=== PATIENT | female | born 1995 | race Hispanic/Latino ===

== ENCOUNTER 2024-03-23 04:30 | Emergency (ER) | payer OTHER ==
--- OUTSIDE RECORDS SUMMARY | 2024-03-23 04:35 | XMS REPORT | Continuity of Care Document ---
Author Name Unknown Address [address] [facility] [address]. [address] [place] [address] [facility] Address [address] [facility]. 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 Role Phone Alecia Kim Primary Care Physician [phone]- [phone] SHARLA PULLIAM Attending Clinician Unavailab SHARLA Howe Attending Clinician Unavailab ALECIA Hendricks Attending Clinician UnavailALECIA Hernandez Attending Clinician Unavailabl e 1, [facility] Clementine Nurse Attending Clinician Un available Celeste Hill CNM Attending Clinician [phone] CELESTE HILL Attending Clinician Unavailable PAPA CARLSON Attending Clinician Unavailable PAPA CARLSON Attending Clinician Unavailable Papa Carlson MD Attending Clinician [phone] Ana Luisa Rodriguez MD Attending Clinician + Sara Steven MD Attending Clinician [phone] Karla Martinez MD Attending Clinician +[phone] USAMA PACHECO Attending Clinician Unavailable EVELIA WHITING Attending Clinician Unav ailable Mary Lou Chew MD, Evelia Attending Clinician + LEN ARIAS Attending Clinician Unav ailable 1, [facility] Attending Clinician Unavailab uvaldo Bach MD, Len Attending Clinician + Pedro Pablo SANDRAAna L Attending Clinician + [phone] JESSICA GONZALES Attending Clinician Unavailable JESSICA GONZALES Attending Clinician Unavailable Christian REYNA, Jessica Attending Clinician [phone] William RN, Gunjan Attending Clinician UnavailNILESH Cheney Attending Clinician Unavailab uvaldo Silva MD, Nilesh Ortega Attending Clinician [phone] IVETH RICHARDSON Attending Clinician Unavailable IVETH RICHARDSON Attending Clinician Unavailable Doctor Unassigned, [place] Attending Clinician U navailable Lab, [facility] Attending Clinician Unavailable Vaishnavi Mullins Attending Clinician [phone] VAISHNAVI DE LA CRUZ Attending Clinician UnavailMINNIE Ocasio Attending Clinician Unavailable 2, [facility] Attending Clinician Unavailab Minnie Nowak MD Attending Clinician [phone] Jori Tafoya V Attending Clinician Unavailab Adonay Perdomo Attending Clinician Unavailable Suleman Walters Attending Clinician Unainez Alcantara Rn RN, Grace Arnold Attending Clinician Unava ilable PAPA CARLSON Admitting Clinician Unavailable Aldo REYNA, Papa Admitting Clinician [phone] EVELIA WHITING Admitting Clinician Unav ailable Evelia Whiting MD Admitting Clinician + JESSICA GONZALES Admitting Clinician Unavailable Jessica Gonzales MD Admitting Clinician [phone] NILESH SILVA Admitting Clinician Unavailab uvaldo Silva MD, Nilesh Ortega Admitting Clinician [phone] IVETH RICHARDSON Admitting Clinician Unavailable Rosa Maria Sanches Admitting Clinician Unavailable Physician, No Primary or Family Admitting Clinic alirio Unavailable Payers Payer Name Policy Type Policy Number Effective Date Expirati on Date Source [facility] MAT[facility]W [id number] 2022 00:00:00 Problems Condition Name Condition Details Condition Category Status Onset Date Resolution Date Last Treatment Date Treating Clinician Comments Source anemia anemia Disease Active 5-17 00:00: 00 [facility] Indication for care in labor or delivery-I OL Indication for care in labor or delivery-I OL Disease Active 5-15 00:00: 00 [facility] Abnormal maternal glucose tolerance, antepartum Abnormal maternal glucose tolerance, antepartum Disease Active 2-15 00:00: 00 [facility] 39 weeks gestation of 39 weeks gestation of Disease Resolve d 15 00:00: 00 2023-08-03 00:00:00 2023-08-03 15:09:44 [facility] Morbid obesity with body mass index of 40.0-49.9 Morbid obesity with body mass index of 40.0-49.9 Disease Resolve d 15 00:00: 00 2023-08-03 00:00:00 2023-08-03 15:09:43 [facility] Maternal care for unstable lie Maternal care for unstable lie Disease Resolve d 515 00:00: 00 2023-08-03 00:00:00 2023-08-03 15:09:41 [facility] delivery delivered delivery delivered Disease Resolve d 15 00:00: 00 2023-08-03 00:00:00 2023-08-03 15:09:52 Overview: Formattin g of this note might be different from the original. LTCS due to protracte d labor and maternal request [facility] Obesity (BMI 30-39.9) Obesity (BMI 30-39.9) Disease Resolve d 5-05 00:00: 00 2023-08-03 00:00:00 2023-08-03 15:09:44 [facility] Anemia affecting , antepartum Anemia affecting , antepartum Disease Resolve d 2024-0 4-23 00:00: 00 2023-08-03 00:00:00 2023-08-03 15:09:45 [facility] Uterine size-date discrepanc y in third trimester Uterine size-date discrepanc y in third trimester Disease Resolve d 2023-0 4-18 00:00: 00 2023-08-03 00:00:00 2023-08-03 15:09:53 [facility] Abnormal O'Thomas glucose challenge test, antepartum Abnormal O'Thomas glucose challenge test, antepartum Disease Resolve d 2023-0 2-15 00:00: 00 2023-08-03 00:00:00 2023-08-03 15:09:47 Overview: Formattin g of this note might be different from the original. 3 hr GTT WNL [facility] Supervisio n of high risk in third trimester Supervisio n of high risk in third trimester Disease Resolve d 2022-1 2-27 00:00: 00 2023-08-03 00:00:00 2023-08-03 15:09:50 [facility] Multiparit y Multiparit y Disease Resolve d 2022-0 9-13 00:00: 00 2023-08-03 00:00:00 2023-08-03 15:09:51 [facility] Obesity affecting , antepartum Obesity affecting , antepartum Disease Resolve d 2022-0 9-13 00:00: 00 2023-08-03 00:00:00 2023-08-03 15:09:51 [facility] Transverse or oblique presentati on, antepartum Transverse or oblique presentati on, antepartum Disease Resolve d 2023-0 4-10 00:00: 00 2023-07-12 00:00:00 2023-07-12 16:53:38 [facility] Decreased movement Decreased movement Disease Resolve d 2023-0 3-28 00:00: 00 2023-07-12 00:00:00 2023-07-12 16:53:27 [facility] Nausea and vomiting in Nausea and vomiting in Disease Resolve d 2023-0 3-26 00:00: 00 2023-07-12 00:00:00 2023-07-12 16:53:32 [facility] Urinary tract infection in mother during , antepartum Urinary tract infection in mother during , antepartum Disease Resolve d 2022-0 9-19 00:00: 00 2023-07-12 00:00:00 2023-07-12 16:53:46 [facility] 15 weeks gestation of 15 weeks gestation of Disease Resolve d 2022-02 00:00: 00 2023-02-22 00:00:00 2023-02-22 15:41:28 [facility] Ovarian cyst, left Ovarian cyst, left Disease Resolve d 2022-02 00:00: 00 2023-02-22 00:00:00 2023-02-22 15:41:31 [facility] Supervisio n of high risk in first trimester Supervisio n of high risk in first trimester Disease Resolve d 9- 00:00: 00 2023-01-23 00:00:00 2023-01-23 09:51:49 [facility] Allergies, Adverse Reactions, Alerts Allergy Name Allergy Type Status Severity Reaction(s) Onset Date Inactive Date Treating Clinician Comments Source No Known Allergie s DA Active U 08-02 00:00: 00 [facility] No Known Allergie s DA Active U 08-02 00:00: 00 [facility] NO KNOWN ALLERGIE S Drug Class Active [facility] Social History Social Habit Start Date Stop Date Quantity Comments Source ASSERTION 2022-10-25 00:00:00 [facility] Alcoholic beverage intake 2023-08-24 00:00:00 2023-08-24 00:00:00 Lifetime non-drinker (finding) [facility] Alcohol intake 2023-06-29 00:00:00 2023-06-29 00:00:00 Lifetime non-drinker (finding) [facility] History of Social function 2023-05-10 00:00:00 2023-05-10 00:00:00 [facility] Tobacco use and exposure 2022-11-09 00:00:00 2022-11-09 00:00:00 Smokeless tobacco non-user [facility] Sex assigned at 1995 00:00:00 1995 00:00:00 [facility] Smoking Status Start Date Stop Date Source Never smoked tobacco [facility] Medications Ordered Medication Name Filled Medication Name Start Date Stop Date Current Medication? Ordering Clinician Indication Dosage Frequency Signature (SIG) Comments Components Source docusate (COLACE) capsule 200 mg 07-13 14:00: 00 07-14 03:35 :13 No 200mg 200 mg, Oral, DAILY, First dose on Mon07/14/23 at 0900, Until Discontinu ed, Routine [facility] ferrous sulfate 325 mg (65 mg iron) tablet 07-13 00:00: 00 Yes [id number] 325mg Take 1 tablet by mouth in the morning. [facility] [id number] fum-folic 27 mg iron- 1 mg folic tablet 07-13 00:00: 00 Yes [id number] 1{tbl} Take 1 tablet by mouth in the morning. [facility] docusate 100 mg capsule 07-13 00:00: 00 Yes [id number] 200mg Take 2 capsules by mouth once daily as needed for Constipati on. [facility] ibuprofen 800 mg tablet 07-13 00:00: 00 Yes [id number] 800mg Take 1 tablet by mouth every 8 (eight) hours as needed (pain). Take with food or milk. [facility] oxyCODONE 5 mg immediate release tablet 07-13 00:00: 00 07-21 04:59 :00 No [id number] 5mg Take 1 tablet by mouth every 6 (six) hours as needed (pain) for up to 7 days. Indication s: acute pain [facility] ibuprofen (IBU) tablet 800 mg 07-12 22:30: 00 07-14 03:35 :13 No 800mg 800 mg, Oral, Q8HA1, First dose on Mon07/13/23 at 1730, Until Discontinu ed, Routine [facility] acetaminoph en (TYLENOL) tablet 1,000 mg 07-12 19:00: 00 07-14 03:35 :13 No 1000mg 1,000 mg, Oral, Q8H, First dose on Mon07/13/23 at 1400, Until Discontinu ed, Routine [facility] simethicone (GAS RELIEF (SIMETHICON E)) chewable tablet 160 mg 07-12 19:00: 00 07-14 03:35 :13 No 160mg 160 mg, Oral, TID, First dose on Mon07/13/23 at 1400, Until Discontinu ed, Routine [facility] rho(D) immune globulin (HYPERRHO/R HOGAM) syringe 300 mcg 07-12 18:57: 58 07-14 03:35 :13 No 300ug [facility] human papillomav vac,9-silas(P F) (GARDASIL-9 ) syringe 0.5 mL 07-12 18:57: 53 07-14 03:35 :13 No .5mL [facility] diphenhydrA MINE (BENADRYL) injection 25 mg 07-12 18:57: 53 07-14 03:35 :13 No 25mg [facility] diphenhydrA MINE (BENADRYL) tablet 25 mg 07-12 18:57: 53 07-14 03:35 :13 No 25mg [facility] ondansetron (ZOFRAN (PF)) injection 4 mg 07-12 18:57: 53 07-14 03:35 :13 No 4mg [facility] bisacodyL (DULCOLAX) suppository 10 mg 07-12 18:57: 53 07-14 03:35 :13 No 10mg [facility] magnesium hydroxide (MILK OF MAGNESIA) 400 mg/5 mL suspension 30 mL 07-12 18:57: 53 07-14 03:35 :13 No 30mL 30 mL, Oral, QDAILYPRN, Starting on Mary 07/13/23 at 1357, Until Mon07/14/23 at 2235, Routine, Constipati on [facility] lactated ringers IV infusion 1,000 mL 07-12 18:57: 53 07-12 20:10 :17 No 1000mL at 125 mL/hr, 1,000 mL, IV Infusion, PRN, 1 dose, Starting on Mary 07/13/23 at 1357, Until Mary 07/13/23 at 1510, Routine [facility] oxyCODONE immediate release tablet 5 mg 07-12 18:53: 39 07-14 03:35 :13 No 5mg 5 mg, Oral, Q6HPRN, Starting on Mary 07/13/23 at 1353, Until Mon07/14/23 at 2235, Routine, Pain (scale 7-10), 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 Restricted medication : OB FACULTY [facility] ketorolac (TORADOL) injection 07-12 18:01: 00 07-12 18:09 :47 No Slow IV Push, ONCE INTRA PROCEDURE, Starting on Mary 07/13/23 at 1301, Until Mary 07/13/23 at 1309, Routine, Intra-op [facility] morpHINE PF (DURAMORPH- PF) injection 07-12 17:57: 00 07-12 18:09 :47 No Epidural, ONCE INTRA PROCEDURE, Starting on Mary 07/13/23 at 1257, Until Mary 07/13/23 at 1309, Routine, Intra-op [facility] FENTanyl PF (SUBLIMAZE (PF)) injection 07-12 17:36: 00 07-12 18:09 :47 No Intratheca l, ONCE INTRA PROCEDURE, Starting on Mary 07/13/23 at 1236, Until Mary 07/13/23 at 1309, Routine, Intra-op [facility] midazolam (VERSED) injection 07-12 17:20: 00 07-12 18:09 :47 No IV Push, ONCE INTRA PROCEDURE, Starting on Mary 07/13/23 at 1220, Until Mary 07/13/23 at 1309, Routine, Intra-op [facility] azithromyci n (ZITHROMAX) 500 mg in NaCl 0.9% (NS) 250 mL VIAL-MATE IV piggyback 07-12 17:15: 00 07-12 16:52 :00 No 500mg 500 mg, IV Piggyback, ONCE, 1 dose, On Mary 07/13/23 at 1215, Administer over 60 Minutes, 250 mL, Reason for Anti-Infec tive: Surgical Prophylaxi s, 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, Duration of therapy: within 24 hours of surgery [facility] ceFAZolin (ANCEF) 2,000 mg in NaCl 0.9% (NS) 100 mL VIAL-MATE 07-12 17:15: 00 07-12 17:10 :00 No 2000mg 2,000 mg, IV Piggyback, ONCE, 1 dose, On Mary 07/13/23 at 1215, Administer over 30 Minutes, 100 mL, Reason for Anti-Infec tive: Surgical Prophylaxi s, 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, Duration of therapy: within 24 hours of surgery [facility] FENTanyl PF (SUBLIMAZE (PF)) injection 07-12 17:03: 00 07-12 18:09 :47 No Epidural, ONCE INTRA PROCEDURE, Starting on Mary 07/13/23 at 1203, Until Mary 07/13/23 at 1309, Routine, Intra-op [facility] phenylephri ne (VAZCULEP) injection 07-12 16:57: 00 07-12 18:09 :47 No Intravenou s, CONTINUOUS PRN, Starting on Mary 07/13/23 at 1157, Until Mary 07/13/23 at 1309, Routine, Intra-op [facility] lactated ringers IV infusion 07-12 16:47: 00 07-12 18:09 :47 No IV Infusion, CONTINUOUS PRN, Starting on Mary 07/13/23 at 1147, Until Mary 07/13/23 at 1309, Routine, Intra-op [facility] lidocaine-e pinephrine (XYLOCAINE W/EPINEPHRI NE) 2 %-1:200,000 injection 07-12 16:40: 00 07-12 18:09 :47 No Epidural, ONCE INTRA PROCEDURE, Starting on Mary 07/13/23 at 1140, Until Mary 07/13/23 at 1309, Routine, Intra-op [facility] amnioinfusi on IV infusion via GRAVITY 0.9 NaCL 1,000 mL 07-12 12:45: 00 07-12 12:47 :00 No 1000mL at 750 mL/hr, Intrauteri ne, ONCE, 1 dose, On Mary 07/13/23 at 0745, DAVID, Infuse via gravity 750 ml over 1 hour. Once 750 mL has been infused, the infusion may be discontinu ed or decreased to 100 mL/hr until the liter is complete. 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 Obstetrics (JUSTINO) Aminoinfus ion Orders [facility] ondansetron (ZOFRAN (PF)) injection 4 mg 07-12 12:30: 00 07-12 17:14 :00 No 4mg 4 mg, Slow IV Push, ONCE, On Mary 07/13/23 at 0730, For 1 dose, Doses of ondansetro n 16 mg and above need to be administer ed via IV piggyback. For Dose >=24mg ECG monitoring is advisable. [facility] acetaminoph en (TYLENOL) tablet 650 mg 07-12 03:40: 35 07-12 18:57 :56 No 650mg 650 mg, Oral, Q6HPRN, Starting on Mon07/12/23 at 2240, Until Mary 07/13/23 at 1357, Routine, Pain (scale 4-6) [facility] ropivacaine 0.2 % (NAROPIN (PF)) epidural infusion 07-12 00:52: 00 07-12 18:09 :47 No Epidural, CONTINUOUS PRN, Starting on Mon07/12/23 at 1952, Until Mary 07/13/23 at 1309, Routine, Intra-op [facility] lidocaine-e pinephrine (XYLOCAINE W/EPINEPHRI NE) 1.5 %-1:200,000 injection 07-12 00:50: 00 07-12 18:09 :47 No Epidural, ONCE INTRA PROCEDURE, Starting on Mon07/12/23 at 1950, Until Mary 07/13/23 at 1309, Routine, Intra-op [facility] lactated ringers IV infusion 700 mL 07-11 20:45: 00 07-12 00:25 :42 No 700mL at 999 mL/hr, 700 mL, IV Infusion, ONCE, 1 dose, On Mon07/12/23 at 1545, Routine [facility] sodium citrate-cit tommie acid (BICITRA) 500-334 mg/5 mL solution 30 mL 07-11 19:54: 22 07-12 00:34 :00 No 30mL 30 mL, Oral, PRE-PROCED URE ONCE, 1 dose, Starting on Mon07/12/23 at 1454, Until Mon07/12/23 at 1934, Routine, Surgery/Pr ocedure [facility] lactated ringers IV infusion 500 mL 07-11 19:54: 22 07-12 18:57 :56 No 500mL at 999 mL/hr, 500 mL, IV Infusion, PRN - SEE INSTRUCTIO NS, Starting on Mon07/12/23 at 1454, Until Mary 07/13/23 at 1357, Routine [facility] D5W-LR IV infusion 1,000 mL 07-11 19:54: 22 07-12 18:57 :56 No 1000mL at 1-125 mL/hr, IV Infusion, TITRATE, Starting on Mon07/12/23 at 1454, Until Mary 07/13/23 at 1357, Routine [facility] sodium citrate-cit tommie acid (BICITRA) 500-334 mg/5 mL solution 30 mL 07-11 19:54: 21 07-12 16:40 :00 No 30mL 30 mL, Oral, PRE-PROCED URE ONCE, 1 dose, Starting on Mon07/12/23 at 1454, Until Mon07/13/23 at 1140, Routine, Surgery/Pr ocedure [facility] acetaminoph en (TYLENOL) tablet 1,000 mg 07-01 11:15: 00 07-01 10:15 :00 No 1000mg 1,000 mg, Oral, ONCE, 1 dose, On Mon07/02/23 at 0615, Routine [facility] lactated ringers IV infusion 500 mL 07-01 09:45: 00 07-01 09:54 :39 No 500mL at 999 mL/hr, 500 mL, Intravenou s, ONCE, 1 dose, On Mon07/02/23 at 0445, Routine [facility] ferrous sulfate (IRON, FERROUS SULFATE,) 325 mg (65 mg iron) tablet 06-19 00:00: 00 Yes [id number] 325mg Take 1 tablet by mouth in the morning. [facility] lactated ringers IV infusion 500 mL 05-22 17:45: 00 05-22 17:09 :00 No 500mL at 999 mL/hr, 500 mL, IV Infusion, ONCE, 1 dose, On Mon05/23/23 at 1245, STAT [facility] ondansetron (ZOFRAN (PF)) injection 4 mg 05-22 17:45: 00 05-22 17:13 :00 No 4mg 4 mg, Slow IV Push, ONCE, On Mon05/23/23 at 1245, For 1 dose
Do ses of ondansetro n 16 mg and above need to be administer ed via IV piggyback. For Dose >=24mg ECG monitoring is advisable.
[facility] ondansetron 4 mg disintegrat ing tablet 05-22 00:00: 00 Yes [id number] 4mg Take 1 tablet by mouth every 8 (eight) hours as needed for Nausea and Vomiting (N/V). [facility] metroNIDAZO LE 500 mg tablet 2022-02 00:00: 00 03-22 00:00 :00 No [id number] 500mg Take 1 tablet by mouth every 12 (twelve) hours. [facility] sulfamethox azole-trime thoprim (BACTRIM DS) 800-160 mg per tablet 11-15 00:00: 00 11-21 04:59 :00 No [id number] 1{tbl} Take 1 tablet by mouth in the morning and 1 tablet in the evening. Do all this for 5 days. [facility] Nitrofurant oin&Nit. Macrocryst (MACROBID) 100 mg capsule 11-09 00:00: 00 11-15 00:00 :00 No [id number] 100mg Take 1 capsule by mouth in the morning and 1 capsule in the evening. Do all this for 7 days. [facility] Immunizations Ordered Immunization Name Filled Immunization Name Date Status Comments Source Influenza Virus Vaccine Quad IM, Preserv and ABX Free 6 MO-64 YRS (FLUCELVAX) Unknown Completed [facility] Influenza Virus Vaccine Quad IM, Preserv and ABX Free 6 MO-64 YRS (FLUCELVAX) Unknown Completed [facility] Influenza Virus Vaccine Quad IM, Preserv and ABX Free 6 MO-64 YRS (FLUCELVAX) Unknown Completed [facility] Influenza Virus Vaccine Quad IM, Preserv and ABX Free 6 MO-64 YRS (FLUCELVAX) Unknown Completed [facility] Influenza Virus Vaccine Quad IM, Preserv and ABX Free 6 MO-64 YRS (FLUCELVAX) Unknown Completed [facility] Influenza Virus Vaccine Quad IM, Preserv and ABX Free 6 MO-64 YRS (FLUCELVAX) Unknown Completed [facility] Influenza Virus Vaccine Quad IM, Preserv and ABX Free 6 MO-64 YRS (FLUCELVAX) Unknown Completed [facility] Influenza Virus Vaccine Quad IM, Preserv and ABX Free 6 MO-64 YRS (FLUCELVAX) Unknown Completed [facility] Influenza Virus Vaccine Quad IM, Preserv and ABX Free 6 MO-64 YRS (FLUCELVAX) Unknown Completed [facility] Influenza Virus Vaccine Quad IM, Preserv and ABX Free 6 MO-64 YRS (FLUCELVAX) Unknown Completed [facility] Influenza Virus Vaccine Quad IM, Preserv and ABX Free 6 MO-64 YRS (FLUCELVAX) Unknown Completed [facility] Influenza Virus Vaccine Quad IM, Preserv and ABX Free 6 MO-64 YRS (FLUCELVAX) Unknown Completed [facility] TDAP Unknown Completed [facility] Influenza Virus Vaccine Quad IM, Preserv and ABX Free 6 MO-64 YRS (FLUCELVAX) Unknown Completed [facility] TDAP Unknown Completed [facility] Influenza Virus Vaccine Quad IM, Preserv and ABX Free 6 MO-64 YRS (FLUCELVAX) Unknown Completed [facility] Influenza Virus Vaccine Quad IM, Preserv and ABX Free 6 MO-64 YRS (FLUCELVAX) Unknown Completed [facility] TDAP Unknown Completed [facility] Influenza Virus Vaccine Quad IM, Preserv and ABX Free 6 MO-64 YRS (FLUCELVAX) Unknown Completed [facility] TDAP Unknown Completed [facility] Influenza Virus Vaccine Quad IM, Preserv and ABX Free 6 MO-64 YRS (FLUCELVAX) Unknown Completed [facility] TDAP Unknown Completed [facility] Influenza Virus Vaccine Quad IM, Preserv and ABX Free 6 MO-64 YRS (FLUCELVAX) Unknown Completed [facility] TDAP Unknown Completed [facility] Influenza Virus Vaccine Quad IM, Preserv and ABX Free 6 MO-64 YRS (FLUCELVAX) Unknown Completed [facility] TDAP Unknown Completed [facility] Influenza Virus Vaccine Quad IM, Preserv and ABX Free 6 MO-64 YRS (FLUCELVAX) Unknown Completed [facility] TDAP Unknown Completed [facility] Influenza Virus Vaccine Quad IM, Preserv and ABX Free 6 MO-64 YRS (FLUCELVAX) Unknown Completed [facility] TDAP Unknown Completed [facility] Influenza Virus Vaccine Quad IM, Preserv and ABX Free 6 MO-64 YRS (FLUCELVAX) Unknown Completed [facility] TDAP Unknown Completed [facility] Influenza Virus Vaccine Quad IM, Preserv and ABX Free 6 MO-64 YRS (FLUCELVAX) Unknown Completed [facility] TDAP Unknown Completed [facility] Influenza Virus Vaccine Quad IM, Preserv and ABX Free 6 MO-64 YRS (FLUCELVAX) Unknown Completed [facility] TDAP Unknown Completed [facility] Influenza Virus Vaccine Quad IM, Preserv and ABX Free 6 MO-64 YRS (FLUCELVAX) Unknown Completed [facility] TDAP Unknown Completed [facility] Influenza Virus Vaccine Quad IM, Preserv and ABX Free 6 MO-64 YRS (FLUCELVAX) Unknown Completed [facility] TDAP Unknown Completed [facility] Influenza Virus Vaccine Quad IM, Preserv and ABX Free 6 MO-64 YRS (FLUCELVAX) Unknown Completed [facility] TDAP Unknown Completed [facility] Influenza Virus Vaccine Quad IM, Preserv and ABX Free 6 MO-64 YRS (FLUCELVAX) Unknown Completed [facility] TDAP Unknown Completed [facility] Influenza Virus Vaccine Quad IM, Preserv and ABX Free 6 MO-64 YRS (FLUCELVAX) Unknown Completed [facility] TDAP Unknown Completed [facility] Influenza Virus Vaccine Quad IM, Preserv and ABX Free 6 MO-64 YRS (FLUCELVAX) Unknown Completed [facility] TDAP Unknown Completed [facility] Influenza Virus Vaccine Quad IM, Preserv and ABX Free 6 MO-64 YRS (FLUCELVAX) Unknown Completed [facility] TDAP Unknown Completed [facility] Influenza Virus Vaccine Quad IM, Preserv and ABX Free 6 MO-64 YRS (FLUCELVAX) Unknown Completed [facility] TDAP Unknown Completed [facility] Influenza Virus Vaccine Quad IM, Preserv and ABX Free 6 MO-64 YRS (FLUCELVAX) Unknown Completed [facility] TDAP Unknown Completed [facility] Influenza Virus Vaccine Quad IM, Preserv and ABX Free 6 MO-64 YRS (FLUCELVAX) Unknown Completed [facility] TDAP Unknown Completed [facility] Influenza Virus Vaccine Quad IM, Preserv and ABX Free 6 MO-64 YRS (FLUCELVAX) Unknown Completed [facility] TDAP Unknown Completed [facility] Influenza Virus Vaccine Quad IM, Preserv and ABX Free 6 MO-64 YRS (FLUCELVAX) Unknown Completed [facility] TDAP Unknown Completed [facility] Influenza Virus Vaccine Quad IM, Preserv and ABX Free 6 MO-64 YRS (FLUCELVAX) Unknown Completed [facility] TDAP Unknown Completed [facility] Influenza Virus Vaccine Quad IM, Preserv and ABX Free 6 MO-64 YRS (FLUCELVAX) Unknown Completed [facility] TDAP Unknown Completed [facility] Influenza Virus Vaccine Quad IM, Preserv and ABX Free 6 MO-64 YRS (FLUCELVAX) Unknown Completed [facility] TDAP Unknown Completed [facility] Influenza Virus Vaccine Quad IM, Preserv and ABX Free 6 MO-64 YRS (FLUCELVAX) Unknown Completed [facility] TDAP Unknown Completed [facility] Influenza Virus Vaccine Quad IM, Preserv and ABX Free 6 MO-64 YRS (FLUCELVAX) Unknown Completed [facility] TDAP Unknown Completed [facility] Vital Signs Vital Name Observation Time Observation Value Comments S ource Systolic blood pressure 2023-08-24 19:17:00 90 mm[facility]Hg[facility] Diastolic blood pressure 2023-08-24 19:17:00 50 mm[Hg] [facility] Heart rate 2023-08-24 19:17:00 62 /min [facility] Body temperature 2023-08-24 19:17:00 36.61 Whitney [facility] Respiratory rate 2023-08-24 19:17:00 16 /min [facility] Body height 2023-08-24 19:17:00 137.2 cm [facility] Body weight 2023-08-24 19:17:00 67.643 kg [facility] BMI 2023-08-24 19:17:00 35.93 kg/m2 [facility] Systolic blood pressure 2023-08-03 20:22:00 95 mm[Hg] [facility] Diastolic blood pressure 2023-08-03 20:22:00 59 mm[Hg] [facility] Heart rate 2023-08-03 20:22:00 68 /min Unive [facility] Body temperature 2023-08-03 20:22:00 36.5 Whitney [facility] Respiratory rate 2023-08-03 20:22:00 17 /min [facility] Body height 2023-08-03 20:22:00 137.2 cm [facility] Body weight 2023-08-03 20:22:00 67.302 kg [facility] BMI 2023-08-03 20:22:00 35.75 kg/m2 Univ [facility] Systolic blood pressure 2023-07-20 16:34:00 99 mm[Hg] [facility] Diastolic blood pressure 2023-07-20 16:34:00 59 mm[Hg] [facility] Heart rate 2023-07-20 16:34:00 63 /min Unive [facility] Body temperature 2023-07-20 16:34:00 36.61 Whitney [facility] Respiratory rate 2023-07-20 16:34:00 20 /min [facility] Body weight 2023-07-20 16:34:00 72.122 kg [facility] BMI 2023-07-20 16:34:00 38.31 kg/m2 [facility] Oxygen saturation in Arterial blood by Pulse oximetry 2023-07-20 16:34:00 100 /min [facility] Systolic blood pressure 2023-07-14 17:11:00 91 mm[Hg] [facility] Diastolic blood pressure 2023-07-14 17:11:00 54 mm[Hg] [facility] Heart rate 2023-07-14 17:11:00 112 /min [facility] Body temperature 2023-07-14 17:11:00 36.44 Whitney [facility] Respiratory rate 2023-07-14 17:11:00 18 /min [facility] Oxygen saturation in Arterial blood by Pulse oximetry 2023-07-14 17:11:00 98 /min [facility] Body weight 2023-07-12 19:53:00 77.111 kg Univ [facility] BMI 2023-07-12 19:53:00 40.96 kg/m2 Univ [facility] Body height 2023-07-12 19:10:00 137.2 cm [facility] Systolic blood pressure 2023-07-13 19:20:00 101 mm[Hg] [facility] Diastolic blood pressure 2023-07-13 19:20:00 70 mm[Hg] [facility] Heart rate 2023-07-13 19:20:00 98 /min [facility] Body temperature 2023-07-13 19:20:00 36.67 Whitney [facility] Respiratory rate 2023-07-13 19:20:00 21 /min [facility] Oxygen saturation in Arterial blood by Pulse oximetry 2023-07-13 19:20:00 97 /min [facility] Body weight 2023-07-12 19:53:00 77.111 kg [facility] BMI 2023-07-12 19:53:00 40.96 kg/m2 [facility] Body height 2023-07-12 19:10:00 137.2 cm [facility] Systolic blood pressure 2023-07-10 14:11:00 100 mm[Hg] [facility] Diastolic blood pressure 2023-07-10 14:11:00 67 mm[Hg] [facility] Heart rate 2023-07-10 14:11:00 91 /min [facility] Body temperature 2023-07-10 14:11:00 36.89 Whitney [facility] Body height 2023-07-10 14:11:00 137.2 cm Univ [facility] Body weight 2023-07-10 14:11:00 77.111 kg [facility] BMI 2023-07-10 14:11:00 40.99 kg/m2 [facility] Systolic blood pressure 2023-07-02 10:30:00 99 mm[Hg] [facility] Diastolic blood pressure 2023-07-02 10:30:00 55 mm[Hg] [facility] Heart rate 2023-07-02 10:30:00 76 /min Un[facility] Oxygen saturation in Arterial blood by Pulse oximetry 2023-07-02 10:30:00 97 /min [facility] Respiratory rate 2023-07-02 09:30:00 18 /min [facility] Body temperature 2023-07-02 08:39:00 36.67 Whitney [facility] Body height 2023-07-02 08:30:00 139.7 cm Univ [facility] Body weight 2023-07-02 08:30:00 77.656 kg [facility] BMI 2023-07-02 08:30:00 39.79 kg/m2 [facility] Systolic blood pressure 2023-06-29 13:58:00 100 mm[Hg] [facility] Diastolic blood pressure 2023-06-29 13:58:00 64 mm[Hg] [facility] Heart rate 2023-06-29 13:58:00 96 /min [facility] Body temperature 2023-06-29 13:58:00 36.67 Whitney [facility] Respiratory rate 2023-06-29 13:58:00 18 /min [facility] Body height 2023-06-29 13:58:00 139.7 cm [facility] Body weight 2023-06-29 13:58:00 77.565 kg [facility] BMI 2023-06-29 13:58:00 39.74 kg/m2 [facility] Systolic blood pressure 2023-06-22 11:59:00 97 mm[Hg] [facility] Diastolic blood pressure 2023-06-22 11:59:00 66 mm[Hg] [facility] Heart rate 2023-06-22 11:59:00 97 /min [facility] Body temperature 2023-06-22 11:59:00 36.17 Whitney [facility] Respiratory rate 2023-06-22 11:59:00 17 /min [facility] Body height 2023-06-22 11:59:00 139.7 cm [facility] Body weight 2023-06-22 11:59:00 78.189 kg [facility] BMI 2023-06-22 11:59:00 40.06 kg/m2 [facility] Systolic blood pressure 2023-06-15 15:59:00 98 mm[Hg] [facility] Diastolic blood pressure 2023-06-15 15:59:00 63 mm[Hg] [facility] Heart rate 2023-06-15 15:59:00 107 /min Unive [facility] Body temperature 2023-06-15 15:59:00 36.11 Whitney [facility] Respiratory rate 2023-06-15 15:59:00 18 /min [facility] Body height 2023-06-15 15:59:00 139.7 cm [facility] Body weight 2023-06-15 15:59:00 77.792 kg [facility] BMI 2023-06-15 15:59:00 39.86 kg/m2 [facility] Oxygen saturation in Arterial blood by Pulse oximetry 2023-06-15 15:59:00 97 /min [facility] Systolic blood pressure 2023-06-07 14:23:00 98 mm[Hg] [facility] Diastolic blood pressure 2023-06-07 14:23:00 69 mm[Hg] [facility] Heart rate 2023-06-07 14:23:00 117 /min Un[facility] Body temperature 2023-06-07 14:23:00 36.17 Whitney [facility] Respiratory rate 2023-06-07 14:23:00 17 /min [facility] Body height 2023-06-07 14:23:00 137.2 cm [facility] Body weight 2023-06-07 14:23:00 77.593 kg [facility] BMI 2023-06-07 14:23:00 41.24 kg/m2 [facility] Systolic blood pressure 2023-05-25 22:00:00 98 mm[Hg] [facility] Diastolic blood pressure 2023-05-25 22:00:00 55 mm[Hg] [facility] Heart rate 2023-05-25 22:00:00 97 /min Un[facility] Oxygen saturation in Arterial blood by Pulse oximetry 2023-05-25 22:00:00 98 /min [facility] Body temperature 2023-05-25 21:09:00 37.22 Whitney [facility] Respiratory rate 2023-05-25 21:09:00 18 /min [facility] Systolic blood pressure 2023-05-25 18:29:00 106 mm[Hg] [facility] Diastolic blood pressure 2023-05-25 18:29:00 70 mm[Hg] [facility] Heart rate 2023-05-25 18:29:00 100 /min Unive [facility] Body temperature 2023-05-25 18:29:00 36.33 Whitney [facility] Respiratory rate 2023-05-25 18:29:00 17 /min [facility] Body height 2023-05-25 18:29:00 137.2 cm [facility] Body weight 2023-05-25 18:29:00 77.593 kg [facility] BMI 2023-05-25 18:29:00 41.24 kg/m2 [facility] Heart rate 2023-05-24 16:54:00 105 /min Unive [facility] Body temperature 2023-05-24 16:54:00 36.72 Whitney [facility] Respiratory rate 2023-05-24 16:54:00 18 /min [facility] Body height 2023-05-24 16:54:00 137.2 cm [facility] Body weight 2023-05-24 16:54:00 77.111 kg [facility] BMI 2023-05-24 16:54:00 40.99 kg/m2 [facility] Oxygen saturation in Arterial blood by Pulse oximetry 2023-05-24 16:54:00 99 /min [facility] Systolic blood pressure 2023-05-24 13:55:00 94 mm[Hg] [facility] Diastolic blood pressure 2023-05-24 13:55:00 59 mm[Hg] [facility] Heart rate 2023-05-24 13:55:00 90 /min Unive [facility] Body temperature 2023-05-24 13:55:00 36.44 Whitney [facility] Respiratory rate 2023-05-24 13:55:00 17 /min [facility] Body height 2023-05-24 13:55:00 137.2 cm [facility] Body weight 2023-05-24 13:55:00 77.338 kg [facility] BMI 2023-05-24 13:55:00 41.11 kg/m2 [facility] Systolic blood pressure 2023-05-23 19:30:00 97 mm[Hg] [facility] Diastolic blood pressure 2023-05-23 19:30:00 59 mm[Hg] [facility] Heart rate 2023-05-23 19:30:00 98 /min Un[facility] Oxygen saturation in Arterial blood by Pulse oximetry 2023-05-23 19:30:00 99 /min [facility] Body height 2023-05-23 17:08:00 137.2 cm [facility] Body weight 2023-05-23 17:08:00 77.565 kg [facility] BMI 2023-05-23 17:08:00 41.23 kg/m2 [facility] Body temperature 2023-05-23 16:44:00 36.89 Whitney [facility] Respiratory rate 2023-05-23 16:44:00 16 /min [facility] Systolic blood pressure 2023-05-10 13:10:00 95 mm[Hg] [facility] Diastolic blood pressure 2023-05-10 13:10:00 61 mm[Hg] [facility] Heart rate 2023-05-10 13:10:00 89 /min [facility] Body temperature 2023-05-10 13:10:00 36.33 Whitney [facility] Respiratory rate 2023-05-10 13:10:00 18 /min [facility] Body height 2023-05-10 13:10:00 137.2 cm [facility] Body weight 2023-05-10 13:10:00 77.837 kg Univ [facility] BMI 2023-05-10 13:10:00 41.37 kg/m2 [facility] Systolic blood pressure 2023-04-26 15:03:00 100 mm[Hg] [facility] Diastolic blood pressure 2023-04-26 15:03:00 60 mm[Hg] [facility] Heart rate 2023-04-26 15:03:00 108 /min Un[facility] Body temperature 2023-04-26 15:03:00 35.89 Whitney [facility] Respiratory rate 2023-04-26 15:03:00 20 /min [facility] Body height 2023-04-26 15:03:00 137.2 cm Univ [facility] Body weight 2023-04-26 15:03:00 77.474 kg [facility] BMI 2023-04-26 15:03:00 41.18 kg/m2 [facility] Systolic blood pressure 2023-04-12 15:33:00 107 mm[Hg] [facility] Diastolic blood pressure 2023-04-12 15:33:00 63 mm[Hg] [facility] Heart rate 2023-04-12 15:33:00 99 /min Unive [facility] Body temperature 2023-04-12 15:33:00 36.11 Whitney [facility] Respiratory rate 2023-04-12 15:33:00 18 /min [facility] Body height 2023-04-12 15:33:00 137.2 cm [facility] Body weight 2023-04-12 15:33:00 77.65 kg Univ [facility] BMI 2023-04-12 15:33:00 41.28 kg/m2 [facility] Systolic blood pressure 2023-03-22 15:43:00 96 mm[Hg] [facility] Diastolic blood pressure 2023-03-22 15:43:00 59 mm[Hg] [facility] Heart rate 2023-03-22 15:43:00 88 /min [facility] Body temperature 2023-03-22 15:43:00 36.28 Whitney [facility] Respiratory rate 2023-03-22 15:43:00 22 /min [facility] Body height 2023-03-22 15:43:00 137.2 cm [facility] 2023-03-22 15:43:00 77.973 kg Univ [facility] BMI 2023-03-22 15:43:00 41.45 kg/m2 [facility] Systolic blood pressure 2023-02-22 21:36:00 95 mm[Hg] [facility] Diastolic blood pressure 2023-02-22 21:36:00 65 mm[Hg] [facility] Heart rate 2023-02-22 21:36:00 93 /min Unive [facility] Body temperature 2023-02-22 21:36:00 36.33 Whitney [facility] Respiratory rate 2023-02-22 21:36:00 17 /min [facility] Body height 2023-02-22 21:36:00 139.7 cm Univ [facility] Body weight 2023-02-22 21:36:00 76.289 kg Univ [facility] BMI 2023-02-22 21:36:00 39.09 kg/m2 [facility] Systolic blood pressure 2023-01-23 15:31:00 111 mm[Hg] [facility] Diastolic blood pressure 2023-01-23 15:31:00 70 mm[Hg] [facility] Heart rate 2023-01-23 15:31:00 86 /min Unive [facility] Body temperature 2023-01-23 15:31:00 36.44 Whitney [facility] Respiratory rate 2023-01-23 15:31:00 18 /min [facility] Body height 2023-01-23 15:31:00 139.7 cm [facility] 2023-01-23 15:31:00 74.844 kg [facility] BMI 2023-01-23 15:31:00 38.35 kg/m2 [facility] Systolic blood pressure 2022-12-26 14:53:00 99 mm[Hg] [facility] Diastolic blood pressure 2022-12-26 14:53:00 64 mm[Hg] [facility] Heart rate 2022-12-26 14:53:00 78 /min Unive [facility] Body temperature 2022-12-26 14:53:00 36.44 Whitney [facility] Respiratory rate 2022-12-26 14:53:00 18 /min [facility] Body height 2022-12-26 14:53:00 139.7 cm [facility] Body weight 2022-12-26 14:53:00 75.524 kg [facility] BMI 2022-12-26 14:53:00 38.70 kg/m2 [facility] Systolic blood pressure 2022-11-09 15:08:00 112 mm[Hg] [facility] Diastolic blood pressure 2022-11-09 15:08:00 71 mm[Hg] [facility] Heart rate 2022-11-09 15:08:00 76 /min [facility] Body temperature 2022-11-09 15:08:00 36.61 Whitney [facility] Respiratory rate 2022-11-09 15:08:00 17 /min [facility] Body height 2022-11-09 15:08:00 139.7 cm [facility] Body weight 2022-11-09 15:08:00 74.475 kg [facility] BMI 2022-11-09 15:08:00 38.16 kg/m2 [facility] Procedures Procedure Date / Time Performed Performing Clinician Source CBC WITH DIFF 2023-07-14 10:22:00 Robyn Barrow [facility] CBC WITH DIFF 2023-07-14 10:22:00 Robyn Barrow [facility] SURGICAL PATHOLOGY EXAM 2023-07-13 17:27:00 [facility] 2023-07-13 17:13:00 [facility] 2023-07-13 17:13:00 [facility] [id number] [facility] ME DELIVERY ONLY 2023-07-13 16:31:00 Michael Ana Luisa [facility] TUBAL LIGATION 2023-07-13 16:31:00 Scar Rodriguez [facility] CENTRAL NEURAXIAL BLOCK 2023-07-13 01:01:00 Keenan Aparicio [facility] HEPATITIS B SURFACE ANTIGEN 2023-07-12 20:19:00 Natacha Petit [facility] HB ABO GROUPING 2023-07-12 20:19:00 [facility] (D[facility] IMMUNE GLOBULIN 2023-07-12 20:19:00 [facility]AB WITH REFLEX 2023-07-12 20:19:00 Natacha Petit [facility] SYPHILIS IGG/IGM 2023-07-12 20:19:00 Natacha Petit [facility] HEPATITIS B SURFACE ANTIGEN 2023-07-12 20:19:00 Natacha Petit [facility] HB ABO GROUPING 2023-07-12 20:19:00 Natacha Petit Un [facility] RHO (D) IMMUNE GLOBULIN 2023-07-12 20:19:[address] [facility] HIV 1/2 AG-AB WITH REFLEX 2023-07-12 20:19:00 Natacha Petit [facility] SYPHILIS IGG/IGM 2023-07-12 20:19:00 Natacha Petit U [facility] POCT URINALYSIS W/O SPECIFIC GRAVITY 2023-07-10 14:10:00 Vaishnavi De La Cruz [facility] BASIC METABOLIC PANEL (NA, K, CL, CO2, GLUCOSE, BUN, CREATININE, CA) 2023-07-02 09:22:00 Hodgins, Heidi [facility] CBC WITHOUT DIFF 2023-07-02 09:22:00 Noe Jung [facility] POCT URINALYSIS W/O SPECIFIC GRAVITY 2023-06-29 14:01:00 Jacqueszeyad [facility] SECOND AND THIRD TRIMESTER ULTRASOUND 2023-06-27 16:55:49 Jacqueszeyad [facility] POCT URINALYSIS W/O SPECIFIC GRAVITY 2023-06-22 11:55:00 Vaishnavi De La Cruz [facility] POCT URINALYSIS W/O SPECIFIC GRAVITY 2023-06-15 00:00:00 Indira [facility] SECOND AND THIRD TRIMESTER ULTRASOUND 2023-06-12 13:55:30 Jacqueszeyad [facility] POCT MOLECULAR FLU 2023-06-07 14:40:00 Cailin Jacobson [facility] POCT URINALYSIS W/O SPECIFIC GRAVITY 2023-06-07 14:14:00 Vaishnavi De La Cruz [facility] POCT RAPID FLU A AND B TEST 2023-06-07 00:00:00 Indira [facility] NON-STRESS TEST 2023-05-25 19:07:20 Kinza Jacobson [facility] POCT URINALYSIS W/O SPECIFIC GRAVITY 2023-05-25 18:18:00 Vaishnavi De La Cruz [facility] NON-STRESS TEST 2023-05-24 15:00:19 Kinza Jacobson [facility] POCT URINALYSIS W/O SPECIFIC GRAVITY 2023-05-24 13:45:00 Vaishnavi De La Cruz [facility] COMP. METABOLIC PANEL (40751) 2023-05-23 17:08:00 [facility] 2023-05-23 17:08:00 Marisabel Pagan [facility] URINALYSIS 2023-05-23 17:08:00 Vaishnavi [facility] POCT URINALYSIS W/O SPECIFIC GRAVITY 2023-05-10 13:12:00 Vaishnavi De La Cruz [facility] TDAP VACCINE, >11 YRS, IM 2023-04-26 15:17:48 Alecia Jacobson [facility] POCT URINALYSIS W/O SPECIFIC GRAVITY 2023-04-26 15:14:00 Alecia Jacobson [facility] STERILIZATION CONSENT FORM 2023-04-26 06:01:00 Doctor Unassigned, [place] [facility] 3 HR GLUCOSE TOLERANCE TEST 2023-04-20 17:35:00 Vaishnavi De La Cruz [facility] 2 HR GLUCOSE TOLERANCE TEST 2023-04-20 16:39:00 Vaishnavi De La Cruz [facility] 1 HR GLUCOSE TOLERANCE TEST 2023-04-20 15:35:00 Vaishnavi De La Cruz [facility] GLUCOSE FASTING 2023-04-20 14:35:00 Vaishnavi De La Cruz [facility] 3 HR GLUCOSE TOLERANCE PANEL 2023-04-20 14:35:00 Vaishnavi De La Cruz [facility] POCT URINALYSIS W/O SPECIFIC GRAVITY 2023-04-12 15:31:00 Vaishnavi De La Cruz [facility] POCT URINALYSIS W/O SPECIFIC GRAVITY 2023-03-22 17:36:00 Vaishnavi De La Cruz [facility] SECOND AND THIRD TRIMESTER ULTRASOUND 2023-03-21 15:29:00 Alecia Jacobson [facility] POCT URINALYSIS W/O SPECIFIC GRAVITY 2023-02-22 21:27:00 Vaishnavi De La Cruz [facility] SECOND AND THIRD TRIMESTER ULTRASOUND 2023-02-07 15:44:00 Alecia Jacobson [facility] FLU VACC ([id number]), 6 MO-64 YRS, .5ML, IM, QUAD (FLUCELVAX) 2023-01-23 15:48:23 Alecia Jacobson [facility] POCT URINALYSIS W/O SPECIFIC GRAVITY 2023-01-23 15:32:00 Vaishnavi De La Cruz [facility] FIRST TRIMESTER ULTRASOUND 2022-11-30 15:28:00 Vaishnavi De La Cruz [facility] FIRST TRIMESTER ULTRASOUND 2022-11-16 18:35:00 Vaishnavi De La Cruz [facility] [facility] POCT URINALYSIS W/O SPECIFIC GRAVITY 2022-11-09 15:01:00 Vaishnavi De La Cruz [facility] POCT TEST 2022-11-09 15:00:00 Abdon De La Cruz [facility] Encounters Start Date/Time End Date/Time Encounter Type Admission Type Attending [facility] Facility Care Department Encounter ID Source 2019-04-06 13:21:00 Inpatient [facility] [id number] [facility] 2023-08-24 13:45:00 2023-08-24 15:04:15 Outpatient [facility] [id number] [facility] 2023-08-24 13:45:00 2023-08-24 15:04:15 Office Visit Sharla Pulliam [facility] REMOTE ENCODING OPERATIONS SUPERVISOR [facility] MATERNAL & CHILD [facility] 1.2.840.114 350.1.13.10 4.2.7.2.686 [id number] [facility] 2023-08-03 15:00:00 2023-08-03 15:37:53 Outpatient R [facility] [id number] [facility] 2023-08-03 15:00:00 2023-08-03 15:37:53 Routine Visit Sharla Pulliam [facility] REMOTE ENCODING OPERATIONS SUPERVISOR [facility] MATERNAL & CHILD [facility] 1.2.840.114 350.1.13.10 4.2.7.2.686 [id number] 125 [id number] [facility] 2023-06-27 00:00:00 2023-07-29 18:06:14 Patient Secure Msg Alecia Jacobson [facility] REMOTE ENCODING OPERATIONS SUPERVISOR [facility] MATERNAL & CHILD [facility] 1.2.840.114 350.1.13.10 4.2.7.2.686 [id number] 125 [id number] [facility] 2023-07-20 13:30:00 2023-07-20 13:45:00 [facility] Celeste [facility] REMOTE ENCODING OPERATIONS SUPERVISOR [facility] MATERNAL & CHILD [facility] 1.2.840.114 350.1.13.10 4.2.7.2.686 [id number] [facility] 2023-07-20 13:30:00 2023-07-20 13:30:00 Outpatient R CELESTE [facility] [id number] [facility] 2023-07-12 13:58:00 2023-07-14 20:30:00 Inpatient P LAI [facility] [id number] [facility] 2023-07-12 13:58:00 2023-07-14 20:30:00 Hospital Encounter [facility] 1.2.840.114 350.1.13.10 4.2.7.2.686 [id number] [facility] 2023-07-13 13:00:00 2023-07-13 14:55:00 Surgery OmeAna Luisa gerardo [facility] 1.2.840.114 350.1.13.10 4.2.7.2.686 [id number] [facility] 2023-07-12 19:38:00 2023-07-13 13:09:00 [facility] 1.2840.114 350.1.13.10 4.2.7.2.686 [id number] [facility] 2023-07-10 09:00:00 2023-07-10 09:39:47 Outpatient R ALECIA [facility]AC[facility]BSON [facility] [id number] [facility] 2023-07-10 09:00:00 2023-07-10 09:39:47 Routine Visit Alecia Jacobson [facility] REMOTE ENCODING OPERATIONS SUPERVISOR [facility] MATERNAL & CHILD [facility] 1.2.840.114 350.1.13.10 4.2.7.2.686 [id number] [facility] 2023-07-02 03:14:00 2023-07-02 08:03:00 Outpatient P MARY LOU FRANKSUSSYEVELIA Tripp [facility] JUST[facility] [id number] [facility] 2023-07-02 03:14:00 2023-07-02 08:03:00 Hospital Encounter Evelia Whiting [facility] 1.840.114 350.1.13.10 4.2.7.2.686 [id number] [facility] 2023-06-29 09:00:00 2023-06-29 09:23:38 Outpatient R [facility] [id number] [facility] 2023-06-29 09:00:00 2023-06-29 09:23:38 Routine Visit Alecia Jacobson [facility] REMOTE ENCODING OPERATIONS SUPERVISOR [facility] MATERNAL & CHILD [facility] 1..840.114 350.1.13.10 4.2.7.2.686 [id number] 125 [id number] [facility] 2023-06-28 00:00:00 2023-06-28 00:00:00 Abstract Alecia Jacobson [facility] REMOTE ENCODING OPERATIONS SUPERVISOR [facility] MATERNAL & CHILD [facility] 1..840.114 350.1.13.10 4.2.7.2.686 [id number] [facility] 2023-06-27 08:30:00 2023-06-27 09:12:56 Outpatient R LEN ALANIS [facility] [id number] [facility] 2023-06-27 08:30:00 2023-06-27 09:12:56 Hydro Technician Visit 1, [facility] Room Len Alains [facility] REMOTE ENCODING OPERATIONS SUPERVISOR [facility] MATERNAL & CHILD [facility] 1..840.114 350.1.13.10 4.2.7.2.686 [id number] [facility] 2023-06-22 07:00:00 2023-06-22 07:13:22 Outpatient R JACQUESALECIA LAWS JACQUESEUSEBIA ALECIA [facility] [id number] [facility] 2023-06-22 07:00:00 2023-06-22 07:13:22 Routine Visit Jacquesyasminezeyad Alecia [facility] REMOTE ENCODING OPERATIONS SUPERVISOR [facility] MATERNAL & CHILD [facility] 1.2.840.114 350.1.13.10 4.2.7.2.686 [id number] 125 [id number] [facility] 2023-06-20 00:00:00 2023-06-20 00:00:00 Case Management Indira [facility] REMOTE ENCODING OPERATIONS SUPERVISOR [facility] & CHILD [facility] 1.2.840.114 350.1.13.10 4.2.7.2.686 [id number] 125 [id number] [facility] 2023-06-15 11:00:00 2023-06-15 11:30:16 Routine Visit Indira Alecia [facility] REMOTE ENCODING OPERATIONS SUPERVISOR [facility] & CHILD [facility] 1.2.840.114 350.1.13.10 4.2.7.2.686 [id number] 125 [id number] [facility] 2023-06-15 11:00:00 2023-06-15 11:30:16 Outpatient R JACQEUSALECIA LAWS JACQUESYASMINEZEYAD [facility] [id number] [facility] 2023-06-13 00:00:00 2023-06-13 00:00:00 Abstract Jacquesyasminezeyad [facility] REMOTE ENCODING OPERATIONS SUPERVISOR [facility] & CHILD [facility] 1.2.840.114 350.1.13.10 4.2.7.2.686 [id number] 125 [id number] [facility] 2023-06-13 00:00:00 2023-06-13 00:00:00 Case Management Patawaran, Miranda [facility] REMOTE ENCODING OPERATIONS SUPERVISOR [facility] MATERNAL & CHILD [facility] 1..840.114 350.1.13.10 4.2.7.2.686 [id number] 125 [id number] [facility] 2023-06-12 08:30:00 2023-06-12 08:30:00 Hydro Technician Visit 1, [facility] Room Papa Carlson [facility] REMOTE ENCODING OPERATIONS SUPERVISOR [facility] MATERNAL & CHILD [facility] 1.2.840.114 350.1.13.10 4.2.7.2.686 [id number] [facility] 2023-06-12 08:30:00 2023-06-12 08:29:12 Outpatient P PAPA CARLSON [facility] [id number] [facility] 2023-06-07 09:15:00 2023-06-07 09:56:18 Outpatient R ALECIA JACOBSON [facility] [id number] [facility] 2023-06-07 09:15:00 2023-06-07 09:56:18 Routine Visit Alecia Jacobson [facility] REMOTE ENCODING OPERATIONS SUPERVISOR [facility] MATERNAL & CHILD [facility] 1..840.114 350.1.13.10 4.2.7.2.686 [id number] 125 [id number] [facility] 2023-05-25 15:53:00 2023-05-25 17:38:00 Outpatient P JESSICA GONZALES KARIN [facility] [id number] [facility] 2023-05-25 15:53:00 2023-05-25 17:38:00 Hospital Encounter Jessica Gonzales [facility] 1.2.840.114 350.1.13.10 4.2.7.2.686 [id number] [facility] 2023-05-25 13:00:00 2023-05-25 14:05:41 Outpatient ALECIA AMANDA [facility] [id number] [facility] 2023-05-25 13:00:00 2023-05-25 14:05:41 Routine Visit Alecia Jacobson [facility] REMOTE ENCODING OPERATIONS SUPERVISOR [facility] & CHILD [facility] 1.2.840.114 350.1.13.10 4.2.7.2.686 [id number] 125 [id number] [facility] 2023-05-25 00:00:00 2023-05-25 00:00:00 Nurse Triage William, [facility] 1.84.114 350.1.13.10 4.2.7.2.686 [id number] [facility] 2023-05-24 11:31:00 2023-05-24 13:07:[address] [facility] [id number] [facility] 2023-05-24 11:31:00 2023-05-24 13:07:00 Hospital Encounter Nilesh Silva [facility] ([facility] 1.840.114 350.1.13.10 4.2.7.2.686 [id number] [facility] 2023-05-24 09:00:00 2023-05-24 09:15:00 Routine Visit Alecia Jacobson [facility] REMOTE ENCODING OPERATIONS SUPERVISOR [facility] & CHILD [facility] 1.2840.114 350.1.13.10 4.2.7.2.686 [id number] 125 [id number] [facility] 2023-05-24 09:00:00 2023-05-24 09:00:00 Outpatient ALECIA AMANDA [facility] [id number] [facility] 2023-05-24 00:00:00 2023-05-24 00:00:00 Telephone Indira Alecia [facility] REMOTE ENCODING OPERATIONS SUPERVISOR [facility] MATERNAL & CHILD [facility] 1.2840.114 350.1.13.10 4.2.7.2.686 [id number] 125 [id number] [facility] 2023-05-23 11:33:00 2023-05-23 15:04:00 Outpatient X [facility] [id number] [facility] 2023-05-23 11:33:00 2023-05-23 15:04:00 Hospital Encounter Iveth Richardson [facility] ([facility]) 1..840.114 350.1.13.10 4.2.7.2.686 [id number] [facility] 2023-05-21 12:55:00 2023-05-21 14:00:00 Outpatient X NILESH SILVA [facility] [id number] [facility] 2023-05-10 08:00:00 2023-05-10 08:30:50 [facility] [id number] [facility] 2023-05-10 08:00:00 2023-05-10 08:30:50 [facility] REMOTE ENCODING OPERATIONS SUPERVISOR [facility] MATERNAL & CHILD [facility] 1..840.114 350.1.13.10 4.2.7.2.686 [id number] 125 [id number] [facility] 2023-04-26 09:00:00 2023-04-26 09:37:46 Outpatient R ALECIA JACOBSON [facility] [id number] [facility] 2023-04-26 09:00:00 2023-04-26 09:37:46 Routine Visit Indira Alecia [facility] REMOTE ENCODING OPERATIONS SUPERVISOR [facility] MATERNAL & CHILD [facility] 1..840.114 350.1.13.10 4.2.7.2.686 [id number] 125 [id number] [facility] 2023-04-26 00:00:00 2023-04-26 00:00:00 Orders Only Doctor Unassigned, [place] [facility] 1.840.114 350.1.13.10 4.2.7.2.686 [id number] [facility] 2023-04-20 08:00:00 2023-04-20 11:46:06 Outpatient R ALECIA JACOBSON [facility] [id number] [facility] 2023-04-20 08:00:00 2023-04-20 11:46:06 Hydro Technician Visit Lab, [facility] Indira Alecia [facility] REMOTE ENCODING OPERATIONS SUPERVISOR [facility] & CHILD [facility] 1.840.114 350.1.13.10 4.2.7.2.686 [id number] 125 [id number] [facility] 2023-04-13 00:00:00 2023-04-13 00:00:00 Case Management Vaishnavi De La Cruz [facility] REMOTE ENCODING OPERATIONS SUPERVISOR [facility] & CHILD [facility] 1.840.114 350.1.13.10 4.2.7.2.686 [id number] 125 [id number] [facility] 2023-04-12 09:15:00 2023-04-12 09:57:46 Outpatient R VAISHNAVI DE LA CRUZ [facility] [id number] [facility] 2023-04-12 09:15:00 2023-04-12 09:57:46 Routine Visit Vaishnavi De La Cruz [facility] REMOTE ENCODING OPERATIONS SUPER[facility]OR [facility] & CHILD [facility] 1.840.114 350.1.13.10 4.2.7.2.686 [id number] 125 [id number] [facility] 2023-04-03 00:00:00 2023-04-03 00:00:00 Abstract Indira [facility] REMOTE ENCODING OPERATIONS SUPERVISOR [facility] & CHILD [facility] 1..840.114 350.1.13.10 4.2.7.2.686 [id number] 125 [id number] [facility] 2023-03-23 00:00:00 2023-03-23 00:00:00 Abstract Jacqueseusebia [facility] REMOTE ENCODING OPERATIONS SUPERVISOR [facility] & CHILD [facility] 1..840.114 350.1.13.10 4.2.7.2.686 [id number] 125 [id number] [facility] 2023-03-22 09:15:00 2023-03-22 09:55:40 Outpatient R VAISHNAVI DE LA CRUZ [facility] [id number] [facility] 2023-03-22 09:15:00 2023-03-22 09:55:40 Routine Visit Vaishnavi De La Cruz [facility] REMOTE ENCODING OPERATIONS [facility] 1.840.114 350.1.13.10 4.2.7.2.686 [id number] 125 [id number] [facility] 2023-03-21 09:00:00 2023-03-21 09:32:36 Outpatient P ALECIA JACOBSON [facility] [id number] [facility] 2023-03-21 09:00:00 2023-03-21 09:32:36 Hydro Technician Visit 1, [facility] Room Indira Alecia [facility] REMOTE ENCODING OPERATIONS [facility] CHILD [facility] 1..840.114 350.1.13.10 4.2.7.2.686 [id number] [facility] 2023-02-22 15:15:00 2023-02-22 15:49:52 Outpatient R INDIRA ALECIAANA JACOBSON [facility] [id number] [facility] 2023-02-22 15:15:00 2023-02-22 15:49:52 Routine Visit Vaishnavi De La Cruz Alecia [facility] REMOTE ENCODING OPERATIONS [facility]ILD [facility] 1..840.114 350.1.13.10 4.2.7.2.686 [id number] 125 [id number] [facility] 2023-02-08 00:00:00 2023-02-08 00:00:00 Abstract Alecia Jacobson [facility] REMOTE ENCODING OPERATIONS SUPER[facility] CHILD [facility] 1..840.114 350.1.13.10 4.2.7.2.686 [id number] 125 [id number] [facility] 2023-02-07 09:00:00 2023-02-07 09:45:56 [facility] [id number] [facility] 2023-02-07 09:00:00 2023-02-07 09:45:56 Hydro Technician Visit 2, [facility] Room Andres Dewittanak [facility] REMOTE ENCODING OPERATIONS SUPERVISOR [facility] CHILD [facility] 1..840.114 350.1.13.10 4.2.7.2.686 [id number] [facility] [id number] [facility] 2023-02-02 12:44:00 2023-02-02 12:44:00 Outpatient BenjamínroccoJori champion [facility] [id number] [facility] 2023-02-02 09:36:00 2023-02-02 11:16:00 Emergency EM BenjamínroccoJori champion [facility] [id number] [facility] 2023-01-29 00:00:00 2023-01-29 00:00:00 Patient Secure Msg Indira Alecia [facility] REMOTE ENCODING OPERATIONS [facility]ILD [facility] 1..840.114 350.1.13.10 4.2.7.2.686 [id number] 125 [id number] [facility] 2023-01-23 09:15:00 2023-01-23 10:02:05 Outpatient R ALECIA JACOBSON [facility] [id number] [facility] 2023-01-23 09:15:00 2023-01-23 10:02:05 Routine Visit Alecia Jacobson [facility] REMOTE ENCODING OPERATIONS SUPERVISOR [facility] MATERNAL & CHILD [facility] 1.2.840.114 350.1.13.10 4.2.7.2.686 [id number] [facility] 2022-12-28 00:00:00 2022-12-28 00:00:00 Case Management Indira [facility] REMOTE ENCODING OPERATIONS [facility] CHILD [facility] 1.2.840.114 350.1.13.10 4.2.7.2.686 [id number] 125 [id number] [facility] 2022-12-28 00:00:00 2022-12-28 00:00:00 Telephone Indira Alecia [facility] REMOTE ENCODING OPERATIONS [facility] CHILD [facility] 1.2.840.114 350.1.13.10 4.2.7.2.686 [id number] 125 [id number] [facility] 2022-12-26 09:15:00 2022-12-26 10:22:39 Outpatient R ALECIA JACOBSON [facility] [id number] [facility] 2022-12-26 09:15:00 2022-12-26 10:22:39 Routine Visit Alecia Jacobson [facility] REMOTE ENCODING OPERATIONS SUPER[facility]ILD [facility] 1.2.840.114 350.1.13.10 4.2.7.2.686 [id number] 125 [id number] [facility] 2022-12-16 12:09:00 2022-12-16 14:06:00 Emergency EM Adonay Tang [facility] [id number] [facility] 2022-11-30 10:00:00 2022-11-30 10:26:31 Outpatient P LEN ALANIS [facility] [id number] [facility] 2022-11-30 10:00:00 2022-11-30 10:26:31 Hydro Technician Visit 1, [facility] Room Len Alanis [facility] REMOTE ENCODING OPERATIONS SUPERVISOR [facility] MATERNAL & CHILD [facility] 1.2.840.114 350.1.13.10 4.2.7.2.686 [id number] [facility] 2022-11-30 00:00:00 2022-11-30 00:00:00 Abstract Vaishnavi De La Cruz [facility] REMOTE ENCODING OPERATIONS SUPERVISOR [facility] MATERNAL & CHILD [facility] 1.2.840.114 350.1.13.10 4.2.7.2.686 [id number] [facility] 2022-11-23 08:10:00 2022-11-23 10:02:00 Emergency EM Selena AshleighSavage [facility] [id number] [facility] 2022-11-22 00:00:00 2022-11-22 00:00:00 Telephone Vaishnavi De La Cruz [facility] REMOTE ENCODING OPERATIONS SUPERVISOR [facility] MATERNAL & CHILD [facility] 1.2840.114 350.1.13.10 4.2.7.2.686 [id number] 125 [id number] [facility] 2022-11-18 00:00:00 2022-11-18 00:00:00 Nurse Triage Quinton Pickens, [facility] 1.2.840.114 350.1.13.10 4.2.7.2.686 [id number] [facility] 2022-11-16 13:00:00 2022-11-16 13:43:17 Outpatient P PAPA CARLSON [facility] [id number] [facility] 2022-11-16 13:00:00 2022-11-16 13:43:17 Hydro Technician Visit 2, [facility] Room Papa Carlson [facility] REMOTE ENCODING OPERATIONS SUPERVISOR [facility] MATERNAL & CHILD [facility] 1.2.840.114 350.1.13.10 4.2.7.2.686 [id number] [facility] 2022-11-16 00:00:00 2022-11-16 00:00:00 Abstract Vaishnavi De La Cruz [facility] REMOTE ENCODING OPERATIONS SUPERVISOR [facility] MATERNAL & CHILD [facility] 1.2.840.114 350.1.13.10 4.2.7.2.686 [id number] [facility] 2022-11-15 00:00:00 2022-11-15 00:00:00 Case Management Vaishnavi De La Cruz [facility] REMOTE ENCODING OPERATIONS SUPERVISOR [facility] MATERNAL & CHILD [facility] 1.2.840.114 350.1.13.10 4.2.7.2.686 [id number] [facility] 2022-11-15 00:00:00 2022-11-15 00:00:00 Telephone Vaishnavi De La Cruz [facility] REMOTE ENCODING OPERATIONS [facility] 1.2.840.114 350.1.13.10 4.2.7.2.686 [id number] 125 [id number] [facility] 2022-11-14 00:00:00 2022-11-14 00:00:00 Telephone Vaishnavi De La Cruz [facility] REMOTE ENCODING OPERATIONS SUPERVISOR [facility] MATERNAL & CHILD [facility] 1.2.840.114 350.1.13.10 4.2.7.2.686 [id number] 125 [id number] [facility] 2022-11-11 00:00:00 2022-11-11 00:00:00 Patient Secure Msg Vaishnavi De La Cruz [facility] REMOTE ENCODING OPERATIONS SUPERVISOR [facility] MATERNAL & CHILD [facility] 1.2.840.114 350.1.13.10 4.2.7.2.686 [id number] 125 [id number] [facility] 2022-11-09 09:30:00 2022-11-09 11:09:34 Initial Visit Vaishnavi De La Cruz [facility] REMOTE ENCODING OPERATIONS [facility] 1.2.840.114 350.1.13.10 4.2.7.2.686 [id number] 125 [id number] [facility] 2022-11-09 09:30:00 2022-11-09 11:09:34 Outpatient VAISHNAVI CERDA [facility] [id number] [facility] Results Test Description Test Time Test Comments Results Result Co mments Source [facility] (D) IMMUNE [id number] 19:44:15* Test Item Value Reference Range Interpretation Comme nts RHIG CANDIDATE? (test code = 5188) No- see comment Patient is not a candidate for RhIg- Patient is Rh Positive.Performed at [facility] Laboratory Services [facility] Blood [address] [place] [address] Free: [phone] No. [id number] [facility] (D) IMMUNE [id number] 19:44:15* Test Item Value Reference Range Interpretation Comme nts RHIG CANDIDATE? (test code = 5188) No- see comment Patient is not a candidate for RhIg- Patient is Rh Positive.Performed at [facility] Laboratory Services [facility] Blood [address] Free: [phone] No. [id number] [facility] Cord [id number] 18:16:11* Test Item Value Reference Range Interpretation Comme nts BASE EXCESS, CORD (test code = 4380016000) -10.2 mEq/L AC PH, CORD (BEAKER) (test c ode = 3850547356) 7.15 7.18-7.38 L PC02, CORD (test code = 2852431728) 56 32-66 PO2, CORD (test code = 3392535303) 27 10-30 BICARBONATE, CORD (test code = 3794178936) 19 17-27 Lab Interpretation (test cod e = 09797-0) Abnormal [facility] Cord [id number] 18:16:11* Test Item Value Reference Range Interpretation Comme nts BASE EXCESS, CORD (test code = 6945588343) -10.2 mEq/L AC PH, CORD (BEAKER) (test c ode = 3524381144) 7.15 7.18-7.38 L PC02, CORD (test code = 0767858223) 56 32-66 PO2, CORD (test code = 0038140773) 27 10-30 BICARBONATE, CORD (test code = 5540076957) 19 17-27 Lab Interpretation (test cod e = 34577-3) Abnormal [facility] Cord [id number] 18:13:37* Test Item Value Reference Range Interpretation Comme nts VENOUS BASE EXCESS, CORD (te st code = 5840375701) -6.5 mEq/L VENOUS PH, CORD (test code = 5339918716) 7.30 7.25-7.45 VENOUS PC02, CORD (test code = 0553666061) 41 27-49 VENOUS PO2, CORD (test code = 8288279986) 24 17-41 VENOUS BICARBONATE, CORD (te st code = 7955420049) 20 12-29 [facility] Cord [id number] 18:13:37* Test Item Value Reference Range Interpretation Comme nts VENOUS BASE EXCESS, CORD (te st code = 2054132202) -6.5 mEq/L VENOUS PH, CORD (test code = 1002641558) 7.30 7.25-7.45 VENOUS PC02, CORD (test code = 8061822581) 41 27-49 VENOUS PO2, CORD (test code = 0779306680) 24 17-41 VENOUS BICARBONATE, CORD (te st code = 2998643929) 20 12-29 [facility] ONLY - SYPHILIS [id number] 15:52:06* Test Item Value Reference Range Interpretation Comme nts Syphilis IgG/IgM (test code = 54075-7) Non-reactive Non-reactive ALAYNA (test code = ALAYNA) Non-reactive - No serologic evidence of T. pallidum infection. Cannot exclude incubating or early syphilis. Submit a second specimen in 2-4 weeks if syphilis is clinically suspected. Equivocal - Further testing to follow. Reactive - Further testing to follow. Lab Interpretation (test code = 74014-0) Normal [facility] ONLY - SYPHILIS [id number] 15:52:06* Test Item Value Reference Range Interpretation Comme nts Syphilis IgG/IgM (test code = 88455-8) Non-reactive Non-reactive ALAYNA (test code = ALAYNA) Non-reactive - No serologic evidence of T. pallidum infection. Cannot exclude incubating or early syphilis. Submit a second specimen in 2-4 weeks if syphilis is clinically suspected. Equivocal - Further testing to follow. Reactive - Further testing to follow. Lab Interpretation (test code = 63010-6) Normal [facility] [id number] 01:01:00 Dorota Martinez MD ? ? 07/12/2023 ?8:04 PM Central Neuraxial Block Date/Time: 07/12/2023 8:01 PM Performed by: Keenan Aparicio, DOAuthorized by: Iveth Vidal MD ?Patient Location: OBReason for Block: OBrequest, Patient request and Labor analgesiaStaff: ?Anesthesiologist: Iveth Vidal MD ?Resident/DRIVER SUPERVISOR: Dorota Martinez MD ?Performed by: anesthesiologist and resident/CRNAPreanesthetic Checklist:patient identified, IV checked, risks and benefits explained, monitors and equipment checked, timeout performed, pre-op evaluation, site marked and anesthesia consentProcedure: ?Type of Neuraxial: Epidural ?Epidural Description: 1st attempt ? Sterility Prep cap, drape, gloves, mask and hand hygiene? ?Sedation Level no sedation ?Patient Position: sitting ?Prep: Betadine and patient draped ? ?Monitoring: heart rate, continuous pulse ox, heart rate / toco and NIBP ?Location: lumbar (1-5) ?Lumbar: L4-L5 ?Approach: midline ? ?Technique: catheter and LISETH saline ?Guidance with: landmark techni que}Epidural/Spinal [place] and/or Catheter: ?Epidural/Spinal Kit: BBraun ?Needle Type: Tuohy ?Needle Gauge: 17 G ?Needle Length: 3.5 in (8.89 cm) ?Needle Insertion Depth: 6 ?Catheter Type: multiport? ?Catheter Size: 19 G ? ?Catheter at Skin Depth: 10 ?Number of Attempts: 1 ?Test Dose: lidocaine 1.5% with epinephrine 1-to-200,000 and negative ? ?Dose: 5 cc ? ?Catheter Securement Method: surgicaltape, Tegaderm and liquid medical adhesiveAssessment: ?Procedure Assessment: patient tolerated procedure well with no complicationsNotes: ? Patient identified; pre-procedure verification.Patient prepped and draped in standard sterile fashion using betadine x 3Subcutaneous infiltration with 1% Lidocaine LISETH at 6 cm; catheter secured at 10 cm with mastisol, tegaderm x2 and 3-inch clear tape.Aspiration test negative x 3Test dose negativePatient tolerated procedure well with no immediate complications Epidural expectations; PCEA explained and fall precautions given.[facility] Central Neuraxial [id number] 01:01:00Dorota Martinez MD ? ? 07/12/2023 ?8:04 PM Central Neuraxial Block Date/Time: 07/12/2023 8:01 PM Performed by: Keenan Aparicio, DOAuthorized by: Iveth Vidal MD ?Patient Location: OBReason for Block: OBrequest, Patient request and Labor analgesiaStaff: ?Anesthesiologist: Iveth Vidal MD ?Resident/DRIVER SUPERVISOR: Dorota Martinez MD ?Performed by: anesthesiologist and resident/CRNAPreanesthetic Checklist:patient identified, IV checked, risks and benefits explained, monitors and equipment checked, timeout performed, pre- op evaluation, site marked and anesthesia consentProcedure: ?Type of Neuraxial: Epidural ?Epidural Description: 1st attempt ? Sterility Prep cap, drape, gloves, mask and hand hygiene? ?Sedation Level no sedation ?Patient Position: sitting ?Prep: Betadine and patient draped ? ?Monitoring: heart rate, continuous pulse ox, heart rate / toco and NIBP ?Location: lumbar (1-5) ?Lumbar: L4-L5 ?Approach: midline ? ?Technique: catheter and LISETH saline ?Guidance with: landmark technique}Epidural/Spinal [place] and/or Catheter: ?Epidural/Spinal Kit: BBraun ?Needle Type: Tuohy ?Needle Gauge: 17 G ?Needle Length: 3.5 in (8.89 cm) ?Needle Insertion Depth: 6 ?Catheter Type: multiport? ?Catheter Size: 19 G ? ?Catheter at Skin Depth: 10 ?Number of Attempts: 1 ?Test Dose: lidocaine 1.5% with epinephrine 1-to-200,000 and negative ? ?Dose: 5 cc ? ?Catheter Securement Method: surgicaltape, Tegaderm and liquid medical adhesiveAssessment: ?Procedure Assessment: patient tolerated procedure well with no complicationsNotes: ? Patient identified; pre-procedure verification.Patient prepped and draped in standard sterile fashion using betadine x 3Subcutaneous infiltration with 1% Lidocaine LISETH at 6 cm; catheter secured at 10 cm with mastisol, tegaderm x2 and 3-inch clear tape.Aspiration test negative x 3Test dose negativePatient tolerated procedure well with no immediate complications Epidural expectations; PCEA explained and fall precautions given.[facility] 1/2 AG-AB WITH [id number] 22:22:27* Test Item Value Reference Range Interpretation Comme nts HIV Semi-quantitative (test code = 15423-6) 0.10 Negative ALAYNA (test code = ALAYNA) Non-reactive for HIV-1 antigen and HIV-1/HIV-2 antibodies. ?No laboratory evidence of HIV infection. ?Repeat in 2-4 weeks if acute HIV infection is suspected. [facility] 1/2 AG-AB WITH [id number] 22:22:27* Test Item Value Reference Range Interpretation Comme nts HIV Semi-quantitative (test code = 08997-9) 0.10 Negative ALAYNA (test code = ALAYNA) Non-reactive for HIV-1 antigen and HIV-1/HIV-2 antibodies. ?No laboratory evidence of HIV infection. ?Repeat in 2-4 weeks if acute HIV infection is suspected. [facility] B Surface [id number] 22:13:43 * Test Item Value Reference Range Interpretation Comme nts HBsAg Semi-Quantitative (chris t code = 5195-3) 0.08 Negative [facility] B Surface [id number] 22:13:43 * Test Item Value Reference Range Interpretation Comme nts HBsAg Semi-Quantitative (chris t code = 5195-3) 0.08 Negative [facility] and Screen - ONCE [id number] 20:26:00 * Test Item Value Reference Range Interpretation Comme nts ABO & RH (test code = 20) O POSITIVE IAT (test code = 1185) Negative [facility] and Screen - ONCE [id number] 20:26:00 * Test Item Value Reference Range Interpretation Comme nts ABO & RH (test code = 20) O POSITIVE IAT (test code = 1185) Negative [facility] URINALYSIS W/O SPECIFIC [id number] 14:10:00* Test Item Value Reference Range Interpretation Comme nts POCT PH U (test code = 3254) 7 mg/dl 5-8 POCT U LEUK EST (test code = 3263) Negative Negative - Negative POCT U NIT (test code = 3262) Negative Negative - Negati ve POCT U PROT (test code = 3259) Negative Negative - Negat vidhi POCT U GLU (test code = 3256) Negative Negative - Negati ve POCT U KETONE (test code = 3258) Negative Negative - Neg ative POCT U BLD (test code = 3257) Negative Negative - Negati ve [facility] Metabolic Panel (NA, K, CL, CO2, GLUCOSE, BUN, CREATININE, CA)2023-07-02 10:18:04* Test Item Value Reference Range Interpretation Comme nts NA (test code = 6453952688) 136 mmol/L 135-145 K (test code = 2737102284) 4.1 mmol/L 3.5-5.0 CL (test code = 1221379887) 106 mmol/L 98-108 CO2 TOTAL (test code = 7966540667) 22 mmol/L 23-31 L AGAP (test code = 3459769527) 8 2-16 BUN (test code = 2485178460) 10 mg/dL 7-23 GLUCOSE (test code = 1289410561) 86 mg/dL 70-110 CREATININE (test code = 2160-0) 0.41 mg/dL 0.50-1.04 L CALCIUM (test code = 7281590297) 9.0 mg/dL 8.6-10.6 eGFR (test code = 97818-9) 137.6 mL/min/1.73m2 CKD-EPI eGFR (2020). Assuming creatinine has been stable day-to-day for at least three months, the eGFR indicates Category G1 (>= 90 mL/min/1.73 m2) Lab Interpretation (test code = 93995-0) Abnormal [facility] without [id number] 09:52:42* Test Item Value Reference Range Interpretation Comme nts WBC (test code = 6690-2) 6.04 4.30-11.10 RBC (test code = 789-8) 3.79 3.93-5.25 L HGB (test code = 718-7) 10.4 g/dL 11.6-15.0 L HCT (test code = 4544-3) 31.5 % 35.7-45.2 L MCH (test code = 785-6) 27.4 pg 25.9-32.8 MCV (test code = 787-2) 83.1 fL 80.6-95.5 MCHC (test code = 786-4) 33.0 g/dL 31.6-35.1 PLT (test code = 777-3) 298 166-358 MPV (test code = 69422-4) 10.9 fL 9.5-12.9 RDW-CV (test code = 788-0) 13.0 % 12.0-15.5 RDW-SD (test code = 26929-7) 39.2 fL 39.0-49.9 NRBC x10^3 (test code = 8146973059) See_Comment [Automated messa ge] The system which generated this result transmitted reference range: 10*3/?L. The reference range was not used to interpret this result as normal/abnormal. NRBC/100 WBC (test code = 9288031433) 0.0 0.0-10.0 IPF % (test code = 2508588956) Lab Interpretation (test code = 64364-8) Abnormal [facility] Urinalysis w/o Specific [id number] 14:01:00* Test Item Value Reference Range Interpretation Comme nts POCT PH U (test code = 3254) 6 mg/dl 5-8 POCT U LEUK EST (test code = 3263) Neg Negative - Negative POCT U NIT (test code = 3262) Neg Negative - Negati ve POCT U PROT (test code = 3259) Trace Negative - Negat vidhi POCT U GLU (test code = 3256) Neg Negative - Negati ve POCT U KETONE (test code = 3258) Small Negative - Neg ative POCT U BLD (test code = 3257) Neg Negative - Negati ve [facility] URINALYSIS W/O SPECIFIC [id number] 11:56:00* Test Item Value Reference Range Interpretation Comme nts POCT PH U (test code = 3254) 7 mg/dl 5-8 POCT U LEUK EST (test code = 3263) negative Negative - Negative POCT U NIT (test code = 3262) negative Negative - Negati ve POCT U PROT (test code = 3259) trace Negative - Negat vidhi POCT U GLU (test code = 3256) negative Negative - Negati ve POCT U KETONE (test code = 3258) negative Negative - Neg ative POCT U BLD (test code = 3257) negative Negative - Negati ve Lab Interpretation (test cod e = 97025-6) Normal [facility] Urinalysis w/o Specific [id number] 16:01:00* Test Item Value Reference Range Interpretation Comme nts POCT PH U (test code = 3254) 7 mg/dl 5-8 POCT U LEUK EST (test code = 3263) negative Negative - Negative POCT U NIT (test code = 3262) negative Negative - Negati ve POCT U PROT (test code = 3259) trace Negative - Negat vidhi POCT U GLU (test code = 3256) negative Negative - Negati ve POCT U KETONE (test code = 3258) negative Negative - Neg ative POCT U BLD (test code = 3257) negative Negative - Negati ve [facility] Rapid Flu A and B [id number] 14:57:00 * Test Item Value Reference Range Interpretation Comme nts POCT INFLUENZA A (test code = 5216) Negative Negative POCT INFLUENZA B (test code = 5217) Negative Negative [facility] Rapid Flu A and B [id number] 14:57:00 * Test Item Value Reference Range Interpretation Comme nts POCT INFLUENZA A (test code = 5216) Negative Negative POCT INFLUENZA B (test code = 5217) Negative Negative [facility] Molecular [id number] 14:52:12* Test Item Value Reference Range Interpretation Comme nts POCT Molecular FluA (test co de = 63119-3) Negative Negative POCT Molecular FluB (test co de = 00542-7) Negative Negative Lab Interpretation (test cod e = 77639-7) Normal [facility] Molecular [id number] 14:52:12* Test Item Value Reference Range Interpretation Comme nts POCT Molecular FluA (test co de = 26212-5) Negative Negative POCT Molecular FluB (test co de = 58945-2) Negative Negative Lab Interpretation (test cod e = 59926-9) Normal [facility] URINALYSIS W/O SPECIFIC [id number] 14:15:00* Test Item Value Reference Range Interpretation Comme nts POCT PH U (test code = 3254) 7 mg/dl 5-8 POCT U LEUK EST (test code = 3263) negative Negative - Negative POCT U NIT (test code = 3262) negative Negative - Negati ve POCT U PROT (test code = 3259) trace Negative - Negat vidhi POCT U GLU (test code = 3256) negative Negative - Negati ve POCT U KETONE (test code = 3258) negative Negative - Neg ative POCT U BLD (test code = 3257) negative Negative - Negati ve Lab Interpretation (test cod e = 50697-6) Normal [facility] URINALYSIS W/O SPECIFIC [id number] 14:15:00* Test Item Value Reference Range Interpretation Comme nts POCT PH U (test code = 3254) 7 mg/dl 5-8 POCT U LEUK EST (test code = 3263) negative Negative - Negative POCT U NIT (test code = 3262) negative Negative - Negati ve POCT U PROT (test code = 3259) trace Negative - Negat vidhi POCT U GLU (test code = 3256) negative Negative - Negati ve POCT U KETONE (test code = 3258) negative Negative - Neg ative POCT U BLD (test code = 3257) negative Negative - Negati ve Lab Interpretation (test cod e = 40935-3) [facility] URINALYSIS W/O SPECIFIC [id number] 18:18:00* Test Item Value Reference Range Interpretation Comme nts POCT PH U (test code = 3254) 7 mg/dl 5-8 POCT U LEUK EST (test code = 3263) negative Negative - Negative POCT U NIT (test code = 3262) negative Negative - Negati ve POCT U PROT (test code = 3259) trace Negative - Negat vidhi POCT U GLU (test code = 3256) negative Negative - Negati ve POCT U KETONE (test code = 3258) negative Negative - Neg ative POCT U BLD (test code = 3257) negative Negative - Negati ve Lab Interpretation (test cod e = 31397-2) Normal [facility] W/O SPECIFIC [id number] 13:45:00* Test Item Value Reference Range Interpretation Comme nts POCT PH U (test code = 3254) 7 mg/dl 5-8 POCT U LEUK EST (test code = 3263) negative Negative - Negative POCT U NIT (test code = 3262) negative Negative - Negati ve POCT U PROT (test code = 3259) trace Negative - Negat vidhi POCT U GLU (test code = 3256) negative Negative - Negati ve POCT U KETONE (test code = 3258) large Negative - Neg ative POCT U BLD (test code = 3257) negative Negative - Negati ve Lab Interpretation (test cod e = 42020-6) Abnormal [facility] Metabolic Panel (20836)2023-05-23 17:45:19* Test Item Value Reference Range Interpretation Comme nts NA (test code = 1728436722) 136 mmol/L 135-145 K (test code = 8772315657) 3.4 mmol/L 3.5-5.0 L CL (test code = 3572535279) 108 mmol/L 98-108 CO2 TOTAL (test code = 2145101445) 24 mmol/L 23-31 AGAP (test code = 5796271701) 4 2-16 BUN (test code = 7216180296) 7 mg/dL 7-23 GLUCOSE (test code = 0220277485) 89 mg/dL 70-110 CREATININE (test code = 2160-0) 0.35 mg/dL 0.50-1.04 L TOTAL BILI (test code = 5732425881) 0.7 mg/dL 0.1-1.1 CALCIUM (test code = 4447899467) 9.0 mg/dL 8.6-10.6 T PROTEIN (test code = 6757061610) 7.1 g/dL 6.3-8.2 ALBUMIN (test code = 3452076970) 3.7 g/dL 3.5-5.0 ALK PHOS (test code = 8238143867) 131 U/L 34-122 H ALTv (test code = 1742-6) 10 U/L 5-35 AST(SGOT) (test code = 7913586795) 20 U/L 13-40 eGFR (test code = 51074-5) 143.0 mL/min/1.73m2 CKD-EPI eGFR (2020). Assuming creatinine has been stable day-to-day for at least three months, the eGFR indicates Category G1 (>= 90 mL/min/1.73 m2) Lab Interpretation (test code = 64905-3) Abnormal [facility] with [id number] 17:20:37* Test Item Value Reference Range Interpretation Comme nts WBC (test code = 6690-2) 7.05 4.30-11.10 RBC (test code = 789-8) 3.87 3.93-5.25 L HGB (test code = 718-7) 11.3 g/dL 11.6-15.0 L HCT (test code = 4544-3) 33.6 % 35.7-45.2 L MCV (test code = 787-2) 86.8 fL 80.6-95.5 MCH (test code = 785-6) 29.2 pg 25.9-32.8 MCHC (test code = 786-4) 33.6 g/dL 31.6-35.1 RDW-SD (test code = 33623-3) 38.3 fL 39.0-49.9 L RDW-CV (test code = 788-0) 12.1 % 12.0-15.5 PLT (test code = 777-3) 313 166-358 MPV (test code = 85865-3) 10.1 fL 9.5-12.9 NRBC/100 WBC (test code = 4928289436) 0.0 0.0-10.0 NRBC x10^3 (test code = 6724240460) See_Comment [Automated messa ge] The system which generated this result transmitted reference range: 10*3/?L. The reference range was not used to interpret this result as normal/abnormal. GRAN MAT (NEUT) % (test code = 770-8) 69.9 % IMM GRAN % (test code = 3456020600) 0.40 % LYMPH % (test code = 736-9) 17.7 % MONO % (test code = 5905-5) 10.8 % EOS % (test code = 713-8) 0.6 % BASO % (test code = 706-2) 0.6 % GRAN MAT x10^3(ANC) (test code = 5529899391) 4.93 10*3/uL 1.88-7.09 IMM GRAN x10^3 (test code = 9020245613) 0.03 10*3/uL 0.00-0.06 LYMPH x10^3 (test code = 731-0) 1.25 10*3/uL 1.32-3.29 L MONO x10^3 (test code = 742-7) 0.76 10*3/uL 0.33-0.92 EOS x10^3 (test code = 711-2) 0.04 10*3/uL 0.03-0.39 BASO x10^3 (test code = 704-7) 0.04 10*3/uL 0.01-0.07 Lab Interpretation (test code = 92427-2) Abnormal [facility] URINALYSIS W/O SPECIFIC [id number] 13:12:00* Test Item Value Reference Range Interpretation Comme nts POCT PH U (test code = 3254) 6 mg/dl 5-8 POCT U LEUK EST (test code = 3263) trace Negative - Negative POCT U NIT (test code = 3262) negative Negative - Negati ve POCT U PROT (test code = 3259) trace Negative - Negat vidhi POCT U GLU (test code = 3256) negative Negative - Negati ve POCT U KETONE (test code = 3258) negative Negative - Neg ative POCT U BLD (test code = 3257) negative Negative - Negati ve Lab Interpretation (test cod e = 91799-3) Abnormal [facility] Urinalysis w/o Specific [id number] 15:15:00* Test Item Value Reference Range Interpretation Comme nts POCT PH U (test code = 3254) 5 mg/dl 5-8 POCT U LEUK EST (test code = 3263) Negative Negative - Negative POCT U NIT (test code = 3262) Negative Negative - Negati ve POCT U PROT (test code = 3259) Trace Negative - Negat vidhi POCT U GLU (test code = 3256) Normal Negative - Negati ve POCT U KETONE (test code = 3258) Negative Negative - Neg ative POCT U BLD (test code = 3257) Negative Negative - Negati ve [facility] URINALYSIS W/O SPECIFIC [id number] 15:33:00* Test Item Value Reference Range Interpretation Comme nts POCT PH U (test code = 3254) 5 mg/dl 5-8 POCT U LEUK EST (test code = 3263) neg Negative - Negative POCT U NIT (test code = 3262) neg Negative - Negati ve POCT U PROT (test code = 3259) neg Negative - Negat vidhi POCT U GLU (test code = 3256) neg Negative - Negati ve POCT U KETONE (test code = 3258) neg Negative - Neg ative POCT U BLD (test code = 3257) neg Negative - Negati ve [facility] URINALYSIS W/O SPECIFIC [id number] 17:36:00* Test Item Value Reference Range Interpretation Comme nts POCT PH U (test code = 3254) 7 mg/dl 5-8 POCT U LEUK EST (test code = 3263) neg Negative - Negative POCT U NIT (test code = 3262) neg Negative - Negati ve POCT U PROT (test code = 3259) neg Negative - Negat vidhi POCT U GLU (test code = 3256) neg Negative - Negati ve POCT U KETONE (test code = 3258) neg Negative - Neg ative POCT U BLD (test code = 3257) neg Negative - Negati ve Lab Interpretation (test cod e = 89231-1) Normal [facility] URINALYSIS W/O SPECIFIC [id number] 21:27:00* Test Item Value Reference Range Interpretation Comme nts POCT PH U (test code = 3254) 5 mg/dl 5-8 POCT U LEUK EST (test code = 3263) negative Negative - Negative POCT U NIT (test code = 3262) negative Negative - Negati ve POCT U PROT (test code = 3259) trace Negative - Negat vidhi POCT U GLU (test code = 3256) negative Negative - Negati ve POCT U KETONE (test code = 3258) small Negative - Neg ative POCT U BLD (test code = 3257) negative Negative - Negati ve Lab Interpretation (test cod e = 44463-2) Abnormal [facility] METABOLIC [id number] 11:28:00* Test Item Value Reference Range Interpretation Comme nts SODIUM (test code = NA) 139 mmol/L 135-148 N POTASSIUM (test code = K) 3.7 mmol/L 3.5-5.1 N CHLORIDE (test code = CL) 103 mmol/L 101-109 N CARBON DIOXIDE (test code = CO2) 25.9 mmol/L 21-32 N ANION GAP (test code = GAP) 14 mmol/L 10-20 N GLUCOSE (test code = GLU) 85 mg/dL 74-106 N BLOOD UREA NITROGEN (test code = BUN) 5 mg/dL 3-21 N GLOMERULAR FILTRATION RATE (test code = GFR) > 60 mL/min >=60 The Glomerular Filtration Rate is a calculated parameterbased on serum Creatinine, patient age and sex. GFR valuesless than 60 mL/min/1.73 square meters are indicative ofChronic Kidney Disease. Values less than 15 mL/min/1.73square meters indicate Kidney failure. The calculation forGFR is based on the CKD-EPI (202) calculation. This formulais race indifferent and is the recommended formula for GFRby the National Kidney Foundation for Adults.The GFR will not calculate if the sex is unknown or if thepatient's age is <18 years. CREATININE (test code = CREAT) 0.30 mg/dL 0.55-1.3 L BUN/CREATININE RATIO (test code = BUN/CREA) 16.7 10-20 N CALCIUM (test code = CA) 8.9 mg/dL 8.4-10.2 N HCG SERUM [id number] 11:28:00* Test Item Value Reference Range Interpretation Comme nts HCG SERUM BETA (test code = HCG) 04454.0 mIU/ml 0-5.0 H `INTERPRETATIO N:B-HCG LEVELS <6 SHOULD BE CONSIDERED "NEGATIVE."VALUES BETWEEN 6-25 MIU/ML NEED TO BE RETESTED WITHIN 48hrs. 0-1 WEEKS AFTER CONCEPTION 0-50 MIU/ML1-2 WEEKS AFTER CONCEPTION 40-300 MIU/ML2-3 WEEKS AFTER CONCEPTION 100-1,000 MIU/ML3-4 WEEKS AFTER CONCEPTION 500-6,000 MIU/ML1-2 MONTHS AFTER CONCEPTION 5,000-200,000 MIU/ML2-3 MONTHS AFTER CONCEPTION 10,000-100,000 MIU/ML2ND TRIMESTER 3,000-50,000 MIU/ML3RD TRIMESTER 1,000-50,000 MIU/ML CBC W/O [id number] 10:47:00* Test Item Value Reference Range Interpretation Comme nts WHITE BLOOD CELL (test code = WBC) 9.0 K/mm3 4.5-12.5 N RED BLOOD CELL (test code = RBC) 4.01 mill/mm3 3.7-5.2 N HEMOGLOBIN (test code = HGB) 12.4 gram/dL 11.5-15.5 N HEMATOCRIT (test code = HCT) 35.7 % 36.0-46.0 L MEAN CELL VOLUME (test code = MCV) 89.0 fL 80-98 N MEAN CELL HGB (test code = MCH) 30.9 picogram 27.0-33.0 N MEAN CELL HGB CONCETRATION (test code = MCHC) 34.7 gram/dL 33.0-36.0 N RED CELL DISTRIBUTION WIDTH (test code = RDW) 12.1 % 11.6-16.2 N RED CELL DISTRIBUTION WIDTH SD (test code = RDW-SD) 39.6 fL 37.0-51.0 N PLATELET COUNT (test code = PLT) 292 K/mm3 150-450 N MEAN PLATELET VOLUME (test c ode = MPV) 9.7 fL 6.7-11.0 N - US PREG AFTER 1ST [id number] 10:30:00 [facility]Name: MARY FARLEY : 1995 Sex: F Name: MARY FARLEY [facility] : 1995 Age/S: 27 / F [address] [facility] Unit #: [id number] Loc: Na[place] [address] Phys: Johanny Castillo Acct: [id number] Dis Date: Status: PRE ER PHONE #: [phone] Exam Date: 02/02/2023 1027 FAX #: [phone] Reason: VAGINAL BLEEDING/PELVIC PAIN EXAMS: CPT CODE: [id number] US PREG AFTER 1ST TRI [id number] REASON FOREXAM: PELVIC PAIN EXAM ORDER DATE: 02/02/2023 9:45 AM Attending:Jori Tafoya MD Provider: Johanny Castillo Location:[facility] PROCEDURE: - DUP AB/PEL/SC COMP, - US PREG AFTER 1ST TRI FINDINGS: Thecervix is closed with the cervical canal length measured 3.09 cm heart rate is 146 beats per minute. SHAHID is 10 presentation is cephalic. The placenta is posterior and is of grade 0. No evidence of placental abruption. Questionable low lying placenta although poorly characterized visualized. Attention on follow-up imaging. BPD: 3.65cm (17w1d) HC: 14.01cm (17w2d) AC: 11.62cm (17w3d) FL: 2.32cm (17w0d) Estimated weight is 0 lb 7 oz +/- 0 lb 1 oz. anatomy is grossly unremarkable. IMPRESSION: A single viable IUP with estimated age of 17 weeks 1 day +/- 1 week 0 days . Estimated delivery date is 07/12/2023. at 1030 Reported and signed by: Pradeep Leger M.D. CC: Rosa Maria Sanches MD; Jori Tafoya MD; Johanny Castillo Technologist: Pauline Gramajo RDMS Trnscb Date/Time: 02/02/2023 (1030) [email or web address] Orig Print D/T: S: 02/02/2023 (1033) Probe: PAGE 1 Signed Report- DUP AB/PEL/SC [id number] 10:30:00[facility] 1995 Sex: F Name: MARY FARLEY [facility] : 1995 Age/S: 27 / F [address] [facility] Unit #: [id number] Loc: [place] [address] Phys: Johanny Castillo Acct: [id number] Dis Date: Status: PRE ER PHONE #: [phone] Exam Date: 02/02/2023 1027 FAX #: [phone] Reason: PELVIC PAIN EXAMS: CPT CODE: [id number] DUP AB/PEL/SC COMP 17067 REASON FOR EXAM: PELVIC PAIN EXAM ORDER DATE: 02/02/2023 9:45 AM Attending:Jori Tafoya MD Provider: Johanny Castillo Location:[facility] PROCEDURE: - DUP AB/PEL/SC COMP, - US PREG AFTER 1ST TRI FINDINGS: The cervix is closed with the cervical canal length measured 3.09 cm heart rate is 146 beats per minute. SHAHID is 10 presentation is cephalic. The placenta is posterior and is of grade 0. No evidence of placental abruption. Questionable low lying placenta although poorly characterized visualized. Attention on follow-up imaging. BPD: 3.65cm (17w1d) HC: 14.01cm (17w2d) AC: 11.62cm (17w3d) FL: 2.32cm (17w0d) Estimated weight is 0 lb 7 oz +/- 0 lb 1 oz. anatomy is grossly unremarkable. IMPRESSION: A single viable IUP with estimated age of 17 weeks 1 day +/- 1 week 0 days . Estimated delivery date is 07/12/2023. at 1030 Reported and signed by: Pradeep Leger M.D. CC: Rosa Maria Sanches MD; Jori Tafoya MD; Johanny Castillo Technologist: Pauline Grmaajo RDMS Trnutb Date/Time: 02/02/2023 (1030) [email or web address] Orig Print D/T: S: 02/02/2023 (1033) Probe: PAGE 1 Signed ReportURINALYSIS [id number] 10:21:00* Test Item Value Reference Range Interpretation Comme nts UA COLOR (test code = COLU) YELLOW YELLOW UA APPEARANCE (test code = APPU) HAZY CLEAR A UA GLUCOSE DIPSTICK (test code = DGLUU) norm mg/dL NEGATIVE UA BILIRUBIN DIPSTICK (test code = BILU) NEGATIVE mg/dL NEGATIVE UA KETONE DIPSTICK (test cod e = KETU) 5 (Trace) mg/dL NEGATIVE A UA SPECIFIC GRAVITY (test code = SGU) 1.015 1.001-1.035 UA BLOOD DIPSTICK (test code = SALVADOR) neg Jg/uL NEGATIVE UA PH DIPSTICK (test code = TAURUS) 6.5 5.0-8.0 UA PROTEIN DIPSTICK (test code = PROU) neg mg/dL Neg-15 UA UROBILINIOGEN DIPSTICK (test code = URO) norm mg/dL 0.0-0.2 UA NITRITE DIPSTICK (test code = DUANE) NEGATIVE NEGATIVE UA LEUKOCYTE ESTERASE DIPSTICK (test code = LEUU) neg uL NEGATIVE UA WBC (test code = WBCU) 0-5 per HPF 0-5 UA RBC (test code = RBCU) 0-2 per HPF 0-5 UA EPITHELIAL CELLS (test code = EPIU) MANY per HPF Few UA BACTERIA (test code = BACU) MANY per HPF NONE Urine Source? Clean CatchPOCT URINALYSIS W/O SPECIFIC [id number] 15:32:00 * Test Item Value Reference Range Interpretation Comme nts POCT PH U (test code = 3254) 5 mg/dl 5-8 POCT U LEUK EST (test code = 3263) 1+ Negative - Negative POCT U NIT (test code = 3262) neg Negative - Negati ve POCT U PROT (test code = 3259) trace Negative - Negat vidhi POCT U GLU (test code = 3256) neg Negative - Negati ve POCT U KETONE (test code = 3258) neg Negative - Neg ative POCT U BLD (test code = 3257) neg Negative - Negati ve [facility] [id number] 13:47:00* Test Item Value Reference Range Interpretation Comme nts UA COLOR (test code = COLU) YELLOW YELLOW UA APPEARANCE (test code = APPU) CLOUDY CLEAR A UA GLUCOSE DIPSTICK (test code = DGLUU) norm mg/dL NEGATIVE UA BILIRUBIN DIPSTICK (test code = BILU) NEGATIVE mg/dL NEGATIVE UA KETONE DIPSTICK (test code = KETU) neg mg/dL NEGATIVE UA SPECIFIC GRAVITY (test code = SGU) 1.015 1.001-1.035 UA BLOOD DIPSTICK (test code = SALVADOR) neg Jg/uL NEGATIVE UA PH DIPSTICK (test code = TAURUS) 8.0 5.0-8.0 UA PROTEIN DIPSTICK (test code = PROU) neg mg/dL Neg-15 UA UROBILINIOGEN DIPSTICK (test code = URO) norm mg/dL 0.0-0.2 UA NITRITE DIPSTICK (test code = DUANE) NEGATIVE NEGATIVE UA LEUKOCYTE ESTERASE DIPSTICK (test code = LEUU) neg uL NEGATIVE UA WBC (test code = WBCU) 0-5 per HPF 0-5 UA RBC (test code = RBCU) 0-2 per HPF 0-5 UA EPITHELIAL CELLS (test code = EPIU) Few (2-5/hpf) per HPF Few UA BACTERIA (test code = BACU) FEW per HPF NONE UA AMORPHOUS SEDIMENT (test code = AMORU) MANY per LPF NONE A Urine Source? Clean CatchHCG SERUM [id number] 13:44:00* Test Item Value Reference Range Interpretation Comme nts HCG SERUM BETA (test code = HCG) 19244.0 mIU/ml 0-5.0 H INTERPRETATION :B-HCG LEVELS <6 SHOULD BE CONSIDERED "NEGATIVE."VALUES BETWEEN 6-25 MIU/ML NEED TO BE RETESTED WITHIN 48hrs. 0-1 WEEKS AFTER CONCEPTION 0-50 MIU/ML1-2 WEEKS AFTER CONCEPTION 40-300 MIU/ML2-3 WEEKS AFTER CONCEPTION 100-1,000 MIU/ML3-4 WEEKS AFTER CONCEPTION 500-6,000 MIU/ML1-2 MONTHS AFTER CONCEPTION 5,000-200,000 MIU/ML2-3 MONTHS AFTER CONCEPTION 10,000-100,000 MIU/ML2ND TRIMESTER 3,000-50,000 MIU/ML3RD TRIMESTER 1,000-50,000 MIU/ML - US PREG 1ST [id number] 12:59:00 [facility] ([facility])Name: MARY FARLEY : 1995 Sex: F Name: MARY FARLEY [facility] : 1995 Age/S: 27 / F [address] [facility] Unit #: [id number] Loc: [place] [address] Phys: Johanna Bauer GIFT OFFICER Acct: [id number] Dis Date: Status: PRE ER PHONE #: [phone] Exam Date: 12/16/20221246 FAX #: [phone] Reason: VAGINAL BLEEDING/PELVIC PAIN EXAMS: CPT CODE: [id number] US PREG 1ST TRIMTR 15608 EXAM: - DUP AB/PEL/SC COMP, - US PREG 1ST TRIMTR DATE: 12/16/2022 12:21 PM. INDICATION: PELVIC PAIN. COMPARISON: Ultrasound performed November 23, 2022. TECHNIQUE: Multiplanar grayscale and color Doppler ultrasound of the pelvis were obtained transabdominally through a distended urinary bladder followed by transvaginal examination postvoid. FINDINGS: UTERUS Orientation: Anteverted. Size: 11.8 x 6.7 x 7.9 cm. Echog enicity: Normal. Masses: None. Cervix: Normal. Closed. GESTATION General comments: A single intrauterine is identified. Last menstrual period of 10/04/2022 corresponds to 9 weeks 5 days. Meangestational sac diameter: 4.3 cm corresponds to 10 weeks 0 days. [place]-rump length (CRL): 3.5 cm corresponds to 10 weeks 3 days. Embryonic heart motion: 155 bpm. Yolk sac: Not seen. Subchorionic hemorrhage: None. RIGHT OVARY Size: 2.9 x 1.9 x 1.7 cm. Cysts: None. Masses: None. Doppler: Normal, low-resistance flow. LEFT OVARY Size: 6.3 x 4.6 x 4.9 cm. Cysts: Simple anechoic cyst without septationsor nodules or calcifications measuring up to 6.3 cm. Masses: None. Doppler: Normal, low- resistance flow. OTHER Adnexa: Unremarkable. PAGE 1 Signed Report (CONTINUED) Name: FARLEYMARY [facility] : 1995 Age/S: 27 / F [address] [facility] Unit #: [id number] Loc: [place] [address] Phys: Johanna Bauer GIFT OFFICER Acct: [id number] Dis Date: Status: PRE ER PHONE #: [phone] Exam Date: 12/16/20221246 FAX #: [phone] Reason: VAGINAL BLEEDING/PELVIC PAIN EXAMS: CPT CODE: [id number] US PREG 1ST TRIMTR 02226 (Continued) Free Fluid: None. Additional Findings: None. IMPRESSION: Single viable intrauterine with embryonic HR of 118 bpm and AUA of 10 weeks 2 days. Dates are concordant with EGA by LMP. Electronically Signed by Duncan Blair M.D. on12/16/2022 at 1259 Reported and signed by: Duncan Blair M.D. CC: Rosa Maria Sanches MD; Adonay Tang MD; Johanna Bauer NP Technologist: Pauline Gramajo RDMN Trnutb Date/Time: 12/16/2022 (2048) [email or web address] Orig Print D/T: S: 12/16/2022 (4911) Probe: PAGE 2 Signed Report- DUP AB/PEL/SC [id number] 12:59:00 [facility])Name: MARY FARLEY : 1995 Sex: F Name: MARY FARLEY [facility] : 1995 Age/S: 27 / F [address] [facility] Unit #: [id number] Loc: [place] [address] Phys: Johanna Bauer NP Acct: [id number] Dis Date: Status: PRE ER PHONE #: [phone] Exam Date: 12/16/2022 1247 FAX #: [phone] Reason:PELVIC PAIN EXAMS: CPT CODE: [id number] DUP AB/PEL/SC COMP 87156 EXAM: - DUP AB/PEL/SC COMP, - US PREG 1ST TRIMTR DATE: 12/16/2022 12:21 PM. INDICATION: PELVIC PAIN. COMPARISON: Ultrasound performed November 23, 2022. TECHNIQUE: Multiplanar grayscale and color Doppler ultrasound of the pelvis wereobtained transabdominally through a distended urinary bladder followed by transvaginal examination postvoid. FINDINGS: UTERUS Orientation: Anteverted. Size: 11.8 x 6.7 x 7.9 cm. Echogenicity: Normal.Masses: None. Cervix: Normal. Closed. GESTATION General comments: A single intrauterine is identified. Last menstrual period of 10/04/2022 corresponds to 9 weeks 5 days. Mean gestational sacdiameter: 4.3 cm corresponds to 10 weeks 0 days. [place]-rump length (CRL): 3.5 cm corresponds to 10 weeks 3 days. Embryonic heart motion: 155 bpm. Yolk sac: Not seen. Subchorionic hemorrhage: None. RIGHT OVARY Size: 2.9 x 1.9 x 1.7 cm. Cysts: None. Masses: None. Doppler: Normal, low-resistance flow. LEFT OVARY Size: 6.3 x 4.6 x 4.9 cm. Cysts: Simple anechoic cyst without septations or nodules or c alcifications measuring up to 6.3 cm. Masses: None. Doppler: Normal, low- resistance flow. OTHER Adnexa: Unremarkable. PAGE 1 Signed Report (CONTINUED) Name: MARY FARLEY [facility] : 1995 Age/S: 27 / F [address] [facility] Unit #: [id number] Loc: [place] [address] Phys: Johanna Bauer GIFT OFFICER Acct: [id number] Dis Date: Status: PRE ER PHONE #: [phone] Exam Date:12/16/2022 1247 FAX #: [phone] Reason: PELVIC PAIN EXAMS: CPT CODE: [id number] DUP AB/PEL/SC COMP 16761 (Continued) Free Fluid: None. Additional Findings: None. IMPRESSION: Single viable intrauterine with embryonic HR of 118 bpm and AUA of 10 weeks 2 days. Dates are concordant with EGA by LMP. at 1259 Reportedand signed by: Duncan Blair M.D. CC: Rosa Maria Sanches MD; Adonay Tang MD; Johanna Bauer NP Technologist: Pauline Gramajo RDMS Trnutb Date/Time: 12/16/2022 (1583) [email or web address] Orig Print D/T: S: 12/16/2022 (4763) Probe: PAGE 2 Signed ReportBASIC METABOLIC [id number] 12:55:00* Test Item Value Reference Range Interpretation Comme nts SODIUM (test code = NA) 136 mmol/L 136-145 N POTASSIUM (test code = K) 3.5 mmol/L 3.5-5.1 N CHLORIDE (test code = CL) 103 mmol/L 101-109 N CARBON DIOXIDE (test code = CO2) 25.8 mmol/L 21-32 N ANION GAP (test code = GAP) 11 mmol/L 10-20 N GLUCOSE (test code = GLU) 111 mg/dL 74-106 H BLOOD UREA NITROGEN (test code = BUN) 7 mg/dL 3-21 N GLOMERULAR FILTRATION RATE (test code = GFR) > 60 mL/min >=60 The Glomerular Filtration Rate is a calculated parameterbased on serum Creatinine, patient age and sex. GFR valuesless than 60 mL/min/1.73 square meters are indicative ofChronic Kidney Disease. Values less than 15 mL/min/1.73square meters indicate Kidney failure. The calculation forGFR is based on the CKD-EPI (202) calculation. This formulais race indifferent and is the recommended formula for GFRby the National Kidney Foundation for Adults.The GFR will not calculate if the sex is unknown or if thepatient's age is <18 years. CREATININE (test code = CREAT) 0.48 mg/dL 0.55-1.3 L BUN/CREATININE RATIO (test code = BUN/CREA) 14.6 10-20 N CALCIUM (test code = CA) 9.1 mg/dL 8.4-10.2 N HEPATIC FUNCTION [id number] 12:55:00* Test Item Value Reference Range Interpretation Comme nts TOTAL PROTEIN (test code = PROT) 7.0 g/dL 6.5-8.4 N ALBUMIN (test code = ALB) 3.2 g/dL 3.4-4.8 L GLOBULIN (test code = GLOB) 3.8 G/DL 1-10 N ALBUMIN/GLOBULIN RATIO (test code = A/G) 0.84 RATIO 0.75-1.50 N BILIRUBIN TOTAL (test code = BILT) 0.20 mg/dL 0.0-1.0 N BILIRUBIN DIRECT (test code = BILD) 0.10 mg/dL 0.0-0.30 N SGOT/AST (test code = AST) 13 U/L 6-32 N SGPT/ALT (test code = ALT) 19 U/L 12-78 N Note: Change in REFERENCE RANGE due to new reagent method. ALKALINE PHOSPHATASE TOTAL (test code = ALKP) 63 U/L 38-126 N [id number] 12:55:00* Test Item Value Reference Range Interpretation Comme [facility] LIPASE (test code = LIP) 34 U/L 16-77 N HCG SERUM [id number] 12:55:00* Test Item Value Reference Range Interpretation Comme [facility] HCG SERUM QUAL (test code = HCGQL) POSITIVE NEGATIVE A This HCGQL test is NOT applicable for MALE patients.Check with nurse about probable order error.If Tumor Marker Test needed, nurse should order test "HCGTU"(Test #[id number]) CBC W/O [id number] 12:41:00* Test Item Value Reference Range Interpretation Comme nts WHITE BLOOD CELL (test code = WBC) 7.1 K/mm3 4.5-12.5 N RED BLOOD CELL (test code = RBC) 3.94 mill/mm3 3.7-5.2 N HEMOGLOBIN (test code = HGB) 12.2 gram/dL 11.5-15.5 N HEMATOCRIT (test code = HCT) 34.1 % 36.0-46.0 L MEAN CELL VOLUME (test code = MCV) 86.5 fL 80-98 N MEAN CELL HGB (test code = MCH) 31.0 picogram 27.0-33.0 N MEAN CELL HGB CONCETRATION (test code = MCHC) 35.8 gram/dL 33.0-36.0 N RED CELL DISTRIBUTION WIDTH (test code = RDW) 11.6 % 11.6-16.2 N RED CELL DISTRIBUTION WIDTH SD (test code = RDW-SD) 36.9 fL 37.0-51.0 L PLATELET COUNT (test code = PLT) 287 K/mm3 150-450 N MEAN PLATELET VOLUME (test c ode = MPV) 9.9 fL 6.7-11.0 N - US PREG UT [id number] 09:38:00 [facility])Name: MARY FARLEY : 1995 Sex: F Name: MARY FARLEY [facility] : 1995 Age/S: 27 / F [address] [facility] Unit #: [id number] Loc: [place] [address] Phys: Suleman Walters MD Acct: [id number] Dis Date: Status: REG ER PHONE #: [phone] Exam Date: 11/23/2022915 FAX #: [phone]: PELVIC PAIN EXAMS: CPT CODE: [id number] US PREG UT TRANSVAGINAL 98554 HISTORY: Pelvic pain. COMPARISON: None available. Location: [facility]. Transabdominal and transvaginal (for better endometrialand ovarian evaluation) pelvic ultrasound with color and Doppler flow and grayscale imaging. Anteverted uterus measured 11 x 5 x 7.1 cm. Nabothian cysts within the cervix. Intrauterine gestational sac with embryonic pole and yolk sac. Cardiac activity is bradycardic and 118 bpm. No subchorionic hemorrhage. Mean sac diameter 1.8 cm and crown-rump length of 2.9 mm would equal 6 weeks 3 days +/- 1 week. LEVI of July 16, 2023. LEVI by LMP of July 11, 2023. Color and Doppler flow in either ovary with normal spectral waveform. Right ovary is measuring 3.5 x 2.1 x 2.2 cm. Left ovary measured 6 6.9 x 4.2 x 4.9 cm. Simple cyst within it measured 4.7 cm. No follow-up is required. No free fluid. IMPRESSION: IUP at 6 weeks 3 days +/- 1 week. LEVI of July 16, 2023. Average bradycardic heart rate of 118 BPM. Color and Doppler flow in either ovary with normal spectral waveform. at 0938 Reported and signed by: Pietro Alvarez M.D. CC: Ashleigh Walters MD Technologist: Radha Pantoja Trnscb Date/Time: 11/23/2022 (937) [email or web address] Orig Print D/T: S: 11/23/2022 (09) Probe: [id number] PAGE 1 Signed Report- DUP AB/PEL/SC [id number] 09:38:00 [facility])Name: SALOME MARY : 1995 Sex: F Name: MARY FARLEY [facility] : 1995 Age/S: 27 / F [address] [facility] Unit #: [id number] Loc: [place] [address] Phys: Suleman Walters MD Acct: [id number] Dis Date: Status: REG ER PHONE #: [phone] Exam Date: 11/23/2022915 FAX #: [phone] Reason: PELVIC PAIN EXAMS: CPT CODE: [id number] DUP AB/PEL/SC COMP 30716 HISTORY: Pelvic pain. COMPARISON: None available. Location: [facility]. Transabdominal and transvaginal (for better endometrial and ovarian evaluation) pelvic ultrasound with color and Doppler flow and grayscale imaging. Anteverted uterus measured 11 x 5 x 7.1 cm. Nabothian cysts within the cervix. Intrauterine gestational sac withembryonic pole and yolk sac. Cardiac activity is bradycardic and 118 bpm. No subchorionic hemorrhage. Mean sac diameter 1.8 cm and crown-rump length of 2.9 mm would equal 6 weeks 3 days +/- 1 week. LEVI of July 16, 2023. LEVI by LMP of July 11, 2023. Color and Doppler flow in either ovary with normal spectral waveform. Right ovary is measuring 3.5 x 2.1 x 2.2 cm. Left ovary measured 6 6.9 x 4.2 x 4.9cm. Simple cyst within it measured 4.7 cm. No follow-up is required. No free fluid. IMPRESSION: IUP at 6 weeks 3 days +/- 1 week. LEVI of July 16, 2023. Average bradycardic heart rate of 118 BPM. Color and Doppler flow in either ovary with normal spectral waveform. at 0938 Reported and signed by: Pietro Alvarez M.D. CC: Suleman Walters MD Technologist: Radha Pantoja Trnscb Date/Time: 11/23/2022 (937) [email or web address] Orig Print D/T: S: 11/23/2022 (7642) Probe: PAGE 1 Signed Report- US PREG 1ST [id number] 09:38:00 [facility] ([facility])Name: MARY FARLEY : 1995 Sex: F Name: MARY FARLEY [facility] : 1995 Age/S: 27 / F [address] [facility] Unit #: [id number] Loc: [place] [address] Phys: Suleman Walters MD Acct: [id number] Dis Date: Status: REG ER PHONE #: [phone] Exam Date: 11/23/2022915 FAX #: [phone]: VAGINAL BLEEDING/PELVIC PAIN EXAMS: CPT CODE: [id number] US PREG 1ST TRIMTR 66586 HISTORY: Pelvic pain. COMPARISON: None available. Location: [facility]. Transabdominal and transvaginal (for better endometrial and ovarian evaluation) pelvic ultrasound with color and Doppler flow and grayscale imaging. Anteverted uterus measured 11 x 5 x 7.1 cm. Nabothian cysts within the cervix. Intrauterine gest ational sac with embryonic pole and yolk sac. Cardiac activity is bradycardic and 118 bpm. No subchorionic hemorrhage. Mean sac diameter 1.8 cm and crown-rump length of 2.9 mm would equal 6 weeks 3 days +/- 1 week. LEVI of July 16, 2023. LEVI by LMP of July 11, 2023. Color and Doppler flow in either ovary with normal spectral waveform. Right ovary is measuring 3.5 x 2.1 x 2.2 cm. Left ovary measured6 6.9 x 4.2 x 4.9 cm. Simple cyst within it measured 4.7 cm. No follow- up is required. No free fluid. IMPRESSION: IUP at 6 weeks 3 days +/- 1 week. LEVI of July 16, 2023. Average bradycardic heart rateof 118 BPM. Color and Doppler flow in either ovary with normal spectral waveform. ElectronicallySigned by Gila Alvarez on 11/23/2022 at 0938 Reported and signed by: Pietro Alvarez M.D. CC:Suleman Walters MD Technologist: Radha Pantoja Trnscb Date/Time: 11/23/2022 (937) [email or web address] Orig Print D/T: S: 11/23/2022 (6270) Probe: PAGE 1 Signed ReportBASIC METABOLIC [id number] 09:35:00* Test Item Value Reference Range Interpretation Comme nts SODIUM (test code = NA) 138 mmol/L 135-148 N POTASSIUM (test code = K) 3.8 mmol/L 3.5-5.1 N CHLORIDE (test code = CL) 104 mmol/L 101-109 N CARBON DIOXIDE (test code = CO2) 24.9 mmol/L 21-32 N ANION GAP (test code = GAP) 13 mmol/L 10-20 N GLUCOSE (test code = GLU) 95 mg/dL 74-106 N BLOOD UREA NITROGEN (test code = BUN) 10 mg/dL 3-21 N GLOMERULAR FILTRATION RATE (test code = GFR) > 60 mL/min >=60 The Glomerular Filtration Rate is a calculated parameterbased on serum Creatinine, patient age and sex. GFR valuesless than 60 mL/min/1.73 square meters are indicative ofChronic Kidney Disease. Values less than 15 mL/min/1.73square meters indicate Kidney failure. The calculation forGFR is based on the CKD-EPI (202) calculation. This formulais race indifferent and is the recommended formula for GFRby the National Kidney Foundation for Adults.The GFR will not calculate if the sex is unknown or if thepatient's age is <18 years. CREATININE (test code = CREAT) 0.62 mg/dL 0.55-1.3 N BUN/CREATININE RATIO (test code = BUN/CREA) 16.1 10-20 N CALCIUM (test code = CA) 8.6 mg/dL 8.4-10.2 N HCG SERUM [id number] 09:35:00* Test Item Value Reference Range Interpretation Comme nts HCG SERUM BETA (test code = HCG) 72570.0 mIU/ml 0-5.0 H INTERPRETATION :B-HCG LEVELS <6 SHOULD BE CONSIDERED "NEGATIVE."VALUES BETWEEN 6-25 MIU/ML NEED TO BE RETESTED WITHIN 48hrs. 0-1 WEEKS AFTER CONCEPTION 0-50 MIU/ML1-2 WEEKS AFTER CONCEPTION 40-300 MIU/ML2-3 WEEKS AFTER CONCEPTION 100-1,000 MIU/ML3-4 WEEKS AFTER CONCEPTION 500-6,000 MIU/ML1-2 MONTHS AFTER CONCEPTION 5,000-200,000 MIU/ML2-3 MONTHS AFTER CONCEPTION 10,000-100,000 MIU/ML2ND TRIMESTER 3,000-50,000 MIU/ML3RD TRIMESTER 1,000-50,000 MIU/ML URINALYSIS [id number] 09:01:00* Test Item Value Reference Range Interpretation Comme nts UA COLOR (test code = COLU) YELLOW YELLOW UA APPEARANCE (test code = APPU) SLIGHT HAZY CLEAR A UA GLUCOSE DIPSTICK (test code = DGLUU) norm mg/dL NEGATIVE UA BILIRUBIN DIPSTICK (test code = BILU) NEGATIVE mg/dL NEGATIVE UA KETONE DIPSTICK (test code = KETU) neg mg/dL NEGATIVE UA SPECIFIC GRAVITY (test code = SGU) 1.015 1.001-1.035 UA BLOOD DIPSTICK (test code = SALVADOR) 10 (Trace) Jg/uL NEGATIVE A UA PH DIPSTICK (test code = TAURUS) 6.5 5.0-8.0 UA PROTEIN DIPSTICK (test code = PROU) 30 (1+) mg/dL Neg-15 A UA UROBILINIOGEN DIPSTICK (test code = URO) norm mg/dL 0.0-0.2 UA NITRITE DIPSTICK (test code = DUANE) NEGATIVE NEGATIVE UA LEUKOCYTE ESTERASE DIPSTICK (test code = LEUU) 25 [place]/uL (Trace) uL NEGATIVE A UA WBC (test code = WBCU) 0-5 per HPF 0-5 UA RBC (test code = RBCU) 0-3 per HPF 0-5 UA EPITHELIAL CELLS (test code = EPIU) Moderate (5-10/hpf) per HPF Few UA BACTERIA (test code = BACU) MANY per HPF NONE A Urine Source? Clean CatchCBC W/O [id number] 08:51:00* Test Item Value Reference Range Interpretation Comme nts WHITE BLOOD CELL (test code = WBC) 7.1 K/mm3 4.5-12.5 N RED BLOOD CELL (test code = RBC) 4.19 mill/mm3 3.7-5.2 N HEMOGLOBIN (test code = HGB) 12.9 gram/dL 11.5-15.5 N HEMATOCRIT (test code = HCT) 36.9 % 36.0-46.0 N MEAN CELL VOLUME (test code = MCV) 88.1 fL 80-98 N MEAN CELL HGB (test code = MCH) 30.8 picogram 27.0-33.0 N MEAN CELL HGB CONCETRATION (test code = MCHC) 35.0 gram/dL 33.0-36.0 N RED CELL DISTRIBUTION WIDTH (test code = RDW) 11.6 % 11.6-16.2 N RED CELL DISTRIBUTION WIDTH SD (test code = RDW-SD) 37.3 fL 37.0-51.0 N PLATELET COUNT (test code = PLT) 274 K/mm3 150-450 N MEAN PLATELET VOLUME (test c ode = MPV) 10.1 fL 6.7-11.0 N POCT [id number] 15:01:00* Test Item Value Reference Range Interpretation Comme nts POCT PREG (test code = 1605) Positive On board controls acceptable with C Line (test code = 3574) Yes POCT PREG LOT # (test code = 3575) [id number] POCT PREG TEST DATE ( test code = 3576) 06-27-2023 Lab Interpretation (test cod e = 93282-8) Normal [facility] URINALYSIS W/O SPECIFIC [id number] 15:01:00* Test Item Value Reference Range Interpretation Comme nts POCT PH U (test code = 3254) 5 mg/dl 5-8 POCT U LEUK EST (test code = 3263) negative Negative - Negative POCT U NIT (test code = 3262) positive Negative - Negati ve POCT U PROT (test code = 3259) trace Negative - Negat vidhi POCT U GLU (test code = 3256) negative Negative - Negati ve POCT U KETONE (test code = 3258) small Negative - Neg ative POCT U BLD (test code = 3257) negative Negative - Negati ve Lab Interpretation (test cod e = 07807-4) Abnormal [facility] DNA BY [id number] 18:08:00* Test Item Value Reference Range Interpretation Comme nts C. TRACHOMATIS DNA BY PCR (test code = CHLAMTDNA) Negative Negative N. GONORRHOEAE DNA BY PCR (test code = NGONORDNA) Negative Negative Performed At: [facility] [place], [place] [id number] pratima Wolfe MD Ph:[phone] performed at: [facility] [address] [place] [address] URINALYSIS [id number] 14:00:00* Test Item Value Reference Range Interpretation Comme nts UA COLOR (test code = COLU) YELLOW YELLOW UA APPEARANCE (test code = APPU) HAZY CLEAR A UA GLUCOSE DIPSTICK (test code = DGLUU) norm mg/dL NEGATIVE UA BILIRUBIN DIPSTICK (test code = BILU) NEGATIVE mg/dL NEGATIVE UA KETONE DIPSTICK (test code = KETU) neg mg/dL NEGATIVE UA SPECIFIC GRAVITY (test code = SGU) 1.010 1.001-1.035 UA BLOOD DIPSTICK (test code = SALVADOR) 50 (2+) Jg/uL NEGATIVE A UA PH DIPSTICK (test code = TAURUS) 7.0 5.0-8.0 UA PROTEIN DIPSTICK (test code = PROU) 15 (TRACE) mg/dL Neg-15 A UA UROBILINIOGEN DIPSTICK (test code = URO) norm mg/dL 0.0-0.2 UA NITRITE DIPSTICK (test code = DUANE) NEGATIVE NEGATIVE UA LEUKOCYTE ESTERASE DIPSTICK (test code = LEUU) 100 [place]/uL (1+) uL NEGATIVE A UA WBC (test code = WBCU) 3-5 per HPF 0-5 UA RBC (test code = RBCU) 0-3 per HPF 0-5 UA EPITHELIAL CELLS (test code = EPIU) Few (2-5/hpf) per HPF Few UA BACTERIA (test code = BACU) MANY per HPF NONE A UA MUCUS (test code = MUCU) FEW per LPF NONE-FEW Urine Source? Clean CatchUR HCG [id number] 14:00:00* Test Item Value Reference Range Interpretation Comme nts UR HCG QUAL (test code = HCGQLU) NEGATIVE This HCGQL test is NOT applicable for MALE patients.Check with nurse about probable order error.If Tumor Marker Test needed, nurse should order test "HCGTU"(Test #[id number]) Urine Source? Clean CatchURINALYSIS [id number] 13:59:00* Test Item Value Reference Range Interpretation Comme nts UA COLOR (test code = COLU) YELLOW YELLOW UA APPEARANCE (test code = APPU) HAZY CLEAR A UA GLUCOSE DIPSTICK (test code = DGLUU) norm mg/dL NEGATIVE UA BILIRUBIN DIPSTICK (test code = BILU) NEGATIVE mg/dL NEGATIVE UA KETONE DIPSTICK (test code = KETU) neg mg/dL NEGATIVE UA SPECIFIC GRAVITY (test code = SGU) 1.010 1.001-1.035 UA BLOOD DIPSTICK (test code = SALVADOR) 50 (2+) Jg/uL NEGATIVE A UA PH DIPSTICK (test code = TAURUS) 7.0 5.0-8.0 UA PROTEIN DIPSTICK (test code = PROU) 15 (TRACE) mg/dL Neg-15 A UA UROBILINIOGEN DIPSTICK (test code = URO) norm mg/dL 0.0-0.2 UA NITRITE DIPSTICK (test code = DUANE) NEGATIVE NEGATIVE UA LEUKOCYTE ESTERASE DIPSTICK (test code = LEUU) 100 [place]/uL (1+) uL NEGATIVE A UA WBC (test code = WBCU) per HPF 0-5 UA RBC (test code = RBCU) per HPF 0-5 UA EPITHELIAL CELLS (test code = EPIU) per HPF Few UA BACTERIA (test code = BACU) per HPF NONE Urine Source? Clean CatchUR HCG [id number] 13:59:00* Test Item Value Reference Range Interpretation Comme nts UR HCG QUAL (test code = HCGQLU) Urine Source? Clean Catch History and Physical Notes Date/Time Note Provider Source 2023-07-12 14:58:29 TRIAGE HISTORY & PHYSICAL IDENTIFYING DATA Mary Farley is 28 year old, /White, 39w1d, female with LEVI 07/18/2023, by Ultrasound. : 1995 Primary Care Physician: Alecia Jacobson CHIEF COMPLAINT Scheduled induction of labor HISTORY OF PRESENT ILLNESS The patient presents for elective induction of labor. She understands induction, the risks and benefits and desires to proceed. +FM. No VB, LOF, or CTX. No pre-eclampsia sx or other complaints. She affirms her desire for PP BTL. PAST OBSTETRIC HISTORY OB History Para Term AB Living 3 2 2 2 SAB IAB Ectopic Multiple Live Births 2 # Outcome Date GA Lbr Ten/2nd Weight Sex Delivery Anes PTL Lv 3 Current 2 Term 08/07/14 3175 g F NORMAL SPONT EPI N VIKASH 1 Term 05/21/13 3572 g M NORMAL SPONT EPI N VIKASH PAST MEDICAL HISTORY Problem list: Patient Active Problem List Diagnosis Date Noted 39 weeks gestation of 07/12/2023 Morbid obesity with body mass index of 40.0-49.9 07/12/2023 Indication for care in labor or delivery-IOL 07/12/2023 Obesity (BMI 30-39.9) 07/02/2023 Anemia affecting , antepartum 06/20/2023 Uterine size-date discrepancy in third trimester 06/15/2023 Transverse or oblique presentation, antepartum 06/07/2023 Decreased movement 05/25/2023 Nausea and vomiting in 05/23/2023 Abnormal maternal glucose tolerance, antepartum 04/13/2023 Supervision of high risk in third trimester 02/22/2023 Urinary tract infection in mother during , antepartum 11/15/2022 Multiparity 11/09/2022 Obesity affecting , antepartum 11/09/2022 Operations: No past surgical history on file. Past Medical History: Diagnosis Date Nausea and vomiting in 05/23/2023 CURRENT HEALTH STATUS Medications: Current Facility-Administered Medications Medication Dose Route Frequency Last Rate Last Admin [id number] IV infusion 1,000 mL 1,000 mL IV Infusion TITRATE 125 mL/hr at 07/12/23 1549 1,000 mL at 07/12/23 1549 lactated ringers IV infusion 500 mL 500 mL IV Infusion PRN - SEE INSTRUCTIONS lactated ringers IV infusion 500 mL 500 mL IV Infusion PRN - SEE INSTRUCTIONS lactated ringers IV infusion 700 mL 700 mL IV Infusion ONCE lidocaine 1% (PF) (XYLOCAINE) injection 0.3 mL 0.3 mL Infiltration PRN - SEE INSTRUCTIONS lidocaine 1% (XYLOCAINE) 10 mg/mL (1 %) injection 50 mL 50 mL Infiltration PRN - SEE INSTRUCTIONS oxytocin (PITOCIN) 30 units in NS 500 mL IV infusion 2-40 irma-units/min IV Infusion TITRATE sodium citrate-citric acid (BICITRA) 500-334 mg/5 mL solution 30 mL 30 mL Oral PRE-PROCEDURE ONCE sodium citrate-citric acid (BICITRA) 500-334 mg/5 mL solution 30 mL 30 mL Oral PRE-PROCEDURE ONCE Allergies and drug reactions: Patient has no known allergies. HOME MEDICATIONS Medications Prior to Admission Medication Sig Dispense Refill Last Dose ferrous sulfate (IRON, FERROUS SULFATE,) 325 mg (65 mg iron) tablet Take 1 tablet by mouth in the morning. 60 tablet 2 ondansetron 4 mg disintegrating tablet Take 1 tablet by mouth every 8 (eight) hours as needed for Nausea and Vomiting (N/V). 10 tablet 0 Not Taking SOCIAL HISTORY Tobacco History: Social History Tobacco Use Smoking Status Never Passive exposure: Never Smokeless Tobacco Never Drug History: Social History Substance and Sexual Activity Drug Use Never Alcohol History: Social History Substance and Sexual Activity Alcohol Use Never FAMILY HISTORY Family History Problem Relation Age of Onset Asthma Father REVIEW OF SYSTEMS General: negative Constitutional: negative Eyes: negative ENT/Mouth: negative Cardiovascular: negative Respiratory: negative Gastrointestinal:negative Genitourinary: negative Musculoskeletal: negative Skin/breast: negative Neurological: negative Psychiatric: negative Endocrine: negative Hemat/Lymph: negative Allergic/Immuno:none Placenta Accreta Screening Prior ? : No Prior Uterine Surgery?: No Placenta low lying/previa in current ? : No Ultrasound suspicion of PASD in current ?: No Screening outcome: A positive screening outcome indicates a history of prior delivery or prior uterine surgery, AND the presence of either a placenta low lying/previa or ultrasound suspicion of PASD in the current . Negative screening. VITAL SIGNS BP: (99)/(58) Temp: -- Temp source: -- Pulse: [96-97] Resp: [18] SpO2: [99 %-100 %] Height: [137.2 cm (4' 6.02")] Weight: [77.1 kg (170 lb)] BMI (calculated): [40.96] PHYSICAL EXAMINATIONS Gen: alert and oriented, well appearing, no distress CV: RRR, normal S1/S2, no m/r/g Resp: normal work of breathing, lungs CTAB Abd: gravid, soft, NTTP Ext: no calf tenderness or edema : SVE REVIEW OF LABORATORY, PATHOLOGY, AND RADIOLOGY DATA Lab results: Type & Screen HIV Hep B Syphilis Chlamydia ABO & RH Date Value Ref Range Status 11/09/2022 O POSITIVE Final No results found for: "HIVMULTIPLEX" No components found for: "HBSHBSAG" Syphilis IgG/IgM Date Value Ref Range Status 05/24/2023 Non-reactive Non-reactive Final C. trachomatis Nucleic Acid Date Value Ref Range Status 05/23/2023 Negative Negative Final IAT Date Value Ref Range Status 11/09/2022 Negative Final Varicella Rubella Glucose Group B Strep CBC VZV IgG antibody Date Value Ref Range Status 11/09/2022 Positive Negative Final Rubella screen IgG Date Value Ref Range Status 11/09/2022 Positive Negative Final GLUC 1 HR Date Value Ref Range Status 04/20/2023 115 (L) 120 - 170 mg/dL Final No results found for: "CGBS" HGB Date Value Ref Range Status 07/02/2023 10.4 (L) 11.6 - 15.0 g/dL Final HCT Date Value Ref Range Status 07/02/2023 31.5 (L) 35.7 - 45.2 % Final PLT Date Value Ref Range Status 07/02/2023 298 166 - 358 10*3/?L Final Active Hospital Problems Diagnosis Date Noted 39 weeks gestation of 07/12/2023 Morbid obesity with body mass index of 40.0-49.9 07/12/2023 Indication for care in labor or delivery-IOL 07/12/2023 Anemia affecting , antepartum 06/20/2023 Abnormal maternal glucose tolerance, antepartum 04/13/2023 Multiparity 11/09/2022 Obesity affecting , antepartum 11/09/2022 Resolved Hospital Problems No resolved problems to display. Present on Admission: Anemia affecting , antepartum Abnormal maternal glucose tolerance, antepartum Multiparity Obesity affecting , antepartum 39 weeks gestation of Morbid obesity with body mass index of 40.0-49.9 Indication for care in labor or delivery-IOL ASSESSMENT AND PLAN Mary Farley is a 28 year old at 39w1d by 7 wk USG who presents for scheduled induction of labor. She affirms her desire for PP BTL. Induction of Labor - SVE: Dilation: 1 / Effacement (%): 0 % / Station: Floating - [place] : irregular - Plan: IOL with FB and pitocin. Desires epidural for pain relief. PP BTL. Antepartum course reviewed - 1 h 135, 3 hr wnl, sero neg, Ri, VZVi, O+/neg, GBS neg, Pap NIL 11/09/22 - H/H, plt: 10.4 / 31.5, 298 on 07/02/23 - [facility] [place] Fetus - Presentation on admission: vertex, sutures palpable - fundal placenta - Nikolai 8.5-9#, 3923 gm by MD scan - T Category I - Normal anatomy scan Informed consent discussed with the patient, including: condition, proposed care, treatments and services, alternative forms of treatment, and risks of no treatment. Details discussed around the procedures to be used, and the risks and hazards involved, potential benefits, and side effects of the patient s proposed care, treatment, and services; the likelihood of the patient achieving his or her goals; and any potential problems that might occur during recuperation. Reasonable alternative also discussed with the patient s proposed care, treatment, and services. The discussion encompasses risks, benefits, and side effects related to the alternative and risks related to not receiving the proposed care, treatment, and services. Dr. Carlson was available for consultation. Natacha Petit-SUSIE Cam, CLEMENTE Associated attestation - Papa Carlson MD - 07/12/2023 5:03 PM CDT I was faculty in L&D on 07/12/2023 and was available for consultation. I agree with nurse communications planner, Natacha Petit's note as written. I actively participated in the decision-making process. Please see the nurse communications planner's note for additional details. [facility] 2023-05-23 13:59:34 ANTEPARTUM HISTORY & PHYSICAL IDENTIFYING DATA Mary Farley is 28 year old, /White, 32w0d, female with LEVI 07/18/2023, by Ultrasound. : 1995 Primary Care Physician: [facility] Day: 1 CHIEF COMPLAINT Nausea/vomiting cramping HISTORY OF PRESENT ILLNESS Mary Farley is a 28 year old female at 32w0d presents with c/o acute onset n/v that started around 0200 this AM. Reports she has been unable to hold anything down since, not even sips of water. Reports feeling mild cramping and abdominal tightening (which she has been feeling off an on for a couple of weeks) just more frequent today. Denies bleeding or LOF. Denies dysuria, fever or chills. Denies sick contacts. Ate pizza last night at a birthday green party but reports others ate the same food and no others are ill. Denies diarrhea or bowel cramping. Reports active FM. PAST OBSTETRIC HISTORY OB History Para Term AB Living 3 2 2 2 SAB IAB Ectopic Multiple Live Births 2 # Outcome Date GA Lbr Ten/2nd Weight Sex Delivery Anes PTL Lv 3 Current 2 Term 08/07/14 3175 g F NORMAL SPONT EPI N VIKASH 1 Term 05/21/13 3572 g M NORMAL SPONT EPI N VIKASH PAST MEDICAL HISTORY Problem list: Patient Active Problem List Diagnosis Date Noted Abnormal maternal glucose tolerance, antepartum 04/13/2023 Supervision of high risk in second trimester 02/22/2023 Urinary tract infection in mother during , antepartum 11/15/2022 Multiparity 11/09/2022 Obesity affecting , antepartum 11/09/2022 Operations: No past surgical history on file. Prior surgeries at outside hospitals: none No past medical history on file. CURRENT HEALTH STATUS Medications: No current facility-administered medications for this encounter. Allergies and drug reactions: Patient has no known allergies. HOME MEDICATIONS No medications prior to admission. SOCIAL HISTORY Tobacco History: Social History Tobacco Use Smoking Status Never Passive exposure: Never Smokeless Tobacco Never Drug History: Social History Substance and Sexual Activity Drug Use Never Alcohol History: Social History Substance and Sexual Activity Alcohol Use Never FAMILY HISTORY Family History Problem Relation Age of Onset Asthma Father REVIEW OF SYSTEMS General: negative Constitutional: negative Eyes: negative ENT/Mouth: negative Cardiovascular: negative Respiratory: negative Gastrointestinal:negative Genitourinary: negative VITAL SIGNS BP: (91-111)/(47-73) Temp: [36.9 ?C (98.4 ?F)] Temp source: Oral (05/22 1144) Pulse: [91-115] Resp: [16] SpO2: [100 %] Height: -- Weight: -- BMI (calculated): -- PHYSICAL EXAMINATIONS CONSTITUTIONAL: no apparent distress, appearing age-appropriate. RESPIRATORY: good inspiratory effort to inspections, lungs clear to auscultation bilaterally. No wheeze/stridor/crackles bilaterally. CARDIOVASCULAR: regular rate and rhythm. No rubs/gallops/murmurs. REVIEW OF LABORATORY, PATHOLOGY, AND RADIOLOGY DATA Lab results: CBC BMP PT/INR WBC (10*3/?L) Date Value 05/23/2023 7.05 NA (mmol/L) Date Value 05/23/2023 136 No results found for: "PT" RBC (10*6/?L) Date Value 05/23/2023 3.87 (L) K (mmol/L) Date Value 05/23/2023 3.4 (L) No results found for: "PTINR" PLT (10*3/?L) Date Value 05/23/2023 313 CALCIUM (mg/dL) Date Value 05/23/2023 9.0 HGB (g/dL) Date Value 05/23/2023 11.3 (L) CL (mmol/L) Date Value 05/23/2023 108 aPTT HCT (%) Date Value 05/23/2023 33.6 (L) BUN (mg/dL) Date Value 05/23/2023 7 No results found for: "APTTPAT" CREATININE (mg/dL) Date Value 05/23/2023 0.35 (L) GLUCOSE (mg/dL) Date Value 05/23/2023 89 CO2 TOTAL (mmol/L) Date Value 05/23/2023 24 Type & Screen Rubella Varicella ABO & RH (no units) Date Value 11/09/2022 O POSITIVE Rubella screen IgG (no units) Date Value 11/09/2022 Positive No results found for: "VZVG" No results found for: "TSABINT" Hep B HIV Syphilis No results found for: "HBS" No results found for: "HIV" No results found for: "SYPG" Group B Strep Chlamydia No results found for: "CGBS" C. trachomatis Nucleic Acid (no units) Date Value 12/26/2022 Negative Placenta Accreta Screening Screening outcome: A positive screening outcome indicates a history of prior delivery or prior uterine surgery, AND the presence of either a placenta low lying/previa or ultrasound suspicion of PASD in the current . Negative screening. HEART RATE Cat I strip ASSESSMENT AND PLAN Mary Farley is a 28 year old female at 32w0d here with c/o n/v and cramping N/V - since 0200 AM - UA with +ketones - CBC and CMP WNL - IVF hydration and Zofran IV given ctx - reports feeling some cramping, non painful, just tightening - ctx q 2-6 mins on toco - SSE: affirm, gc/ct, GBS collected - SVE /high - suspect compent of dehydration-- IVF hydration ordered Dispo: nausea resolved after Zofran, was able to tolerate PO fluids w/o vomiting. Reports ctx spaced out and not painful. Offered pt to stay for continued fluids and repeat SVE, but she reports she felt much better and her ctx were not that noticeable and not painful. Desires d/c home. PTL warnings discussed. Stable for d/c. Rx for Zofran ODT sent to pharmacy for PRN use. Discussed increased PO hydration and bland diet for 24 hours. ADAN Ewing Associated attestation - Iveth Richardson MD - 05/23/2023 2:51 PM CDT I agree with the plan of care as stated in the note below and agree with GIFT OFFICER note. I actively participated in the decision-making process. Please see the GIFT OFFICER note for additional details. T Iveth Richardson MD 05/23/2023 2:50 PM [facility] Procedure Notes Date/Time Note Provider Source 2023-07-13 00:00:00 Procedure(s): INTRAUTERINE PRESSURE CATHETER PLACEMENT AND MONITORING Pre-Procedure Diagnose(s): Labor and delivery indication for care or intervention Post-Procedure Diagnose(s): Labor and delivery indication for care or intervention SVE with minimal change on 8 mu/min of Pitocin. Pt consents to an IUPC. Posterior fundal placenta noted. IUPC catheter inserted per package insert instructions without difficulty. Amniotic fluid return noted in IUPC catheter with no julia red bleeding in catheter or on insertion. Pt tolerated procedure without pain or complications. Will monitor MVUs. Desire MVUs to be 200-220 to achieve adequate labor. Due to back and right leg discomfort, pt repositioned to left lateral following IUPC placement. Pt verbalizes comfort in this position. IUPC and FSE tracing well. [facility] 2023-07-12 20:01:47 Associated Order(s): Central Neuraxial Block Central Neuraxial Block Date/Time: 07/12/2023 8:01 PM Performed by: Keenan Aparicio DO Authorized by: Iveth Vidal MD Patient Location: OB Reason for Block: OB request, Patient request and Labor analgesia Staff: Anesthesiologist: Iveth Vidal MD Resident/DRIVER SUPERVISOR: Dorota Martinez MD Performed by: anesthesiologist and resident/DRIVER SUPERVISOR Preanesthetic Checklist: patient identified, IV checked, risks and benefits explained, monitors and equipment checked, timeout performed, pre-op evaluation, site marked and anesthesia consent Procedure: Type of Neuraxial: Epidural Epidural Description: 1st attempt Sterility Prep cap, drape, gloves, mask and hand hygiene Sedation Level no sedation Patient Position: sitting Prep: Betadine and patient draped Monitoring: heart rate, continuous pulse ox, heart rate / toco and NIBP Location: lumbar (1-5) Lumbar: L4-L5 Approach: midline Technique: catheter and LISETH saline Guidance with: landmark technique} Epidural/Spinal [place] and/or Catheter: Epidural/Spinal Kit: BBraun Needle Type: Tuohy Needle Gauge: 17 G Needle Length: 3.5 in (8.89 cm) Needle Insertion Depth: 6 Catheter Type: multiport Catheter Size: 19 G Catheter at Skin Depth: 10 Number of Attempts: 1 Test Dose: lidocaine 1.5% with epinephrine 1-to-200,000 and negative Dose: 5 cc Catheter Securement Method: surgical tape, Tegaderm and liquid medical adhesive Assessment: Procedure Assessment: patient tolerated procedure well with no complications Notes: Patient identified; pre-procedure verification. Patient prepped and draped in standard sterile fashion using betadine x 3 Subcutaneous infiltration with 1% Lidocaine LISETH at 6 cm; catheter secured at 10 cm with mastisol, tegaderm x2 and 3-inch clear tape. Aspiration test negative x 3 Test dose negative Patient tolerated procedure well with no immediate complications Epidural expectations; PCEA explained and fall precautions given. AN-ANESTHESIOLOGY [facility] 2023-07-12 16:40:36 Procedure(s): INSERT CERVICAL DILATOR Pre-Procedure Diagnose(s): Indication for care or intervention in labor or delivery Post-Procedure Diagnose(s): Indication for care or intervention in labor or delivery Images from the original note were not included. Mary Farley is a 28 year old female 39w1d Alberto insertion: Insertion date and time: 07/12/23 @ 1640 Alberto catheter inserted through cervix in usual fashion and inflated with 60 cc sterile saline. Alberto bulb firmly in place inside internal os. Catheter taped to patient leg under traction. Patient tolerated procedure well. Low dose pitocin ordered. Please use the table below for: SVE 1/0/floating CERVIX: Consistency : moderately soft; Position: anterior, Station: floating Natacha Nunes APRN, CNM [facility]
[2024-03-23] MEDS ORDERED: METOCLOPRAMIDE 10 MG/2mL INJ ONE (04:50)
[2024-03-23] MEDS ORDERED: NA CHLORIDE 0.9% 1,000 ML ONE (04:50)
[2024-03-23] MEDS ORDERED: MORPHINE 4 MG/ML SYR ONE (04:50)
[2024-03-23 05:08] LABS: Absolute Eosinophils 0.2 K/uL (0-0.5); Absolute Lymphocytes (CBC) 3.2 K/uL (0.7-4.9); Absolute Monocytes 0.7 K/uL (0.1-1.3); Absolute Neutrophil 4.7 K/uL (1.8-8.0); Basophils % 0.4 % (0-1.3); Eosinophils % 2.3 % (0-4.4); Hematocrit 38.7 % (36.0-45.0); Hemoglobin 13.5 g/dL (12.0-15.0); Lymphocytes % 36.1 % (15.3-44.8); MCH 29.5 pg (27.0-35.0); MCHC 34.7 g/dL (32.0-36.0); MPV 8.8 fL (7.6-11.3); Monocytes % 8.3 % (3.3-12.3); Neutrophils % 52.9 % (41.7-73.7); Nucleated Red Blood Cells % 0.1 % (0-0); Platelets 298 thou/uL (152-406); RBC Red Blood Cell Count 4.56 M/uL (3.86-4.86); Red Cell Distribution Width 13.7 % (12.1-15.2)
[2024-03-23 05:15] LABS: PT Prothrombin Time 10.5 SECONDS (9.4-12.5)
[2024-03-23 05:40] LABS: ALT/SGPT 22 U/L (13-56); AST/SGOT 17 U/L (15-37); Albumin 3.5 g/dL (3.4-5.0); Albumin/Globulin Ratio 0.9 (1.1-1.8); Alkaline Phosphatase 90 U/L (45-117); Anion Gap 10.4 mEq/L (5.0-15.0); BUN Blood Urea Nitrogen 16 mg/dL (7-18); Bicarbonate 25 mEq/L (21-32); Bilirubin Direct < 0.2 mg/dL (0-0.2); Bilirubin Indirect, Calculated 0.1 mg/dL (0.2-0.8); Bilirubin Total 0.3 mg/dL (0.2-1.0); Globulin 3.9 g/dL (2.3-3.5); Glomerular Filtration Rate 123 ml/min (=/>90); Glucose Level 114 mg/dL (74-106); Lipase 31 U/L (13-75); Magnesium 2.1 mg/dL (1.6-2.4); NT PRO-BNP 13 pg/mL (<125); Potassium 3.4 mEq/L (3.5-5.1); Protein, Total 7.4 g/dL (6.4-8.2); Sodium Level 139 mEq/L (136-145); Troponin High Sensitivity < 3.0 pg/mL (<58.9)
--- NOTE | 2024-03-23 05:48 | ER ---
Nurse's Notes [facility] Name: Mary Farley Age: 28 yrs Sex: Female : 1995 Arrival Date: 03/23/2024 Time: 04:30 Bed 7 Private MD: Diagnosis: Other cholelithiasis without obstruction;Epigastric abdominal tenderness Presentation: 03/23 04:32 Chief complaint: Patient states: CHEST PAIN STARTED 1 HOUR AGO. SHORTNESS OF BREATH AND ha1 DIZZINESS. 04:32 Coronavirus screen: Client denies travel out of the [place] in the last 14 days. Ebola ha1 Screen: No symptoms or risks identified at this time. Initial Sepsis Screen: Does the patient meet any 2 criteria? No. Patient's initial sepsis screen is negative. Does the patient have a suspected source of infection? No. Patient's initial sepsis screen is negative. Risk Assessment: Do you want to hurt yourself or someone else? Patient reports no desire to harm self or others. Onset of symptoms was March 23, 2024. 04:32 Method Of Arrival: Ambulatory ha1 04:32 Acuity: ANABELLA 2 ha1 Triage Assessment: 04:44 General: Appears uncomfortable, Behavior is cooperative. Pain: Complains of pain in ha1 chest Pain does not radiate. Pain currently is 10 out of 10 on a pain scale. Quality of pain is described as burning, pressure, Pain began 1 hour ago. Neuro: Level of Consciousness is awake, alert, obeys commands, Oriented to person, place, time, situation. Cardiovascular: Capillary refill < 3 seconds Patient's skin is warm and dry. Respiratory: Airway is patent Respiratory effort is even, unlabored, Respiratory pattern is regular, symmetrical. GI: Abdomen is round non-distended, obese. Derm: Skin is pink, warm \T\ dry. Historical: - Allergies: 04:44 No Known Allergies; ha1 - PMHx: 04:44 None; ha1 - PSHx: 04:44 TUBAL LIGATION; ha1 - Immunization history:: Adult Immunizations up to date. - Infectious Disease History:: Denies. - Social history:: Smoking status: Patient denies any tobacco usage or history of. Screenin:40 [facility] ED Fall Risk Assessment (Adult) History of falling in the last 3 months, br2 including since admission No falls in past 3 months (0 pts) Confusion or Disorientation No (0 pts) Intoxicated or Sedated No (0 pts) Impaired Gait No (0 pts) Mobility Assist Device Used No (0 pt) Altered Elimination No (0 pt) Score/Fall Risk Level 0 - 2 = Low Risk Oriented to surroundings. Abuse screen: Denies threats or abuse. Denies injuries from another. Nutritional screening: No deficits noted. Tuberculosis screening: No symptoms or risk factors identified. Assessment: 04:40 Reassessment: Patient and/or family updated on plan of care and expected duration. Pain br2 level reassessed. Patient is alert, oriented x 3, equal unlabored respirations, skin warm/dry/pink. General: Appears distressed, Behavior is calm, cooperative. Pain: Complains of pain in epigastric area Pain does not radiate. Pain currently is 10 out of 10 on a pain scale. Neuro: Dyson Agitation-Sedation Scale (RASS): 0 - Alert and Calm Level of Consciousness is awake, alert, obeys commands, Oriented to person, place, time, situation. Cardiovascular: Capillary refill < 3 seconds. Respiratory: Reports shortness of breath at rest. GI: Reports nausea. Vital Signs: 04:32 BP 119 / 77; Pulse 73; Resp 18; Temp 97.6(T); Pulse Ox 100% on R/A; Weight 72.57 kg; ha1 Height 4 ft. 6 in. ; Pain 10/10; 06:20 BP 109 / 72; Pulse 78; Resp 20; Pulse Ox 100% on R/A; Pain 3/10; br2 04:32 Body Mass Index 38.58 (72.57 kg, 137.16 cm) ha1 04:32 Pain Scale: Adult ha1 06:20 Pain Scale: Adult br2 ED Course: 04:31 Patient arrived in ED. [email or web address] 04:31 Shon Ortega PA is PHCP. cp 04:31 Shon Tejada MD is Attending Physician. cp 04:40 Inserted saline lock: 20 gauge in right antecubital area, using aseptic technique. br2 Blood collected. Flushed with 10 mL NS. 04:40 Patient has correct armband on for positive identification. Placed in gown. Bed in low br2 position. Call light in reach. Side rails up X 1. Provided Education on: PLAN OF CARE. Client placed on continuous cardiac and pulse oximetry monitoring. NIBP monitoring applied. court recording monitor on. 04:44 Triage completed. ha1 04:45 EKG done, by ED staff, reviewed by Shon CHEN. sa1 04:55 XRAY Chest (1 view) In Process Unspecified. EDMS 04:58 Brenda Cornelius, RN is Primary Nurse. br2 04:58 Basic Metabolic Panel Sent. br2 04:58 CBC with Diff Sent. br2 04:58 LFT's Sent. br2 04:58 Magnesium Sent. br2 04:58 NT PRO-BNP Sent. br2 04:58 PT-INR Sent. br2 04:58 Troponin HS Sent. br2 05:12 US Abdomen Limited: gallbladder In Process Unspecified. EDMS 05:48 Cody Myers MD is Referral Physician. [facility] 06:19 No provider procedures requiring assistance completed. IV discontinued, intact, br2 bleeding controlled, No redness/swelling at site. Pressure dressing applied. Administered Medications: 04:58 Drug: NS 0.9% IV 1000 ml IV at 1000 ml once; to be given as a bolus over 60 minutes br2 Route: IV; Rate: 1000 ml; Site: right antecubital; 06:00 Follow up: IV Status: Completed infusion; IV Intake: 1000ml br2 04:58 Drug: metoCLOPramide IVP 10 mg IVP once; over 1 to 2 minutes Route: IVP; Site: right br2 antecubital; 05:30 Follow up: Response: No adverse reaction br2 04:58 Drug: morphine IVP or IV 4 mg IVP once over 4 mins Route: IVP; Infused Over: 4 mins; br2 Site: right antecubital; 05:30 Follow up: Response: No adverse reaction; Pain is decreased br2 06:03 Drug: Ketorolac IVP 15 mg IVP once Route: IVP; Site: right antecubital; br2 06:18 Follow up: Response: No adverse reaction br2 06:03 Drug: Potassium PO Effervescent Tablet 25 mEq PO once; dissolve in 4 ounces of water or br2 juice Route: PO; 06:19 Follow up: Response: No adverse reaction br2 Medication: 04:40 VIS not applicable for this client. br2 Intake: 06:00 IV: 1000ml; Total: 1000ml. br2 Outcome: 05:48 Discharge ordered by . sonny 06:19 Discharged to home ambulatory, br2 06:19 Condition: improved 06:19 Discharge instructions given to patient, Instructed on discharge instructions, Demonstrated understanding of instructions, follow-up care, medications, Prescriptions given X 3, 06:21 Patient left the ED. br2 Signatures: Dispatcher [employer] EDNJ Shon Tejada MD MD cha Page, Corey, PA PA Apple Coombs [email or web address] Nette Michel, RN RN ha1 Sultan Dennis [facility] Brenda Cornelius, RN RN br2
--- NOTE | 2024-03-23 05:49 | EDPHYS ---
Physician Documentation [facility] Name: Mary Farley Age: 28 yrs Sex: Female : 1995 Arrival Date: 03/23/2024 Time: 04:30 Bed 7 Private MD: ED Physician Shon Tejada HPI: 03/23 04:50 This 28 yrs old Female presents to ER via Ambulatory with complaints of Chest Pain, cp Shortness Of Breath. 04:50 The patient or guardian reports chest pain that is located primarily in the substernal cp area, epigastric area. 04:50 The pain radiates to Associated signs and symptoms: Pertinent positives: shortness of cp breath. The chest pain is described as constant. Duration: The patient or guardian reports a single episode, that is still ongoing, and worsening, started suddenly and awoke patient from sleep about 1 hour ago. Historical: - Allergies: 04:44 No Known Allergies; ha1 - PMHx: 04:44 None; ha1 - PSHx: 04:44 TUBAL LIGATION; ha1 - Immunization history:: Adult Immunizations up to date. - Infectious Disease History:: Denies. - Social history:: Smoking status: Patient denies any tobacco usage or history of. ROS: 05:00 Constitutional: Negative for body aches, chills, fever, poor PO intake, cp 05:00 Eyes: Negative for injury, pain, redness, and discharge, cp 05:00 ENT: Negative for drainage from ear(s), ear pain, sore throat, difficulty swallowing, difficulty handling secretions, 05:00 Cardiovascular: Positive for chest pain, 05:00 Respiratory: Positive for shortness of breath, Negative for cough, wheezing, 05:00 Abdomen/GI: Negative for vomiting, diarrhea, constipation, 05:00 Back: Positive for radiated pain, 05:00 : Negative for urinary symptoms, 05:00 Neuro: Negative for altered mental status, dizziness, headache, syncope, near syncope, weakness, 05:00 All other systems are negative, Exam: 04:50 ECG was reviewed by the Attending Physician. cp 05:05 Constitutional: The patient appears in no acute distress, alert, awake, cp non-diaphoretic, non-toxic, well developed, well nourished, uncomfortable, 05:05 Head/Face: Normocephalic, atraumatic. cp 05:05 Eyes: Periorbital structures: appear normal, Conjunctiva: normal, no exudate, no injection, Sclera: no appreciated abnormality, Lids and lashes: appear normal, bilaterally, 05:05 ENT: External ear(s): are unremarkable, Nose: is normal, Mouth: Lips: moist, Oral mucosa: moist, Posterior pharynx: Airway: no evidence of obstruction, patent, 05:05 Chest/axilla: Inspection: normal, 05:05 Cardiovascular: Rate: normal, Rhythm: regular, 05:05 Respiratory: the patient does not display signs of respiratory distress, Respirations: normal, no use of accessory muscles, no retractions, labored breathing, is not present, Breath sounds: are clear throughout, no decreased breath sounds, no stridor, no wheezing, 05:05 Abdomen/GI: Inspection: abdomen appears normal, Bowel sounds: active, all quadrants, Palpation: soft, in all quadrants, moderate abdominal tenderness, in the epigastric area and right upper quadrant, rebound tenderness, is not appreciated, voluntary guarding, is elicited in the epigastric area and right upper quadrant, 05:05 Back: pain, that is moderate, 05:05 Neuro: Orientation: to person, place \T\ time. Mentation: is normal, Motor: moves all fours, Vital Signs: 04:32 BP 119 / 77; Pulse 73; Resp 18; Temp 97.6(T); Pulse Ox 100% on R/A; Weight 72.57 kg; ha1 Height 4 ft. 6 in. ; Pain 10/10; 06:20 BP 109 / 72; Pulse 78; Resp 20; Pulse Ox 100% on R/A; Pain 3/10; br2 04:32 Body Mass Index 38.58 (72.57 kg, 137.16 cm) ha1 04:32 Pain Scale: Adult ha1 06:20 Pain Scale: Adult br2 MDM: 04:38 Medical Screening Exam initiated cp 05:35 Differential diagnosis: abnormal EKG, anxiety, chest wall pain, cholecystitis, sonny Cholelithiasis. HEART Score: History: Slightly Suspicious (0), ECG: Normal (0), Age: < or = 45 years (0), Risk Factors: No Risk Factors Known (0), Troponin: < or = 1 x Normal Limit (0), Total Score = 0. BIJU Risk Score: TOTAL SCORE = 0. Data reviewed: vital signs, nurses notes, lab test result(s), CBC, electrolytes, hepatic panel. Consideration of Admission/Observation Escalation of care including admission/observation considered. I considered the following discharge prescriptions or medication management in the emergency department Medications were administered in the Emergency Department. See MAR. Independent interpretation of the following test(s) in the Emergency Department EKG: See my EKG interpretation above. Test considered but Not performed: CT: no ct ab/pel. Historians other than the Patient: pt well informed. 03/23 04:46 Order name: Basic Metabolic Panel; Complete Time: 05:42 cp 03/23 05:42 Interpretation: Normal except: K 3.4; GLUC 114. cp 03/23 04:46 Order name: CBC with Diff; Complete Time: 05:23 cp 03/23 05:23 Interpretation: Reviewed. cp 03/23 04:46 Order name: LFT's; Complete Time: 05:42 cp 03/23 05:42 Interpretation: Normal except: IBILI, CALC 0.1; GLOB 3.9; A/G 0.9. cp 03/23 04:46 Order name: Magnesium; Complete Time: 05:42 cp 03/23 04:46 Order name: NT PRO-BNP; Complete Time: 05:42 cp 03/23 04:46 Order name: PT-INR; Complete Time: 05:23 cp 03/23 05:30 Interpretation: Reviewed. cp 03/23 04:46 Order name: Troponin HS; Complete Time: 05:42 cp 03/23 05:42 Interpretation: Reviewed. cp 03/23 04:46 Order name: Lipase; Complete Time: 05:42 cp 03/23 04:46 Order name: XRAY Chest (1 view) cp 03/23 04:46 Order name: US Abdomen Limited: gallbladder cp 03/23 04:46 Order name: Cardiac monitoring; Complete Time: 04:47 cp 03/23 04:46 Order name: EKG - Nurse/Tech; Complete Time: 04:47 cp 03/23 04:46 Order name: IV Saline Lock; Complete Time: 04:47 cp 03/23 04:46 Order name: Labs collected and sent; Complete Time: 04:47 cp 03/23 04:46 Order name: O2 Per Protocol; Complete Time: 04:47 cp 03/23 04:46 Order name: O2 Sat Monitoring; Complete Time: 04:47 cp 03/23 04:46 Order name: NPO cp EC:50 Rate is 74 beats/min. Rhythm is regular. IN interval is normal. QRS interval is normal. cp QT interval is normal. T waves are Inverted in lead aVR. Interpreted by me. Reviewed by me. Administered Medications: 04:58 Drug: NS 0.9% IV 1000 ml IV at 1000 ml once; to be given as a bolus over 60 minutes br2 Route: IV; Rate: 1000 ml; Site: right antecubital; 06:00 Follow up: IV Status: Completed infusion; IV Intake: 1000ml br2 04:58 Drug: metoCLOPramide IVP 10 mg IVP once; over 1 to 2 minutes Route: IVP; Site: right br2 antecubital; 05:30 Follow up: Response: No adverse reaction br2 04:58 Drug: morphine IVP or IV 4 mg IVP once over 4 mins Route: IVP; Infused Over: 4 mins; br2 Site: right antecubital; 05:30 Follow up: Response: No adverse reaction; Pain is decreased br2 06:03 Drug: Ketorolac IVP 15 mg IVP once Route: IVP; Site: right antecubital; br2 06:18 Follow up: Response: No adverse reaction br2 06:03 Drug: Potassium PO Effervescent Tablet 25 mEq PO once; dissolve in 4 ounces of water or br2 juice Route: PO; 06:19 Follow up: Response: No adverse reaction br2 Disposition: 05:35 Co-signature as Attending Physician, Shon Tejada MD I agree with the assessment and sonny plan of care. Disposition Summary: 03/23/24 05:48 Discharge Ordered Notes: Location: Home sonny Problem: new sonny Symptoms: have improved sonny Condition: Stable sonny Diagnosis - Other cholelithiasis without obstruction sonny - Epigastric abdominal tenderness sonny Followup: sonny - With: Private Physician - When: 2 - 3 days - Reason: Recheck today's complaints, Re-evaluation by your physician Followup: sonny - With: Cody Myers MD - When: 2 - 3 days - Reason: Recheck today's complaints, Re-evaluation by your physician Discharge Instructions: - Discharge Summary Sheet sonny - Abdominal Pain, Adult sonny - Cholelithiasis sonny - Cholelithiasis, [id number] sonny - Abdominal Pain, Adult, [id number] sonny - Gallbladder Eating Plan [facility] Forms: - Medication Reconciliation Form sonny - Antibiotic Education sonny - Prescription Opioid Use sonny - Patient Portal Instructions sonny - Leadership Thank You Letter [facility] Prescriptions: - ondansetron 4 mg Oral Tablet,disintegrating - take 1 tablet ORAL route every 6-8 hours for 5 days as needed for nausea and sonny vomiting; 20 tablet; Refills: 0, Product Selection Permitted - Pepcid 20 mg Oral tablet - take 1 tablet ORAL route every 12 hours for 21 days; 42 tablet; Refills: 0, sonny Product Selection Permitted - dicyclomine 20 mg Oral tablet - take 1 tablet ORAL route 4 times per day; 28 tablet; Refills: 0, Product sonny Selection Permitted Signatures: Dispatcher [employer] EDShon Fox MD MD cha Page, Corey, PA PA Nette Garvin, RN RN ha1 Brenda Cornelius RN RN br2 Corrections: (The following items were deleted from the chart) 04:46 04:46 BASIC METABOLIC PANEL+C.LAB.BRZ ordered. EDMS EDMS 04:46 04:46 CBC+H.LAB.BRZ ordered. EDMS EDMS 04:46 04:46 HEPATIC FUNCTION+C.LAB.BRZ ordered. EDMS EDMS 04:46 04:46 MAGNESIUM+C.LAB.BRZ ordered. EDMS EDMS 04:46 04:46 PROBNP+C.LAB.BRZ ordered. EDMS EDMS 04:46 04:46 PROTIME (+INR)+COAG.LAB.BRZ ordered. EDMS EDMS 04:46 04:46 Troponin High Sensitivity+C.LAB.BRZ ordered. EDMS EDMS 04:46 04:46 LIPASE+C.LAB.BRZ ordered. EDMS EDMS 04:46 04:46 Chest Single View+RAD.RAD.BRZ ordered. EDMS EDMS 04:46 04:46 Abdomen Limited+US.RAD.BRZ ordered. EDMS EDMS
[2024-03-23] MEDS ORDERED: KETOROLAC 30 MG/ML INJ ONE (06:00)
[2024-03-23] MEDS ORDERED: POTASSIUM 25 MEQ EFFERV TAB ONE (06:00)
--- NOTE | 2024-03-23 07:24 | RAD REPORT ---
PROCEDURE: R CHEST 1 VIEW HISTORY: HEST PAIN COMPARISON: None FINDINGS: The heart appears unremarkable. Hypoventilatory changes. There is no alveolar consolidation, effusion or pneumothorax. There are no acute bony or soft tissue abnormalities. IMPRESSION: No acute cardiopulmonary process. Electronically signed by: Malcolm Hussein MD 03/23/2024 07:07 AM [facility] Due to temporary technical issues with the [employer] reporting system, reports are being lisa d by the in-house radiologist without review as a courtesy to ensure prompt reporting. The interpreting radiologist is fully responsible for the content of the report. Transcribed Date/Time: 03/23/2024 7:23 AM
--- NOTE | 2024-03-23 07:43 | RAD REPORT ---
EXAM: Right upper quadrant ultrasound. CLINICAL HISTORY: Abdominal pain COMPARISON: None FINDINGS: Multiple gallstones. Gallbladder wall not thickened. Biliary tree normal caliber IMPRESSION: Cholelithiasis without evidence of cholecystitis
[2024-03-23 09:08] VITALS: TEMP 97.6; O2SAT 100
[2024-03-23 09:12] VITALS: BP 109/72
--- NOTE | 2024-03-27 12:44 | EKG ---
Test Date: 2024-03-23 Test Time: 04:43:29 Gaming Associate: MEASUREMENT RESULTS: Intervals: Rate: 74 [place]: 136 QRSD: 84 QT: 380 QTc: 421 [place]: P: 5 [place]: 136 QRS: 38 T: 67 INTERPRETIVE STATEMENTS: Normal sinus rhythm Normal ECG No previous ECG available for comparison Electronically Signed On 03-27-24 12:36:31 ESCAPEMENT MATCHER by Alpesh Lam
== END 2024-03-23 06:21 | disposition home or self-care (01) ==
LOC: ER 04:30
DX: K80.80 Other cholelithiasis without obstruction (principal)
CPT/HCPCS: 96361; 85025; 80048; 36415; 83735; 85610; 80076; 84484; 83690; 83880; 71045; 76705; 96375; 96374; 99285; J2765; J7030; 93005

== ENCOUNTER 2024-06-06 23:16 | Emergency (ER) | payer OTHER, SELFPAY ==
--- OUTSIDE RECORDS SUMMARY | 2024-06-06 23:23 | XMS REPORT | Continuity of Care Document ---
Author Name Unknown Address [address] [facility] [place] [address] [facility] Address [address] 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 Role Phone Alecia Kim Primary Care Physician [phone] Doctor Unassigned, [place] Attending Clinician U SHARLA Parra Attending Clinician Unavailab SHARLA Howe Attending Clinician Unavailab ALECIA Hendricks Attending Clinician UnavailALECIA Hernandez Attending Clinician Unavailabl e 1, [facility] Attending Clinician Un available Celeste Hill CNM Attending Clinician [phone] CELESTE HILL Attending Clinician Unavailable PAPA CARLSON Attending Clinician Unavailable PAPA CARLSON Attending Clinician Unavailable Papa Carlson MD Attending Clinician [phone] Ana Luisa Rodriguez MD Attending Clinician + Sara Steven MD Attending Clinician Karla Martinez MD Attending Clinician +[phone] USAMA PACHECO Attending Clinician Unavailable EVELIA ROBLEDO Attending Clinician Unav ailable Mary Lou Chew MD, Evelia Attending Clinician + LEN ARIAS Attending Clinician Unashoshana ailable 1, [facility] Attending Clinician Unavailab Len Watts MD Attending Clinician + Pedro Pablo SANDRA Miranda Attending Clinician + [phone] JESSICA GONZALES Attending Clinician Unavailable JESSICA GONZALES Attending Clinician Unavailable Christian REYNA, Jessica Attending Clinician [phone] William PICKENS, Gunjan Attending Clinician UnavailNILESH Cheney Attending Clinician Unavailab Rosalie REYNA, Nilesh Ortega Attending Clinician [phone] IVETH RICHARDSON Attending Clinician Unavailable IVETH RICHARDSON Attending Clinician Unavailable Doctor Unassigned, [place] Attending Clinician U navailable Lab, [facility] Attending Clinician Unavailable Vaishnavi Mullins Attending Clinician [phone] VAISHNAVI DE LA CRUZ Attending Clinician UnavailMINNIE Ocasio Attending Clinician Unavailable 2, [facility] Attending Clinician UnavailMinnie Park MD Attending Clinician [phone] Jori Tafoya V Attending Clinician Unavailab Adonay Perdomo Attending Clinician Unavailable Suleman Walters Attending Clinician Thien Alcantara Rn RN, Grace Arnold Attending Clinician Unava ilPAPA Schilling Admitting Clinician Unavailable Aldo REYNA, Papa Admitting Clinician [phone] EVELIA ROBLEDO Admitting Clinician UnaEvelia Castorena MD Admitting Clinician + JESSICA GONZALES Admitting Clinician Unavailable Jessica Gonzales MD Admitting Clinician [phone] NILESH SILVA Admitting Clinician Unavailab Rosalie REYNA, Nilesh Ortega Admitting Clinician [phone] IVETH RICHARDSON Admitting Clinician Unavailable Rosa Maria Sanches Admitting Clinician Unavailable Physician, No Primary or Family Admitting Clinic alirio Unavailable Payers Payer Name Policy Type Policy Number Effective Date Expirati on Date Source Problems Condition Name Condition Details Condition Category Status Onset Date Resolution Date Last Treatment Date Treating Clinician Comments Source anemia anemia Disease Active 5-17 00:00: 00 [facility] Indication for care in labor or delivery-I OL Indication for care in labor or delivery-I OL Disease Active 5-15 00:00: 00 [facility] Abnormal maternal glucose tolerance, antepartum Abnormal maternal glucose tolerance, antepartum Disease Active 2-15 00:00: 00 [facility] 39 weeks gestation of 39 weeks gestation of Disease Resolve d 15 00:00: 00 2023-08-03 00:00:00 2023-08-03 15:09:44 [facility] Morbid obesity with body mass index of 40.0-49.9 Morbid obesity with body mass index of 40.0-49.9 Disease Resolve d 15 00:00: 00 2023-08-03 00:00:00 2023-08-03 15:09:43 [facility] Maternal care for unstable lie Maternal care for unstable lie Disease Resolve d 07-11 00:00: 00 2023-08-03 00:00:00 2023-08-03 15:09:41 [facility] delivery delivered delivery delivered Disease Resolve d 07-11 00:00: 00 2023-08-03 00:00:00 2023-08-03 15:09:52 Overview: Formattin g of this note might be different from the original. LTCS due to protracte d labor and maternal request [facility] Obesity (BMI 30-39.9) Obesity (BMI 30-39.9) Disease Resolve d 5-05 00:00: 00 2023-08-03 00:00:00 2023-08-03 15:09:44 [facility] Anemia affecting , antepartum Anemia affecting , antepartum Disease Resolve d 2024-0 4-23 00:00: 00 2023-08-03 00:00:00 2023-08-03 15:09:45 [facility] Uterine size-date discrepanc y in third trimester Uterine size-date discrepanc y in third trimester Disease Resolve d 2023-0 4-18 00:00: 00 2023-08-03 00:00:00 2023-08-03 15:09:53 [facility] Abnormal O'Thomas glucose challenge test, antepartum Abnormal O'Thomas glucose challenge test, antepartum Disease Resolve d 2023-0 2-15 00:00: 00 2023-08-03 00:00:00 2023-08-03 15:09:47 Overview: Formattin g of this note might be different from the original. 3 hr GTT WNL [facility] Supervisio n of high risk in third trimester Supervisio n of high risk in third trimester Disease Resolve d 2022-1 2-27 00:00: 00 2023-08-03 00:00:00 2023-08-03 15:09:50 [facility] Multiparit y Multiparit y Disease Resolve d 2022-0 9-13 00:00: 00 2023-08-03 00:00:00 2023-08-03 15:09:51 [facility] Obesity affecting , antepartum Obesity affecting , antepartum Disease Resolve d 2022-0 9-13 00:00: 00 2023-08-03 00:00:00 2023-08-03 15:09:51 [facility] Transverse or oblique presentati on, antepartum Transverse or oblique presentati on, antepartum Disease Resolve d 2023-0 4-10 00:00: 00 2023-07-12 00:00:00 2023-07-12 16:53:38 [facility] Decreased movement Decreased movement Disease Resolve d 2023-0 3-28 00:00: 00 2023-07-12 00:00:00 2023-07-12 16:53:27 [facility] Nausea and vomiting in Nausea and vomiting in Disease Resolve d 2023-0 3-26 00:00: 00 2023-07-12 00:00:00 2023-07-12 16:53:32 [facility] Nausea and vomiting in Nausea and vomiting in Disease Resolve d 3-26 00:00: 00 2023-07-12 00:00:00 2023-07-12 16:53:32 [facility] Urinary tract infection in mother during , antepartum Urinary tract infection in mother during , antepartum Disease Resolve d 9-19 00:00: 00 2023-07-12 00:00:00 2023-07-12 16:53:46 [facility] 15 weeks gestation of 15 weeks gestation of Disease Resolve d 2022-02 00:00: 00 2023-02-22 00:00:00 2023-02-22 15:41:28 [facility] Ovarian cyst, left Ovarian cyst, left Disease Resolve d 2022-02 00:00: 00 2023-02-22 00:00:00 2023-02-22 15:41:31 [facility] Supervisio n of high risk in first trimester Supervisio n of high risk in first trimester Disease Resolve d 9-13 00:00: 00 2023-01-23 00:00:00 2023-01-23 09:51:49 [facility] Allergies, Adverse Reactions, Alerts Allergy Name Allergy Type Status Severity Reaction(s) Onset Date Inactive Date Treating Clinician Comments Source No Known Allergie s DA Active U 08-02 00:00: 00 [facility] No Known Allergie s DA Active U 08-02 00:00: 00 [facility] NO KNOWN ALLERGIE S Drug Class Active [facility] Social History Social Habit Start Date Stop Date Quantity Comments Source ASSERTION 2022-10-25 00:00:00 [facility] Alcohol intake 2023-06-29 00:00:00 2023-06-29 00:00:00 Lifetime non-drinker (finding) [facility] Alcoholic beverage intake 2023-06-07 00:00:00 2023-06-07 00:00:00 Lifetime non-drinker (finding) [facility] History of Social function 2023-05-10 00:00:00 2023-05-10 00:00:00 [facility] Tobacco use and exposure 2022-11-09 00:00:00 2022-11-09 00:00:00 Smokeless tobacco non-user [facility] Sex assigned at 1995 00:00:00 1995 00:00:00 [facility] Smoking Status Start Date Stop Date Source Never smoked tobacco [facility] Medications Ordered Medication Name Filled Medication Name Start Date Stop Date Current Medication? Ordering Clinician Indication Dosage Frequency Signature (SIG) Comments Components Source docusate (COLACE) capsule 200 mg 07-13 14:00: 00 07-14 03:35 :13 No 200mg 200 mg, Oral, DAILY, First dose on Mon07/14/23 at 0900, Until Discontinu ed, Routine [facility] ferrous sulfate 325 mg (65 mg iron) tablet 07-13 00:00: 00 Yes [id number] 325mg Take 1 tablet by mouth in the morning. [facility] fgl051-qxno fum-folic 27 mg iron- 1 mg folic tablet 07-13 00:00: 00 Yes [id number] 1{tbl} Take 1 tablet by mouth in the morning. [facility] docusate 100 mg capsule 07-13 00:00: 00 Yes [id number] 200mg Take 2 capsules by mouth once daily as needed for Constipati on. [facility] ibuprofen 800 mg tablet 07-13 00:00: 00 Yes [id number] 800mg Take 1 tablet by mouth every 8 (eight) hours as needed (pain). Take with food or milk. [facility] oxyCODONE 5 mg immediate release tablet 07-13 00:00: 00 07-21 04:59 :00 No [id number] 5mg Take 1 tablet by mouth every 6 (six) hours as needed (pain) for up to 7 days. Indication s: acute pain [facility] ibuprofen (IBU) tablet 800 mg 07-12 22:30: 00 07-14 03:35 :13 No 800mg 800 mg, Oral, Q8HA1, First dose on Mary 07/13/23 at 1730, Until Discontinu ed, Routine [facility] acetaminoph en (TYLENOL) tablet 1,000 mg 07-12 19:00: 00 07-14 03:35 :13 No 1000mg 1,000 mg, Oral, Q8H, First dose on Mon07/13/23 at 1400, Until Discontinu ed, Routine [facility] simethicone (GAS RELIEF (SIMETHICON E)) chewable tablet 160 mg 07-12 19:00: 00 07-14 03:35 :13 No 160mg 160 mg, Oral, TID, First dose on Mary 07/13/23 at 1400, Until Discontinu ed, Routine [facility] rho(D) immune globulin (HYPERRHO/R HOGAM) syringe 300 mcg 07-12 18:57: 58 07-14 03:35 :13 No 300ug [facility] human papillomav vac,9-silas(P F) (GARDASIL-9 ) syringe 0.5 mL 07-12 18:57: 53 07-14 03:35 :13 No .5mL [facility] diphenhydrA MINE (BENADRYL) injection 25 mg 07-12 18:57: 53 07-14 03:35 :13 No 25mg [facility] diphenhydrA MINE (BENADRYL) tablet 25 mg 07-12 18:57: 53 07-14 03:35 :13 No 25mg [facility] ondansetron (ZOFRAN (PF)) injection 4 mg 07-12 18:57: 53 07-14 03:35 :13 No 4mg [facility] bisacodyL (DULCOLAX) suppository 10 mg 07-12 18:57: 53 07-14 03:35 :13 No 10mg [facility] magnesium hydroxide (MILK OF MAGNESIA) 400 mg/5 mL suspension 30 mL 07-12 18:57: 53 07-14 03:35 :13 No 30mL 30 mL, Oral, QDAILYPRN, Starting on Mary 07/13/23 at 1357, Until Mon07/14/23 at 2235, Routine, Constipati on [facility] lactated ringers IV infusion 1,000 mL 07-12 18:57: 53 07-12 20:10 :17 No 1000mL at 125 mL/hr, 1,000 mL, IV Infusion, PRN, 1 dose, Starting on Mary 07/13/23 at 1357, Until Mary 07/13/23 at 1510, Routine [facility] oxyCODONE immediate release tablet 5 mg 07-12 18:53: 39 07-14 03:35 :13 No 5mg 5 mg, Oral, Q6HPRN, Starting on Mary 07/13/23 at 1353, Until Mon07/14/23 at 2235, Routine, Pain (scale 7-10), delivery crew member approving Restricted medication : OB FACULTY [facility] ketorolac (TORADOL) injection 07-12 18:01: 00 07-12 18:09 :47 No Slow IV Push, ONCE INTRA PROCEDURE, Starting on Mary 07/13/23 at 1301, Until Mary 07/13/23 at 1309, Routine, Intra-op [facility] morpHINE PF (DURAMORPH- PF) injection 07-12 17:57: 00 07-12 18:09 :47 No Epidural, ONCE INTRA PROCEDURE, Starting on Mary 07/13/23 at 1257, Until Mary 07/13/23 at 1309, Routine, Intra-op [facility] FENTanyl PF (SUBLIMAZE (PF)) injection 07-12 17:36: 00 07-12 18:09 :47 No Intratheca l, ONCE INTRA PROCEDURE, Starting on Mary 07/13/23 at 1236, Until Mary 07/13/23 at 1309, Routine, Intra-op [facility] midazolam (VERSED) injection 07-12 17:20: 00 07-12 18:09 :47 No IV Push, ONCE INTRA PROCEDURE, Starting on Mary 07/13/23 at 1220, Until Mary 07/13/23 at 1309, Routine, Intra-op [facility] azithromyci n (ZITHROMAX) 500 mg in NaCl 0.9% (NS) 250 mL VIAL-MATE IV piggyback 07-12 17:15: 00 07-12 16:52 :00 No 500mg 500 mg, IV Piggyback, ONCE, 1 dose, On Mary 07/13/23 at 1215, Administer over 60 Minutes, 250 mL, Reason for Anti-Infec tive: Surgical Prophylaxi s, 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, Duration of therapy: within 24 hours of surgery [facility] ceFAZolin (ANCEF) 2,000 mg in NaCl 0.9% (NS) 100 mL VIAL-MATE 07-12 17:15: 00 07-12 17:10 :00 No 2000mg 2,000 mg, IV Piggyback, ONCE, 1 dose, On Mary 07/13/23 at 1215, Administer over 30 Minutes, 100 mL, Reason for Anti-Infec tive: Surgical Prophylaxi s, 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, Duration of therapy: within 24 hours of surgery [facility] FENTanyl PF (SUBLIMAZE (PF)) injection 07-12 17:03: 00 07-12 18:09 :47 No Epidural, ONCE INTRA PROCEDURE, Starting on Mary 07/13/23 at 1203, Until Mary 07/13/23 at 1309, Routine, Intra-op [facility] phenylephri ne (VAZCULEP) injection 07-12 16:57: 00 07-12 18:09 :47 No Intravenou s, CONTINUOUS PRN, Starting on Mary 07/13/23 at 1157, Until Mary 07/13/23 at 1309, Routine, Intra-op [facility] lactated ringers IV infusion 07-12 16:47: 00 07-12 18:09 :47 No IV Infusion, CONTINUOUS PRN, Starting on Mary 07/13/23 at 1147, Until Mary 07/13/23 at 1309, Routine, Intra-op [facility] lidocaine-e pinephrine (XYLOCAINE W/EPINEPHRI NE) 2 %-1:200,000 injection 07-12 16:40: 00 07-12 18:09 :47 No Epidural, ONCE INTRA PROCEDURE, Starting on Mary 07/13/23 at 1140, Until Mary 07/13/23 at 1309, Routine, Intra-op [facility] amnioinfusi on IV infusion via GRAVITY [...] mL/hr until the liter is complete. Notify Forms Designer if uterine resting tone exceeds 25 mmHg at any time during the amnioinfus ion. Obstetrics (JUSTINO) Aminoinfus ion Orders [facility] ondansetron (ZOFRAN (PF)) injection 4 mg 07-12 12:30: 00 07-12 17:14 :00 No 4mg 4 mg, Slow IV Push, ONCE, On Mary 07/13/23 at 0730, For 1 dose, Doses of ondansetro n 16 mg and above need to be administer ed via IV piggyback. For Dose >=24mg ECG monitoring is advisable. [facility] acetaminoph en (TYLENOL) tablet 650 mg 07-12 03:40: 35 07-12 18:57 :56 No 650mg 650 mg, Oral, Q6HPRN, Starting on Mon07/12/23 at 2240, Until Mary 07/13/23 at 1357, Routine, Pain (scale 4-6) [facility] ropivacaine 0.2 % (NAROPIN (PF)) epidural infusion 07-12 00:52: 00 07-12 18:09 :47 No Epidural, CONTINUOUS PRN, Starting on Mon07/12/23 at 1952, Until Mary 07/13/23 at 1309, Routine, Intra-op [facility] lidocaine-e pinephrine (XYLOCAINE W/EPINEPHRI NE) 1.5 %-1:200,000 injection 07-12 00:50: 00 07-12 18:09 :47 No Epidural, ONCE INTRA PROCEDURE, Starting on Mon07/12/23 at 1950, Until Mary 07/13/23 at 1309, Routine, Intra-op [facility] lactated ringers IV infusion 700 mL 07-11 20:45: 00 07-12 00:25 :42 No 700mL at 999 mL/hr, 700 mL, IV Infusion, ONCE, 1 dose, On Mon07/12/23 at 1545, Routine [facility] sodium citrate-cit tommie acid (BICITRA) 500-334 mg/5 mL solution 30 mL 07-11 19:54: 22 07-12 00:34 :00 No 30mL 30 mL, Oral, PRE-PROCED URE ONCE, 1 dose, Starting on Mon07/12/23 at 1454, Until Mon07/12/23 at 1934, Routine, Surgery/Pr ocedure [facility] lactated ringers IV infusion 500 mL 07-11 19:54: 22 07-12 18:57 :56 No 500mL at 999 mL/hr, 500 mL, IV Infusion, PRN - SEE INSTRUCTIO NS, Starting on Mon07/12/23 at 1454, Until Mary 07/13/23 at 1357, Routine [facility] D5W-LR IV infusion 1,000 mL 07-11 19:54: 22 07-12 18:57 :56 No 1000mL at 1-125 mL/hr, IV Infusion, TITRATE, Starting on Mon07/12/23 at 1454, Until Mon07/13/23 at 1357, Routine [facility] sodium citrate-cit tommie acid (BICITRA) 500-334 mg/5 mL solution 30 mL 07-11 19:54: 21 07-12 16:40 :00 No 30mL 30 mL, Oral, PRE-PROCED URE ONCE, 1 dose, Starting on Mon07/12/23 at 1454, Until Mon07/13/23 at 1140, Routine, Surgery/Pr ocedure [facility] acetaminoph en (TYLENOL) tablet 1,000 mg 07-01 11:15: 00 07-01 10:15 :00 No 1000mg 1,000 mg, Oral, ONCE, 1 dose, On Mon07/02/23 at 0615, Routine [facility] lactated ringers IV infusion 500 mL 07-01 09:45: 00 07-01 09:54 :39 No 500mL at 999 mL/hr, 500 mL, Intravenou s, ONCE, 1 dose, On Mon07/02/23 at 0445, Routine [facility] ferrous sulfate (IRON, FERROUS SULFATE,) 325 mg (65 mg iron) tablet 06-19 00:00: 00 Yes [id number] 325mg Take 1 tablet by mouth in the morning. [facility] lactated ringers IV infusion 500 mL 05-22 17:45: 00 05-22 17:09 :00 No 500mL at 999 mL/hr, 500 mL, IV Infusion, ONCE, 1 dose, On Mon05/23/23 at 1245, STAT [facility] ondansetron (ZOFRAN (PF)) injection 4 mg 05-22 17:45: 00 05-22 17:13 :00 No 4mg 4 mg, Slow IV Push, ONCE, On Mon05/23/23 at 1245, For 1 dose
Do ses of ondansetro n 16 mg and above need to be administer ed via IV piggyback. For Dose >=24mg ECG monitoring is advisable.
[facility] ondansetron 4 mg disintegrat ing tablet 05-22 00:00: 00 Yes [id number] 4mg Take 1 tablet by mouth every 8 (eight) hours as needed for Nausea and Vomiting (N/V). [facility] metroNIDAZO LE 500 mg tablet 2022-02 00:00: 00 03-22 00:00 :00 No [id number] 500mg Take 1 tablet by mouth every 12 (twelve) hours. [facility] sulfamethox azole-trime thoprim (BACTRIM DS) 800-160 mg per tablet 11-15 00:00: 00 11-21 04:59 :00 No [id number] 1{tbl} Take 1 tablet by mouth in the morning and 1 tablet in the evening. Do all this for 5 days. [facility] Nitrofurant oin&Nit. Macrocryst (MACROBID) 100 mg capsule 11-09 00:00: 00 11-15 00:00 :00 No [id number] 100mg Take 1 capsule by mouth in the morning and 1 capsule in the evening. Do all this for 7 days. [facility] Immunizations Ordered Immunization Name Filled Immunization Name Date Status Comments Source TDAP 2023-04-26 00:00:00 Completed [facility] Influenza Virus Vaccine Quad IM, Preserv and ABX Free 6 MO-64 YRS (FLUCELVAX) 2023-01-23 00:00:00 Completed [facility] Influenza Virus Vaccine Quad IM, Preserv and ABX Free 6 MO-64 YRS (FLUCELVAX) Unknown Completed [facility] Influenza Virus Vaccine Quad IM, Preserv and ABX Free 6 MO-64 YRS (FLUCELVAX) Unknown Completed [facility] Influenza Virus Vaccine Quad IM, Preserv and ABX Free 6 MO-64 YRS (FLUCELVAX) Unknown Completed [facility] Influenza Virus Vaccine Quad IM, Preserv and ABX Free 6 MO-64 YRS (FLUCELVAX) Unknown Completed [facility] Influenza Virus Vaccine Quad IM, Preserv and ABX Free 6 MO-64 YRS (FLUCELVAX) Unknown Completed [facility] Influenza Virus Vaccine Quad IM, Preserv and ABX Free 6 MO-64 YRS (FLUCELVAX) Unknown Completed [facility] Influenza Virus Vaccine Quad IM, Preserv and ABX Free 6 MO-64 YRS (FLUCELVAX) Unknown Completed [facility] Influenza Virus Vaccine Quad IM, Preserv and ABX Free 6 MO-64 YRS (FLUCELVAX) Unknown Completed [facility] Influenza Virus Vaccine Quad IM, Preserv and ABX Free 6 MO-64 YRS (FLUCELVAX) Unknown Completed [facility] Influenza Virus Vaccine Quad IM, Preserv and ABX Free 6 MO-64 YRS (FLUCELVAX) Unknown Completed [facility] Influenza Virus Vaccine Quad IM, Preserv and ABX Free 6 MO-64 YRS (FLUCELVAX) Unknown Completed [facility] Influenza Virus Vaccine Quad IM, Preserv and ABX Free 6 MO-64 YRS (FLUCELVAX) Unknown Completed [facility] TDAP Unknown Completed [facility] Influenza Virus Vaccine Quad IM, Preserv and ABX Free 6 MO-64 YRS (FLUCELVAX) Unknown Completed [facility] TDAP Unknown Completed [facility] Influenza Virus Vaccine Quad IM, Preserv and ABX Free 6 MO-64 YRS (FLUCELVAX) Unknown Completed [facility] Influenza Virus Vaccine Quad IM, Preserv and ABX Free 6 MO-64 YRS (FLUCELVAX) Unknown Completed [facility] TDAP Unknown Completed [facility] Influenza Virus Vaccine Quad IM, Preserv and ABX Free 6 MO-64 YRS (FLUCELVAX) Unknown Completed [facility] TDAP Unknown Completed [facility] Influenza Virus Vaccine Quad IM, Preserv and ABX Free 6 MO-64 YRS (FLUCELVAX) Unknown Completed [facility] TDAP Unknown Completed [facility] Influenza Virus Vaccine Quad IM, Preserv and ABX Free 6 MO-64 YRS (FLUCELVAX) Unknown Completed [facility] TDAP Unknown Completed [facility] Influenza Virus Vaccine Quad IM, Preserv and ABX Free 6 MO-64 YRS (FLUCELVAX) Unknown Completed [facility] TDAP Unknown Completed [facility] Influenza Virus Vaccine Quad IM, Preserv and ABX Free 6 MO-64 YRS (FLUCELVAX) Unknown Completed [facility] TDAP Unknown Completed [facility] Influenza Virus Vaccine Quad IM, Preserv and ABX Free 6 MO-64 YRS (FLUCELVAX) Unknown Completed [facility] TDAP Unknown Completed [facility] Influenza Virus Vaccine Quad IM, Preserv and ABX Free 6 MO-64 YRS (FLUCELVAX) Unknown Completed [facility] TDAP Unknown Completed [facility] Influenza Virus Vaccine Quad IM, Preserv and ABX Free 6 MO-64 YRS (FLUCELVAX) Unknown Completed [facility] TDAP Unknown Completed [facility] Influenza Virus Vaccine Quad IM, Preserv and ABX Free 6 MO-64 YRS (FLUCELVAX) Unknown Completed [facility] TDAP Unknown Completed [facility] Influenza Virus Vaccine Quad IM, Preserv and ABX Free 6 MO-64 YRS (FLUCELVAX) Unknown Completed [facility] TDAP Unknown Completed [facility] Influenza Virus Vaccine Quad IM, Preserv and ABX Free 6 MO-64 YRS (FLUCELVAX) Unknown Completed [facility] TDAP Unknown Completed [facility] Influenza Virus Vaccine Quad IM, Preserv and ABX Free 6 MO-64 YRS (FLUCELVAX) Unknown Completed [facility] TDAP Unknown Completed [facility] Influenza Virus Vaccine Quad IM, Preserv and ABX Free 6 MO-64 YRS (FLUCELVAX) Unknown Completed [facility] TDAP Unknown Completed [facility] Influenza Virus Vaccine Quad IM, Preserv and ABX Free 6 MO-64 YRS (FLUCELVAX) Unknown Completed [facility] TDAP Unknown Completed [facility] Influenza Virus Vaccine Quad IM, Preserv and ABX Free 6 MO-64 YRS (FLUCELVAX) Unknown Completed [facility] TDAP Unknown Completed [facility] Influenza Virus Vaccine Quad IM, Preserv and ABX Free 6 MO-64 YRS (FLUCELVAX) Unknown Completed [facility] TDAP Unknown Completed [facility] Influenza Virus Vaccine Quad IM, Preserv and ABX Free 6 MO-64 YRS (FLUCELVAX) Unknown Completed [facility] TDAP Unknown Completed [facility] Influenza Virus Vaccine Quad IM, Preserv and ABX Free 6 MO-64 YRS (FLUCELVAX) Unknown Completed [facility] TDAP Unknown Completed [facility] Influenza Virus Vaccine Quad IM, Preserv and ABX Free 6 MO-64 YRS (FLUCELVAX) Unknown Completed [facility] TDAP Unknown Completed [facility] Influenza Virus Vaccine Quad IM, Preserv and ABX Free 6 MO-64 YRS (FLUCELVAX) Unknown Completed [facility] TDAP Unknown Completed [facility] Influenza Virus Vaccine Quad IM, Preserv and ABX Free 6 MO-64 YRS (FLUCELVAX) Unknown Completed [facility] TDAP Unknown Completed [facility] Influenza Virus Vaccine Quad IM, Preserv and ABX Free 6 MO-64 YRS (FLUCELVAX) Unknown Completed [facility] TDAP Unknown Completed [facility] Influenza Virus Vaccine Quad IM, Preserv and ABX Free 6 MO-64 YRS (FLUCELVAX) Unknown Completed [facility] TDAP Unknown Completed [facility] Influenza Virus Vaccine Quad IM, Preserv and ABX Free 6 MO-64 YRS (FLUCELVAX) Unknown Completed [facility] TDAP Unknown Completed [facility] Influenza Virus Vaccine Quad IM, Preserv and ABX Free 6 MO-64 YRS (FLUCELVAX) Unknown Completed [facility] TDAP Unknown Completed [facility] Influenza Virus Vaccine Quad IM, Preserv and ABX Free 6 MO-64 YRS (FLUCELVAX) Unknown Completed [facility] TDAP Unknown Completed [facility] Vital Signs Vital Name Observation Time Observation Value Comments S ource Systolic blood pressure 2023-08-24 19:17:00 90 mm[Hg] [facility] Diastolic blood pressure 2023-08-24 19:17:00 50 mm[Hg] [facility] Heart rate 2023-08-24 19:17:00 62 /min [facility] Body temperature 2023-08-24 19:17:00 36.61 [facility] Respiratory rate 2023-08-24 19:17:00 16 /min [facility] Body height 2023-08-24 19:17:00 137.2 cm [facility] Body weight 2023-08-24 19:17:00 67.643 kg [facility] BMI 2023-08-24 19:17:00 35.93 kg/m2 [facility] Systolic blood pressure 2023-08-03 20:22:00 95 mm[Hg] [facility] Diastolic blood pressure 2023-08-03 20:22:00 59 mm[Hg] [facility] Heart rate 2023-08-03 20:22:00 68 /min [facility] Body temperature 2023-08-03 20:22:00 36.5 [facility] Respiratory rate 2023-08-03 20:22:00 17 /min [facility] Body height 2023-08-03 20:22:00 137.2 cm [facility] Body weight 2023-08-03 20:22:00 67.302 kg [facility] BMI 2023-08-03 20:22:00 35.75 kg/m2 [facility] Systolic blood pressure 2023-07-20 16:34:00 99 mm[Hg] [facility] Diastolic blood pressure 2023-07-20 16:34:00 59 mm[Hg] [facility] Heart rate 2023-07-20 16:34:00 63 /min [facility] Body temperature 2023-07-20 16:34:00 36.61 [facility] Respiratory rate 2023-07-20 16:34:00 20 /min [facility] Body weight 2023-07-20 16:34:00 72.122 kg [facility] BMI 2023-07-20 16:34:00 38.31 kg/m2 [facility] Oxygen saturation in Arterial blood by Pulse oximetry 2023-07-20 16:34:00 100 /min [facility] Systolic blood pressure 2023-07-14 17:11:00 91 mm[Hg] [facility] Diastolic blood pressure 2023-07-14 17:11:00 54 mm[Hg] [facility] Heart rate 2023-07-14 17:11:00 112 /min [facility] Body temperature 2023-07-14 17:11:00 36.44 [facility] Respiratory rate 2023-07-14 17:11:00 18 /min [facility] Oxygen saturation in Arterial blood by Pulse oximetry 2023-07-14 17:11:00 98 /min [facility] Body weight 2023-07-12 19:53:00 77.111 kg [facility] BMI 2023-07-12 19:53:00 40.96 kg/m2 [facility] Body height 2023-07-12 19:10:00 137.2 cm [facility] Systolic blood pressure 2023-07-13 19:20:00 101 mm[Hg] [facility] Diastolic blood pressure 2023-07-13 19:20:00 70 mm[Hg] [facility] Heart rate 2023-07-13 19:20:00 98 /min [facility] Body temperature 2023-07-13 19:20:00 36.67 [facility] Respiratory rate 2023-07-13 19:20:00 21 /min [facility] Oxygen saturation in Arterial blood by Pulse oximetry 2023-07-13 19:20:00 97 /min [facility] Body weight 2023-07-12 19:53:00 77.111 kg [facility] BMI 2023-07-12 19:53:00 40.96 kg/m2 [facility] Body height 2023-07-12 19:10:00 137.2 cm [facility] Systolic blood pressure 2023-07-10 14:11:00 100 mm[Hg] [facility] Diastolic blood pressure 2023-07-10 14:11:00 67 mm[Hg] [facility] Heart rate 2023-07-10 14:11:00 91 /min [facility] Body temperature 2023-07-10 14:11:00 36.89 [facility] Body height 2023-07-10 14:11:00 137.2 cm [facility] Body weight 2023-07-10 14:11:00 77.111 kg [facility] BMI 2023-07-10 14:11:00 40.99 kg/m2 [facility] Systolic blood pressure 2023-07-02 10:30:00 99 mm[Hg] [facility] Diastolic blood pressure 2023-07-02 10:30:00 55 mm[Hg] [facility] Heart rate 2023-07-02 10:30:00 76 /min [facility] Oxygen saturation in Arterial blood by Pulse oximetry 2023-07-02 10:30:00 97 /min [facility] Respiratory rate 2023-07-02 09:30:00 18 /min [facility] Body temperature 2023-07-02 08:39:00 36.67 [facility] Body height 2023-07-02 08:30:00 139.7 cm [facility] Body weight 2023-07-02 08:30:00 77.656 kg [facility] BMI 2023-07-02 08:30:00 39.79 kg/m2 [facility] Systolic blood pressure 2023-06-29 13:58:00 100 mm[Hg] [facility] Diastolic blood pressure 2023-06-29 13:58:00 64 mm[Hg] [facility] Heart rate 2023-06-29 13:58:00 96 /min [facility] Body temperature 2023-06-29 13:58:00 36.67 [facility] Respiratory rate 2023-06-29 13:58:00 18 /min [facility] Body height 2023-06-29 13:58:00 139.7 cm [facility] Body weight 2023-06-29 13:58:00 77.565 kg [facility] BMI 2023-06-29 13:58:00 39.74 kg/m2 [facility] Systolic blood pressure 2023-06-22 11:59:00 97 mm[Hg] [facility] Diastolic blood pressure 2023-06-22 11:59:00 66 mm[Hg] [facility] Heart rate 2023-06-22 11:59:00 97 /min [facility] Body temperature 2023-06-22 11:59:00 36.17 [facility] Respiratory rate 2023-06-22 11:59:00 17 /min [facility] Body height 2023-06-22 11:59:00 139.7 cm [facility] Body weight 2023-06-22 11:59:00 78.189 kg [facility] BMI 2023-06-22 11:59:00 40.06 kg/m2 [facility] Systolic blood pressure 2023-06-15 15:59:00 98 mm[Hg] [facility] Diastolic blood pressure 2023-06-15 15:59:00 63 mm[Hg] [facility] Heart rate 2023-06-15 15:59:00 107 /min [facility] Body temperature 2023-06-15 15:59:00 36.11 [facility] Respiratory rate 2023-06-15 15:59:00 18 /min [facility] Body height 2023-06-15 15:59:00 139.7 cm [facility] Body weight 2023-06-15 15:59:00 77.792 kg [facility] BMI 2023-06-15 15:59:00 39.86 kg/m2 [facility] Oxygen saturation in Arterial blood by Pulse oximetry 2023-06-15 15:59:00 97 /min [facility] Systolic blood pressure 2023-06-07 14:23:00 98 mm[Hg] [facility] Diastolic blood pressure 2023-06-07 14:23:00 69 mm[Hg] [facility] Heart rate 2023-06-07 14:23:00 117 /min [facility] Body temperature 2023-06-07 14:23:00 36.17 [facility] Respiratory rate 2023-06-07 14:23:00 17 /min [facility] Body height 2023-06-07 14:23:00 137.2 cm [facility] Body weight 2023-06-07 14:23:00 77.593 kg [facility] BMI 2023-06-07 14:23:00 41.24 kg/m2 [facility] Systolic blood pressure 2023-05-25 22:00:00 98 mm[Hg] [facility] Diastolic blood pressure 2023-05-25 22:00:00 55 mm[Hg] [facility] Heart rate 2023-05-25 22:00:00 97 /min [facility] Oxygen saturation in Arterial blood by Pulse oximetry 2023-05-25 22:00:00 98 /min [facility] Body temperature 2023-05-25 21:09:00 37.22 [facility] Respiratory rate 2023-05-25 21:09:00 18 /min [facility] Systolic blood pressure 2023-05-25 18:29:00 106 mm[Hg] [facility] Diastolic blood pressure 2023-05-25 18:29:00 70 mm[Hg] [facility] Heart rate 2023-05-25 18:29:00 100 /min [facility] Body temperature 2023-05-25 18:29:00 36.33 [facility] Respiratory rate 2023-05-25 18:29:00 17 /min [facility] Body height 2023-05-25 18:29:00 137.2 cm [facility] Body weight 2023-05-25 18:29:00 77.593 kg [facility] BMI 2023-05-25 18:29:00 41.24 kg/m2 [facility] Heart rate 2023-05-24 16:54:00 105 /min [facility] Body temperature 2023-05-24 16:54:00 36.72 [facility] Respiratory rate 2023-05-24 16:54:00 18 /min [facility] Body height 2023-05-24 16:54:00 137.2 cm [facility] Body weight 2023-05-24 16:54:00 77.111 kg [facility] BMI 2023-05-24 16:54:00 40.99 kg/m2 [facility] Oxygen saturation in Arterial blood by Pulse oximetry 2023-05-24 16:54:00 99 /min [facility] Systolic blood pressure 2023-05-24 13:55:00 94 mm[Hg] [facility] Diastolic blood pressure 2023-05-24 13:55:00 59 mm[Hg] [facility] Heart rate 2023-05-24 13:55:00 90 /min [facility] Body temperature 2023-05-24 13:55:00 36.44 [facility] Respiratory rate 2023-05-24 13:55:00 17 /min [facility] Body height 2023-05-24 13:55:00 137.2 cm [facility] Body weight 2023-05-24 13:55:00 77.338 kg [facility] BMI 2023-05-24 13:55:00 41.11 kg/m2 [facility] Systolic blood pressure 2023-05-23 19:30:00 97 mm[Hg] [facility] Diastolic blood pressure 2023-05-23 19:30:00 59 mm[Hg] [facility] Heart rate 2023-05-23 19:30:00 98 /min [facility] Oxygen saturation in Arterial blood by Pulse oximetry 2023-05-23 19:30:00 99 /min [facility] Body height 2023-05-23 17:08:00 137.2 cm [facility] Body [facility] 2023-05-23 17:08:00 77.565 kg [facility] BMI 2023-05-23 17:08:00 41.23 kg/m2 [facility] Body temperature 2023-05-23 16:44:00 36.89 [facility] Respiratory rate 2023-05-23 16:44:00 16 /min [facility] Systolic blood pressure 2023-05-10 13:10:00 95 mm[Hg] [facility] Diastolic blood pressure 2023-05-10 13:10:00 61 mm[Hg] [facility] Heart rate 2023-05-10 13:10:00 89 /min [facility] Body temperature 2023-05-10 13:10:00 36.33 [facility] Respiratory rate 2023-05-10 13:10:00 18 /min [facility] Body height 2023-05-10 13:10:00 137.2 cm [facility] Body weight 2023-05-10 13:10:00 77.837 kg [facility] BMI 2023-05-10 13:10:00 41.37 kg/m2 [facility] Systolic blood pressure 2023-04-26 15:03:00 100 mm[Hg] [facility] Diastolic blood pressure 2023-04-26 15:03:00 60 mm[Hg] [facility] Heart rate 2023-04-26 15:03:00 108 /min [facility] Body temperature 2023-04-26 15:03:00 35.89 [facility] Respiratory rate 2023-04-26 15:03:00 20 /min [facility] Body height 2023-04-26 15:03:00 137.2 cm [facility] Body weight 2023-04-26 15:03:00 77.474 kg [facility] BMI 2023-04-26 15:03:00 41.18 kg/m2 [facility] Systolic blood pressure 2023-04-12 15:33:00 107 mm[Hg] [facility] Diastolic blood pressure 2023-04-12 15:33:00 63 mm[Hg] [facility] Heart rate 2023-04-12 15:33:00 99 /min [facility] Body temperature 2023-04-12 15:33:00 36.11 [facility] Respiratory rate 2023-04-12 15:33:00 18 /min [facility] Body height 2023-04-12 15:33:00 137.2 cm [facility] Body weight 2023-04-12 15:33:00 77.65 kg [facility] BMI 2023-04-12 15:33:00 41.28 kg/m2 [facility] Systolic blood pressure 2023-03-22 15:43:00 96 mm[Hg] [facility] Diastolic blood pressure 2023-03-22 15:43:00 59 mm[Hg] [facility] Heart rate 2023-03-22 15:43:00 88 /min [facility] Body temperature 2023-03-22 15:43:00 36.28 [facility] Respiratory rate 2023-03-22 15:43:00 22 /min [facility] Body height 2023-03-22 15:43:00 137.2 cm [facility] Body weight 2023-03-22 15:43:00 77.973 kg [facility] BMI 2023-03-22 15:43:00 41.45 kg/m2 [facility] Systolic blood pressure 2023-02-22 21:36:00 95 mm[Hg] [facility] Diastolic blood pressure 2023-02-22 21:36:00 65 mm[Hg] [facility] Heart rate 2023-02-22 21:36:00 93 /min [facility] Body temperature 2023-02-22 21:36:00 36.33 [facility] Respiratory rate 2023-02-22 21:36:00 17 /min [facility] Body height 2023-02-22 21:36:00 139.7 cm [facility] Body weight 2023-02-22 21:36:00 76.289 kg [facility] BMI 2023-02-22 21:36:00 39.09 kg/m2 [facility] Systolic blood pressure 2023-01-23 15:31:00 111 mm[Hg] [facility] Diastolic blood pressure 2023-01-23 15:31:00 70 mm[Hg] [facility] Heart rate 2023-01-23 15:31:00 86 /min [facility] 2023-01-23 15:31:00 36.44 [facility] Respiratory rate 2023-01-23 15:31:00 18 /min [facility] Body height 2023-01-23 15:31:00 139.7 cm [facility] Body weight 2023-01-23 15:31:00 74.844 kg [facility] BMI 2023-01-23 15:31:00 38.35 kg/m2 [facility] Systolic blood pressure 2022-12-26 14:53:00 99 mm[Hg] [facility] Diastolic blood pressure 2022-12-26 14:53:00 64 mm[Hg] [facility] Heart rate 2022-12-26 14:53:00 78 /min [facility] Body temperature 2022-12-26 14:53:00 36.44 [facility] Respiratory rate 2022-12-26 14:53:00 18 /min [facility] Body height 2022-12-26 14:53:00 139.7 cm [facility] Body weight 2022-12-26 14:53:00 75.524 kg [facility] BMI 2022-12-26 14:53:00 38.70 kg/m2 [facility] Systolic blood pressure 2022-11-09 15:08:00 112 mm[Hg] [facility] Diastolic blood pressure 2022-11-09 15:08:00 71 mm[Hg] [facility] Heart rate 2022-11-09 15:08:00 76 /min [facility] Body temperature 2022-11-09 15:08:00 36.61 [facility] Respiratory rate 2022-11-09 15:08:00 17 /min [facility] Body height 2022-11-09 15:08:00 139.7 cm [facility] Body weight 2022-11-09 15:08:00 74.475 kg [facility] BMI 2022-11-09 15:08:00 38.16 kg/m2 [facility] Procedures Procedure Date / Time Performed Performing Clinician Source CBC WITH DIFF 2023-07-14 10:22:00 Ly [facility] CBC WITH DIFF 2023-07-14 10:22:00 Ly [facility] SURGICAL PATHOLOGY EXAM 2023-07-13 17:27:00 Ana Luisa Wolf [facility] VENOUS CORD GAS 2023-07-13 17:13:00 [facility] 2023-07-13 17:13:00 Natacha Petit [facility] [id number] - [place] DELIVERY ONLY 2023-07-13 16:31:00 Ana Luisa Rodriguez [facility] TUBAL LIGATION 2023-07-13 16:31:00 Scar Rodriguez [facility] CENTRAL NEURAXIAL BLOCK 2023-07-13 01:01:00 Keenan Aparicio [facility] HEPATITIS B SURFACE ANTIGEN 2023-07-12 20:19:00 Natacha Petit [facility] HB ABO GROUPING 2023-07-12 20:19:00 Natacha Petit [facility] RHO (D) IMMUNE GLOBULIN 2023-07-12 20:19:00 Pushpa [facility] HIV 1/2 AG-AB WITH REFLEX 2023-07-12 20:19:00 Natacha Petit [facility] SYPHILIS IGG/IGM 2023-07-12 20:19:00 [facility]FACE ANTIGEN 2023-07-12 20:19:00 Natacha Petit [facility] HB ABO GROUPING 2023-07-12 20:19:00 Natacha Petit [facility] RHO (D) IMMUNE GLOBULIN 2023-07-12 20:19:00 Pushpa [facility] HIV 1/2 AG-AB WITH REFLEX 2023-07-12 20:19:00 Natacha Petit [facility] SYPHILIS IGG/IGM 2023-07-12 20:19:00 Natacha Petit [facility] POCT URINALYSIS W/O SPECIFIC GRAVITY 2023-07-10 14:10:00 Vaishnavi De La Cruz [facility] BASIC METABOLIC PANEL (NA, K, CL, CO2, GLUCOSE, BUN, CREATININE, CA) 2023-07-02 09:22:00 Heidi Jung [facility] CBC WITHOUT DIFF 2023-07-02 09:22:00 [facility] POCT URINALYSIS W/O SPECIFIC GRAVITY 2023-06-29 14:01:00 Indira [facility] SECOND AND THIRD TRIMESTER ULTRASOUND 2023-06-27 16:55:49 Indira [facility] POCT URINALYSIS W/O SPECIFIC GRAVITY 2023-06-22 11:55:00 Vaishnavi De La Cruz [facility] POCT URINALYSIS W/O SPECIFIC GRAVITY 2023-06-15 00:00:00 Indira Alecia [facility] REFERRAL- REQUEST/RESPONSE 2023-06-13 13:50:05 Doctor Unassigned, [place] [facility] SECOND AND THIRD TRIMESTER ULTRASOUND 2023-06-12 13:55:30 Indira [facility] POCT MOLECULAR FLU 2023-06-07 14:40:00 Cailin Jacobson [facility] POCT URINALYSIS W/O SPECIFIC GRAVITY 2023-06-07 14:14:00 Vaishnavi De La Cruz [facility] POCT RAPID FLU A AND B TEST 2023-06-07 00:00:00 Alecia Jacobson [facility] NON-STRESS TEST 2023-05-25 19:07:20 Kinza Jacobson [facility] POCT URINALYSIS W/O SPECIFIC GRAVITY 2023-05-25 18:18:00 Vaishnavi De La Cruz [facility] NON-STRESS TEST 2023-05-24 15:00:19 Kinza Jacobson [facility] POCT URINALYSIS W/O SPECIFIC GRAVITY 2023-05-24 13:45:00 Vaishnavi De La Cruz [facility] COMP. METABOLIC PANEL (12850) 2023-05-23 17:08:00 Latasha [facility] CBC WITH DIFF 2023-05-23 17:08:00 Latasha [facility] URINALYSIS 2023-05-23 17:08:00 Vaishnavi [facility] POCT URINALYSIS W/O SPECIFIC GRAVITY 2023-05-10 13:12:00 Vaishnavi De La Cruz [facility] TDAP VACCINE, >11 YRS, IM 2023-04-26 15:17:48 Indira [facility] POCT URINALYSIS W/O SPECIFIC GRAVITY 2023-04-26 15:14:00 Indira Alecia [facility] STERILIZATION CONSENT FORM 2023-04-26 06:01:00 Doctor Unassigned, [place] [facility] 3 HR GLUCOSE TOLERANCE TEST 2023-04-20 17:35:00 Vaishnavi De La Cruz [facility] 2 HR GLUCOSE TOLERANCE TEST 2023-04-20 16:39:00 Vaishnavi De La Cruz [facility] 1 HR GLUCOSE TOLERANCE TEST 2023-04-20 15:35:00 Vaishnavi De La Cruz [facility] GLUCOSE FASTING 2023-04-20 14:35:00 Vaishnavi De La Cruz [facility] 3 HR GLUCOSE TOLERANCE PANEL 2023-04-20 14:35:00 Vaishnavi De La Cruz [facility] POCT URINALYSIS W/O SPECIFIC GRAVITY 2023-04-12 15:31:00 Vaishnavi De La Cruz [facility] POCT URINALYSIS W/O SPECIFIC GRAVITY 2023-03-22 17:36:00 Vaishnavi De La Cruz [facility] SECOND AND THIRD TRIMESTER ULTRASOUND 2023-03-21 15:29:00 Indira [facility] POCT URINALYSIS W/O SPECIFIC GRAVITY 2023-02-22 21:27:00 Vaishnavi De La Cruz [facility] SECOND AND THIRD TRIMESTER ULTRASOUND 2023-02-07 15:44:00 Indira Alecia [facility] FLU VACC (), 6 MO-64 YRS, .5ML, IM, QUAD (FLUCELVAX) 2023-01-23 15:48:23 Indira Alecia [facility] POCT URINALYSIS W/O SPECIFIC GRAVITY 2023-01-23 15:32:00 Vaishnavi De La Cruz [facility] FIRST TRIMESTER ULTRASOUND 2022-11-30 15:28:00 Vaishnavi De La Cruz [facility] FIRST TRIMESTER ULTRASOUND 2022-11-16 18:35:00 Vaishnavi De La Cruz [facility] POCT URINALYSIS W/O SPECIFIC GRAVITY 2022-11-09 15:01:00 Vaishnavi De La Cruz [facility] POCT TEST 2022-11-09 15:00:00 Abdon De La Cruz [facility] Encounters Start Date/Time End Date/Time Encounter Type Admission Type Attending [facility] Facility Care Department Encounter ID Source 2019-04-06 13:21:00 Inpatient [facility] [id number] [facility] 2023-06-13 00:00:00 2024-04-13 02:18:42 Orders Only Doctor Unassigned, [place] Doctor Unassigned, [place] [facility] [id number] [facility] 2023-08-24 13:45:00 2023-08-24 15:04:15 Outpatient R SHARLA PULLIAM [facility] [id number] [facility] 2023-08-24 13:45:00 2023-08-24 15:04:15 Office Visit Sharla Pulliam [facility] LOCOMOTIVE OPERATOR HELPER [facility] [id number] [facility] 2023-08-03 15:00:00 2023-08-03 15:37:53 Outpatient R SHARLA PULLIAM [facility]PH[facility] [id number] [facility] 2023-08-03 15:00:00 2023-08-03 15:37:53 Routine Visit Sharla Pulliam [facility] LOCOMOTIVE OPERATOR HELPER [facility] MATERNAL & CHILD [facility] [id number] [facility] 2023-06-27 00:00:00 2023-07-29 18:06:14 Patient Secure Alecia Elena [facility] LOCOMOTIVE OPERATOR HELPER [facility] MATERNAL & CHILD [facility] [id number] [facility] 2023-07-20 13:30:00 2023-07-20 13:45:00 Nurse Visit 1, [facility] Clementine Nurse Celeste Hill [facility] LOCOMOTIVE OPERATOR HELPER [facility] MATERNAL & CHILD [facility] [id number] [facility] 2023-07-20 13:30:00 2023-07-20 13:30:00 Outpatient R CELESTE HILL [facility] [id number] [facility] 2023-07-12 13:58:00 2023-07-14 20:30:00 Inpatient P PAPA CARLSON [facility] [id number] [facility] 2023-07-12 13:58:00 2023-07-14 20:30:00 Hospital Encounter Ald[facility] [id number] [id number] [facility] 2023-07-13 13:00:00 2023-07-13 14:55:00 Surgery Ana Luisa Rodriguez [facility] [id number] [facility] 2023-07-12 19:38:00 2023-07-13 13:09:00 Anesthesia Event Sara Steven, [facility] 1.2840.114 350.1.13.10 4.2.7.2.686 [id number] [facility] 2023-07-10 09:00:00 2023-07-10 09:39:47 Outpatient R ALECIA JACOBSON [facility] [id number] [facility] 2023-07-10 09:00:00 2023-07-10 09:39:47 Routine Visit Indira Alecia [facility] LOCOMOTIVE OPERATOR HELPER [facility] MATERNAL & CHILD [facility] 1.840.114 350.1.13.10 4.2.7.2.686 [id number] 125 [id number] [facility] 2023-07-02 03:14:00 2023-07-02 08:03:00 Outpatient P EVELIA ROBLEDO [facility] [id number] [facility] 2023-07-02 03:14:00 2023-07-02 08:03:00 Hospital Encounter Mary Lou Chew [facility] 1.284.114 350.1.13.10 4.2.7.2.686 [id number] [facility] 2023-06-29 09:00:00 2023-06-29 09:23:38 Outpatient R ALECIA JACOBSON ALECIA [facility] [id number] [facility] 2023-06-29 09:00:00 2023-06-29 09:23:38 Routine Visit Indira Alecia [facility] LOCOMOTIVE OPERATOR HELPER [facility] MATERNAL & CHILD [facility] 1.2840.114 350.1.13.10 4.2.7.2.686 [id number] [facility] 2023-06-28 00:00:00 2023-06-28 00:00:00 Abstract Alecia Jacobson [facility] LOCOMOTIVE OPERATOR HELPER [facility] MATERNAL & CHILD [facility] 1.2.840.114 350.1.13.10 4.2.7.2.686 [id number] [facility] 2023-06-27 08:30:00 2023-06-27 09:12:56 Outpatient R LEN ALANIS [facility] [id number] [facility] 2023-06-27 08:30:00 2023-06-27 09:12:56 Astrochemist Visit 1, [facility] Room SalasLen Nunez [facility] LOCOMOTIVE OPERATOR HELPER [facility] & CHILD [facility] 1..840.114 350.1.13.10 4.2.7.2.686 [id number] [facility] 2023-06-22 07:00:00 2023-06-22 07:13:22 Outpatient R ALECIA JACOBSON MARYANN [facility] [id number] [facility] 2023-06-22 07:00:00 2023-06-22 07:13:22 Routine Visit Alecia Jacobson [facility] LOCOMOTIVE OPERATOR HELPER [facility] & CHILD [facility] 1.2.840.114 350.1.13.10 4.2.7.2.686 [id number] [facility] 2023-06-20 00:00:00 2023-06-20 00:00:00 Case Management Alecia Jacobson [facility] LOCOMOTIVE OPERATOR [facility] 1..840.114 350.1.13.10 4.2.7.2.686 [id number] [facility] 2023-06-15 11:00:00 2023-06-15 11:30:16 Outpatient R JACQUESEUSEBIA ALECIAALECIA MENEZES [facility] [id number] [facility] 2023-06-15 11:00:00 2023-06-15 11:30:16 Routine Visit Indira Alecia [facility] LOCOMOTIVE OPERATOR HELPER [facility] & CHILD [facility] 1.2.840.114 350.1.13.10 4.2.7.2.686 [id number] [facility] 2023-06-13 00:00:00 2023-06-13 00:00:00 Abstract Jacqueseusebia Alecia [facility] LOCOMOTIVE OPERATOR [facility]PER [facility] CHILD [facility] 1.2.840.114 350.1.13.10 4.2.7.2.686 [id number] [facility] 2023-06-13 00:00:00 2023-06-13 00:00:00 Case Management Ana Chamorro [facility] LOCOMOTIVE OPERATOR HELPER [facility] & CHILD [facility] 1.2.840.114 350.1.13.10 4.2.7.2.686 [id number] [facility] 2023-06-12 08:30:00 2023-06-12 08:30:00 Astrochemist Visit 1, [facility] Room Papa Carlson [facility] LOCOMOTIVE OPERATOR HELPER [facility] & CHILD [facility] 1.2.840.114 350.1.13.10 4.2.7.2.686 [id number] [facility] 2023-06-12 08:30:00 2023-06-12 08:29:12 Outpatient P [facility]APA [facility]ON [facility] [id number] [facility] 2023-06-07 09:15:00 2023-06-07 09:56:18 Outpatient R ALECIA JACOBSON ALECIA [facility] [id number] [facility] 2023-06-07 09:15:00 2023-06-07 09:56:18 Routine Visit Indira Alecia [facility] LOCOMOTIVE OPERATOR HELPER [facility] MATERNAL & CHILD [facility] 1..840.114 350.1.13.10 4.2.7.2.686 [id number] [facility] 2023-05-25 15:53:00 2023-05-25 17:38:00 Outpatient P [facility] [id number] [facility] 2023-05-25 15:53:00 2023-05-25 17:38:00 Hospital Encounter [facility] 1..840.114 350.1.13.10 4.2.7.2.686 [id number] [facility] 2023-05-25 13:00:00 2023-05-25 14:05:41 [facility] [id number] [facility] 2023-05-25 13:00:00 2023-05-25 14:05:41 Routine Visit Indira Alecia [facility] LOCOMOTIVE OPERATOR HELPER [facility] & CHILD [facility] 1.2.840.114 350.1.13.10 4.2.7.2.686 [id number] [facility] 2023-05-25 00:00:00 2023-05-25 00:00:00 Nurse Triage Gunjan Thomas [facility] 1.2.840.114 350.1.13.10 4.2.7.2.686 [id number] [facility] 2023-05-24 11:31:00 2023-05-24 13:07:00 Outpatient P NILESH SILVA [facility] [id number] [facility] 2023-05-24 11:31:00 2023-05-24 13:07:00 Hospital Encounter Nilesh Silva [facility] 1.2.840.114 350.1.13.10 4.2.7.2.686 [id number] [facility] 2023-05-24 09:00:00 2023-05-24 09:15:00 Routine Visit Alecia Jacobson [facility] LOCOMOTIVE OPERATOR HELPER [facility] MATERNAL & CHILD [facility] 1.2.840.114 350.1.13.10 4.2.7.2.686 [id number] 125 [id number] [facility] 2023-05-24 09:00:00 2023-05-24 09:00:00 Outpatient R ALECIA JACOBSON ALECIA [facility] [id number] [facility] 2023-05-24 00:00:00 2023-05-24 00:00:00 Telephone Indira Alecia [facility] LOCOMOTIVE OPERATOR HELPER [facility] & CHILD [facility] 1.2.840.114 350.1.13.10 4.2.7.2.686 [id number] [facility] 2023-05-23 11:33:00 2023-05-23 15:04:00 Outpatient X IVETH RICHARDSON [facility] JUST[facility] [id number] [facility] 2023-05-23 11:33:00 2023-05-23 15:04:00 Hospital Encounter Iveth Richardson [facility] 1.2.840.114 350.1.13.10 4.2.7.2.686 [id number] [facility] 2023-05-21 12:55:00 2023-05-21 14:00:00 Outpatient X NILESH SILVA [facility] [id number] [facility] 2023-05-10 08:00:00 2023-05-10 08:30:50 Outpatient R ALECIA JACOBSON [facility] [id number] [facility] 2023-05-10 08:00:00 2023-05-10 08:30:50 Routine Visit Indira Alecia [facility] LOCOMOTIVE OPERATOR HELPER [facility] MATERNAL & CHILD [facility] 1.840.114 350.1.13.10 4.2.7.2.686 [id number] [facility] 2023-04-26 09:00:00 2023-04-26 09:37:46 Outpatient R ALECIA JACOBSON ALECIA [facility] [id number] [facility] 2023-04-26 09:00:00 2023-04-26 09:37:46 Routine Visit Indira Alecia [facility] LOCOMOTIVE OPERATOR HELPER [facility] CHILD [facility] 1..114 350.1.13.10 4.2.7.2.686 [id number] 125 [id number] [facility] 2023-04-26 00:00:00 2023-04-26 00:00:00 Orders Only Doctor Unassigned, [place] [facility] 1..114 350.1.13.10 4.2.7.2.686 [id number] [facility] 2023-04-20 08:00:00 2023-04-20 11:46:06 Outpatient R ALECIA JACOBSON [facility] [id number] [facility] 2023-04-20 08:00:00 2023-04-20 11:46:06 Astrochem[facility] LOCOMOTIVE OPERATOR HELPER [facility] & CHILD [facility] 1..114 350.1.13.10 4.2.7.2.686 [id number] 125 [id number] [facility] 2023-04-13 00:00:00 2023-04-13 00:00:00 Case Management Vaishnavi De La Cruz [facility] LOCOMOTIVE OPERATOR HELPER [facility] & CHILD [facility] 1..114 350.1.13.10 4.2.7.2.686 [id number] [facility] 2023-04-12 09:15:00 2023-04-12 09:57:46 Outpatient R VAISHNAVI DE LA CRUZ [facility] [id number] [facility] 2023-04-12 09:15:00 2023-04-12 09:57:46 Routine Visit Vaishnavi De La Cruz [facility] LOCOMOTIVE OPERATOR HELPER [facility] & CHILD [facility] 1.2.840.114 350.1.13.10 4.2.7.2.686 [id number] [facility] 2023-04-03 00:00:00 2023-04-03 00:00:00 Abstract Indira Alecia [facility] LOCOMOTIVE OPERATOR HELPER [facility] & CHILD [facility] 1.2.840.114 350.1.13.10 4.2.7.2.686 [id number] [facility] 2023-03-23 00:00:00 2023-03-23 00:00:00 Abstract Indira Alecia [facility] LOCOMOTIVE OPERATOR HELPER [facility] MATERNAL & CHILD [facility] 1.2.840.114 350.1.13.10 4.2.7.2.686 [id number] [facility] 2023-03-22 09:15:00 2023-03-22 09:55:40 Outpatient R VAISHNAVI DE LA CRUZ [facility] [id number] [facility] 2023-03-22 09:15:00 2023-03-22 09:55:40 Routine Visit Vaishnavi De La Cruz [facility] LOCOMOTIVE OPERATOR HELPER [facility] & CHILD [facility] 1..840.114 350.1.13.10 4.2.7.2.686 [id number] [facility] 2023-03-21 09:00:00 2023-03-21 09:32:36 Outpatient P ALECIA JACOBSON ALECIA [facility] [id number] [facility] 2023-03-21 09:00:00 2023-03-21 09:32:36 Astrochemist Visit 1, [facility] Room Indira [facility] LOCOMOTIVE OPERATOR HELPER [facility] & CHILD [facility] 1.2.840.114 350.1.13.10 4.2.7.2.686 [id number] [facility] 2023-02-22 15:15:00 2023-02-22 15:49:52 Outpatient R JACQUESEUSEBIA [facility] [id number] [facility] 2023-02-22 15:15:00 2023-02-22 15:49:52 Routine Visit [facility] & CHILD [facility] 1..840.114 350.1.13.10 4.2.7.2.686 [id number] [facility] 2023-02-08 00:00:00 2023-02-08 00:00:00 [facility] HELPER [facility] & CHILD [facility] 1..840.114 350.1.13.10 4.2.7.2.686 [id number] [facility] 2023-02-07 09:00:00 2023-02-07 09:45:56 Outpatient P PAWANDAWSON MINNIE [facility] [id number] [facility] 2023-02-07 09:00:00 2023-02-07 09:45:56 Astrochemist Visit 2, [facility] LOCOMOTIVE OPER[facility] 1..840.114 350.1.13.10 4.2.7.2.686 [id number] [facility] 2023-02-02 12:44:00 2023-02-02 12:44:00 Outpatient Jori Tafoya LABO [id number] 76 [facility] 2023-02-02 09:36:00 2023-02-02 11:16:00 Emergency EM Jori Tafoya [facility] [id number] [facility] 2023-01-29 00:00:00 2023-01-29 00:00:00 Patient Secure Msg Alecia Jacobson [facility] LOCOMOTIVE OPERATOR HELPER [facility] MATERNAL & CHILD [facility] 1.2.840.114 350.1.13.10 4.2.7.2.686 [id number] [facility] 2023-01-23 09:15:00 2023-01-23 10:02:05 Outpatient R ALECIA JACOBSON ALECIA [facility] [id number] [facility] 2023-01-23 09:15:00 2023-01-23 10:02:05 Routine Visit Alecia Jacobson [facility] LOCOMOTIVE OPERATOR HELPER [facility] & CHILD [facility] 1.2.840.114 350.1.13.10 4.2.7.2.686 [id number] [facility] 2022-12-28 00:00:00 2022-12-28 00:00:00 Case Management Indira [facility] LOCOMOTIVE OPERATOR HELPER [facility] & CHILD [facility] 1.2.840.114 350.1.13.10 4.2.7.2.686 [id number] [facility] 2022-12-28 00:00:00 2022-12-28 00:00:00 Telephone Indira Alecia [facility] LOCOMOTIVE OPERATOR HELPER [facility] & CHILD [facility] 1.2.840.114 350.1.13.10 4.2.7.2.686 [id number] [facility] 2022-12-26 09:15:00 2022-12-26 10:22:39 Outpatient R ALECIA JACOSBON MARYANN [facility] [id number] [facility] 2022-12-26 09:15:00 2022-12-26 10:22:39 Routine Visit Indira Alecia [facility] LOCOMOTIVE OPERATOR HELPER [facility] MATERNAL & CHILD [facility] 1..840.114 350.1.13.10 4.2.7.2.686 [id number] 125 [id number] [facility] 2022-12-16 12:09:00 2022-12-16 14:06:00 Emergency EM Adonay Tang [facility] [id number] [facility] 2022-11-30 10:00:00 2022-11-30 10:26:31 Outpatient P LEN ALANIS [facility] [id number] [facility] 2022-11-30 10:00:00 2022-11-30 10:26:31 Astrochemist Visit 1, [facility] Room Len Alanis [facility] LOCOMOTIVE OPERATOR HELPER [facility] MATERNAL & CHILD [facility] 1..840.114 350.1.13.10 4.2.7.2.686 [id number] [facility] 2022-11-30 00:00:00 2022-11-30 00:00:00 Abstract Vaishnavi De La Cruz [facility] LOCOMOTIVE OPERATOR HELPER [facility] MATERNAL & CHILD [facility] 1..840.114 350.1.13.10 4.2.7.2.686 [id number] [facility] 2022-11-23 08:10:00 2022-11-23 10:02:00 Emergency EM Selena AshleighSavage [facility] [id number] 76 [facility] 2022-11-22 00:00:00 2022-11-22 00:00:00 Telephone Vaishnavi De La Cruz [facility] LOCOMOTIVE OPERATOR HELPER [facility] MATERNAL & CHILD [facility] 1..840.114 350.1.13.10 4.2.7.2.686 [id number] [facility] 2022-11-18 00:00:00 2022-11-18 00:00:00 Nurse Triage [facility] 1.840.114 350.1.13.10 4.2.7.2.686 [id number] [facility] 2022-11-16 13:00:00 2022-11-16 13:43:17 Outpatient P [facility] [id number] [facility] 2022-11-16 13:00:00 2022-11-16 13:43:17 Astrochemist Visit 2, [facility] Room Papa Carlson [facility] LOCOMOTIVE OPERATOR HELPER [facility] MATERNAL & CHILD [facility] 1.2.840.114 350.1.13.10 4.2.7.2.686 [id number] [facility] 2022-11-16 00:00:00 2022-11-16 00:00:00 Abstract Vaishnavi De La Cruz [facility] LOCOMOTIVE OPERATOR HELPER [facility] MATERNAL & CHILD [facility] 1.2.840.114 350.1.13.10 4.2.7.2.686 [id number] [facility] 2022-11-15 00:00:00 2022-11-15 00:00:00 Case Management Vaishnavi De La Cruz [facility] & CHILD [facility] 1.2.840.114 350.1.13.10 4.2.7.2.686 [id number] [facility] 2022-11-15 00:00:00 2022-11-15 00:00:00 Telephone Vaishnavi De La Cruz [facility] LOCOMOTIVE OPERATOR HELPER [facility] & CHILD [facility] 1.2.840.114 350.1.13.10 4.2.7.2.686 [id number] 125 [id number] [facility] 2022-11-14 00:00:00 2022-11-14 00:00:00 Telephone Vaishnavi De La Cruz Gloria [facility] LOCOMOTIVE OPERATOR HELPER [facility] MATERNAL & CHILD [facility] 1.2.840.114 350.1.13.10 4.2.7.2.686 [id number] [facility] 2022-11-11 00:00:00 2022-11-11 00:00:00 Patient Secure Msg Vaishnavi De La Cruz Glroia [facility] LOCOMOTIVE OPERATOR HELPER [facility] & CHILD [facility] 1.2.840.114 350.1.13.10 4.2.7.2.686 [id number] [facility] 2022-11-09 09:30:00 2022-11-09 11:09:34 Initial Visit Vaishnavi De La Cruz Gloria [facility] LOCOMOTIVE OPERATOR HELPER [facility] & CHILD [facility] 1.2.840.114 350.1.13.10 4.2.7.2.686 [id number] 125 [id number] [facility] 2022-11-09 09:30:00 2022-11-09 11:09:34 Outpatient R JONOVAISHNAVI [facility] [id number] [facility] Results Test Description Test Time Test Comments Results Result Co mments Source [facility] (D) IMMUNE [id number] 19:44:15* Test Item Value Reference Range Interpretation Comme nts RHIG CANDIDATE? (test code = 5188) No- see comment Patient is not a candidate for RhIg- Patient is Rh Positive.Performed at [facility] Laboratory Services - [facility] Blood [address] [address] Free: [phone] No. [id number] [facility] (D) IMMUNE [id number] 19:44:15* Test Item Value Reference Range Interpretation Comme nts RHIG CANDIDATE? (test code = 5188) No- see comment Patient is not a candidate for RhIg- Patient is Rh Positive.Performed at [facility] Laboratory Services [facility] Blood [address] [address]vz Free: [phone] No. [id number] [facility] Cord [id number] 18:16:11* Test Item Value Reference Range Interpretation Comme nts BASE EXCESS, CORD (test code = 6367936595) -10.2 mEq/L AC PH, CORD (BEAKER) (test c ode = 2417942384) 7.15 7.18-7.38 L PC02, CORD (test code = 5907664563) 56 32-66 PO2, CORD (test code = 6089814189) 27 10-30 BICARBONATE, CORD (test code = 0861967064) 19 17-27 Lab Interpretation (test cod e = 86380-7) Abnormal [facility] Cord [id number] 18:16:11* Test Item Value Reference Range Interpretation Comme nts BASE EXCESS, CORD (test code = 2228080516) -10.2 mEq/L AC PH, CORD (BEAKER) (test c ode = 0529756491) 7.15 7.18-7.38 L PC02, CORD (test code = 6572642076) 56 32-66 PO2, CORD (test code = 5473339238) 27 10-30 BICARBONATE, CORD (test code = 9702865327) 19 17-27 Lab Interpretation (test cod e = 29984-2) Abnormal [facility] Cord [id number] 18:13:37* Test Item Value Reference Range Interpretation Comme nts VENOUS BASE EXCESS, CORD (te st code = 7050569513) -6.5 mEq/L VENOUS PH, CORD (test code = 6848531168) 7.30 7.25-7.45 VENOUS PC02, CORD (test code = 4501881454) 41 27-49 VENOUS PO2, CORD (test code = 9321197421) 24 17-41 VENOUS BICARBONATE, CORD (te st code = 9381280729) 20 12-29 [facility] Cord [id number] 18:13:37* Test Item Value Reference Range Interpretation Comme nts VENOUS BASE EXCESS, CORD (te st code = 3519751477) -6.5 mEq/L VENOUS PH, CORD (test code = 8409228181) 7.30 7.25-7.45 VENOUS PC02, CORD (test code = 9637749292) 41 27-49 VENOUS PO2, CORD (test code = 9490905464) 24 17-41 VENOUS BICARBONATE, CORD (te st code = 8497598225) 20 12-29 [facility] ONLY - SYPHILIS [id number] 15:52:06* Test Item Value Reference Range Interpretation Comme nts Syphilis IgG/IgM (test code = 35607-3) Non-reactive Non-reactive ALAYNA (test code = ALAYNA) Non-reactive - No serologic evidence of T. pallidum infection. Cannot exclude incubating or early syphilis. Submit a second specimen in 2-4 weeks if syphilis is clinically suspected. Equivocal - Further testing to follow. Reactive - Further testing to follow. Lab Interpretation (test code = 89896-8) Normal [facility] ONLY - SYPHILIS [id number] 15:52:06* Test Item Value Reference Range Interpretation Comme nts Syphilis IgG/IgM (test code = 67093-5) Non-reactive Non-reactive ALAYNA (test code = ALAYNA) Non-reactive - No serologic evidence of T. pallidum infection. Cannot exclude incubating or early syphilis. Submit a second specimen in 2-4 weeks if syphilis is clinically suspected. Equivocal - Further testing to follow. Reactive - Further testing to follow. Lab Interpretation (test code = 90530-0) [id number] 01:01:00 Dorota Martinez MD ? ? 07/12/2023 ?8:04 PM Central Neuraxial Block Date/Time: 07/12/2023 8:01 PM Performed by: Keenan Aparicio, DOAuthorized by: Iveth Vidal MD ?Patient Location: OBReason for Block: OBrequest, Patient request and Labor analgesiaStaff: ?Anesthesiologist: Iveth Vidal MD ?Resident/STROBOROMA OPERATOR: Dorota Martinez MD ?Performed by: anesthesiologist and [...] LISETH saline ?Guidance with: landmark techni que}Epidural/Spinal Harvey and/or Catheter: ?Epidural/Spinal Kit: BBun ?Needle Type: Tuohy ?Needle Gauge: 17 G [...] Epidural expectations; PCEA explained and fall precautions given.[facility] [id number] 01:01:00Dorota Martinez MD ? ? 07/12/2023 ?8:04 PM Central Neuraxial Block Date/Time: 07/12/2023 8:01 PM Performed by: Keenan Aparicio, DOAuthorized by: Iveth Vidal MD ?Patient Location: OBReason for Block: OBrequest, Patient request and Labor analgesiaStaff: ?Anesthesiologist: Iveth Vidal MD ?Resident/STROBOROMA OPERATOR: Dorota Martinez MD ?Performed by: anesthesiologist and [...] and LISETH saline ?Guidance with: landmark technique}Epidural/Spinal Harvey and/or Catheter: ?Epidural/Spinal Kit: BBraun ?Needle Type: Tuohy ?Needl e Gauge: 17 G ?Needle Length: 3.5 in [...] Epidural expectations; PCEA explained and fall precautions given.[facility] 1/2 AG-AB WITH REFLEX 2023-07-12 22:22:27* Test Item Value Reference Range Interpretation Comme [facility] Semi-quantitative (test code = 64886-9) 0.10 Negative ALAYNA (test code = ALAYNA) Non-reactive for HIV-1 antigen and HIV-1/HIV-2 antibodies. ?No laboratory evidence of HIV infection. ?Repeat in 2-4 weeks if acute HIV infection is suspected. [facility] 1/2 AG-AB WITH [id number] 22:22:27* Test Item Value Reference Range Interpretation Comme [facility] Semi-quantitative (test code = 05903-5) 0.10 Negative ALAYNA (test code = ALAYNA) Non-reactive for HIV-1 antigen and HIV-1/HIV-2 antibodies. ?No laboratory evidence of HIV infection. ?Repeat in 2-4 weeks if acute HIV infection is suspected. [facility] B Surface [id number] 22:13:43 * Test Item Value Reference Range Interpretation Comme nts HBsAg Semi-Quantitative (chris t code = 5195-3) 0.08 Negative [facility] B Surface [id number] 22:13:43 * Test Item Value Reference Range Interpretation Comme nts HBsAg Semi-Quantitative (chris t code = 5195-3) 0.08 Negative [facility] [id number] 20:26:00 * Test Item Value Reference Range Interpretation Comme nts ABO & RH (test code = 20) O POSITIVE IAT (test code = 1185) Negative [facility] and Screen - ONCE [id number] 20:26:00 * Test Item Value Reference Range Interpretation Comme nts ABO & RH (test code = 20) O POSITIVE IAT (test code = 1185) Negative [facility]/O SPECIFIC [id number] 14:10:00* Test Item Value Reference Range Interpretation [...] = 3257) Negative Negative - Negati ve [facility] (NA, K, CL, CO2, GLUCOSE, BUN, CREATININE, CA)2023-07-02 10:18:04* Test Item Value Reference Range Interpretation Comme nts NA (test code = 4023839302) 136 mmol/L 135-145 K (test code = 5764369821) 4.1 mmol/L 3.5-5.0 CL (test code = 7717723605) 106 mmol/L 98-108 CO2 TOTAL (test code = 7450062974) 22 mmol/L 23-31 L AGAP (test code = 1238682788) 8 2-16 BUN (test code = 5991708260) 10 mg/dL 7-23 GLUCOSE (test code = 8943998138) 86 mg/dL 70-110 CREATININE (test code = 2160-0) 0.41 mg/dL 0.50-1.04 L CALCIUM (test code = 5366275130) 9.0 mg/dL 8.6-10.6 eGFR (test code = 63365-9) 137.6 mL/min/1.73m2 CKD-EPI eGFR (2020). Assuming creatinine has been stable day-to-day for at least three months, the eGFR indicates Category G1 (>= 90 mL/min/1.73 m2) Lab Interpretation (test code = 69043-9) Abnormal [facility] without Rsje7531-81-16 09:52:42* Test Item Value Reference Range Interpretation [...] 777-3) 298 166-358 MPV (test code = 99597-6) 10.9 fL 9.5-12.9 RDW-CV (test code = 788-0) 13.0 % 12.0-15.5 RDW-SD (test code = 35317-8) 39.2 fL 39.0-49.9 NRBC x10^3 (test code = 5785498582) See_Comment [Automated ComparaMejor.coma ge] The system which generated this result transmitted reference range: 10*3/?L. The reference range was not used to interpret this result as normal/abnormal. NRBC/100 WBC (test code = 8018012819) 0.0 0.0-10.0 IPF % (test code = 9205660241) Lab Interpretation (test code = 89972-4) Abnormal [facility] Urinalysis w/o Specific [id number] 14:01:00* Test Item Value Reference Range Interpretation [...] = 3257) Neg Negative - Negati ve [facility] URINALYSIS W/O SPECIFIC [id number] 11:56:00* Test Item Value Reference Range Interpretation [...] ve Lab Interpretation (test cod e = 90294-2) Normal [facility] Urinalysis w/o Specific Jzdfune1522-84-03 16:01:00* Test Item Value Reference Range Interpretation [...] = 3257) negative Negative - Negati ve [facility]/TPWFNHOO9442-99-70 13:50:05 Ordered by an unspecified provider.[facility] Rapid Flu A and B Mwab1241-86-01 14:57:00* Test Item Value Reference Range Interpretation Comme nts POCT INFLUENZA A (test code = 5216) Negative Negative POCT INFLUENZA B (test code = 5217) Negative Negative [facility] Rapid Flu A and B Crsn3075-91-24 14:57:00 * Test Item Value Reference Range Interpretation Comme nts POCT INFLUENZA A (test code = 5216) Negative Negative POCT INFLUENZA B (test code = 5217) Negative Negative [facility] Molecular [id number] 14:52:12* Test Item Value Reference Range Interpretation Comme nts POCT Molecular FluA (test co de = 48386-3) Negative Negative POCT Molecular FluB (test co de = 58259-2) Negative Negative Lab Interpretation (test cod e = 59460-7) Normal [facility] Molecular [id number] 14:52:12* Test Item Value Reference Range Interpretation Comme nts POCT Molecular FluA (test co de = 34211-8) Negative Negative POCT Molecular FluB (test co de = 88801-4) Negative Negative Lab Interpretation (test cod e = 79177-5) Normal [facility] URINALYSIS W/O SPECIFIC [id number] 14:15:00* Test Item Value Reference Range Interpretation [...] ve Lab Interpretation (test cod e = 98651-5) Normal [facility] URINALYSIS W/O SPECIFIC [id number] 14:15:00* Test Item Value Reference Range Interpretation [...] ve Lab Interpretation (test cod e = 77694-8) [facility] W/O SPECIFIC [id number] 18:18:00* Test Item Value Reference Range Interpretation [...] ve Lab Interpretation (test cod e = 07555-8) Normal [facility] URINALYSIS W/O SPECIFIC [id number] 13:45:00* Test Item Value Reference Range Interpretation [...] ve Lab Interpretation (test cod e = 57463-1) Abnormal [facility]. Metabolic Panel (99607)2023-05-23 17:45:19* Test Item Value Reference Range Interpretation Comme nts NA (test code = 7078302087) 136 mmol/L 135-145 K (test code = 9054238997) 3.4 mmol/L 3.5-5.0 L CL (test code = 9914508617) 108 mmol/L 98-108 CO2 TOTAL (test code = 0104479595) 24 mmol/L 23-31 AGAP (test code = 4344025235) 4 2-16 BUN (test code = 7233637951) 7 mg/dL 7-23 GLUCOSE (test code = 7074768174) 89 mg/dL 70-110 CREATININE (test code = 2160-0) 0.35 mg/dL 0.50-1.04 L TOTAL BILI (test code = 0824892799) 0.7 mg/dL 0.1-1.1 CALCIUM (test code = 0747593875) 9.0 mg/dL 8.6-10.6 T PROTEIN (test code = 9832626878) 7.1 g/dL 6.3-8.2 ALBUMIN (test code = 1465803841) 3.7 g/dL 3.5-5.0 ALK PHOS (test code = 4919170178) 131 U/L 34-122 H ALTv (test code = 1742-6) 10 U/L 5-35 AST(SGOT) (test code = 1341347862) 20 U/L 13-40 eGFR (test code = 58764-5) 143.0 mL/min/1.73m2 CKD-EPI eGFR (2020). Assuming creatinine has been stable day-to-day for at least three months, the eGFR indicates Category G1 (>= 90 mL/min/1.73 m2) Lab Interpretation (test code = 80904-0) Abnormal [facility] with Uopf4567-09-70 17:20:37* Test Item Value Reference Range Interpretation [...] 33.6 g/dL 31.6-35.1 RDW-SD (test code = 86450-3) 38.3 fL 39.0-49.9 L RDW-CV (test code = 788-0) 12.1 % 12.0-15.5 PLT (test code = 777-3) 313 166-358 MPV (test code = 04967-6) 10.1 fL 9.5-12.9 NRBC/100 WBC (test code = 7885992656) 0.0 0.0-10.0 NRBC x10^3 (test code = 5329476726) See_Comment [Automated messa ge] The system which generated this result transmitted reference range: 10*3/?L. The reference range was not used to interpret this result as normal/abnormal. GRAN MAT (NEUT) % (test code = 770-8) 69.9 % IMM GRAN % (test code = 3557619549) 0.40 % LYMPH % (test code = 736-9) 17.7 % MONO % (test code = 5905-5) 10.8 % EOS % (test code = 713-8) 0.6 % BASO % (test code = 706-2) 0.6 % GRAN MAT x10^3(ANC) (test code = 7469180255) 4.93 10*3/uL 1.88-7.09 IMM GRAN x10^3 (test code = 5371784868) 0.03 10*3/uL 0.00-0.06 LYMPH x10^3 (test code = 731-0) 1.25 10*3/uL 1.32-3.29 L MONO x10^3 (test code = 742-7) 0.76 10*3/uL 0.33-0.92 EOS x10^3 (test code = 711-2) 0.04 10*3/uL 0.03-0.39 BASO x10^3 (test code = 704-7) 0.04 10*3/uL 0.01-0.07 Lab Interpretation (test code = 17861-5) Abnormal [facility] URINALYSIS W/O SPECIFIC [id number] 13:12:00* Test Item Value Reference Range Interpretation [...] ve Lab Interpretation (test cod e = 37177-3) Abnormal [facility] Urinalysis w/o Specific Ubyvaem7325-74-19 15:15:00* Test Item Value Reference Range Interpretation [...] = 3257) Negative Negative - Negati ve [facility] URINALYSIS W/O SPECIFIC [id number] 15:33:00* Test Item Value Reference Range Interpretation [...] = 3257) neg Negative - Negati ve [facility] URINALYSIS W/O SPECIFIC [id number] 17:36:00* Test Item Value Reference Range Interpretation [...] ve Lab Interpretation (test cod e = 16302-4) Normal [facility] URINALYSIS W/O SPECIFIC [id number] 21:27:00* Test Item Value Reference Range Interpretation [...] ve Lab Interpretation (test cod e = 64898-6) Abnormal [facility] METABOLIC [id number] 11:28:00* Test Item Value Reference Range Interpretation [...] calculation forGFR is based on the CKD-EPI (2020) calculation. This formulais race indifferent and is the recommended formula for GFRby the National Kidney Foundation for Adults.The GFR will not calculate if the sex is unknown or if thepatient's age is <18 years. CREATININE (test code = CREAT) 0.30 mg/dL 0.55-1.3 L BUN/CREATININE RATIO (test code = BUN/CREA) 16.7 10-20 N CALCIUM (test code = CA) 8.9 mg/dL 8.4-10.2 N HCG SERUM [id number] 11:28:00* Test Item Value Reference Range Interpretation Comme nts HCG SERUM BETA (test code = HCG) 44134.0 mIU/ml 0-5.0 H `INTERPRETATIO N:B-HCG LEVELS <6 SHOULD BE CONSIDERED "NEGATIVE."VALUES BETWEEN 6-25 MIU/ML NEED TO BE RETESTED WITHIN 48hrs. 0-1 WEEKS AFTER CONCEPTION 0-50 MIU/ML1-2 WEEKS AFTER CONCEPTION 40-300 MIU/ML2-3 WEEKS AFTER CONCEPTION 100-1,000 MIU/ML3-4 WEEKS AFTER CONCEPTION 500-6,000 MIU/ML1-2 MONTHS AFTER CONCEPTION 5,000-200,000 MIU/ML2-3 MONTHS AFTER CONCEPTION 10,000-100,000 MIU/ML2ND TRIMESTER 3,000-50,000 MIU/ML3RD TRIMESTER 1,000-50,000 MIU/ML CBC W/O [id number] 10:47:00* Test Item Value Reference Range Interpretation [...] fL 6.7-11.0 N - US PREG AFTER [id number] 10:30:00 [facility]Name: MARY FARLEY : 1995 Sex: F Name: MARY FARLEY [facility] : 1995 Age/S: 27 / F [address] Unit #: [id number] Loc: [place] [address] Phys: Johanny Castillo Acct: [id number] Dis Date: Status: PRE ER PHONE #: [phone] Exam Date: 02/02/2023 1027 FAX #: [phone] Reason: VAGINAL BLEEDING/PELVIC PAIN EXAMS: CPT CODE: [id number] US PREG AFTER 63349 REASON FOREXAM: PELVIC PAIN EXAM ORDER DATE: 02/02/2023 9:45 AM Attending:Jori Tafoya MD Provider: Johanny Castillo Location:[facility] PROCEDURE: - DUP AB/PEL/SC COMP, - US PREG AFTER 1ST TRI FINDINGS: Thecervix is closed with the cervical canal length measured 3.09 cm heart rate is 146 beats perminute. SHAHID is 10 presentation is cephalic. The [...] Pauline Gramajo RDMS Trnscb Date/Time: 02/02/2023 (1030) Phu.DKH1 Orig Print D/T: S: 02/02/2023 (1033) Probe: PAGE 1 Signed Report- DUP AB/PEL/SC [id number] 10:30:00[facility]Name: MARY FARLEY : 1995 Sex: F [facility]: [facility] 1995 Age/S: 27 / F [address] Unit #: [id number] Loc: [place] [address] Phys: Johanny Castillo Acct: [id number] Dis Date: Status: PRE ER PHONE #: [phone] Exam Date: 02/02/2023 1027 FAX #: [phone] Reason: PELVIC PAIN EXAMS: CPT CODE: [id number] DUP AB/PEL/SC COMP 27013 REASON FOR EXAM: PELVIC PAIN EXAM ORDER DATE: 02/02/2023 9:45 AM Attending:Jori Tafoya MD Provider: Johanny Castillo Location:[facility] PROCEDURE: - DUP AB/PEL/SC COMP, - US [...] MD; Jori Tafoya MD; Johanny Castillo Technologist: aPuline Gramajo RDMS Trnhib Date/Time: 02/02/2023 (1030) t.SDR.DKH1 Orig Print D/T: S: 02/02/2023 (1033) Probe: PAGE 1 Signed ReportURINALYSIS [id number] 10:21:00* Test Item Value Reference Range Interpretation [...] Urine Source? Clean CatchPOCT URINALYSIS W/O SPECIFIC [id number] 15:32:00 * Test Item Value Reference Range [...] = 3257) neg Negative - Negati ve [facility] [id number] 13:47:00* Test Item Value Reference Range Interpretation [...] NONE A Urine Source? Clean CatchHCG SERUM [id number] 13:44:00* Test Item Value Reference Range Interpretation Comme nts HCG SERUM BETA (test code = HCG) 85065.0 mIU/ml 0-5.0 H INTERPRETATION :B-HCG LEVELS <6 SHOULD BE CONSIDERED "NEGATIVE."VALUES BETWEEN 6-25 MIU/ML NEED TO BE RETESTED WITHIN 48hrs. 0-1 WEEKS AFTER CONCEPTION 0-50 MIU/ML1-2 WEEKS AFTER CONCEPTION 40-300 MIU/ML2-3 WEEKS AFTER CONCEPTION 100-1,000 MIU/ML3-4 WEEKS AFTER CONCEPTION 500-6,000 MIU/ML1-2 MONTHS AFTER CONCEPTION 5,000-200,000 MIU/ML2-3 MONTHS AFTER CONCEPTION 10,000-100,000 MIU/ML2ND TRIMESTER 3,000-50,000 MIU/ML3RD TRIMESTER 1,000-50,000 MIU/ML - US PREG 1ST [id number] 12:59:00 [facility] [place]Name: MARY FARLEY : 1995 Sex: F Name: MARY FARLEY 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 INDICATION: PELVIC PAIN. COMPARISON: Ultrasound performed November 23, 2022. TECHNIQUE: Multiplanar grayscale and color Doppler ultrasound of the pelvis were obtained transabdominally through a distended urinary bladder followed by transvaginal examination postvoid. FINDINGS: UTERUS Orientation: Anteverted. Size: 11.8 x 6.7 x 7.9 cm. Echo genicity: Normal. Masses: None. Cervix: Normal. Closed. GESTATION General comments: A single intrauterine is identified. Last menstrual period of 10/04/2022 corresponds to 9 weeks 5 days. Mean gestational sac diameter: 4.3 cm corresponds to 10 weeks 0 days. Sophia-rump length (CRL): 3.5 cm corresponds to 10 weeks 3 days. Embryonic heart motion: 155 bpm. Yolk sac: Not seen. Subchorionic hemorrhage: None. RIGHT OVARY Size: 2.9 x 1.9 x 1.7 cm. Cysts: None. Masses: None. Doppler: Normal, low-resistance flow. LEFT OVARY Size: 6.3 x 4.6 x 4.9 cm. Cysts: Simple anechoic cyst without septations or nodules or calcifications measuring up to 6.3 cm. Masses: None. Doppler: Normal, low-resistance flow. OTHER Adnexa: Unremarkable. PAGE 1 Signed Report (CONTINUED) Name: MARY FARLEY [facility] : 1995 Age/S: 27 / F [address] Unit #: [id number] Loc: Na[place] [address] Phys: Johanna Bauer NP Acct: [id number] Dis Date: Status: PRE ER PHONE #: [phone] Exam Date: 12/16/2022 1247 FAX #: [phone] Reason: VAGINAL BLEEDING/PELVIC PAIN EXAMS: CPT CODE: [id number] US PREG 1ST TRIMTR 96882 (Continued) Free Fluid: None. Additional Findings: None.IMPRESSION: Single viable intrauterine with embryonic HR of 118 bpm and AUA of 10 weeks 2 days. Dates are concordant with EGA by LMP. Electronically Signed by Duncan Blair M.D. on 12/16/2022 at 1259 Reported and signed by: Duncan Blair M.D. 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 Mean gestational sac diameter: 4.3 cm corresponds to 10 weeks 0 days. Sophia-rump length (CRL): 3.5 cm corresponds to 10 weeks 3 days. Embryonic heart motion: 155 bpm. Yolk sac: Not seen. Subchorionic hemorrhage: None. RIGHT OVARY Size: 2.9 x 1.9 x 1.7 cm. Cysts: None. Masses: None. Doppler: Normal, low-resistance flow.LEFT OVARY Size: 6.3 x 4.6 x 4.9 cm. Cysts: Simple anechoic cyst without septations or nodules or ca lcifications measuring up to 6.3 cm. Masses: None. Doppler: Normal, low- resistance flow. OTHER Adnexa: Unremarkable. PAGE 1 Signed Report (CONTINUED) [facility] 1995 Age/S: 27 / F [address] Unit #: [id number] Loc: [place] [address] Phys: Johanna Bauer NP Acct: [id number] Dis Date: Status: PRE ER PHONE #: [phone] Exam Date: 12/16/2022 1247 FAX #: [phone] Reason: PELVIC PAIN EXAMS: CPT CODE: [id number] DUP AB/PEL/SC COMP 31369 (Continued) Free Fluid: None. Additional Findings: None. IMPRESSION: Single viable intrauterine with embryonic HR of 118 bpm and AUA of 10 weeks 2 days. Dates are concordant with EGA by LMP. at 1259 Reported and signed by: Duncan Blair M.D. CC: Rosa Maria Sanches MD; Adonay Tang MD; Johanna Bauer NP Technologist: Pauline Gramajo RDMS Trnhib Date/Time: 12/16/2022 (1259) t.SDR.IB4 Orig Print D/T: S: 12/16/2022 (1271) Probe: PAGE 2 Signed ReportBASIC METABOLIC [id number] 12:55:00* Test Item Value Reference Range Interpretation [...] CA) 9.1 mg/dL 8.4-10.2 N HEPATIC FUNCTION [id number] 12:55:00* Test Item Value Reference Range Interpretation [...] code = ALKP) 63 U/L 38-126 N [id number] 12:55:00* Test Item Value Reference Range Interpretation Comme nts LIPASE (test code = LIP) 34 U/L 16-77 N HCG SERUM [id number] 12:55:00* Test Item Value Reference Range Interpretation Comme nts HCG SERUM QUAL (test code = HCGQL) POSITIVE NEGATIVE A This HCGQL test is NOT applicable for MALE patients.Check with nurse about probable order error.If Tumor Marker Test needed, nurse should order test "HCGTU"(Test #[id number]) CBC W/O [id number] 12:41:00* Test Item Value Reference Range Interpretation [...] fL 6.7-11.0 N - US PREG UT [id number] 09:38:00 [facility]Name: MARY FARLEY : 1995 Sex: F [facility]: [facility] [place] [facility] 1995 Age/S: 27 / F [address] Unit #: [id number] Loc: [place] [address] Phys: Suleman Walters MD Acct: [id number] Dis Date: Status: REG ER PHONE #: [phone] Exam Date: 11/23/2022915 FAX #: [phone]: PELVIC PAIN EXAMS: CPT CODE: [id number] US PREG UT TRANSVAGINAL 64491 HISTORY: Pelvic pain. COMPARISON: None available. Location: [facility]. Transabdominal and transvaginal (for better endometrialand ovarian [...] cm. Left ovary measured 6 6.9 x 4.2x 4.9 cm. Simple cyst within it measured 4.7 cm. No follow-up is required. No free fluid. IMPRESSION: IUP at 6 weeks 3 days +/- 1 week. LEVI of July 16, 2023. Average bradycardic heart rate of 118 BPM.Color and Doppler flow in either ovary with normal spectral waveform. at 0938 Reported and signed by: Pietro Alvarez M.D. CC: Suleman Walters MD Technologist: Radha Pantoja Trnscb Date/Time: 11/23/2022 (09) t.CESARIOR.TH4 Orig Print D/T: S: 11/23/2022 (0942) Probe: [id number] PAGE 1 Signed Report- DUP AB/PEL/SC [id number] 09:38:00 [facility] [place]Name: MARY FARLEY : 1995 Sex: F Name: MARY FARLEY [facility] : 1995 Age/S: 27 / F [address] Unit #: [id number] Loc: [place] [address] Phys: Suleman Walters MD Acct: [id number] Dis Date: Status: REG ER PHONE #: [phone] Exam Date: 11/23/2022915 FAX #: [phone]: PELVIC PAIN EXAMS: CPT CODE: [id number] DUP AB/PEL/SC COMP 42309 HISTORY: Pelvic pain. CHERI RISON: None available. Location: [facility]. Transabdominal and transvaginal (for better endometrial and [...] (937) t.CESARIOR.TH4 Orig Print D/T: S: 11/23/2022 (941) Probe: PAGE 1 Signed Report- US PREG [id number] 09:38:00 [facility] [place]Name: MARY FARLEY : 1995 Sex: F Name: MARY FARLEY [facility] : 1995 Age/S: 27 / F [address] Unit #: [id number] Loc: [place] [address] Phys: Suleman Walters MD Acct: [id number] Dis Date: Status: REG ER PHONE #: [phone] Exam Date: 11/23/2022915 FAX #: [phone] Reason: VAGINAL BLEEDING/PELVIC PAIN EXAMS: CPT CODE: [id number] US PREG 1ST TRIMTR 98639 HISTORY: Pelvic pain. COMPARISON: None available. Location: [facility]. Transabdominal and transvaginal (for better endometrial and ovarian evaluation) pelvic ultrasound with color and Doppler flow and grayscale imaging. Anteverted uterus measured 11 x 5 x 7.1 cm. Nabothian cysts within the cervix. Intrauterine gesta tional sac with embryonic pole and yolk sac. [...] 2.1 x 2.2 cm. Left ovary measured 66.9 x 4.2 x 4.9 cm. Simple cyst within it measured 4.7 cm. No follow- up is required. No free fluid.IMPRESSION: IUP at 6 weeks 3 days +/- 1 week. LEVI of July 16, 2023. Average bradycardic heart rate of 118 BPM. Color and Doppler flow in either ovary with normal spectral waveform. at 0938 Reported and signed by: Pietro Alvarez M.D. CC: Suleman Walters MD Technologist: Radha Pantoja [facility] Date/Time: 11/23/2022 (0938) t.CESARIOR.TH4 Orig Print D/T: S: 11/23/2022 (0942) Probe: PAGE 1 Signed ReportBASIC METABOLIC [id number] 09:35:00* Test Item Value Reference Range Interpretation [...] CA) 8.6 mg/dL 8.4-10.2 N HCG SERUM [id number] 09:35:00* Test Item Value Reference Range Interpretation Comme [facility] HCG SERUM BETA (test code = HCG) 71458.0 mIU/ml 0-5.0 H INTERPRETATION :B-HCG LEVELS <6 SHOULD BE CONSIDERED "NEGATIVE."VALUES BETWEEN 6-25 MIU/ML NEED TO BE RETESTED WITHIN 48hrs. 0-1 WEEKS AFTER CONCEPTION 0-50 MIU/ML1-2 WEEKS AFTER CONCEPTION 40-300 MIU/ML2-3 WEEKS AFTER CONCEPTION 100-1,000 MIU/ML3-4 WEEKS AFTER CONCEPTION 500-6,000 MIU/ML1-2 MONTHS AFTER CONCEPTION 5,000-200,000 MIU/ML2-3 MONTHS AFTER CONCEPTION 10,000-100,000 MIU/ML2ND TRIMESTER 3,000-50,000 MIU/ML3RD TRIMESTER 1,000-50,000 MIU/ML URINALYSIS [id number] 09:01:00* Test Item Value Reference Range Interpretation [...] per HPF NONE A Urine Source? Clean CatchC W/O [id number] 08:51:00* Test Item Value Reference Range Interpretation [...] = MPV) 10.1 fL 6.7-11.0 N POCT [id number] 15:01:00* Test Item Value Reference Range Interpretation Comme nts POCT PREG (test code = 1605) Positive On board controls acceptable with C Line (test code = 3574) Yes POCT PREG LOT # (test code = 3575) [id number] POCT PREG TEST DATE ( test code = 3576) 06-27-2023 Lab Interpretation (test cod e = 49511-7) [facility]/O SPECIFIC [id number] 15:01:00* Test Item Value Reference Range Interpretation [...] ve Lab Interpretation (test cod e = 70010-5) Abnormal [facility] DNA BY [id number] 18:08:00* Test Item Value Reference Range Interpretation Comme nts C. TRACHOMATIS DNA BY PCR (test code = CHLAMTDNA) Negative Negative N. GONORRHOEAE DNA BY PCR (test code = NGONORDNA) Negative Negative Performed At: [facility] [place], [place] [id number] pratima Wolfe MD Ph:[phone] performed at: [facility] [address] [place] [address] URINALYSIS [id number] 14:00:00* Test Item Value Reference Range Interpretation [...] LPF NONE-FEW Urine Source? Clean CatchUR HCG [id number] 14:00:00* Test Item Value Reference Range Interpretation Comme nts UR HCG QUAL (test code = HCGQLU) NEGATIVE This HCGQL test is NOT applicable for MALE patients.Check with nurse about probable order error.If Tumor Marker Test needed, nurse should order test "HCGTU"(Test #[id number]) Urine Source? Clean CatchURINALYSIS [id number] 13:59:00* Test Item Value Reference Range Interpretation [...] HPF NONE Urine Source? Clean CatchUR HCG [id number] 13:59:00* Test Item Value Reference Range Interpretation [...] no calf tenderness or edema : SVE 1/0/floating REVIEW OF LABORATORY, PATHOLOGY, AND RADIOLOGY DATA [...] (%): 0 % / Station: Floating - [place] : irregular - Plan: IOL with FB and pitocin. Desires epidural for pain relief. PP BTL. Antepartum course reviewed - 1 h 135, 3 hr wnl, sero neg, Ri, VZVi, O+/neg, GBS neg, Pap NIL 11/09/22 - H/H, plt: 10.4 / 31.5, 298 on 07/02/23 - [facility] Fetus - Presentation on admission: vertex, sutures palpable - fundal placenta - Nikolai 8.5-9#, 3923 gm by MD scan - FHT Category I - Normal anatomy scan Informed [...] Carlson was available for consultation. Natacha Petit-SUSIE Cam CNM Associated attestation - Papa Carlson MD - 07/12/2023 5:03 PM CDT I was faculty in L&D on 07/12/2023 and was available for consultation. I agree with nurse editor dictionary, Natacha Petit's note as written. I actively participated in the decision-making process. Please see the nurse editor dictionary's note for additional details. [facility] 2023-05-23 13:59:34 ANTEPARTUM HISTORY & PHYSICAL IDENTIFYING DATA Mary Farley is 28 year old, /White, 32w0d, female with LEVI 07/18/2023, by Ultrasound. : 1995 Primary Care Physician: [facility] Day: 1 CHIEF COMPLAINT Nausea/vomiting cramping HISTORY [...] Ate pizza last night at a birthday libertarian but reports others ate the same food [...] in the note below and agree with INFRASTRUCTURE CONSULTANT note. I actively participated in the decision-making process. Please see the INFRASTRUCTURE CONSULTANT note for additional details. T Iveth Richardson MD 05/23/2023 2:50 PM [facility] Procedure Notes Date/Time Note Provider Source [...] this position. IUPC and FSE tracing well. [facility] 2023-07-12 20:01:47 Associated Order(s): Central Neuraxial Block Central Neuraxial Block Date/Time: 07/12/2023 8:01 PM Performed by: Keenan Aparicio DO Authorized by: Iveth Vidal MD Patient Location: OB Reason for Block: OB request, Patient request and Labor analgesia Staff: Anesthesiologist: Iveth Vidal MD Resident/STROBOROMA OPERATOR: Dorota Martinez MD Performed by: anesthesiologist and resident/STROBOROMA OPERATOR Preanesthetic Checklist: patient identified, IV checked, risks [...] LISETH saline Guidance with: landmark technique} Epidural/Spinal Harvey and/or Catheter: Epidural/Spinal Kit: BBraun Needle Type: [...] PCEA explained and fall precautions given. AN-ANESTHESIOLOGY [facility] 2023-07-12 16:40:36 Procedure(s): INSERT CERVICAL DILATOR [...] anterior, Station: floating Natacha Nunes APRN, CNM [employer] Notes Date/Time Note Provider Source 2023-07-14 18:32:50 Problem: Pain Goal: Control of pain at or below patient's documented comfort goal Outcome: Progressing as expected Goal: Reduction in pain sensation Outcome: Progressing as expected Problem: Falls, Risk of Goal: Absence of falls Outcome: Progressing as expected Problem: Discharge Planning Goal: Adequate for discharge Outcome: Progressing as expected Goal: Effective communication Outcome: Progressing as expected Problem: Infection Risk Goal: Absence of infection Outcome: Progressing as expected [facility] 2023-07-14 10:01:17 Post-Anesthesiology Follow-Up Note Mary Farley is a 28 year old female with the following past medical history: Past Medical History: Diagnosis Date Nausea and vomiting in 05/23/2023 and who is status post post- day #1. The anesthetic used was epidural. There was not an unintentional dural puncture. Patient is examined. Vital Signs: Patient Vitals for the past 24 hrs: BP Temp Temp src Pulse Resp SpO2 07/14/23 0800 (!) 85/52 36.4 ?C (97.6 ?F) -- 94 18 100 % 07/14/23 0546 93/55 -- -- 84 -- 97 % 07/14/23 0447 (!) 82/54 35.8 ?C (96.4 ?F) -- 90 18 98 % 07/13/23 2252 94/59 37.1 ?C (98.8 ?F) Oral 111 18 96 % 07/13/232011 92/61 36.8 ?C (98.3 ?F) Oral 108 17 97 % 07/13/23 1504 99/62 36.9 ?C (98.5 ?F) Oral 93 18 99 % 07/13/23 1420 101/70 36.7 ?C (98 ?F) Oral 98 21 97 % 07/13/23 1405 99/65 -- -- 99 16 100 % 07/13/23 1402 99/65 -- -- 93 16 99 % 07/13/23 1350 100/71 -- -- 99 19 100 % 07/13/23 1335 -- -- -- 96 15 99 % 07/13/23 1320 105/67 37.1 ?C (98.7 ?F) Axillary 110 20 98 % 07/13/23 1130 -- -- -- 119 -- 98 % 07/13/23 1102 121/75 -- -- 130 -- 98 % 07/13/23 1100 118/74 -- -- 109 -- 98 % 07/13/23 1030 103/61 -- -- 106 -- 98 % 07/13/23 1020 103/61 -- -- 108 -- 99 % The patient has been getting up and ambulating. The patient has voided. The patient reports no headache. The patient reports no back pain. There is no tenderness over the neuraxial insertion site. There is not paraspinous muscle tenderness. Patient counseled that soreness over neuraxial injection site is common and expected to resolve in 1-2 weeks. Advised to seek medical attention if worsens, persists or is associated with neurologic deficits. The patient reports no neurological deficits. The patient reports no nausea or vomiting. The patient is satisfied with her anesthetic. The patient does not require further followup. Rishabh Camacho MD 07/14/2023 10:01 AM AN-ANESTHESIOLOGY [facility] 2023-07-14 06:26:25 Problem: Pain Goal: Control of pain at or below patient's documented comfort goal Outcome: Progressing as expected Goal: Reduction in pain sensation Outcome: Progressing as expected Problem: Falls, Risk of Goal: Absence of falls Outcome: Progressing as expected Problem: Discharge Planning Goal: Adequate for discharge Outcome: Progressing as expected Goal: Effective communication Outcome: Progressing as expected Problem: Infection Risk Goal: Absence of infection Outcome: Progressing as expected Cat Otero RN [facility] 2023-07-13 17:36:23 This note was copied from a baby's chart. 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 Information on how to dry up her milk provided. Nelly Armendariz RN,BSN,IBCLC Pager - [phone] Nelly Armendariz RN [facility] 2023-07-13 16:24:16 Problem: Intrapartum process (including labor pain) Goal: Absence of or reduction of complications of labor Outcome: Resolved Goal: Able to cope with pain Outcome: Resolved Goal: Adequate to move to next level of care Outcome: Resolved Goal: Reduction in pain sensation Outcome: Resolved Problem: Pain Goal: Control of pain at or below patient's documented comfort goal Outcome: Progressing as expected Goal: Reduction in pain sensation Outcome: Progressing as expected Problem: Falls, Risk of Goal: Absence of falls Outcome: Progressing as expected Alonso Us RN [facility] 2023-07-13 14:07:03 Patient: Mary Farley Procedure Summary Date: 07/12/23 Room / Location: [place] [id number] [facility] Anest[facility] Start: 1937 Anesthesia Stop: 07/13/23 1309 Procedures: SECTION (Abdomen) TUBAL LIGATION (Abdomen) Diagnosis: (s/p PCS) Surgeons: Ana Luisa Rodriguez MD Responsible Provider: Karla Martinez MD Anesthesia Type: Epidural ASA Status: 3 Anesthesia Type: Epidural Last vitals BP 100/71 (07/13/23 1350) Temp 37.1 ?C (98.7 ?F) (07/13/23 1320) Pulse 99 (07/13/23 1350) Resp 19 (07/13/23 1350) SpO2 100 % (07/13/23 1350) There were no known notable events for this encounter. Anesthesia Post Evaluation Patient location during evaluation: PACU Patient participation: complete - patient participated Level of consciousness: awake Pain management: adequate Airway patency: patent Cardiovascular status: acceptable Respiratory status: acceptable Hydration status: stable Comments: Anesthesia Post Operative Faculty Note Date of service: 07/13/2023 Patient examined, patient awake. Block not fully resolved, as expected. Patient participated otherwise . Post-operative course: Block resolving appropriately and Patient discharged from PACU according to criteria. Complications: No apparent complications Vitals: BP 100/71 | Pulse 99 | Temp 37.1 ?C (98.7 ?F) (Axillary) | Resp 19 | Ht 1.372 m (4' 6.02") | Wt 77.1 kg (170 lb) | LMP 10/04/2022 (Exact Date) | SpO2 100% | Unknown | BMI 40.96 kg/m? Karla Martinez MD AN-ANESTHESIOLOGY ANESTHESIOLOGIST [facility] 2023-07-13 13:16:54 Delivery Date: 07/13/2023 Delivery Time: 12:10 PM DELIVERY BY SECTION Date of Service: : 07/13/2023 at 12:10 PM Admitted for: sIOL, Primary Lower uterine tranverse section with no extension, Modified [place] BTL, Pfannenstiel, Closed with sutures, EBL 850 cc, No complications, Findings: normal uterus, bilateral ovaries/fallopian tubes Delivery Summary Sex: male [place] Weight: 3390 g 1 Minute 5 Minute 10 Minute Totals: 8 9 Primary Indication: The patient was taken to the operating room for a primary section due to: maternal request at 39w2d weeks. Procedures: Primary Lower uterine tranverse section with no extension Modified [place] bilateral tubal ligation Specimens Removed: Placenta, bilateral fallopian tubal segments Clinical Trials: none Surgeon: Madiha Sanchez MD Jamb Cutter Surgeon: Robyn Barrow MD OB Faculty: Ana Luisa Rodriguez MD Report: Prophylactic antibiotic, Ancef was given before patient was taken to OR. After arrival to the operating room patient was placed in the supine position with left lateral tilt after dosing of epidural anesthesia. Laparotomy A pfannenstiel incision was made through the anterior abdominal wall with #10 scalpel. The incision was extended sharply with the #10 scalpel through the subcutaneous tissue to the level of fascia. The fascia was entered sharply with a #10 scalpel and bluntly in Misgav-Ladach technique. The rectus muscles were in the midline bluntly with digits. The peritoneum was then entered bluntly. Delivery A bladder flap was developed by grasping with Serbian forcep and enter with Metzenbaun scissor. Then sharp and blunt dissection with Metzenbaum scissor and fingers were performed. A low transverse hysterotomy was made then with #10 scalpel and extended laterally and cephalad with fingers in a low transverse fashion with Manu Falcon technique with care being taken to avoid injury to the fetus. The amniotic (membranes) were then entered with spontaneous rupture of membrane, and the amniotic fluid was noted to be clear . The head was delivered manually without aid of vaginal hand. The head was flexed and delivered through the hysterotomy incision in a non-traumatic fashion with aid of fundal pressure applied by the social research assistant surgeon . The body was delivered with traction on the head along with fundal pressure. After delivery of body-bulb suction was performed from oropharynx and nostril with removal of clear amniotic fluid. Fetus was delivered in cephalic presentation. With delivery the baby, no extension was noted.Delayed cord clamping was performed for 30-60 seconds. Placenta was delivered spontaneously with steady traction on cord and manual separation of placenta from uterine wall. Closure Uterine cavity was cleaned after placental delivery with lap sponge x 2. The hysterotomy was closed in one layer with stitches using 0 chromic with continuous locking stitches. Hemostasis was achieved as needed with electrocautery and 3 figure eight suture ligation. The ovaries/tubes/uterine surface were evaluated. They were found to be normal. Yes PROCEDURE - BILATERAL TUBAL LIGATION The right fallopian tube was grasped at midportion with Ben forceps and followed out to distal end until the fimbria was visualized. The fallopian tube was ligated and resected with Modified [place] technique - Ben clamp was placed on fallopian tube and placed on gentle traction. The avascular portion of mesosalpinx was bluntly perforated with bovie. Four 0-plaingut sutures were passed through the window and the proximal and distal portion of the tube was ligated. Metzebaum scissor was used to transect the intervening segment of tube individually next to each ligating sutures. . The transected ends of fallopian tube were examined to insuring the presence of fallopian lumen and good hemeostasis. The left fallopian tube was grasped at midportion with [place] forceps and followed out to distal end until the fimbria was visualized. The fallopian ligated with 0-plain guts sutures with Modified [place] technique - [place] clamp was placed on fallopian tube and placed on gentle traction. The avascular portion of mesosalpinx was bluntly perforated with bovie. Four 0-plaingut sutures were passed through the window and the proximal and distal portion of the tube was ligated. Metzebaum scissor was used to transect the intervening segment of tube individually next to each ligating sutures. . After insuring good hemeostatis of the transected ends and the presence of fallopian lumens, the fallopian tube was replaced into abdomen. Fascia was closed with running stitches using 0 vicryl. Hemostasis was checked for and found to be adequate. The subcutaneous tissue was irrigated and hemostasis was achieved where needed with electrocautery. Subcutaneous layer was closed with 2-0 vicryl. The skin was then closed with subcutaneous stitches using 3-0 vicryl sutures. The incision was cleaned and covered with a compression bandage and the procedure considered to be complete at this time. Intraoperative Complications: none EBL: 850cc Uterotonics: 30u pitocin @ 300cc/hr Disposition: The patient tolerated the procedure well. She was recovered in Obstetric PACU for close monitoring in stable condition, with a contracted uterus and normal transvaginal bleeding. The infant was sent to [facility]. A segment of the cord was obtained for umbilical cord gases. Cord blood gas was not available at time of operative note entered. Please see [facility] for update. The placenta was not sent to pathology. Robyn Barrow MD Associated attestation - Ana Luisa Rodriguez MD - 07/13/2023 5:06 PM CDT I was present for the procedure on 07/13/2023. Please see Dr. Barrow note for additional details. Ana Luisa Rodriguez MD -OBSTETRICS & GYNECOLOGY [facility] 2023-07-13 08:01:25 Problem: Intrapartum process (including labor pain) Goal: Absence of or reduction of complications of labor Outcome: Progressing as expected Goal: Able to cope with pain Outcome: Progressing as expected Goal: Adequate to move to next level of care Outcome: Progressing as expected Goal: Reduction in pain sensation Outcome: Progressing as expected Problem: Falls, Risk of Goal: Absence of falls Outcome: Progressing as expected Trina Sotelo RN [facility] 2023-07-12 20:51:17 Problem: Intrapartum process (including labor pain) Goal: Absence of or reduction of complications of labor Outcome: Progressing as expected Goal: Able to cope with pain Outcome: Progressing as expected Goal: Adequate to move to next level of care Outcome: Progressing as expected Goal: Reduction in pain sensation Outcome: Progressing as expected Lara Ribeiro RN [facility] 2023-07-12 14:43:05 Problem: Intrapartum process (including labor pain) Goal: Absence of or reduction of complications of labor Outcome: Progressing as expected Goal: Able to cope with pain Outcome: Progressing as expected Goal: Adequate to move to next level of care Outcome: Progressing as expected Goal: Reduction in pain sensation Outcome: Progressing as expected Problem: Pain Goal: Control of pain at or below patient's documented comfort goal Outcome: Progressing as expected Goal: Reduction in pain sensation Outcome: Progressing as expected Problem: Falls, Risk of Goal: Absence of falls Outcome: Progressing as expected Ophelia Mendoza RN [facility] 2023-07-12 14:37:49 Name/ MRN / Age / Gender: Mary Farley, [id number] 28 year old female BMI: Estimated body mass index is 40.96 kg/m? as calculated from the following: Height as of this encounter: 1.372 m (4' 6.02"). Weight as of this encounter: 77.1 kg (170 lb). Allergies: Patient has no known allergies. Last Vitals: BP Readings from Last 1 Encounters: 07/12/23 99/58 Pulse Readings from Last 1 Encounters: 07/12/23 97 SpO2 Readings from Last 1 Encounters: 07/12/23 99% Date of Surgery: Surgeon: * Surgery not found * Procedure: CENTRAL NEURAXIAL BLOCK OR Location: * No surgery found * Anesthesia Preop Eval (physical exam) Anesthesia Preop: Chart Review and Qoly-lj-Gtgm NPO Status Verified Clear Liquids: > 2 Hours Solid Food/Non-Clear Liquids: > 8 Hours Anesthesia History Anesthesia History Negative Previous Anesthetics/Airways Cardiovascular Negative Cardiac ROS (-) Hypertension Pulmonary Negative Pulmonary ROS (-) Asthma (-) Tobacco use (-) Recent bronchitis or URI Neuro/Musculoskeletal (-) CVA(-) Seizures (+) Obesity GI/Hepatic Negative GI/Hepatic ROS (-) Liver disease Hematology Negative Hematology ROS Comments: HGB (g/dL) Date Value 07/02/2023 10.4 (L) 07/02/23 0422 PLT 298 Renal Negative Renal ROS Comments: K (mmol/L) Date Value 07/02/2023 4.1 CREATININE (mg/dL) Date Value 07/02/2023 0.41 (L) (-) Patient reports no kidney problems Skin (+) Current IV access Endo/Other Negative Endo/Other ROS (-) Diabetes Mellitus (-) Hyperthyroidism (-) Hypothyroidism Other (-) Tobacco use LOCOMOTIVE OPERATOR HELPER Comments: Contractions - Reports contraction q10 min, increasing to q5m over the past two days - Denies vb, lof, and dfm - SVE: 03/23/3, on 2 hr recheck she is unchanged and feels her contractions have ceased - [place]: quiescent Dizziness - Reports intermittent dizziness since onset of contractions - EKG: Normal sinus rhythm - CBC with mild anemia (hgb 10.4), BMP unremarkable - HR 70s-100s BP 90s-100s/40s-60s Plan: IVF bolus, patient feels better s/p 500 cc LR MPDPS - Consents signed on 04/26, mature Abnormal GTT - 1 h 135, 3h (82, 115, 102, 123) Antepartum course reviewed - 1 h 135, 3wnl. sero negative, Rimmune, VZVimmune, HPV not immune, O positive/IAT negative, GBS negative, Pap 11/09/22 - H/H, plt: 11.3 / 33.6, 313 on 05/23/23 - PP control plan: [facility] Fetus - Presentation on admission: cephalic - posterior placenta - EFW: 3433 g on 06/26 MFM US - DVP: 5.04 cm - FHT reactive and reassuring - Normal anatomy scan Pediatric Pediatric N/A N/A Preoperative Medication Instructions Continue taking all prescribed medications except: STEPHANY inhibitors, ARBs, diuretics, all oral diabetes medications Anticoagulant Therapy: Defer to surgeons Insulin: Take 1/2 dose the night prior to surgery. Hold on DOS. Phentermine: Alert [facility] anesthesiologist SGLT2 Inhibitors: "gliflozins" to be held for 3 days prior to elective surgeries GLP1 Agonosit: stop 7 days prior to surgery MAC Cases: Continue taking STEPHANY inhibitors and ARBs ASA Classification ASA: 3 Labs: Chemistry 07/02/2023 CBC 07/02/2023 136 106 10 86 6.04 10.4 (L) 298 4.1 22 (L) 0.41 (L) 31.5 (L) eGFR: 137.6 Date: 07/02/2023 ANC: 4.88 Date: 06/15/2023 LFTs 05/23/2023 Coags AST: 20 AP: 131 (H) Prot: 7.1 Ca: 9.0 PT: - Date: - ALT: 10 T Wesly: 0.7 Alb: 3.7 PTT: - Date: - PO4: - Date: - INR: - Date: - Cardiac Endocrine & other pBNP: - Date: - A1C: - Date: - Trop I: - Date: - POCT A1C: - Date: - CK: - Date: - TSH: - Date: - CKMB: - Date: - FT4: - Date: - LDL: - Date: - Lact: - Date: - Procal: - Date: - Respiratory -|-|-|-|- D-dimer: - ABG Date: - Date: - Miscellaneous Type and Screen: O POSITIVE Antibody: Negative Date: 11/09/2022 POCT : Positive Date: 11/09/2022 Current Medications: No outpatient medications have been marked as taking for the 07/12/23 encounter (Hospital Encounter). Previous Surgeries: No past surgical history on file. Anesthesia Physical Exam General no apparent distress and alert and oriented x 3 Neuro/Psych neurological Nonfocal Dental no notable dental hx Abdominal GI exam normal (+) gravid Airway Mallampati score:III TM distance:> 5 cm Neck ROM: full Mouth opening:normal Extremity Normal extremity Pulmonary pulmonary exam normal Other Cardiovascular cardiovascular exam normal Anesthesia Plan ASA Status: 3 Plan discussed during pre-op evaluation: General, Epidural, Spinal and CSE Anesthetic plan on DOS: Epidural Anesthesia plan discussed with: patient or labor representative Post-Operative Analgesia: routine analgesia & antiemetics Recovery Plan: LDR Additional comments: AN-ANESTHESIOLOGY ANESTHESIOLOGIST [facility] 2023-05-26 09:17:08 Patient was seen in clinic 05/25/23. Ramona Venegas RN 05/26/2023 9:17 AM Ramona Tripp RN [facility] 2023-05-25 11:02:00 Regarding: lack of movement , feels contraction and pressure x last night and stop ----- Message from Kristyn Ureña sent at 05/25/2023 11:02 AM CDT ----- Mary Farley is a 28 year old female calling stating went to ER x yesterday for lack of movement of baby and lack of movement , feels contraction and pressure x last night and stop Gunjan Thomas RN [facility] 2023-05-25 11:02:00 Triage Assessment Last Clinic Visit: 05/24/23, OB, care Primary Symptom: decreased movement Onset / Duration: today Location / Description: OB Pain / Severity: 2/10 Associated Symptoms: pain to lower abdomen when squatting or lifting legs Fever / Method: denies Hydration: eating and drinking normally, about 2 16 oz guaman, last void 20-30 min ago, denies hematuria or dysuria, denies n/v/d Treatment so far: rest, movement, cold water Effect on ADL's: some Gestational Weeks: 32w 2d Rupture Membranes: denies Bleeding / Spotting / Pads per hour: denies Movement: decreased, last kick 10 min ago Para / : EDC: 07/18/23 Pre-existing condition / Immunocompromised: n/v during Mary Farley is a 28 year old female whose calling for advice with decreased movement. Pt reports onset today. Reports baby is moving, just not as active as usually is. Reports has been having contractions "and my doctor is monitoring it". Reports went for checkup yesterday and told had ketones in urine and sent to L&D for fluids but did not get fluids, "I was just monitored for about an hr and sent home". Pt reports was having dizziness yesterday when going from standing to sitting. Reports from [id number] had 4 kicks total. Assessment and triage completed per protocol. Patient verbalizes understanding and agrees to follow plan of care. Pt verbalized understanding of need for L&D eval within 1 hr and states will go to [facility] L&D as advised. Pt had no further questions or concerns. Call back advice given and pt verbalized understanding. Gunjan Thomas RN Reason for Disposition [1] 23 or more weeks AND [2] baby moving less today by kick count (e.g., kick count < 5 in 1 hour or < 10 in 2 hours) Protocols used: - Decreased [id number] [facility] 2023-05-24 13:38:22 Copied from [facility] #[id number]. Topic: Clinical - Missed Call from Provider >> May 24, 2023 1:37 PM Patient Staff Assistant wrote: Patient states that she is returning a missed call from the provider. Please callback. Thank you. Laura Knott [facility] 2023-05-24 12:56:02 Copied from [facility] #[id number]. Topic: Clinical - Medical Advice >> May 24, 2023 12:51 PM Patient Staff Assistant wrote: Patient calling requesting to speak to INFRASTRUCTURE CONSULTANT Alecia Jacobson. Abena Villanueva [facility] 2023-04-20 08:00:00 Images from the original note were not included. Mary Farley is a 27 year old female here for 3 hr gtt. Venipuncture collection performed by clean technique on the both anticubitus. Total of 4 attempts were made. Slight pressure and a bandage/dressing were applied to the site(s). The patient experienced no complications. The following specimens were processed according to instructions and sent to [facility] laboratories per lab order on 04/20/23. Cem Jackson MA 04/20/2023 8:40 AM LT BLUE SST 4 RED LAV PPT DK GREEN ([facility]) DK GREEN ([facility]) DAVIS DK BLUE (K2) DK BLUE (S) ACD Blood Culture NIPT/NTD [facility] 2023-02-02 09:46:00 [facility] ([facility]) EMERGENCY PROVIDER REPORT REPORT#:[id number] REPORT STATUS: Signed DATE:02/02/23 TIME: 945 PATIENT: MARY FARLEY UNIT #: [id number] ROOM/BED: AGE: 27 SEX: F PCP PHYS: Rosa Maria Sanches MD SERVICE AUTHOR: Johanny Castillo APRNNP * ALL edits or amendments must be made on the electronic/computer document * Johanny Castillo I 02/02/23 0946: HPI-Preg Under 20 Weeks Free Text HPI Notes Free Text HPI Notes Patient presents today complaining of lower abdominal pain onset last night. States she is 17 weeks , last menstrual cycle 10/04/2022, states 3 pregnancies and 2 living children, no miscarriages . Denies any frequent, burning urination, fever, vaginal bleeding, sore throat, chest pain, shortness of breath or any other symptoms. General Confirmed Patient Yes Patient Type New patient Initial Greet Date/Time 02/02/23 0941 Presentation Chief Complaint Abdominal cramping Hx Obtained From Patient Onset Occurred Yesterday Location Suprapubic Pain/Sev: Current Pain level 3 out of 10 Context Immunization Status General All up to date /Sexual Hx Last Menstrual Period 10/04/22 3 Para 2 Risk-Preg Under 20 Weeks Risk Stratification Ectopic Risk factors reviewed, Risk factors N/A Review of Systems ROS Statements All systems rev neg except as marked. Complete sys rev neg except as marked. Basic Review of Systems Basic ROS ENT: No sore throat, PSYCH: NL thought content Focused Review of Systems GI Reports: Abdominal pain. Past Medical History - Adult Stated Complaint PELVIC PAIN Allergies Coded Allergies: No Known Allergies (08/02/14) Home Medications Active Scripts CEPHALEXIN (KEFLEX) 500 MG PO Q12H CEPHALEXIN (KEFLEX) 500 MG PO Q12H #14 CAPS Prov: 11/23/22 Pt reports no significant: Past medical history, Past surgical history Alcohol Use Denies EtOH use Drug Use Denies recreational drugs Smoking status for patients 13 years old or older: Never Smoker Ambulatory Status Independent Physical Exam Vital Signs Vital Signs First Documented: Result Date Time Pulse Ox 97 02/03 940 B/P 101/70 02/03 940 B/P Mean 80 02/03 940 Temp 36.9 02/03 940 Pulse 94 02/03 940 Resp 18 02/03 940 Last Documented: Result Date Time Pulse Ox 97 02/03 940 B/P 101/70 02/03 940 B/P Mean 80 02/03 940 Temp 36.9 02/03 940 Pulse 94 02/03 940 Resp 18 02/03 940 Review of Vital Signs Reviewed, Vital signs normal Basic Physical Exam Basic PE HEAD: Atraumatic/NC, EYES: PERRL, conj clear, ENT: Membranes moist, NECK: Supple, RESP: No resp distress, CV: Reg rate rhythm, EXT: No gross abnormality, SKIN: No rashes, warm/dry, NEURO: alert oriented, NEURO: gross movement NL, PSYCH: NL thought content Focused PE General/Const General/Const Awake, Alert, No acute distress, Well appearing, Well developed , Well hydrated, Well nourished, Cooperative, Not toxic appearing Ears/Nose/Throat Ears/Nose/Throat Atraumatic, Airway patent Resp/Chest Respiratory/Chest Atraumatic, Breath sounds NL Cardiovascular Cardiovascular Heart rate NL, Regular rhythm Abdomen/GI Abdomen/GI Atraumatic, No guarding, No rebound Tenderness/Guarding/Reboun d Tender suprapubic. MS Back Back Atraumatic, Inspection NL Genitourinary General Exam deferred Neurologic Neurologic Oriented X3, Speech NL, Memory NL, Gait NL Interpretation Diagnostics Lab Results Interpretation Results Laboratory Tests 02/02/23 1038: [Embedded Image Not Available] Laboratory Tests: 02/02 02/02 1038 0955 Chemistry Sodium (135 - 148 mmol/L) 139 Potassium (3.5 - 5.1 mmol/L) 3.7 Chloride (101 - 109 mmol/L) 103 Carbon Dioxide (21 - 32 mmol/L) 25.9 Anion Gap (10 - 20 mmol/L) 14 BUN (3 - 21 mg/dL) 5 Creatinine (0.55 - 1.3 mg/dL) 0.30 L Glomerular Filtr Rate (>=60 mL/min) > 60 BUN/Creatinine Ratio (10 - 20) 16.7 Glucose (74 - 106 mg/dL) 85 Calcium (8.4 - 10.2 mg/dL) 8.9 Hematology WBC (4.5 - 12.5 K/mm3) 9.0 RBC (3.7 - 5.2 mill/mm3) 4.01 Hgb (11.5 - 15.5 gram/dL) 12.4 Hct (36.0 - 46.0 %) 35.7 L MCV (80 - 98 fL) 89.0 MCH (27.0 - 33.0 picogram) 30.9 MCHC (33.0 - 36.0 gram/dL) 34.7 RDW (11.6 - 16.2 %) 12.1 RDW Std Deviation (37.0 - 51.0 fL) 39.6 Plt Count (150 - 450 K/mm3) 292 MPV (6.7 - 11.0 fL) 9.7 Miscellaneous Matrnl HCG Beta Subunit (0 - 5.0 mIU/ml) 58685.0 H Urines Urine Color (YELLOW) YELLOW Urine Appearance (CLEAR) HAZY H Urine pH (5.0 - 8.0) 6.5 Ur Specific [place] (1.001 - 1.035) 1.015 Urine Protein (Neg - 15 mg/dL) neg Urine Glucose (UA) (NEGATIVE mg/dL) norm Urine Ketones (NEGATIVE mg/dL) 5 (Trace) H Urine Blood (NEGATIVE Jg/uL) neg Urine Nitrite (NEGATIVE) NEGATIVE Urine Bilirubin (NEGATIVE mg/dL) NEGATIVE Urine Urobilinogen (0.0 - 0.2 mg/dL) norm Ur Leukocyte Esterase (NEGATIVE uL) neg Urine RBC (0 - 5 per HPF) 0-2 Urine WBC (0 - 5 per HPF) 0-5 Ur Epithelial Cells (Few per HPF) MANY Urine Bacteria (NONE per HPF) MANY Microbiology: Date/Time Procedure - Status Source Growth 02/02 09 Urine Culture - RECD URINE Recent Impressions: ULTRASOUND - DUP AB/PEL/SC COMP 02/02 100 Report Impression - Status: SIGNED Entered: 02/02/2023 1033 IMPRESSION: A single viable IUP with estimated age of 17 weeks 1 day +/- 1 week 0 days . Estimated delivery date is 07/12/2023. Impression By: Chris Leger M.D. ULTRASOUND - US PREG AFTER 1ST TRI 02/02 100 Report Impression - Status: SIGNED Entered: 02/02/2023 1033 IMPRESSION: A single viable IUP with estimated age of 17 weeks 1 day +/- 1 week 0 days . Estimated delivery date is 07/12/2023. Impression By: Chris Leger M.D. Lab Imaging Statement Laboratory radiographic studies reviewed and considered in the medical decision-making. Point of Care Testing Pulse Oximetry Pulse Ox % 97 On: Room air Interpretation Pulse oximetry normal Time 0940 Re-Evaluation MDM Free Text MDM Notes Free Text MDM Notes Patient's vital signs stable, nontoxic-appearing. discussed with patient lab results, imaging results The placenta is posterior and is of grade 0. No evidence of placental abruption. Questionable low lying placenta although poorly characterized visualized . Patient agrees with treatment plan, instructed to follow-up with LOCOMOTIVE OPERATOR HELPER in 2 to 3 days or return to the ER symptoms worsen. Patient discharged in stable condition. ED Course Medication(s) Ordered Medication(s) Ordered: Electrolytic, Caloric, And Genaro Sig/Colten Start time Last Medication Dose Route Stop Time Status Admin Sodium Chloride 1,000 ML X1ED STA 02/02 0945 DC 02/02 IV 02/02 1044 1016 Differential Diagnosis Differential Diagnosis , spontaneous, , threatened, Ectopic , Ectopic preg, ruptured, Endometriosis, Endometritis, Intrauterine , Miscarriage, Urinary tract infection, Vaginal bleeding Patient Discharge Departure Vital Signs/Condition Vital Signs First Documented: Result Date Time Pulse Ox 97 02/03 940 B/P /70 02/03 940 B/P Mean 80 02/03 940 Temp 36.9 02/03 940 Pulse 94 02/03 940 Resp 18 02/03 940 Last Documented: Result Date Time Pulse Ox 97 02/03 940 B/P 101/70 02/03 940 B/P Mean 80 12/07 0940 Temp 36.9 02/03 940 Pulse 94 02/03 940 Resp 18 02/03 940 All vital signs available at the time of this entry have been reviewed. Condition Stable Clinical Impression Clinical Impression Primary Impression: Abdominal pain during in second trimester Disposition Decision Discharge )( Discharged to Home Yes )( Time 1052 )( Date 02/02/23 Discharge/Care Plan Counseled Regarding Diagnosis, Lab results, Imaging studies, Need for follow-up, When to return to ED Patient Instructions ED Abdominal Pain, Early Additional Instructions 1. Follow-up with your LOCOMOTIVE OPERATOR HELPER in 2 to 3 days 2. Return to the ER symptoms worsen Discharge Note I have spoken with the patient and/or caregivers. I have explained the patient's condition, diagnoses and treatment plan based on the information available to me at this time. I have answered the patient's and/or caregiver's questions and addressed any concerns. The patient and/or caregivers have as good an understanding of the patient's diagnosis, condition and treatment plan as can be expected at this point. The vital signs have been stable. The patient's condition is stable and appropriate for discharge from the emergency department. The patient will pursue further outpatient evaluation with the primary care physician or other designated or consulting physician as outlined in the discharge instructions. The patient and/or caregivers are agreeable to this plan of care and follow-up instructions have been explained in detail. The patient and/or caregivers have received these instructions in written format and have expressed an understanding of the discharge instructions. The patient and/or caregivers are aware that any significant change in condition or worsening of symptoms should prompt an immediate return to this or the closest emergency department or a call to 911. Quality Measures BP F/U for HTN BP in normal range Jori Tafoya V 02/02/23 1519: Patient Discharge Departure Supervising Physician Note MidLv Saw Pt Alone I have reviewed the PA/INFRASTRUCTURE CONSULTANT's note and plan of care. I was available for consultation as needed at all times during the patient's visit in the emergency department. I agree with the clinical impression, plan and disposition. at 1159 at 1527 [facility] #:[id number] END OF REPORT [facility] 2022-12-16 13:27:00 [facility] ([facility]) EMERGENCY PROVIDER REPORT REPORT#:[id number] REPORT STATUS: Signed DATE:12/16/22 TIME: 1326 PATIENT: MARY FARLEY UNIT #: [id number] ROOM/BED: AGE: 27 SEX: F PCP PHYS: Rosa Maria Sanches MD SERVICE AUTHOR: Johanna Bauer INFRASTRUCTURE CONSULTANT * ALL edits or amendments must be made on the electronic/computer document * Johanna Bauer 12/16/22 1327: HPI-Preg Under 20 Weeks Free Text HPI Notes Free Text HPI Notes 27-year-old female pt who is 10 weeks resents to the ED complaining of suprapubic pain. Patient states that the pain started last night and was afraid it may be a UTI. Patient denies any fevers, chills, back pain, vomiting. Patient reports nausea but states that its been normal throughout her . G3 L2. Denies any medical problems, denies any vaginal bleeding or blood clots. General Confirmed Patient Yes Initial Greet Date/Time 12/16/22 1212 Presentation Chief Complaint Abdominal cramping, Hx Obtained From Patient Onset Occurred Yesterday Risk-Preg Under 20 Weeks Risk Stratification Ectopic No risk factors Review of Systems Focused Review of Systems Constitutional Denies: Chills, Fatigue, Fever, Lethargy, Malaise, Recent wt loss, Weakness - generalized. Respiratory Denies: Cough, non-productive, Cough, productive, Dyspnea on exertion, Hemoptysis, Parox nocturnal dyspnea, Pleuritic pain, Shortness of breath, Wheezing. Cardiovascular Denies: Chest pain, Dyspnea on exertion, Edema, Orthopnea, Palpitations, Parox nocturnal dyspnea, Syncope. GI Reports: Abdominal pain. Denies: Anorexia, Belching, Bloody/tarry stool, Constipation, Diarrhea, Dysphagia, Hematemesis, Hematochezia, Mucousy stool, Melena, Nausea, Rectal pain, Vomiting. Female Reports: . Denies: Dysuria, Flank pain, Hematuria, Incontinence, Nocturia, Pelvic pain, Urinary frequency, Urinary urgency, Urination decreased, Urination increased, Vaginal bleeding - abnl, Vaginal discharge. Past Medical History - Adult Stated Complaint 9WKS IUP C/O CRAMPING Calculated Suicide Risk (nurs) No risk Smoking status for patients 13 years old or older: Never Smoker Physical Exam Vital Signs Vital Signs First Documented: Result Date Time Pulse Ox 99 12/16 1217 B/P 109/70 12/167 B/P Mean 83 12/16 1216 Temp 36.6 12/16 1216 Pulse 74 12/16 1216 Resp 16 12/16 1216 Last Documented: Result Date Time Pulse Ox 99 12/16 1217 B/P 109/70 12/16 1216 B/P Mean 83 12/16 1216 Temp 36.6 12/16 1216 Pulse 74 12/16 1216 Resp 16 12/16 1216 Review of Vital Signs Reviewed Focused PE General/Const General/Const Awake, Alert, No acute distress, Well appearing, Well developed , Well hydrated, Well nourished, Cooperative, Not toxic appearing Resp/Chest Respiratory/Chest Atraumatic, Breath sounds NL, Breath sounds = bilat, No respiratory distress Cardiovascular Cardiovascular Heart rate NL, Regular rhythm, Heart sounds NL Abdomen/GI Abdomen/GI Soft Tenderness/Guarding/Reboun d Tender suprapubic. Interpretation Diagnostics Lab Results Interpretation Results Laboratory Tests 12/16/22 1230: [Embedded Image Not Available] Laboratory Tests: 12/16 12/16 1302 1230 Chemistry Sodium (136 - 145 mmol/L) 136 Potassium (3.5 - 5.1 mmol/L) 3.5 Chloride (101 - 109 mmol/L) 103 Carbon Dioxide (21 - 32 mmol/L) 25.8 Anion Gap (10 - 20 mmol/L) 11 BUN (3 - 21 mg/dL) 7 Creatinine (0.55 - 1.3 mg/dL) 0.48 L Glomerular Filtr Rate (>=60 mL/min) > 60 BUN/Creatinine Ratio ( - 20) 14.6 Glucose (74 - 106 mg/dL) 111 H Calcium (8.4 - 10.2 mg/dL) 9.1 Total Bilirubin (0.0 - 1.0 mg/dL) 0.20 Direct Bilirubin (0.0 - 0.30 mg/dL) 0.10 AST (6 - 32 U/L) 13 ALT (12 - 78 U/L) 19 Total Alk Phosphatase (38 - 126 U/L) 63 Total Protein (6.5 - 8.4 g/dL) 7.0 Albumin (3.4 - 4.8 g/dL) 3.2 L Globulin (1 - 10 G/DL) 3.8 Albumin/Globulin Ratio (0.75 - 1.50 RATIO) 0.84 Lipase (16 - 77 U/L) 34 Serum , Qual (NEGATIVE) POSITIVE H Hematology WBC (4.5 - 12.5 K/mm3) 7.1 RBC (3.7 - 5.2 mill/mm3) 3.94 Hgb (11.5 - 15.5 gram/dL) 12.2 Hct (36.0 - 46.0 %) 34.1 L MCV (80 - 98 fL) 86.5 MCH (27.0 - 33.0 picogram) 31.0 MCHC (33.0 - 36.0 gram/dL) 35.8 RDW (11.6 - 16.2 %) 11.6 RDW Std Deviation (37.0 - 51.0 fL) 36.9 L Plt Count (150 - 450 K/mm3) 287 MPV (6.7 - 11.0 fL) 9.9 Miscellaneous Matrnl HCG Beta Subunit (0 - 5.0 mIU/ml) 34486.0 H Urines Urine Color (YELLOW) YELLOW Urine Appearance (CLEAR) CLOUDY H Urine pH (5.0 - 8.0) 8.0 Ur Specific [place] (1.001 - 1.035) 1.015 Urine Protein (Neg - 15 mg/dL) neg Urine Glucose (UA) (NEGATIVE mg/dL) norm Urine Ketones (NEGATIVE mg/dL) neg Urine Blood (NEGATIVE Jg/uL) neg Urine Nitrite (NEGATIVE) NEGATIVE Urine Bilirubin (NEGATIVE mg/dL) NEGATIVE Urine Urobilinogen (0.0 - 0.2 mg/dL) norm Ur Leukocyte Esterase (NEGATIVE uL) neg Urine RBC (0 - 5 per HPF) 0-2 Urine WBC (0 - 5 per HPF) 0-5 Ur Epithelial Cells (Few per HPF) Few (2-5/hpf) Amorphous Sediment (NONE per LPF) MANY H Urine Bacteria (NONE per HPF) FEW Recent Impressions: ULTRASOUND - DUP AB/PEL/SC COMP 12/16 1236 Report Impression - Status: SIGNED Entered: 12/16/2022 1302 IMPRESSION: Single viable intrauterine with embryonic HR of 118 bpm and AUA of 10 weeks 2 days. Dates are concordant with EGA by LMP. Impression By: Jay Blair M.D. ULTRASOUND - US PREG 1ST TRIMTR 12/16 1236 Report Impression - Status: SIGNED Entered: 12/16/2022 1302 IMPRESSION: Single viable intrauterine with embryonic HR of 118 bpm and AUA of 10 weeks 2 days. Dates are concordant with EGA by LMP. Impression By: Jay Blair M.D. Re-Evaluation MDM Free Text MDM Notes Free Text MDM Notes 27-year-old female who is 10 weeks presents to the ED complaining of suprapubic cramping. Patient denies any vaginal bleeding or blood clots. Patient CBC, BMP and UA were WNL. Patient's beta-hCG was 81,741. Patient's ultrasound shows a single viable intrauterine with embryonic heart rate of 118. 10 weeks and 2 days on the ultrasound. There is also a simple cyst noted on the left ovary measuring at 6.3 cm which patient was aware of already. Instructed patient to follow-up with LOCOMOTIVE OPERATOR HELPER regarding abdominal cramping. She stated precautions given, return for any new or worsening symptoms. Patient agrees with plan verbalized understanding. ED Course Medication(s) Ordered Medication(s) Ordered: Central Nervous System Agents Sig/Colten Start time Last Medication Dose Route Stop Time Status Admin Acetaminophen 1,000 MG X1ED STA 12/16 1221 DC 10/ PO 12/16 1222 1257 Electrolytic, Caloric, And Genaro Sig/Colten Start time Last Medication Dose Route Stop Time Status Admin Sodium Chloride 1,000 ML X1ED STA 12/16 1221 DC 10/20 IV 12/16 1320 1257 Differential Diagnosis Differential Diagnosis , complete, , incomplete, , missed, Abruptio placentae, Cystitis, acute, Discomfort of , Dysfunct uterine bleeding, Dysmenorrhea, Ectopic , Endometriosis, Intrauterine , Menses, Miscarriage, Urinary tract infection Patient Discharge Departure Vital Signs/Condition Vital Signs First Documented: Result Date Time Pulse Ox 99 12/16 1217 B/P 109/70 12/16 1217 B/P Mean 83 12/16 1217 Temp 36.6 12/16 121 Pulse 74 10/20 1217 Resp 16 12/16 1216 Last Documented: Result Date Time Pulse Ox 99 12/16 1216 B/P 109/70 12/16 1216 B/P Mean 83 12/16 1216 Temp 36.6 12/16 1216 Pulse 74 12/16 1216 Resp 16 12/16 1216 All vital signs available at the time of this entry have been reviewed. Condition Stable Clinical Impression Clinical Impression Primary Impression: Disposition Decision Discharge )( Discharged to Home Yes )( Time 1351 )( Date 12/16/22 Discharge/Care Plan Counseled Regarding Diagnosis, Lab results, Imaging studies, Need for follow-up, When to return to ED Patient Instructions Comfort Tips During , ED Abdominal Pain, Early Referrals Provider Referral: Sylvia Britton MD Address: [address] [address] Provider Referral: Negrito Duggan MD Address: [address] [place] [address] Provider Referral: Fatou Clemens MD Address: [address] [facility] [address] [place] [address] Discharge Note I have spoken with the patient and/or caregivers. I have explained the patient's condition, diagnoses and treatment plan based on the information available to me at this time. I have answered the patient's and/or caregiver's questions and addressed any concerns. The patient and/or caregivers have as good an understanding of the patient's diagnosis, condition and treatment plan as can be expected at this point. The vital signs have been stable. The patient's condition is stable and appropriate for discharge from the emergency department. The patient will pursue further outpatient evaluation with the primary care physician or other designated or consulting physician as outlined in the discharge instructions. The patient and/or caregivers are agreeable to this plan of care and follow-up instructions have been explained in detail. The patient and/or caregivers have received these instructions in written format and have expressed an understanding of the discharge instructions. The patient and/or caregivers are aware that any significant change in condition or worsening of symptoms should prompt an immediate return to this or the closest emergency department or a call to 911. Adonay Tang 12/18/22 0758: Past Medical History - Adult Allergies Coded Allergies: morphine (Severe, RAHS 07/04/13) promethazine (From [facility]) (Severe, CONVULSIONS 07/04/13) Patient Discharge Departure Supervising Physician Note MidLv Saw Pt Alone I have reviewed the PA/INFRASTRUCTURE CONSULTANT's note and plan of care. I was available for consultation as needed at all times during the patient's visit in the emergency department. I agree with the clinical impression, plan and disposition. MidLv/Doc Saw Pt 1 I have personally seen the patient and I evaluated the patient along with involvement of the PA/INFRASTRUCTURE CONSULTANT. I agree with the PA/business development executive findings and plan. I have performed all aspects of MDM as documented including: evaluation of the patient/ patient's condition(s), review and analysis of available data, and determination of risk of patient management decisions. MidLv/Doc Saw Pt 2 The PA/INFRASTRUCTURE CONSULTANT has seen the patient and I have performed this visit along with the involvement of the PA/INFRASTRUCTURE CONSULTANT. I agree with the PA/business development executive findings and plan. I have performed all aspects of MDM as documented including: evaluation of the patient/ patient's condition(s), review and analysis of available data, and determination of risk of patient management decisions. at 1506 at 0758 RPT #:[id number] END OF REPORT [facility] 2022-11-23 08:37:00 [facility] ([facility]) EMERGENCY PROVIDER REPORT REPORT#:[id number] REPORT STATUS: Signed DATE:11/23/22 TIME: 0837 PATIENT: MARY FARLEY UNIT #: [id number] ROOM/BED: AGE: 27 SEX: F PCP PHYS: Rosa Maria Sanches MD SERVICE AUTHOR: Suleman Walters MD * ALL edits or amendments must be made on the electronic/computer document * HPI-Abd Pain F Under 40 Free Text HPI Notes Free Text HPI Notes 27-year-old at 7 weeks gestation presents the ED with chief complaint of lower abdominal cramping and spotting onset this morning. Patient states she has had spotting intermittently for weeks however this morning woke up with low back pain and cramping and was concerned as she is so came to the ED. She states she had an ultrasound last week and she was told she had a 3 to 5 cm left ovarian cyst and if she ever had pain to come to the ED for evaluation. She denies any cough, sore throat, runny nose. She reports intermittent vomiting, 1 episode this morning. General Initial Greet Date/Time 11/23/22812 Presentation Chief Complaint Abdominal pain Onset Occurred Today Symptom Duration Since onset Progression since Onset Unchanged Risk-Abd Pain F Under 40 )( Ectopic Risk factors reviewed Review of Systems ROS Statements All systems rev neg except as marked. Focused Review of Systems GI Reports: Abdominal pain. Female Reports: , Vaginal bleeding - abnl. Past Medical History - Adult Stated Complaint ABDOMINAL PAIN Allergies Coded Allergies: No Known Allergies (08/02/14) Home Medications Discontinued Reported Medications NITROFURANTOIN MACROCRYSTAL (MACRODANTIN) 100 MG PO Q6H IBUPROFEN (MOTRIN) 800 MG PO Q8H PRN PRN NEEDED FOR PAIN FERROUS FUMARATE (FERRETTS) 325 MG PO TID PNV/FE FUM/FA ( MULTIVITAMIN) 1 TAB PO DAILY Smoking status for patients 13 years old or older: Never Smoker Physical Exam Vital Signs Vital Signs First Documented: Result Date Time Pulse Ox 100 11/23 0813 B/P 116/71 11/23 0813 B/P Mean 86 11/23 812 Temp 36.8 11/23 812 Pulse 71 11/23 08 Resp 16 11/23 812 Last Documented: Result Date Time Pulse Ox 100 11/23 0813 B/P 116/71 11/23 0813 B/P Mean 86 11/23 08 Temp 36.8 11/23 812 Pulse 71 11/23 08 Resp 16 11/23 812 Review of Vital Signs Reviewed Focused PE General/Const General/Const Awake, Alert, Well appearing MS Head Head Normocephalic Ears/Nose/Throat Ears/Nose/Throat Airway patent, Mucous membranes moist, Pharynx NL Resp/Chest Respiratory/Chest Breath sounds NL, Breath sounds = bilat, No respiratory distress, No rales, No rhonchi, No wheezing Cardiovascular Cardiovascular Heart rate NL, Regular rhythm, Heart sounds NL, Peripheral circulation NL Abdomen/GI Abdomen/GI Soft, Non-tender, McBurney's non-tender, No guarding, No rebound, BS normoactive, No distention, No hernia, No palpable mass MS Back Back Inspection NL, Non-tender, No CVA tenderness Skin Skin Color NL, Warm, Dry, Turgor NL Neurologic Neurologic Oriented X3, Speech NL, No motor deficits, No sensory deficits Interpretation Diagnostics Lab Results Interpretation Results Laboratory Tests 11/23/2235: [Embedded Image Not Available] Laboratory Tests: 11/23 834 Chemistry Sodium (135 - 148 mmol/L) 138 Potassium (3.5 - 5.1 mmol/L) 3.8 Chloride (101 - 109 mmol/L) 104 Carbon Dioxide (21 - 32 mmol/L) 24.9 Anion Gap (10 - 20 mmol/L) 13 BUN (3 - 21 mg/dL) 10 Creatinine (0.55 - 1.3 mg/dL) 0.62 Glomerular Filtr Rate (>=60 mL/min) > 60 BUN/Creatinine Ratio (10 - 20) 16.1 Glucose (74 - 106 mg/dL) 95 Calcium (8.4 - 10.2 mg/dL) 8.6 Hematology WBC (4.5 - 12.5 K/mm3) 7.1 RBC (3.7 - 5.2 mill/mm3) 4.19 Hgb (11.5 - 15.5 gram/dL) 12.9 Hct (36.0 - 46.0 %) 36.9 MCV (80 - 98 fL) 88.1 MCH (27.0 - 33.0 picogram) 30.8 MCHC (33.0 - 36.0 gram/dL) 35.0 RDW (11.6 - 16.2 %) 11.6 RDW Std Deviation (37.0 - 51.0 fL) 37.3 Plt Count (150 - 450 K/mm3) 274 MPV (6.7 - 11.0 fL) 10.1 Miscellaneous Matrnl HCG Beta Subunit (0 - 5.0 mIU/ml) 11639.0 H Urines Urine Color (YELLOW) YELLOW Urine Appearance (CLEAR) SLIGHT HAZY H Urine pH (5.0 - 8.0) 6.5 Ur Specific [place] (1.001 - 1.035) 1.015 Urine Protein (Neg - 15 mg/dL) 30 (1+) H Urine Glucose (UA) (NEGATIVE mg/dL) norm Urine Ketones (NEGATIVE mg/dL) neg Urine Blood (NEGATIVE Jg/uL) 10 (Trace) H Urine Nitrite (NEGATIVE) NEGATIVE Urine Bilirubin (NEGATIVE mg/dL) NEGATIVE Urine Urobilinogen (0.0 - 0.2 mg/dL) norm Ur Leukocyte Esterase (NEGATIVE uL) 25 Eugene/uL (Trace) H Urine RBC (0 - 5 per HPF) 0-3 Urine WBC (0 - 5 per HPF) 0-5 Ur Epithelial Cells (Few per HPF) Moderate (5-10/hpf) Urine Bacteria (NONE per HPF) MANY H Recent Impressions: ULTRASOUND - DUP AB/PEL/SC COMP 11/23 841 Report Impression - Status: SIGNED Entered: 11/23/2022941 IMPRESSION: IUP at 6 weeks 3 days +/- 1 week. LEVI of July 16, 2023. Average bradycardic heart rate of 118 BPM. Color and Doppler flow in either ovary with normal spectral waveform. Impression By: Anton Alvarez M.D. ULTRASOUND - US PREG UT TRANSVAGINAL 11/23 841 Report Impression - Status: SIGNED Entered: 11/23/2022941 IMPRESSION: IUP at 6 weeks 3 days +/- 1 week. LEVI of July 16, 2023. Average bradycardic heart rate of 118 BPM. Color and Doppler flow in either ovary with normal spectral waveform. Impression By: Anton Alvarez M.D. ULTRASOUND - US PREG 1ST TRIMTR 11/23 841 Report Impression - Status: SIGNED Entered: 11/23/2022941 IMPRESSION: IUP at 6 weeks 3 days +/- 1 week. LEVI of July 16, 2023. Average bradycardic heart rate of 118 BPM. Color and Doppler flow in either ovary with normal spectral waveform. Impression By: Anton Alvarez M.D. Lab Imaging Statement Laboratory radiographic studies reviewed and considered in the medical decision-making. Point of Care Testing Pulse Oximetry Pulse Ox % 100 On: Room air Interpretation Interpreted by me, Pulse oximetry normal Time 1812 Re-Evaluation MDM Free Text MDM Notes Free Text MDM Notes 27-year-old female 6 weeks gestation with intermittent abdominal cramping and spotting. Ultrasound shows viable IUP with bradycardia and ovarian cyst on the left without torsion. Bacteriuria noted. Discussed findings with patient and need for p.o. hydration, pelvic rest, antibiotics for bacteriuria. Given bradycardia and spotting that it is possible that this is a threatened miscarriage. She has no abdominal tenderness on exam, no right lower quadrant pain or guarding to suggest appendicitis. No evidence of ectopic on ultrasound. Her blood work is unremarkable with an appropriate hCG blood type O + does not need RhoGAM. Patient has close follow-up with her OB. She stable for discharge home with outpatient follow-up. )( Re-Evaluation/Progress #1 Time of Re-Eval 948 )( Re-Eval Status Improved Re-Eval Abdomen Soft, Non-tender, No guarding, No rebound, BS normoactive, McBurney's non-tender, No distention Abd Pain MDM Note F < 40 The patient is resting comfortably and feels better, is alert and in no distress. The repeat examination is unremarkable and benign; in particular, there is no discomfort at McBurney's point. The history, exam, diagnostic testing, and current condition do not suggest acute appendicitis, bowel obstruction, tubovarian abscess, ectopic , ovarian torsion, acute cholecystitis, bowel perforation, major gastrointestinal bleeding, severe diverticulitis, sepsis, or other significant pathology to warrant further testing, continued ED treatment, admission, or surgical evaluation at this point. The vital signs have been stable. The patient does not have uncontrollable pain, intractable vomiting, or other significant symptoms. The patient's condition is stable and appropriate for discharge. The patient will pursue further outpatient evaluation with the primary care physician or other designated or consulting physician as indicated in the discharge instructions. ED Course Medication(s) Ordered Medication(s) Ordered: Central Nervous System Agents Sig/Colten Start time Last Medication Dose Route Stop Time Status Admin Acetaminophen 1,000 MG X1ED STA 11/23 0837 DC PO 11/23 0838 Electrolytic, Caloric, And Genaro Sig/Colten Start time Last Medication Dose Route Stop Time Status Admin Sodium Chloride 1,000 ML X1ED STA 11/23 0820 DC 11/23 IV 11/23 [id number] Differential Diagnosis )( Differential Diagnosis Acute abdominal pain, Appendicitis, Ectopic , Ovarian cyst, Ovarian torsion, Pelvic inflam disease, Urinary obstruction, Urinary retention, Urinary tract infection Findings/Social Determinants Presentation Acute Severity Evaluation Non life-threatening Diagnosis Appears Evident Patient Discharge Departure Vital Signs/Condition Vital Signs First Documented: Result Date Time Pulse Ox 100 11/23 0813 B/P 116/71 11/23 0813 B/P Mean 86 11/23 0813 Temp 36.8 11/23 0813 Pulse 71 11/23 0813 Resp 16 11/23 812 Last Documented: Result Date Time Pulse Ox 100 11/23 0813 B/P 116/71 11/23 0813 B/P Mean 86 11/23 0813 Temp 36.8 11/23 0813 Pulse 71 11/23 0813 Resp 16 11/24 0713 All vital signs available at the time of this entry have been reviewed. Condition Stable, Improved Clinical Impression Clinical Impression Primary Impression: Secondary Impressions: Antepartum asymptomatic bacteriuria, Ovarian cyst, Threatened miscarriage Disposition Decision Discharge )( Discharged to Home Yes )( Time 09 )( Date 11/23/22 Discharge/Care Plan Counseled Regarding Diagnosis, Lab results, Imaging studies, Prescriptions, Need for follow-up, When to return to ED (Auto) Prescriptions Current Visit Scripts CEPHALEXIN (KEFLEX) 500 MG PO Q12H CEPHALEXIN (KEFLEX) 500 MG PO Q12H #14 CAPS Patient Instructions ED Ovarian Cyst, Miscarriage Threatened , Urinary Tract Infections in Women Referrals Provider Referral: Rosa Maria Sanches MD Follow-Up: 1-2 Days Notes: 6 3/7 wga with bradycardia to 118 HCG 23088 O+ Address: [address] [place] [address] [place] [address] Discharge Note I have spoken with the patient and/or caregivers. I have explained the patient's condition, diagnoses and treatment plan based on the information available to me at this time. I have answered the patient's and/or caregiver's questions and addressed any concerns. The patient and/or caregivers have as good an understanding of the patient's diagnosis, condition and treatment plan as can be expected at this point. The vital signs have been stable. The patient's condition is stable and appropriate for discharge from the emergency department. The patient will pursue further outpatient evaluation with the primary care physician or other designated or consulting physician as outlined in the discharge instructions. The patient and/or caregivers are agreeable to this plan of care and follow-up instructions have been explained in detail. The patient and/or caregivers have received these instructions in written format and have expressed an understanding of the discharge instructions. The patient and/or caregivers are aware that any significant change in condition or worsening of symptoms should prompt an immediate return to this or the closest emergency department or a call to 911. Free Text Depart Notes Free Text Depart Notes I discussed all findings with the patient/vice principal. Patient improved and stable for discharge home with outpatient follow-up. Warning signs and return precautions reviewed and all questions answered. at 1453 RPT #:[id number] END OF REPORT [facility] 2022-11-14 09:28:02 Formatting of this n ote might be different from the original. Mary Farley is a 27 year old female Pt requesting call back, states that Vaishnavi De La Cruz told her once she was approved to call her and let her know she has the mdc and then she would give the referral for the [place] to be given. Pt now has [facility] approval and has chose the [facility]. Please issue the referral for the [phone] (home) Ayana Dodson [facility] 2019-04-06 13:30:00 [facility] ([facility]) EMERGENCY PROVIDER REPORT REPORT#:[id number] REPORT STATUS: Signed DATE:04/06/19 TIME: 1330 PATIENT: MARY FARLEY UNIT #: [id number] ROOM/BED: AGE: 23 SEX: F PCP PHYS: No Primary or Family Physician SERVICE AUTHOR: Anisa Cevallos INFRASTRUCTURE CONSULTANT * ALL edits or amendments must be made on the electronic/computer document * HPI- Female General Confirmed Patient Yes Patient Type New patient Initial Greet Date/Time 04/06/19 1327 Presentation Chief Complaint Dysuria Hx Obtained From Patient, Prior medical records )( Sudden in Onset? No Onset Occurred One week ago Symptom Duration Since onset Progression since Onset Gradually worsening Context of Onset Spontaneous Caused by No trauma by history Associated with Reports: UTI symptoms. Denies: Abdominal pain, Fever, Nausea, Vomiting. Free Text HPI Notes Free Text HPI Notes 23-year-old female no past medical history presents to emergency department with complaints of burning with urination x1 week. Denies unprotected sex. Denies pelvic pain vaginal discharge or vaginal bleeding. Risk- Female Risk Stratification Ectopic Risk factors reviewed Review of Systems ROS Statements All systems rev neg except as marked. Complete sys rev neg except as marked. Basic Review of Systems Basic ROS EYES: No redness, RESP: No SOB, CV: No chest pain, HEM: No bleeding/ bruising, PSYCH: NL thought content Focused Review of Systems Constitutional Denies: Chills, Fever, Weakness - generalized. GI Denies: Abdominal pain. Female Reports: Dysuria, Urinary urgency. Denies: Flank pain, Hematuria, Urinary frequency, Urination decreased, Urination increased, Vaginal bleeding - abnl, Vaginal discharge. Musculoskeletal Denies: Back pain. Endocrine Denies: Cold intolerance, Heat intolerance, Polydipsia, Polyphagia, Polyuria, Weight gain, Weight loss. Past Medical History - Adult Stated Complaint UTI Allergies Coded Allergies: No Known Allergies (08/02/14) Home Medications Reported Medications NITROFURANTOIN MACROCRYSTAL (MACRODANTIN) 100 MG PO Q6H IBUPROFEN (MOTRIN) 800 MG PO Q8H PRN PRN NEEDED FOR PAIN FERROUS FUMARATE (FERRETTS) 325 MG PO TID PNV/FE FUM/FA ( MULTIVITAMIN) 1 TAB PO DAILY Review of Nursing Notes Triage notes reviewed, Rapid assess notes rev Smoking status for patients 13 years old or older: Never Smoker Physical Exam Vital Signs Vital Signs First Documented: Result Date Time Pulse Ox 100 02/ 1323 B/P 118/70 / 1323 B/P Mean 86 / 1323 Temp 36.7 0208 1323 Pulse 85 02/08 1323 Resp 16 04/06 1323 Last Documented: Result Date Time Pulse Ox 100 / 1323 B/P 118/70 / 1323 B/P Mean 86 /08 1323 Temp 36.7 02/08 1323 Pulse 85 02/ 1323 Resp 16 04/06 1323 Review of Vital Signs Reviewed Basic Physical Exam Basic PE GEN: Well appearing/NAD, HEAD: Atraumatic/NC, EYES: PERRL, conj clear, ENT: Membranes moist, NECK: Supple, RESP: No resp distress, CV: Reg rate rhythm, ABD: Soft/non-tender, EXT: No gross abnormality, SKIN: No rashes, warm/ dry, NEURO: alert oriented, NEURO: gross movement NL, PSYCH: NL thought content Focused PE General/Const General/Const No acute distress, Not toxic appearing Resp/Chest Respiratory/Chest No respiratory distress Cardiovascular Cardiovascular Cap refill not delayed, Peripheral circulation NL Abdomen/GI Abdomen/GI Soft, Non-tender MS Back Back No CVA tenderness Skin Skin Color NL, Warm, Dry Genitourinary General Patient refused exam Interpretation Diagnostics Lab Results Interpretation Considerations Reviewed prior records Results Laboratory Tests: 04/06 133 Urines Urine Color (YELLOW) YELLOW Urine Appearance (CLEAR) HAZY H Urine pH (5.0 - 8.0) 7.0 Ur Specific [place] (1.001 - 1.035) 1.010 Urine Protein (Neg - 15 mg/dL) 15 (TRACE) H Urine Glucose (UA) (NEGATIVE mg/dL) norm Urine Ketones (NEGATIVE mg/dL) neg Urine Blood (NEGATIVE Jg/uL) 50 (2+) H Urine Nitrite (NEGATIVE) NEGATIVE Urine Bilirubin (NEGATIVE mg/dL) NEGATIVE Urine Urobilinogen (0.0 - 0.2 mg/dL) norm Ur Leukocyte Esterase (NEGATIVE uL) 100 Eugene/uL (1+) H Urine RBC (0 - 5 per HPF) 0-3 Urine WBC (0 - 5 per HPF) 3-5 Ur Epithelial Cells (Few per HPF) Few (2-5/hpf) Urine Bacteria (NONE per HPF) MANY H Urine Mucus (NONE - FEW per LPF) FEW Urine HCG, Qual NEGATIVE Microbiology: Date/Time Procedure - Status Source Growth 04/06 1334 Neisseria gonorrhoeae DNA Detection - CAN URINE Cancelled: @WRONG ORDER 04/06 1334 Chlamydia DNA (LCR) (MICHI) - CAN URINE Cancelled: @WRONG ORDER Point of Care Testing Pulse Oximetry Pulse Ox % 100 On: Room air Interpretation Interpreted by me, Pulse oximetry normal Time 1322 Re-Evaluation MDM Free Text MDM Notes Free Text MDM Notes I had a detailed discussion w/ pt regarding history features and exam findings, as well as any applicable ordered labs, and how they contribute to or support the discharge diagnostic impression. I have considered all of the elements of the relevant differential diagnosis. The need for outpatient medical follow up for re-evaluation and definitive treatment was discussed as well as the importance of RTEC if sx worsen or persist, or if changes or concerns arise after discharge or at home. There was an opportunity for questions, all of which were answered. Re-Evaluation/Progress Tissue Perfusion Reassessment Patient tissue perfusion reassessment completed. Patient Discharge Departure Vital Signs/Condition Vital Signs First Documented: Result Date Time Pulse Ox 100 04/06 1323 B/P 118/70 04/06 1323 B/P Mean 86 04/06 1323 Temp 36.7 04/06 1322 Pulse 85 04/06 1323 Resp 16 04/06 1322 Last Documented: Result Date Time Pulse Ox 100 04/06 1323 B/P 118/70 04/06 1323 B/P Mean 86 04/06 1323 Temp 36.7 04/06 132 Pulse 85 04/06 1323 Resp 16 04/06 1322 All vital signs available at the time of this entry have been reviewed. Condition Improved, Stable Clinical Impression Clinical Impression Primary Impression: UTI (urinary tract infection) Disposition Decision Discharge )( Discharged to Home Yes )( Time 1413 )( Date 04/06/19 Discharge/Care Plan Counseled Regarding Diagnosis, Lab results, Prescriptions, Need for follow-up, When to return to ED Prescriptions Reviewed Risks, Benefits, Alternative treatment Discharge Note I have spoken with the patient and/or caregivers. I have explained the patient's condition, diagnoses and treatment plan based on the information available to me at this time. I have answered the patient's and/or caregiver's questions and addressed any concerns. The patient and/or caregivers have as good an understanding of the patient's diagnosis, condition and treatment plan as can be expected at this point. The vital signs have been stable. The patient's condition is stable and appropriate for discharge from the emergency department. The patient will pursue further outpatient evaluation with the primary care physician or other designated or consulting physician as outlined in the discharge instructions. The patient and/or caregivers are agreeable to this plan of care and follow-up instructions have been explained in detail. The patient and/or caregivers have received these instructions in written format and have expressed an understanding of the discharge instructions. The patient and/or caregivers are aware that any significant change in condition or worsening of symptoms should prompt an immediate return to this or the closest emergency department or a call to 911. at 1422 RPT #:[id number] END OF REPORT [facility] 2019-04-06 13:30:00 [facility] ([facility]) EMERGENCY PROVIDER REPORT REPORT#:[id number] REPORT STATUS: Signed DATE:04/06/19 TIME: 1329 PATIENT: MARY FARLEY UNIT #: [id number] ROOM/BED: AGE: 23 SEX: F PCP PHYS: No Primary or Family Physician SERVICE AUTHOR: Anisa Cevallos INFRASTRUCTURE CONSULTANT * ALL edits or amendments must be made on the electronic/computer document * Anisa Cevallos 04/06/19 1330: HPI- Female General Confirmed Patient Yes Patient Type New patient Presentation Chief Complaint Dysuria Hx Obtained From Patient, Prior medical records )( Sudden in Onset? No Onset Occurred One week ago Symptom Duration Since onset Progression since Onset Gradually worsening Context of Onset Spontaneous Caused by No trauma by history Associated with Reports: UTI symptoms. Denies: Abdominal pain, Fever, Nausea, Vomiting. Free Text HPI Notes Free Text HPI Notes 23-year-old female no past medical history presents to emergency department with complaints of burning with urination x1 week. Denies unprotected sex. Denies pelvic pain vaginal discharge or vaginal bleeding. Risk- Female Risk Stratification Ectopic Risk factors reviewed Review of Systems ROS Statements All systems rev neg except as marked. Complete sys rev neg except as marked. Basic Review of Systems Basic ROS EYES: No redness, RESP: No SOB, CV: No chest pain, HEM: No bleeding/ bruising, PSYCH: NL thought content Focused Review of Systems Constitutional Denies: Chills, Fever, Weakness - generalized. GI Denies: Abdominal pain. Female Reports: Dysuria, Urinary urgency. Denies: Flank pain, Hematuria, Urinary frequency, Urination decreased, Urination increased, Vaginal bleeding - abnl, Vaginal discharge. Musculoskeletal Denies: Back pain. Endocrine Denies: Cold intolerance, Heat intolerance, Polydipsia, Polyphagia, Polyuria, Weight gain, Weight loss. Past Medical History - Adult Stated Complaint UTI Allergies Coded Allergies: No Known Allergies (08/02/14) Home Medications Reported Medications NITROFURANTOIN MACROCRYSTAL (MACRODANTIN) 100 MG PO Q6H IBUPROFEN (MOTRIN) 800 MG PO Q8H PRN PRN NEEDED FOR PAIN FERROUS FUMARATE (FERRETTS) 325 MG PO TID PNV/FE FUM/FA ( MULTIVITAMIN) 1 TAB PO DAILY Review of Nursing Notes Triage notes reviewed, Rapid assess notes rev Smoking status for patients 13 years old or older: Never Smoker Physical Exam Vital Signs Vital Signs First Documented: Result Date Time Pulse Ox 100 04/06 1323 B/P 118/70 04/06 1323 B/P Mean 86 04/06 1322 Temp 36.7 04/06 1322 Pulse 85 04/06 1323 Resp 16 04/06 132 Last Documented: Result Date Time Pulse Ox 100 04/06 1323 B/P 118/70 04/06 1323 B/P Mean 86 04/06 1323 Temp 36.7 04/06 132 Pulse 85 04/06 1323 Resp 16 04/06 132 Review of Vital Signs Reviewed Basic Physical Exam Basic PE GEN: Well appearing/NAD, HEAD: Atraumatic/NC, EYES: PERRL, conj clear, ENT: Membranes moist, NECK: Supple, RESP: No resp distress, CV: Reg rate rhythm, ABD: Soft/non-tender, EXT: No gross abnormality, SKIN: No rashes, warm/ dry, NEURO: alert oriented, NEURO: gross movement NL, PSYCH: NL thought content Focused PE General/Const General/Const No acute distress, Not toxic appearing Resp/Chest Respiratory/Chest No respiratory distress Cardiovascular Cardiovascular Cap refill not delayed, Peripheral circulation NL Abdomen/GI Abdomen/GI Soft, Non-tender MS Back Back No CVA tenderness Skin Skin Color NL, Warm, Dry Genitourinary General Patient refused exam Interpretation Diagnostics Lab Results Interpretation Considerations Reviewed prior records Results Laboratory Tests: 04/06 1335 Urines Urine Color (YELLOW) YELLOW Urine Appearance (CLEAR) HAZY H Urine pH (5.0 - 8.0) 7.0 Ur Specific [place] (1.001 - 1.035) 1.010 Urine Protein (Neg - 15 mg/dL) 15 (TRACE) H Urine Glucose (UA) (NEGATIVE mg/dL) norm Urine Ketones (NEGATIVE mg/dL) neg Urine Blood (NEGATIVE Jg/uL) 50 (2+) H Urine Nitrite (NEGATIVE) NEGATIVE Urine Bilirubin (NEGATIVE mg/dL) NEGATIVE Urine Urobilinogen (0.0 - 0.2 mg/dL) norm Ur Leukocyte Esterase (NEGATIVE uL) 100 Eugene/uL (1+) H Urine RBC (0 - 5 per HPF) 0-3 Urine WBC (0 - 5 per HPF) 3-5 Ur Epithelial Cells (Few per HPF) Few (2-5/hpf) Urine Bacteria (NONE per HPF) MANY H Urine Mucus (NONE - FEW per LPF) FEW Urine HCG, Qual NEGATIVE Microbiology: Date/Time Procedure - Status Source Growth 04/06 1334 Neisseria gonorrhoeae DNA Detection - CAN URINE Cancelled: @WRONG ORDER 04/06 1334 Chlamydia DNA (LCR) (MICHI) - CAN URINE Cancelled: @WRONG ORDER Point of Care Testing Pulse Oximetry Pulse Ox % 100 On: Room air Interpretation Interpreted by me, Pulse oximetry normal Time 1322 Re-Evaluation MDM Free Text MDM Notes Free Text MDM Notes I had a detailed discussion w/ pt regarding history features and exam findings, as well as any applicable ordered labs, and how they contribute to or support the discharge diagnostic impression. I have considered all of the elements of the relevant differential diagnosis. The need for outpatient medical follow up for re-evaluation and definitive treatment was discussed as well as the importance of RTEC if sx worsen or persist, or if changes or concerns arise after discharge or at home. There was an opportunity for questions, all of which were answered. Re-Evaluation/Progress Tissue Perfusion Reassessment Patient tissue perfusion reassessment completed. Patient Discharge Departure Vital Signs/Condition Vital Signs First Documented: Result Date Time Pulse Ox 100 04/06 1323 B/P 118/70 04/06 1323 B/P Mean 86 04/06 1323 Temp 36.7 04/06 1323 Pulse 85 04/06 1323 Resp 16 04/06 132 Last Documented: Result Date Time Pulse Ox 100 04/06 1323 B/P 118/70 04/06 1323 B/P Mean 86 04/06 1323 Temp 36.7 04/06 1323 Pulse 85 04/06 1323 Resp 16 04/06 1323 All vital signs available at the time of this entry have been reviewed. Condition Improved, Stable Clinical Impression Clinical Impression Primary Impression: UTI (urinary tract infection) Disposition Decision Discharge )( Discharged to Home Yes )( Time 1413 )( Date 04/06/19 Discharge/Care Plan Counseled Regarding Diagnosis, Lab results, Prescriptions, Need for follow-up, When to return to ED Prescriptions Reviewed Risks, Benefits, Alternative treatment Discharge Note I have spoken with the patient and/or caregivers. I have explained the patient's condition, diagnoses and treatment plan based on the information available to me at this time. I have answered the patient's and/or caregiver's questions and addressed any concerns. The patient and/or caregivers have as good an understanding of the patient's diagnosis, condition and treatment plan as can be expected at this point. The vital signs have been stable. The patient's condition is stable and appropriate for discharge from the emergency department. The patient will pursue further outpatient evaluation with the primary care physician or other designated or consulting physician as outlined in the discharge instructions. The patient and/or caregivers are agreeable to this plan of care and follow-up instructions have been explained in detail. The patient and/or caregivers have received these instructions in written format and have expressed an understanding of the discharge instructions. The patient and/or caregivers are aware that any significant change in condition or worsening of symptoms should prompt an immediate return to this or the closest emergency department or a call to 911. Jori Tafoya V 04/06/19 1431: HPI- Female General Initial Greet Date/Time 04/06/19 1327 Patient Discharge Departure Supervising Physician Note MidLv Saw Pt Alone I have reviewed the PA/INFRASTRUCTURE CONSULTANT's note and plan of care. I was available for consultation as needed at all times during the patient's visit in the emergency department. I agree with the clinical impression, plan and disposition. at 1422 at 1431 RPT #:[id number] END OF REPORT [facility] 2019-04-06 13:30:00 [facility] ([facility]) EMERGENCY PROVIDER REPORT REPORT#:[id number] REPORT STATUS: Signed DATE:04/06/19 TIME: 1330 PATIENT: MARY FARLEY UNIT #: [id number] ROOM/BED: AGE: 23 SEX: F PCP PHYS: No Primary or Family Physician SERVICE AUTHOR: Anisa Cevallos NP * ALL edits or amendments must be made on the electronic/computer document * See Addendum Anisa Cevallos 04/06/19 1330: HPI- Female General Confirmed Patient Yes Patient Type New patient Presentation Chief Complaint Dysuria Hx Obtained From Patient, Prior medical records )( Sudden in Onset? No Onset Occurred One week ago Symptom Duration Since onset Progression since Onset Gradually worsening Context of Onset Spontaneous Caused by No trauma by history Associated with Reports: UTI symptoms. Denies: Abdominal pain, Fever, Nausea, Vomiting. Free Text HPI Notes Free Text HPI Notes 23-year-old female no past medical history presents to emergency department with complaints of burning with urination x1 week. Denies unprotected sex. Denies pelvic pain vaginal discharge or vaginal bleeding. Risk- Female Risk Stratification Ectopic Risk factors reviewed Review of Systems ROS Statements All systems rev neg except as marked. Complete sys rev neg except as marked. Basic Review of Systems Basic ROS EYES: No redness, RESP: No SOB, CV: No chest pain, HEM: No bleeding/ bruising, PSYCH: NL thought content Focused Review of Systems Constitutional Denies: Chills, Fever, Weakness - generalized. GI Denies: Abdominal pain. Female Reports: Dysuria, Urinary urgency. Denies: Flank pain, Hematuria, Urinary frequency, Urination decreased, Urination increased, Vaginal bleeding - abnl, Vaginal discharge. Musculoskeletal Denies: Back pain. Endocrine Denies: Cold intolerance, Heat intolerance, Polydipsia, Polyphagia, Polyuria, Weight gain, Weight loss. Past Medical History - Adult Stated Complaint UTI Allergies Coded Allergies: No Known Allergies (08/02/14) Home Medications Reported Medications NITROFURANTOIN MACROCRYSTAL (MACRODANTIN) 100 MG PO Q6H IBUPROFEN (MOTRIN) 800 MG PO Q8H PRN PRN NEEDED FOR PAIN FERROUS FUMARATE (FERRETTS) 325 MG PO TID PNV/FE FUM/FA ( MULTIVITAMIN) 1 TAB PO DAILY Review of Nursing Notes Triage notes reviewed, Rapid assess notes rev Smoking status for patients 13 years old or older: Never Smoker Physical Exam Vital Signs Vital Signs First Documented: Result Date Time Pulse Ox 100 02/ 1323 B/P 118/70 04/06 1323 B/P Mean 86 04/06 1323 Temp 36.7 04/06 1323 Pulse 85 04/06 1323 Resp 16 04/06 1323 Last Documented: Result Date Time Pulse Ox 100 02/08 1323 B/P 118/70 04/06 1322 B/P Mean 86 04/06 1322 Temp 36.7 04/06 1322 Pulse 85 04/06 1322 Resp 16 04/06 1322 Review of Vital Signs Reviewed Basic Physical Exam Basic PE GEN: Well appearing/NAD, HEAD: Atraumatic/NC, EYES: PERRL, conj clear, ENT: Membranes moist, NECK: Supple, RESP: No resp distress, CV: Reg rate rhythm, ABD: Soft/non-tender, EXT: No gross abnormality, SKIN: No rashes, warm/ dry, NEURO: alert oriented, NEURO: gross movement NL, PSYCH: NL thought content Focused PE General/Const General/Const No acute distress, Not toxic appearing Resp/Chest Respiratory/Chest No respiratory distress Cardiovascular Cardiovascular Cap refill not delayed, Peripheral circulation NL Abdomen/GI Abdomen/GI Soft, Non-tender MS Back Back No CVA tenderness Skin Skin Color NL, Warm, Dry Genitourinary General Patient refused exam Interpretation Diagnostics Lab Results Interpretation Considerations Reviewed prior records Results Laboratory Tests: 04/06 1334 Urines Urine Color (YELLOW) YELLOW Urine Appearance (CLEAR) HAZY H Urine pH (5.0 - 8.0) 7.0 Ur Specific [place] (1.001 - 1.035) 1.010 Urine Protein (Neg - 15 mg/dL) 15 (TRACE) H Urine Glucose (UA) (NEGATIVE mg/dL) norm Urine Ketones (NEGATIVE mg/dL) neg Urine Blood (NEGATIVE Jg/uL) 50 (2+) H Urine Nitrite (NEGATIVE) NEGATIVE Urine Bilirubin (NEGATIVE mg/dL) NEGATIVE Urine Urobilinogen (0.0 - 0.2 mg/dL) norm Ur Leukocyte Esterase (NEGATIVE uL) 100 Eugene/uL (1+) H Urine RBC (0 - 5 per HPF) 0-3 Urine WBC (0 - 5 per HPF) 3-5 Ur Epithelial Cells (Few per HPF) Few (2-5/hpf) Urine Bacteria (NONE per HPF) MANY H Urine Mucus (NONE - FEW per LPF) FEW Urine HCG, Qual NEGATIVE Microbiology: Date/Time Procedure - Status Source Growth 04/06 1334 Neisseria gonorrhoeae DNA Detection - CAN URINE Cancelled: @WRONG ORDER 04/06 1334 Chlamydia DNA (LCR) (MICHI) - CAN URINE Cancelled: @WRONG ORDER Point of Care Testing Pulse Oximetry Pulse Ox % 100 On: Room air Interpretation Interpreted by me, Pulse oximetry normal Time 1322 Re-Evaluation MDM Free Text MDM Notes Free Text MDM Notes I had a detailed discussion w/ pt regarding history features and exam findings, as well as any applicable ordered labs, and how they contribute to or support the discharge diagnostic impression. I have considered all of the elements of the relevant differential diagnosis. The need for outpatient medical follow up for re-evaluation and definitive treatment was discussed as well as the importance of RTEC if sx worsen or persist, or if changes or concerns arise after discharge or at home. There was an opportunity for questions, all of which were answered. Re-Evaluation/Progress Tissue Perfusion Reassessment Patient tissue perfusion reassessment completed. Patient Discharge Departure Vital Signs/Condition Vital Signs First Documented: Result Date Time Pulse Ox 100 04/06 1323 B/P 118/70 04/06 1323 B/P Mean 86 04/06 1323 Temp 36.7 04/06 1323 Pulse 85 04/06 1323 Resp 16 04/06 1323 Last Documented: Result Date Time Pulse Ox 100 04/06 1323 B/P 118/70 04/06 1323 B/P Mean 86 / 1323 Temp 36.7 04/06 1323 Pulse 85 / 1323 Resp 16 04/06 1323 All vital signs available at the time of this entry have been reviewed. Condition Improved, Stable Clinical Impression Clinical Impression Primary Impression: UTI (urinary tract infection) Disposition Decision Discharge )( Discharged to Home Yes )( Time 1413 )( Date 04/06/19 Discharge/Care Plan Counseled Regarding Diagnosis, Lab results, Prescriptions, Need for follow-up, When to return to ED Prescriptions Reviewed Risks, Benefits, Alternative treatment Discharge Note I have spoken with the patient and/or caregivers. I have explained the patient's condition, diagnoses and treatment plan based on the information available to me at this time. I have answered the patient's and/or caregiver's questions and addressed any concerns. The patient and/or caregivers have as good an understanding of the patient's diagnosis, condition and treatment plan as can be expected at this point. The vital signs have been stable. The patient's condition is stable and appropriate for discharge from the emergency department. The patient will pursue further outpatient evaluation with the primary care physician or other designated or consulting physician as outlined in the discharge instructions. The patient and/or caregivers are agreeable to this plan of care and follow-up instructions have been explained in detail. The patient and/or caregivers have received these instructions in written format and have expressed an understanding of the discharge instructions. The patient and/or caregivers are aware that any significant change in condition or worsening of symptoms should prompt an immediate return to this or the closest emergency department or a call to 911. Jori Tafoya V 04/06/19 1431: HPI- Female General Initial Greet Date/Time 04/06/19 1327 Patient Discharge Departure Supervising Physician Note MidLv Saw Pt Alone I have reviewed the PA/INFRASTRUCTURE CONSULTANT's note and plan of care. I was available for consultation as needed at all times during the patient's visit in the emergency department. I agree with the clinical impression, plan and disposition. at 1422 at 1431 Addendum 1: 04/06/19 1439 by Anisa Cevallos NP [facility] 164 at 1440 RPT #:[id number] END OF REPORT [facility] 2019-04-06 13:30:00 [facility] ([facility]) EMERGENCY PROVIDER REPORT REPORT#:[id number] REPORT STATUS: Signed DATE:04/06/19 TIME: 1330 PATIENT: MARY FARLEY UNIT #: [id number] ROOM/BED: AGE: 23 SEX: F PCP PHYS: No Primary or Family Physician SERVICE AUTHOR: Anisa Cevallos NP * ALL edits or amendments must be made on the electronic/computer document * See Addendum Anisa Cevallos 04/06/19 1330: HPI- Female General Confirmed Patient Yes Patient Type New patient Presentation Chief Complaint Dysuria Hx Obtained From Patient, Prior medical records )( Sudden in Onset? No Onset Occurred One week ago Symptom Duration Since onset Progression since Onset Gradually worsening Context of Onset Spontaneous Caused by No trauma by history Associated with Reports: UTI symptoms. Denies: Abdominal pain, Fever, Nausea, Vomiting. Free Text HPI Notes Free Text HPI Notes 23-year-old female no past medical history presents to emergency department with complaints of burning with urination x1 week. Denies unprotected sex. Denies pelvic pain vaginal discharge or vaginal bleeding. Risk- Female Risk Stratification Ectopic Risk factors reviewed Review of Systems ROS Statements All systems rev neg except as marked. Complete sys rev neg except as marked. Basic Review of Systems Basic ROS EYES: No redness, RESP: No SOB, CV: No chest pain, HEM: No bleeding/ bruising, PSYCH: NL thought content Focused Review of Systems Constitutional Denies: Chills, Fever, Weakness - generalized. GI Denies: Abdominal pain. Female Reports: Dysuria, Urinary urgency. Denies: Flank pain, Hematuria, Urinary frequency, Urination decreased, Urination increased, Vaginal bleeding - abnl, Vaginal discharge. Musculoskeletal Denies: Back pain. Endocrine Denies: Cold intolerance, Heat intolerance, Polydipsia, Polyphagia, Polyuria, Weight gain, Weight loss. Past Medical History - Adult Stated Complaint UTI Allergies Coded Allergies: No Known Allergies (08/02/14) Home Medications Reported Medications NITROFURANTOIN MACROCRYSTAL (MACRODANTIN) 100 MG PO Q6H IBUPROFEN (MOTRIN) 800 MG PO Q8H PRN PRN NEEDED FOR PAIN FERROUS FUMARATE (FERRETTS) 325 MG PO TID PNV/FE FUM/FA ( MULTIVITAMIN) 1 TAB PO DAILY Review of Nursing Notes Triage notes reviewed, Rapid assess notes rev Smoking status for patients 13 years old or older: Never Smoker Physical Exam Vital Signs Vital Signs First Documented: Result Date Time Pulse Ox 100 / 1323 B/P 118/70 02/08 1323 B/P Mean 86 02/08 1323 Temp 36.7 02/08 1323 Pulse 85 02/08 1323 Resp 16 / 1323 Last Documented: Result Date Time Pulse Ox 100 04/06 1323 B/P 118/70 /08 1323 B/P Mean 86 /08 1323 Temp 36.7 02/08 1323 Pulse 85 02/08 1323 Resp 16 02/ 1323 Review of Vital Signs Reviewed Basic Physical Exam Basic PE GEN: Well appearing/NAD, HEAD: Atraumatic/NC, EYES: PERRL, conj clear, ENT: Membranes moist, NECK: Supple, RESP: No resp distress, CV: Reg rate rhythm, ABD: Soft/non-tender, EXT: No gross abnormality, SKIN: No rashes, warm/ dry, NEURO: alert oriented, NEURO: gross movement NL, PSYCH: NL thought content Focused PE General/Const General/Const No acute distress, Not toxic appearing Resp/Chest Respiratory/Chest No respiratory distress Cardiovascular Cardiovascular Cap refill not delayed, Peripheral circulation NL Abdomen/GI Abdomen/GI Soft, Non-tender MS Back Back No CVA tenderness Skin Skin Color NL, Warm, Dry Genitourinary General Patient refused exam Interpretation Diagnostics Lab Results Interpretation Considerations Reviewed prior records Results Laboratory Tests: 04/06 133 Urines Urine Color (YELLOW) YELLOW Urine Appearance (CLEAR) HAZY H Urine pH (5.0 - 8.0) 7.0 Ur Specific [place] (1.001 - 1.035) 1.010 Urine Protein (Neg - 15 mg/dL) 15 (TRACE) H Urine Glucose (UA) (NEGATIVE mg/dL) norm Urine Ketones (NEGATIVE mg/dL) neg Urine Blood (NEGATIVE Jg/uL) 50 (2+) H Urine Nitrite (NEGATIVE) NEGATIVE Urine Bilirubin (NEGATIVE mg/dL) NEGATIVE Urine Urobilinogen (0.0 - 0.2 mg/dL) norm Ur Leukocyte Esterase (NEGATIVE uL) 100 Eugene/uL (1+) H Urine RBC (0 - 5 per HPF) 0-3 Urine WBC (0 - 5 per HPF) 3-5 Ur Epithelial Cells (Few per HPF) Few (2-5/hpf) Urine Bacteria (NONE per HPF) MANY H Urine Mucus (NONE - FEW per LPF) FEW Urine HCG, Qual NEGATIVE Microbiology: Date/Time Procedure - Status Source Growth 04/06 1334 Neisseria gonorrhoeae DNA Detection - CAN URINE Cancelled: @WRONG ORDER 04/06 1334 Chlamydia DNA (LCR) (MICHI) - CAN URINE Cancelled: @WRONG ORDER Point of Care Testing Pulse Oximetry Pulse Ox % 100 On: Room air Interpretation Interpreted by me, Pulse oximetry normal Time 1322 Re-Evaluation MDM Free Text MDM Notes Free Text MDM Notes I had a detailed discussion w/ pt regarding history features and exam findings, as well as any applicable ordered labs, and how they contribute to or support the discharge diagnostic impression. I have considered all of the elements of the relevant differential diagnosis. The need for outpatient medical follow up for re-evaluation and definitive treatment was discussed as well as the importance of RTEC if sx worsen or persist, or if changes or concerns arise after discharge or at home. There was an opportunity for questions, all of which were answered. Re-Evaluation/Progress Tissue Perfusion Reassessment Patient tissue perfusion reassessment completed. Patient Discharge Departure Vital Signs/Condition Vital Signs First Documented: Result Date Time Pulse Ox 100 04/06 1323 B/P 118/70 04/06 1323 B/P Mean 86 04/06 1323 Temp 36.7 04/06 1322 Pulse 85 04/06 1323 Resp 16 04/06 1323 Last Documented: Result Date Time Pulse Ox 100 04/06 1323 B/P 118/70 04/06 1323 B/P Mean 86 04/06 1323 Temp 36.7 04/06 1322 Pulse 85 04/06 1323 Resp 16 04/06 1323 All vital signs available at the time of this entry have been reviewed. Condition Improved, Stable Clinical Impression Clinical Impression Primary Impression: UTI (urinary tract infection) Disposition Decision Discharge )( Discharged to Home Yes )( Time 1413 )( Date 04/06/19 Discharge/Care Plan Counseled Regarding Diagnosis, Lab results, Prescriptions, Need for follow-up, When to return to ED Prescriptions Reviewed Risks, Benefits, Alternative treatment Discharge Note I have spoken with the patient and/or caregivers. I have explained the patient's condition, diagnoses and treatment plan based on the information available to me at this time. I have answered the patient's and/or caregiver's questions and addressed any concerns. The patient and/or caregivers have as good an understanding of the patient's diagnosis, condition and treatment plan as can be expected at this point. The vital signs have been stable. The patient's condition is stable and appropriate for discharge from the emergency department. The patient will pursue further outpatient evaluation with the primary care physician or other designated or consulting physician as outlined in the discharge instructions. The patient and/or caregivers are agreeable to this plan of care and follow-up instructions have been explained in detail. The patient and/or caregivers have received these instructions in written format and have expressed an understanding of the discharge instructions. The patient and/or caregivers are aware that any significant change in condition or worsening of symptoms should prompt an immediate return to this or the closest emergency department or a call to 911. Jori Tafoya V 04/06/19 1431: HPI- Female General Initial Greet Date/Time 04/06/19 1327 Patient Discharge Departure Supervising Physician Note Obed Saw Pt Alone I have reviewed the PA/INFRASTRUCTURE CONSULTANT's note and plan of care. I was available for consultation as needed at all times during the patient's visit in the emergency department. I agree with the clinical impression, plan and disposition. at 1422 at 1431 Addendum 1: 04/06/19 1439 by Anisa Cevallos NP [facility] 164 at 1440 Addendum 2: 04/06/19 1441 by Anisa Cevallos NP Disregard [facility] Wrong pt at 1441 RPT #:[id number] END OF REPORT [facility]
--- NOTE | 2024-06-07 00:45 | ER ---
Nurse's Notes [facility] Name: Mary Farley Age: 29 yrs Sex: Female : 1995 Arrival Date: 06/06/2024 Time: 23:16 Bed 8 Private MD: Diagnosis: Presentation: 06/06 23:49 Chief complaint: Patient states: c/o RUQ pain along with N/V. states it started after al5 eating saran in the box this evening. previous history of gall bladder attack 3 months ago. Coronavirus screen: At this time, the client does not indicate any symptoms associated with coronavirus-19. Ebola Screen: No symptoms or risks identified at this time. Initial Sepsis Screen: Does the patient meet any 2 criteria? No. Patient's initial sepsis screen is negative. Does the patient have a suspected source of infection? No. Patient's initial sepsis screen is negative. Risk Assessment: Do you want to hurt yourself or someone else? Patient reports no desire to harm self or others. Onset of symptoms was June 06, 2024. 23:49 Method Of Arrival: Ambulatory al5 23:49 Acuity: ANABELLA 3 al5 Triage Assessment: 23:51 General: Appears in no apparent distress. uncomfortable, Behavior is calm, cooperative. al5 Pain: Complains of pain in right upper quadrant Pain currently is 9 out of 10 on a pain scale. EENT: No signs and/or symptoms were reported regarding the EENT system. Neuro: Level of Consciousness is awake, alert, obeys commands, Oriented to person, place, time, situation. Cardiovascular: Capillary refill < 3 seconds Patient's skin is warm and dry. Respiratory: Airway is patent Respiratory effort is even, unlabored, Respiratory pattern is regular, symmetrical. GI: Abdomen is non-distended, Reports upper abdominal pain, nausea, vomiting. : No signs and/or symptoms were reported regarding the genitourinary system. Derm: Skin is intact, is healthy with good turgor, Skin is pink, warm \\T\\ dry. normal. Musculoskeletal: No signs and/or symptoms reported regarding the musculoskeletal system. 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 - Infectious Disease History:: Denies. - Social history:: Smoking status: Patient denies any tobacco usage or history of. Screenin:52 [facility] ED Fall Risk Assessment (Adult) History of falling in the last 3 months, al5 including since admission No falls in past 3 months (0 pts) Confusion or Disorientation No (0 pts) Intoxicated or Sedated No (0 pts) Impaired Gait No (0 pts) Mobility Assist Device Used No (0 pt) Altered Elimination No (0 pt) Score/Fall Risk Level 0 - 2 = Low Risk Oriented to surroundings, Maintained a safe environment, Hourly rounding (assess needs \\T\\ fall precautionary measures) done. Abuse screen: Denies threats or abuse. Denies injuries from another. Nutritional screening: No deficits noted. Tuberculosis screening: No symptoms or risk factors identified. Assessment: 06/07 00:39 Reassessment: pt stated that pain was doing much better and she was pretty sure is was bm8 a "gallbladder attack" from eating foods she isnt supposed to . Pt and decided they were going to leave and if it came back and got worse they would return. pt then left. Vital Signs: 06/06 23:49 BP 115 / 84; Pulse 66; Resp 18; Temp 97.9; Pulse Ox 100% on R/A; Weight 76.2 kg; Height al5 4 ft. 6 in. ; 06/07 00:39 BP 103 / 52; Pulse 55; Resp 17; Temp 97.9; Pulse Ox 99% ; Pain 2/10; bm8 06/06 23:49 Body Mass Index 40.51 (76.20 kg, 137.16 cm) al5 06/07 00:39 Pain Scale: Adult bm8 Cynthia Coma Score: 00:39 Eye Response: spontaneous(4). Motor Response: obeys commands(6). Verbal Response: bm8 oriented(5). Total: 15. ED Course: 06/06 23:17 Patient arrived in ED. jj6 23:25 Shon Ortega PA is PHCP. cp 23:25 Santhosh Benjamin MD is Attending Physician. cp 23:50 Triage completed. al5 23:52 Arm band placed on right wrist. Patient placed in the treatment room, in view of staff al5 members, on pulse oximetry. 23:52 Patient has correct armband on for positive identification. Bed in low position. Call al5 light in reach. Side rails up X 1. Provided Education on: plan of care. 23:52 No provider procedures requiring assistance completed. al5 06/07 00:38 Rick Smyth, RN is Primary Nurse. bm8 00:39 Client placed on continuous cardiac and pulse oximetry monitoring. NIBP monitoring bm8 applied. Pulse ox on. NIBP on. 00:39 Patient did not have IV access during this emergency room visit. bm8 Administered Medications: 00:44 Not Given (Patient Refused): ns 0.9% 1000 ml IV at 1 bolus Per protocol; to be given as bm8 a bolus over 60 minutes 00:44 Not Given (Patient Refused): [id number] mg IVP once; over 1 to 2 minutes bm8 00:44 Not Given (Patient Refused): [id number] mg IVP once; dilute with 10 mL 0.9% NaCl; bm8 give over 2 minutes 00:44 Not Given (Patient Refused): [id number] mg IVP once bm8 Medication: 06/06 23:52 VIS not applicable for this client. al5 Outcome: 06/07 00:39 Eloped from patient exam room, after seeing physician Time discovered patient gone: bm8 June 07, 2024 at 00:43 Condition: stable Instructed on return if problem worsens Demonstrated understanding of instructions, 00:45 Patient left the ED. bm8 Signatures: Shon Ortega PA PA cp Jeffries, Jennifer jj6 Rick Smyth, RN RN bm8 Amparo Kellogg RN RN al5
[2024-06-07 01:25] VITALS: TEMP 97.9
[2024-06-07 01:26] VITALS: BP 103/52; O2SAT 99
--- NOTE | 2024-06-08 00:45 | EDPHYS ---
Physician Documentation [facility] Name: Mary Farley Age: 29 yrs Sex: Female : 1995 Arrival Date: 06/06/2024 Time: 23:16 Bed 8 Private MD: ED Physician Santhosh Benjamin HPI: 06/06 23:53 This 29 yrs old Female presents to ER via Ambulatory with complaints of cp Epigastric Pain. 23:53 The patient presents with abdominal pain in the epigastric area. Onset: The cp symptoms/episode began/occurred today. The symptoms radiate to back. Associated signs and symptoms: Pertinent positives: nausea and vomiting, chest pain, Pertinent negatives: fever, vomiting blood. The symptoms are described as constant. Severity of pain: in the emergency department the pain is unchanged despite home interventions. The patient has experienced a previous episode, pain similar to when diagnosed with gallstones. 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 - Infectious Disease History:: Denies. - Social history:: Smoking status: Patient denies any tobacco usage or history of. ROS: 23:55 Constitutional: Negative for body aches, chills, fever, cp 23:55 Eyes: Negative for injury, pain, redness, and discharge, cp 23:55 ENT: Negative for drainage from ear(s), ear pain, sore throat, difficulty swallowing, difficulty handling secretions, 23:55 Cardiovascular: Positive for chest pain, 23:55 Respiratory: Negative for cough, shortness of breath, wheezing, 23:55 Abdomen/GI: Positive for abdominal pain, nausea and vomiting, of the epigastric area, 23:55 Back: Positive for radiated pain, 23:55 Neuro: Negative for altered mental status, dizziness, headache, weakness, 23:55 All other systems are negative, Exam: 23:59 Constitutional: The patient appears in no acute distress, alert, awake, cp non-diaphoretic, non-toxic, well developed, well nourished, uncomfortable, overweight 23:59 Head/Face: Normocephalic, atraumatic. cp 23:59 Eyes: Periorbital structures: appear normal, Conjunctiva: normal, no exudate, no injection, Sclera: no appreciated abnormality, Lids and lashes: appear normal, bilaterally, 23:59 ENT: External ear(s): are unremarkable, Nose: is normal, Mouth: Lips: moist, Oral mucosa: moist, Posterior pharynx: Airway: no evidence of obstruction, patent, 23:59 Chest/axilla: Inspection: normal, 23:59 Cardiovascular: Rate: normal, Rhythm: regular, 23:59 Respiratory: the patient does not display signs of respiratory distress, Respirations: normal, no use of accessory muscles, no retractions, labored breathing, is not present, Breath sounds: are clear throughout, no decreased breath sounds, no stridor, no wheezing, 23:59 Abdomen/GI: Inspection: abdomen appears normal, Bowel sounds: active, all quadrants, Palpation: soft, in all quadrants, moderate abdominal tenderness, in the epigastric area and right upper quadrant, voluntary guarding, is elicited in the epigastric area and right upper quadrant, 23:59 Neuro: Orientation: to person, place \T\ time. Mentation: is normal, Vital Signs: 23:49 BP 115 / 84; Pulse 66; Resp 18; Temp 97.9; Pulse Ox 100% on R/A; Weight 76.2 kg; Height al5 4 ft. 6 in. ; 06/07 00:39 BP 103 / 52; Pulse 55; Resp 17; Temp 97.9; Pulse Ox 99% ; Pain 2/10; bm8 06/06 23:49 Body Mass Index 40.51 (76.20 kg, 137.16 cm) al5 06/07 00:39 Pain Scale: Adult bm8 Cynthia Coma Score: 00:39 Eye Response: spontaneous(4). Motor Response: obeys commands(6). Verbal Response: bm8 oriented(5). Total: 15. MDM: 06/06 23:43 Medical Screening Exam initiated cp 06/07 00:00 Differential diagnosis: cholecystitis, Cholelithiasis, gastritis, non-specific abd cp pain, pancreatitis, Pelvic Inflammatory Disease, Pyelonephritis, Ureterolithiasis, urinary tract infection. Administered Medications: 00:44 Not Given (Patient Refused): ns 0.9% 1000 ml IV at 1 bolus Per protocol; to be given as bm8 a bolus over 60 minutes 00:44 Not Given (Patient Refused): [id number] mg IVP once; over 1 to 2 minutes bm8 00:44 Not Given (Patient Refused): [id number] mg IVP once; dilute with 10 mL 0.9% NaCl; bm8 give over 2 minutes 00:44 Not Given (Patient Refused): [id number] mg IVP once bm8 Disposition: 15:09 Chart complete. 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 EDMS EDMS 23:51 23:51 COMPREHENSIVE METABOLIC PANEL+C.LAB.BRZ ordered. EDMS EDMS 23:51 23:51 LIPASE+C.LAB.BRZ ordered. EDMS EDMS 23:51 23:51 Test, Urine+UC.LAB.BRZ ordered. EDMS EDMS 23:51 23:51 Urinalysis+U.LAB.BRZ ordered. EDMI EDMS 06/07 00:38 06/06 23:51 IV Saline Lock ordered. cp bm8 06/07 00:39 06/06 23:51 Labs collected and sent ordered. cp bm8
== END 2024-06-07 00:45 | disposition left against medical advice (07) ==
LOC: ER 23:16
DX: R10.13 Epigastric pain (principal); R11.2 Nausea with vomiting, unspecified
CPT/HCPCS: 99283

== ENCOUNTER 2024-11-14 06:47 | Emergency (ER) | payer SELFPAY ==
--- OUTSIDE RECORDS SUMMARY | 2024-11-14 06:54 | XMS REPORT | Continuity of Care Document ---
Author Name Unknown Address [address] [facility] [place] [address] [facility] Address [address] [place] [address] Care Team Providers Care Fire Prevention Chief Name Role Phone Alecia Kim Primary Care Physician [phone] Doctor Unassigned, [place] Attending Clinician U SHARLA Parra Attending Clinician Unavailab SHARLA Howe Attending Clinician Unavailab ALECIA Hendricks Attending Clinician UnavailALECIA Hernandez Attending Clinician Unavailabl e 1, [facility] Attending Clinician Un available Celeste Hill CNM Attending Clinician [phone] CELESTE HILL Attending Clinician Unavailable PAPA CARLSON Attending Clinician Unavailable PAPA CARLSON Attending Clinician Unavailable Papa Carlson MD Attending Clinician [phone] Ana Luisa Rodriguez MD Attending Clinician + Sara Steven MD Attending Clinician Karla Martinez MD Attending Clinician +[phone] USAMA PACHECO Attending Clinician Unavailable EVELIA ROBLEDO Attending Clinician Unav ailable Mary Lou Chew MD, Evelia Attending Clinician + LEN ARIAS Attending Clinician Unashoshana ailable 1, [facility] Attending Clinician Unavailab Len Watts MD Attending Clinician + Pedro Pablo SANDRA Miranda Attending Clinician + [phone] JESSICA GONZALES Attending Clinician Unavailable JESSICA GONZALES Attending Clinician Unavailable Christian REYNA, Jessica Attending Clinician [phone] William PICKENS, Gunjan Attending Clinician UnavailNILESH Cheney Attending Clinician Unavailab Rosalie REYNA, Nilesh Ortega Attending Clinician [phone] IVETH RICHARDSON Attending Clinician Unavailable IVETH RICHARDSON Attending Clinician Unavailable Doctor Unassigned, [place] Attending Clinician U navailable Lab, [facility] Attending Clinician Unavailable Vaishnavi Mullins Attending Clinician [phone] VAISHNAVI DE LA CRUZ Attending Clinician UnavailMINNIE Ocasio Attending Clinician Unavailable 2, [facility] Attending Clinician UnavailMinnie Park MD Attending Clinician [phone] Jori Tafoya V Attending Clinician Unavailab Adonay Perdomo Attending Clinician Unavailable Suleman Walters Attending Clinician Thien Alcantara Rn RN, Grace Arnold Attending Clinician Unava ilPAPA Schilling Admitting Clinician Unavailable Aldo REYNA, Papa Admitting Clinician [phone] EVELIA ROBLEDO Admitting Clinician UnaEvelia Castorena MD Admitting Clinician + JESSICA GONZALES Admitting Clinician Unavailable Jessica Gonzales MD Admitting Clinician [phone] NILESH SILVA Admitting Clinician Unavailab Rosalie REYNA, Nilesh Ortega Admitting Clinician [phone] IVETH RICHARDSON Admitting Clinician Unavailable Rosa Maria Sanches Admitting Clinician Unavailable Physician, No Primary or Family Admitting Clinic alirio Unavailable Payers Payer Name Policy Type Policy Number Effective Date Expirati on Date Source Problems Condition Name Condition Details Condition Category Status Onset Date Resolution Date Last Treatment Date Treating Clinician Comments Source anemia anemia Disease Active 5-17 00:00: 00 [facility] Indication for care in labor or delivery-I OL Indication for care in labor or delivery-I OL Disease Active 5-15 00:00: 00 [facility] Abnormal maternal glucose tolerance, antepartum Abnormal maternal glucose tolerance, antepartum Disease Active 2-15 00:00: 00 [facility] 39 weeks gestation of 39 weeks gestation of Disease Resolve d 15 00:00: 00 2023-08-03 00:00:00 2023-08-03 15:09:44 [facility] Morbid obesity with body mass index of 40.0-49.9 Morbid obesity with body mass index of 40.0-49.9 Disease Resolve d 15 00:00: 00 2023-08-03 00:00:00 2023-08-03 15:09:43 [facility] Maternal care for unstable lie Maternal care for unstable lie Disease Resolve d 07-11 00:00: 00 2023-08-03 00:00:00 2023-08-03 15:09:41 [facility] delivery delivered delivery delivered Disease Resolve d 07-11 00:00: 00 2023-08-03 00:00:00 2023-08-03 15:09:52 Overview: Formattin g of this note might be different from the original. LTCS due to protracte d labor and maternal request [facility] Obesity (BMI 30-39.9) Obesity (BMI 30-39.9) Disease Resolve d 5-05 00:00: 00 2023-08-03 00:00:00 2023-08-03 15:09:44 [facility] Anemia affecting , antepartum Anemia affecting , antepartum Disease Resolve d 2024-0 4-23 00:00: 00 2023-08-03 00:00:00 2023-08-03 15:09:45 [facility] Uterine size-date discrepanc y in third trimester Uterine size-date discrepanc y in third trimester Disease Resolve d 2023-0 4-18 00:00: 00 2023-08-03 00:00:00 2023-08-03 15:09:53 [facility] Abnormal O'Thomas glucose challenge test, antepartum Abnormal O'Thomas glucose challenge test, antepartum Disease Resolve d 2023-0 2-15 00:00: 00 2023-08-03 00:00:00 2023-08-03 15:09:47 Overview: Formattin g of this note might be different from the original. 3 hr GTT WNL [facility] Supervisio n of high risk in third trimester Supervisio n of high risk in third trimester Disease Resolve d 2022-1 2-27 00:00: 00 2023-08-03 00:00:00 2023-08-03 15:09:50 [facility] Multiparit y Multiparit y Disease Resolve d 2022-0 9-13 00:00: 00 2023-08-03 00:00:00 2023-08-03 15:09:51 [facility] Obesity affecting , antepartum Obesity affecting , antepartum Disease Resolve d 2022-0 9-13 00:00: 00 2023-08-03 00:00:00 2023-08-03 15:09:51 [facility] Transverse or oblique presentati on, antepartum Transverse or oblique presentati on, antepartum Disease Resolve d 2023-0 4-10 00:00: 00 2023-07-12 00:00:00 2023-07-12 16:53:38 [facility] Decreased movement Decreased movement Disease Resolve d 2023-0 3-28 00:00: 00 2023-07-12 00:00:00 2023-07-12 16:53:27 [facility] Nausea and vomiting in Nausea and vomiting in Disease Resolve d 2023-0 3-26 00:00: 00 2023-07-12 00:00:00 2023-07-12 16:53:32 [facility] Nausea and vomiting in Nausea and vomiting in Disease Resolve d 3-26 00:00: 00 2023-07-12 00:00:00 2023-07-12 16:53:32 [facility] Urinary tract infection in mother during , antepartum Urinary tract infection in mother during , antepartum Disease Resolve d 9-19 00:00: 00 2023-07-12 00:00:00 2023-07-12 16:53:46 [facility] 15 weeks gestation of 15 weeks gestation of Disease Resolve d 2022-02 00:00: 00 2023-02-22 00:00:00 2023-02-22 15:41:28 [facility] Ovarian cyst, left Ovarian cyst, left Disease Resolve d 2022-02 00:00: 00 2023-02-22 00:00:00 2023-02-22 15:41:31 [facility] Supervisio n of high risk in first trimester Supervisio n of high risk in first trimester Disease Resolve d 9-13 00:00: 00 2023-01-23 00:00:00 2023-01-23 09:51:49 [facility] Allergies, Adverse Reactions, Alerts Allergy Name Allergy Type Status Severity Reaction(s) Onset Date Inactive Date Treating Clinician Comments Source No Known Allergie s DA Active U 08-02 00:00: 00 [facility] No Known Allergie s DA Active U 08-02 00:00: 00 [facility] NO KNOWN ALLERGIE S Drug Class Active [facility] Social History Social Habit Start Date Stop Date Quantity Comments Source ASSERTION 2022-10-25 00:00:00 [facility] Alcohol intake 2023-06-29 00:00:00 2023-06-29 00:00:00 Lifetime non-drinker (finding) [facility] Alcoholic beverage intake 2023-06-07 00:00:00 2023-06-07 00:00:00 Lifetime non-drinker (finding) [facility] History of Social function 2023-05-10 00:00:00 2023-05-10 00:00:00 [facility] Tobacco use and exposure 2022-11-09 00:00:00 2022-11-09 00:00:00 Smokeless tobacco non-user [facility] Sex assigned at 1995 00:00:00 1995 00:00:00 [facility] Smoking Status Start Date Stop Date Source Never smoked tobacco [facility] Medications Ordered Medication Name Filled Medication Name Start Date Stop Date Current Medication? Ordering Clinician Indication Dosage Frequency Signature (SIG) Comments Components Source docusate (COLACE) capsule 200 mg 07-13 14:00: 00 07-14 03:35 :13 No 200mg 200 mg, Oral, DAILY, First dose on Mon07/14/23 at 0900, Until Discontinu ed, Routine [facility] ferrous sulfate 325 mg (65 mg iron) tablet 07-13 00:00: 00 Yes [id number] 325mg Take 1 tablet by mouth in the morning. [facility] [id number] fum-folic 27 mg iron- 1 mg folic tablet 07-13 00:00: 00 Yes [id number] 1{tbl} Take 1 tablet by mouth in the morning. [facility] docusate 100 mg capsule 07-13 00:00: 00 Yes [id number] 200mg Take 2 capsules by mouth once daily as needed for Constipati on. [facility] ibuprofen 800 mg tablet 07-13 00:00: 00 Yes [id number] 800mg Take 1 tablet by mouth every 8 (eight) hours as needed (pain). Take with food or milk. [facility] oxyCODONE 5 mg immediate release tablet 07-13 00:00: 00 07-21 04:59 :00 No [id number] 5mg Take 1 tablet by mouth every 6 (six) hours as needed (pain) for up to 7 days. Indication s: acute pain [facility] ibuprofen (IBU) tablet 800 mg 07-12 22:30: 00 07-14 03:35 :13 No 800mg 800 mg, Oral, Q8HA1, First dose on Mary 07/13/23 at 1730, Until Discontinu ed, Routine [facility] acetaminoph en (TYLENOL) tablet 1,000 mg 07-12 19:00: 00 07-14 03:35 :13 No 1000mg 1,000 mg, Oral, Q8H, First dose on Mon07/13/23 at 1400, Until Discontinu ed, Routine [facility] simethicone (GAS RELIEF (SIMETHICON E)) chewable tablet 160 mg 07-12 19:00: 00 07-14 03:35 :13 No 160mg 160 mg, Oral, TID, First dose on Mary 07/13/23 at 1400, Until Discontinu ed, Routine [facility] rho(D) immune globulin (HYPERRHO/R HOGAM) syringe 300 mcg 07-12 18:57: 58 07-14 03:35 :13 No 300ug [facility] human papillomav vac,9-silas(P F) (GARDASIL-9 ) syringe 0.5 mL 07-12 18:57: 53 07-14 03:35 :13 No .5mL [facility] diphenhydrA MINE (BENADRYL) injection 25 mg 07-12 18:57: 53 07-14 03:35 :13 No 25mg [facility] diphenhydrA MINE (BENADRYL) tablet 25 mg 07-12 18:57: 53 07-14 03:35 :13 No 25mg [facility] ondansetron (ZOFRAN (PF)) injection 4 mg 07-12 18:57: 53 07-14 03:35 :13 No 4mg [facility] bisacodyL (DULCOLAX) suppository 10 mg 07-12 18:57: 53 07-14 03:35 :13 No 10mg [facility] magnesium hydroxide (MILK OF MAGNESIA) 400 mg/5 mL suspension 30 mL 07-12 18:57: 53 07-14 03:35 :13 No 30mL 30 mL, Oral, QDAILYPRN, Starting on Mary 07/13/23 at 1357, Until Mon07/14/23 at 2235, Routine, Constipati on [facility] lactated ringers IV infusion 1,000 mL 07-12 18:57: 53 07-12 20:10 :17 No 1000mL at 125 mL/hr, 1,000 mL, IV Infusion, PRN, 1 dose, Starting on Mary 07/13/23 at 1357, Until Mary 07/13/23 at 1510, Routine [facility] oxyCODONE immediate release tablet 5 mg 07-12 18:53: 39 07-14 03:35 :13 No 5mg 5 mg, Oral, Q6HPRN, Starting on Mary 07/13/23 at 1353, Until Mon07/14/23 at 2235, Routine, Pain (scale 7-10), catering staff member approving Restricted medication : OB FACULTY [facility] ketorolac (TORADOL) injection 07-12 18:01: 00 07-12 18:09 :47 No Slow IV Push, ONCE INTRA PROCEDURE, Starting on Mary 07/13/23 at 1301, Until Mary 07/13/23 at 1309, Routine, Intra-op [facility] morpHINE PF (DURAMORPH- PF) injection 07-12 17:57: 00 07-12 18:09 :47 No Epidural, ONCE INTRA PROCEDURE, Starting on Mary 07/13/23 at 1257, Until Mary 07/13/23 at 1309, Routine, Intra-op [facility] FENTanyl PF (SUBLIMAZE (PF)) injection 07-12 17:36: 00 07-12 18:09 :47 No Intratheca l, ONCE INTRA PROCEDURE, Starting on Mary 07/13/23 at 1236, Until Mary 07/13/23 at 1309, Routine, Intra-op [facility] midazolam (VERSED) injection 07-12 17:20: 00 07-12 18:09 :47 No IV Push, ONCE INTRA PROCEDURE, Starting on Mary 07/13/23 at 1220, Until Mary 07/13/23 at 1309, Routine, Intra-op [facility] azithromyci n (ZITHROMAX) 500 mg in NaCl 0.9% (NS) 250 mL VIAL-MATE IV piggyback 07-12 17:15: 00 07-12 16:52 :00 No 500mg 500 mg, IV Piggyback, ONCE, 1 dose, On Mary 07/13/23 at 1215, Administer over 60 Minutes, 250 mL, Reason for Anti-Infec tive: Surgical Prophylaxi s, 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, Duration of therapy: within 24 hours of surgery [facility] ceFAZolin (ANCEF) 2,000 mg in NaCl 0.9% (NS) 100 mL VIAL-MATE 07-12 17:15: 00 07-12 17:10 :00 No 2000mg 2,000 mg, IV Piggyback, ONCE, 1 dose, On Mary 07/13/23 at 1215, Administer over 30 Minutes, 100 mL, Reason for Anti-Infec tive: Surgical Prophylaxi s, 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, Duration of therapy: within 24 hours of surgery [facility] FENTanyl PF (SUBLIMAZE (PF)) injection 07-12 17:03: 00 07-12 18:09 :47 No Epidural, ONCE INTRA PROCEDURE, Starting on Mary 07/13/23 at 1203, Until Mary 07/13/23 at 1309, Routine, Intra-op [facility] phenylephri ne (VAZCULEP) injection 07-12 16:57: 00 07-12 18:09 :47 No Intravenou s, CONTINUOUS PRN, Starting on Mary 07/13/23 at 1157, Until Mary 07/13/23 at 1309, Routine, Intra-op [facility] lactated ringers IV infusion 07-12 16:47: 00 07-12 18:09 :47 No IV Infusion, CONTINUOUS PRN, Starting on Mary 07/13/23 at 1147, Until Mary 07/13/23 at 1309, Routine, Intra-op [facility] lidocaine-e pinephrine (XYLOCAINE W/EPINEPHRI NE) 2 %-1:200,000 injection 07-12 16:40: 00 07-12 18:09 :47 No Epidural, ONCE INTRA PROCEDURE, Starting on Mary 07/13/23 at 1140, Until Mary 07/13/23 at 1309, Routine, Intra-op [facility] amnioinfusi on IV infusion via GRAVITY 0.9 NaCL 1,000 mL 07-12 12:45: 00 07-12 12:47 :00 No 1000mL at 750 mL/hr, Intrauteri ne, ONCE, 1 dose, On Mary 07/13/23 at 0745, DAVID, Infuse via gravity 750 ml over 1 hour. Once 750 mL has been infused, the infusion may be discontinu ed or decreased to 100 mL/hr until the liter is complete. Notify Assistant Project Manager if uterine resting tone exceeds 25 mmHg at any time during the amnioinfus ion. Obstetrics (JUSTINO) Aminoinfus ion Orders [facility] ondansetron (ZOFRAN (PF)) injection 4 mg 07-12 12:30: 00 07-12 17:14 :00 No 4mg 4 mg, Slow IV Push, ONCE, On Mary 07/13/23 at 0730, For 1 dose, Doses of ondansetro n 16 mg and above need to be administer ed via IV piggyback. For Dose >=24mg ECG monitoring is advisable. [facility] acetaminoph en (TYLENOL) tablet 650 mg 07-12 03:40: 35 07-12 18:57 :56 No 650mg 650 mg, Oral, Q6HPRN, Starting on Mon07/12/23 at 2240, Until Mary 07/13/23 at 1357, Routine, Pain (scale 4-6) [facility] ropivacaine 0.2 % (NAROPIN (PF)) epidural infusion 07-12 00:52: 00 07-12 18:09 :47 No Epidural, CONTINUOUS PRN, Starting on Mon07/12/23 at 1952, Until Mary 07/13/23 at 1309, Routine, Intra-op [facility] lidocaine-e pinephrine (XYLOCAINE W/EPINEPHRI NE) 1.5 %-1:200,000 injection 07-12 00:50: 00 07-12 18:09 :47 No Epidural, ONCE INTRA PROCEDURE, Starting on Mon07/12/23 at 1950, Until Mary 07/13/23 at 1309, Routine, Intra-op [facility] lactated ringers IV infusion 700 mL 07-11 20:45: 00 07-12 00:25 :42 No 700mL at 999 mL/hr, 700 mL, IV Infusion, ONCE, 1 dose, On Mon07/12/23 at 1545, Routine [facility] sodium citrate-cit tommie acid (BICITRA) 500-334 mg/5 mL solution 30 mL 07-11 19:54: 22 07-12 00:34 :00 No 30mL 30 mL, Oral, PRE-PROCED URE ONCE, 1 dose, Starting on Mon07/12/23 at 1454, Until Mon07/12/23 at 1934, Routine, Surgery/Pr ocedure [facility] lactated ringers IV infusion 500 mL 07-11 19:54: 22 07-12 18:57 :56 No 500mL at 999 mL/hr, 500 mL, IV Infusion, PRN - SEE INSTRUCTIO NS, Starting on Mon07/12/23 at 1454, Until Mary 07/13/23 at 1357, Routine [facility] D5W-LR IV infusion 1,000 mL 07-11 19:54: 22 07-12 18:57 :56 No 1000mL at 1-125 mL/hr, IV Infusion, TITRATE, Starting on Mon07/12/23 at 1454, Until Mon07/13/23 at 1357, Routine [facility] sodium citrate-cit tommie acid (BICITRA) 500-334 mg/5 mL solution 30 mL 07-11 19:54: 21 07-12 16:40 :00 No 30mL 30 mL, Oral, PRE-PROCED URE ONCE, 1 dose, Starting on Mon07/12/23 at 1454, Until Mon07/13/23 at 1140, Routine, Surgery/Pr ocedure [facility] acetaminoph en (TYLENOL) tablet 1,000 mg 07-01 11:15: 00 07-01 10:15 :00 No 1000mg 1,000 mg, Oral, ONCE, 1 dose, On Mon07/02/23 at 0615, Routine [facility] lactated ringers IV infusion 500 mL 07-01 09:45: 00 07-01 09:54 :39 No 500mL at 999 mL/hr, 500 mL, Intravenou s, ONCE, 1 dose, On Mon07/02/23 at 0445, Routine [facility] ferrous sulfate (IRON, FERROUS SULFATE,) 325 mg (65 mg iron) tablet 06-19 00:00: 00 Yes [id number] 325mg Take 1 tablet by mouth in the morning. [facility] lactated ringers IV infusion 500 mL 05-22 17:45: 00 05-22 17:09 :00 No 500mL at 999 mL/hr, 500 mL, IV Infusion, ONCE, 1 dose, On Mon05/23/23 at 1245, STAT [facility] ondansetron (ZOFRAN (PF)) injection 4 mg 05-22 17:45: 00 05-22 17:13 :00 No 4mg 4 mg, Slow IV Push, ONCE, On Mon05/23/23 at 1245, For 1 dose
Do ses of ondansetro n 16 mg and above need to be administer ed via IV piggyback. For Dose >=24mg ECG monitoring is advisable.
[facility] ondansetron 4 mg disintegrat ing tablet 05-22 00:00: 00 Yes [id number] 4mg Take 1 tablet by mouth every 8 (eight) hours as needed for Nausea and Vomiting (N/V). [facility] metroNIDAZO LE 500 mg tablet 2022-02 00:00: 00 03-22 00:00 :00 No [id number] 500mg Take 1 tablet by mouth every 12 (twelve) hours. [facility] sulfamethox azole-trime thoprim (BACTRIM DS) 800-160 mg per tablet 11-15 00:00: 00 11-21 04:59 :00 No [id number] 1{tbl} Take 1 tablet by mouth in the morning and 1 tablet in the evening. Do all this for 5 days. [facility] Nitrofurant oin&Nit. Macrocryst (MACROBID) 100 mg capsule 11-09 00:00: 00 11-15 00:00 :00 No [id number] 100mg Take 1 capsule by mouth in the morning and 1 capsule in the evening. Do all this for 7 days. [facility] Immunizations Ordered Immunization Name Filled Immunization Name Date Status Comments Source TDAP 2023-04-26 00:00:00 Completed [facility] Influenza Virus Vaccine Quad IM, Preserv and ABX Free 6 MO-64 YRS (FLUCELVAX) 2023-01-23 00:00:00 Completed [facility] Influenza Virus Vaccine Quad IM, Preserv and ABX Free 6 MO-64 YRS (FLUCELVAX) Unknown Completed [facility] Influenza Virus Vaccine Quad IM, Preserv and ABX Free 6 MO-64 YRS (FLUCELVAX) Unknown Completed [facility] Influenza Virus Vaccine Quad IM, Preserv and ABX Free 6 MO-64 YRS (FLUCELVAX) Unknown Completed [facility] Influenza Virus Vaccine Quad IM, Preserv and ABX Free 6 MO-64 YRS (FLUCELVAX) Unknown Completed [facility] Influenza Virus Vaccine Quad IM, Preserv and ABX Free 6 MO-64 YRS (FLUCELVAX) Unknown Completed [facility] Influenza Virus Vaccine Quad IM, Preserv and ABX Free 6 MO-64 YRS (FLUCELVAX) Unknown Completed [facility] Influenza Virus Vaccine Quad IM, Preserv and ABX Free 6 MO-64 YRS (FLUCELVAX) Unknown Completed [facility] Influenza Virus Vaccine Quad IM, Preserv and ABX Free 6 MO-64 YRS (FLUCELVAX) Unknown Completed [facility] Influenza Virus Vaccine Quad IM, Preserv and ABX Free 6 MO-64 YRS (FLUCELVAX) Unknown Completed [facility] Influenza Virus Vaccine Quad IM, Preserv and ABX Free 6 MO-64 YRS (FLUCELVAX) Unknown Completed [facility] Influenza Virus Vaccine Quad IM, Preserv and ABX Free 6 MO-64 YRS (FLUCELVAX) Unknown Completed [facility] Influenza Virus Vaccine Quad IM, Preserv and ABX Free 6 MO-64 YRS (FLUCELVAX) Unknown Completed [facility] TDAP Unknown Completed [facility] Influenza Virus Vaccine Quad IM, Preserv and ABX Free 6 MO-64 YRS (FLUCELVAX) Unknown Completed [facility] TDAP Unknown Completed [facility] Influenza Virus Vaccine Quad IM, Preserv and ABX Free 6 MO-64 YRS (FLUCELVAX) Unknown Completed [facility] Influenza Virus Vaccine Quad IM, Preserv and ABX Free 6 MO-64 YRS (FLUCELVAX) Unknown Completed [facility] TDAP Unknown Completed [facility] Influenza Virus Vaccine Quad IM, Preserv and ABX Free 6 MO-64 YRS (FLUCELVAX) Unknown Completed [facility] TDAP Unknown Completed [facility] Influenza Virus Vaccine Quad IM, Preserv and ABX Free 6 MO-64 YRS (FLUCELVAX) Unknown Completed [facility] TDAP Unknown Completed [facility] Influenza Virus Vaccine Quad IM, Preserv and ABX Free 6 MO-64 YRS (FLUCELVAX) Unknown Completed [facility] TDAP Unknown Completed [facility] Influenza Virus Vaccine Quad IM, Preserv and ABX Free 6 MO-64 YRS (FLUCELVAX) Unknown Completed [facility] TDAP Unknown Completed [facility] Influenza Virus Vaccine Quad IM, Preserv and ABX Free 6 MO-64 YRS (FLUCELVAX) Unknown Completed [facility] TDAP Unknown Completed [facility] Influenza Virus Vaccine Quad IM, Preserv and ABX Free 6 MO-64 YRS (FLUCELVAX) Unknown Completed [facility] TDAP Unknown Completed [facility] Influenza Virus Vaccine Quad IM, Preserv and ABX Free 6 MO-64 YRS (FLUCELVAX) Unknown Completed [facility] TDAP Unknown Completed [facility] Influenza Virus Vaccine Quad IM, Preserv and ABX Free 6 MO-64 YRS (FLUCELVAX) Unknown Completed [facility] TDAP Unknown Completed [facility] Influenza Virus Vaccine Quad IM, Preserv and ABX Free 6 MO-64 YRS (FLUCELVAX) Unknown Completed [facility] TDAP Unknown Completed [facility] Influenza Virus Vaccine Quad IM, Preserv and ABX Free 6 MO-64 YRS (FLUCELVAX) Unknown Completed [facility] TDAP Unknown Completed [facility] Influenza Virus Vaccine Quad IM, Preserv and ABX Free 6 MO-64 YRS (FLUCELVAX) Unknown Completed [facility] TDAP Unknown Completed [facility] Influenza Virus Vaccine Quad IM, Preserv and ABX Free 6 MO-64 YRS (FLUCELVAX) Unknown Completed [facility] TDAP Unknown Completed [facility] Influenza Virus Vaccine Quad IM, Preserv and ABX Free 6 MO-64 YRS (FLUCELVAX) Unknown Completed [facility] TDAP Unknown Completed [facility] Influenza Virus Vaccine Quad IM, Preserv and ABX Free 6 MO-64 YRS (FLUCELVAX) Unknown Completed [facility] TDAP Unknown Completed [facility] Influenza Virus Vaccine Quad IM, Preserv and ABX Free 6 MO-64 YRS (FLUCELVAX) Unknown Completed [facility] TDAP Unknown Completed [facility] Influenza Virus Vaccine Quad IM, Preserv and ABX Free 6 MO-64 YRS (FLUCELVAX) Unknown Completed [facility] TDAP Unknown Completed [facility] Influenza Virus Vaccine Quad IM, Preserv and ABX Free 6 MO-64 YRS (FLUCELVAX) Unknown Completed [facility] TDAP Unknown Completed [facility] Influenza Virus Vaccine Quad IM, Preserv and ABX Free 6 MO-64 YRS (FLUCELVAX) Unknown Completed [facility] TDAP Unknown Completed [facility] Influenza Virus Vaccine Quad IM, Preserv and ABX Free 6 MO-64 YRS (FLUCELVAX) Unknown Completed [facility] TDAP Unknown Completed [facility] Influenza Virus Vaccine Quad IM, Preserv and ABX Free 6 MO-64 YRS (FLUCELVAX) Unknown Completed [facility] TDAP Unknown Completed [facility] Influenza Virus Vaccine Quad IM, Preserv and ABX Free 6 MO-64 YRS (FLUCELVAX) Unknown Completed [facility] TDAP Unknown Completed [facility] Influenza Virus Vaccine Quad IM, Preserv and ABX Free 6 MO-64 YRS (FLUCELVAX) Unknown Completed [facility] TDAP Unknown Completed [facility] Influenza Virus Vaccine Quad IM, Preserv and ABX Free 6 MO-64 YRS (FLUCELVAX) Unknown Completed [facility] TDAP Unknown Completed [facility] Influenza Virus Vaccine Quad IM, Preserv and ABX Free 6 MO-64 YRS (FLUCELVAX) Unknown Completed [facility] TDAP Unknown Completed [facility] Influenza Virus Vaccine Quad IM, Preserv and ABX Free 6 MO-64 YRS (FLUCELVAX) Unknown Completed [facility] TDAP Unknown Completed [facility] Influenza Virus Vaccine Quad IM, Preserv and ABX Free 6 MO-64 YRS (FLUCELVAX) Unknown Completed [facility] TDAP Unknown Completed [facility] Vital Signs Vital Name Observation Time Observation Value Comments S ource Systolic blood pressure 2023-08-24 19:17:00 90 mm[Hg] [facility] Diastolic blood pressure 2023-08-24 19:17:00 50 mm[Hg] [facility] Heart rate 2023-08-24 19:17:00 62 /min [facility] Body temperature 2023-08-24 19:17:00 36.61 Whitney [facility] Respiratory rate 2023-08-24 19:17:00 16 /min [facility] Body height 2023-08-24 19:17:00 137.2 cm Univ [facility] Body weight 2023-08-24 19:17:00 67.643 kg [facility] BMI 2023-08-24 19:17:00 35.93 kg/m2 Univ [facility] Systolic blood pressure 2023-08-03 20:22:00 95 mm[Hg] [facility] Diastolic blood pressure 2023-08-03 20:22:00 59 mm[Hg] [facility] Heart rate 2023-08-03 20:22:00 68 /min [facility] Body temperature 2023-08-03 20:22:00 36.5 Whitney [facility] Respiratory rate 2023-08-03 20:22:00 17 /min [facility] Body height 2023-08-03 20:22:00 137.2 cm [facility] Body weight 2023-08-03 20:22:00 67.302 kg [facility] BMI 2023-08-03 20:22:00 35.75 kg/m2 [facility] Systolic blood pressure 2023-07-20 16:34:00 99 mm[Hg] [facility] Diastolic blood pressure 2023-07-20 16:34:00 59 mm[Hg] [facility] Heart rate 2023-07-20 16:34:00 63 /min [facility] Body temperature 2023-07-20 16:34:00 36.61 Whitney [facility] Respiratory rate 2023-07-20 16:34:00 20 /min [facility] Body weight 2023-07-20 16:34:00 72.122 kg [facility] BMI 2023-07-20 16:34:00 38.31 kg/m2 [facility] Oxygen saturation in Arterial blood by Pulse oximetry 2023-07-20 16:34:00 100 /min [facility] Systolic blood pressure 2023-07-14 17:11:00 91 mm[Hg] [facility] Diastolic blood pressure 2023-07-14 17:11:00 54 mm[Hg] [facility] Heart rate 2023-07-14 17:11:00 112 /min [facility] Body temperature 2023-07-14 17:11:00 36.44 Whitney [facility] Respiratory rate 2023-07-14 17:11:00 18 /min [facility] Oxygen saturation in Arterial blood by Pulse oximetry 2023-07-14 17:11:00 98 /min [facility] Body weight 2023-07-12 19:53:00 77.111 kg [facility] BMI 2023-07-12 19:53:00 40.96 kg/m2 [facility] Body height 2023-07-12 19:10:00 137.2 cm [facility] Systolic blood pressure 2023-07-13 19:20:00 101 mm[Hg] [facility] Diastolic blood pressure 2023-07-13 19:20:00 70 mm[Hg] [facility] Heart rate 2023-07-13 19:20:00 98 /min [facility] Body temperature 2023-07-13 19:20:00 36.67 Whitney [facility] Respiratory rate 2023-07-13 19:20:00 21 /min [facility] Oxygen saturation in Arterial blood by Pulse oximetry 2023-07-13 19:20:00 97 /min [facility] Body weight 2023-07-12 19:53:00 77.111 kg [facility] BMI 2023-07-12 19:53:00 40.96 kg/m2 [facility] Body height 2023-07-12 19:10:00 137.2 cm [facility] Systolic blood pressure 2023-07-10 14:11:00 100 mm[Hg] [facility] Diastolic blood pressure 2023-07-10 14:11:00 67 mm[Hg] [facility] Heart rate 2023-07-10 14:11:00 91 /min [facility] Body temperature 2023-07-10 14:11:00 36.89 Whitney [facility] Body height 2023-07-10 14:11:00 137.2 cm Univ [facility] Body weight 2023-07-10 14:11:00 77.111 kg [facility] BMI 2023-07-10 14:11:00 40.99 kg/m2 [facility] Systolic blood pressure 2023-07-02 10:30:00 99 mm[Hg] [facility] Diastolic blood pressure 2023-07-02 10:30:00 55 mm[Hg] [facility] Heart rate 2023-07-02 10:30:00 76 /min [facility] Oxygen saturation in Arterial blood by Pulse oximetry 2023-07-02 10:30:00 97 /min [facility] Respiratory rate 2023-07-02 09:30:00 18 /min [facility] Body temperature 2023-07-02 08:39:00 36.67 Whitney [facility] Body height 2023-07-02 08:30:00 139.7 cm [facility] Body weight 2023-07-02 08:30:00 77.656 kg [facility] BMI 2023-07-02 08:30:00 39.79 kg/m2 [facility] Systolic blood pressure 2023-06-29 13:58:00 100 mm[Hg] [facility] Diastolic blood pressure 2023-06-29 13:58:00 64 mm[Hg] [facility] Heart rate 2023-06-29 13:58:00 96 /min [facility] Body temperature 2023-06-29 13:58:00 36.67 Whitney [facility] Respiratory rate 2023-06-29 13:58:00 18 /min [facility] Body height 2023-06-29 13:58:00 139.7 cm [facility] Body weight 2023-06-29 13:58:00 77.565 kg Univ [facility] BMI 2023-06-29 13:58:00 39.74 kg/m2 [facility] Systolic blood pressure 2023-06-22 11:59:00 97 mm[Hg] [facility] Diastolic blood pressure 2023-06-22 11:59:00 66 mm[Hg] [facility] Heart rate 2023-06-22 11:59:00 97 /min [facility] Body temperature 2023-06-22 11:59:00 36.17 Whitney [facility] Respiratory rate 2023-06-22 11:59:00 17 /min [facility] Body height 2023-06-22 11:59:00 139.7 cm [facility] Body weight 2023-06-22 11:59:00 78.189 kg [facility] BMI 2023-06-22 11:59:00 40.06 kg/m2 [facility] Systolic blood pressure 2023-06-15 15:59:00 98 mm[Hg] [facility] Diastolic blood pressure 2023-06-15 15:59:00 63 mm[Hg] [facility] Heart rate 2023-06-15 15:59:00 107 /min [facility] Body temperature 2023-06-15 15:59:00 36.11 [facility] Respiratory rate 2023-06-15 15:59:00 18 /min [facility] Body height 2023-06-15 15:59:00 139.7 cm [facility] Body weight 2023-06-15 15:59:00 77.792 kg [facility] BMI 2023-06-15 15:59:00 39.86 kg/m2 [facility] Oxygen saturation in Arterial blood by Pulse oximetry 2023-06-15 15:59:00 97 /min [facility] Systolic blood pressure 2023-06-07 14:23:00 98 mm[Hg] [facility] Diastolic blood pressure 2023-06-07 14:23:00 69 mm[Hg] [facility] Heart rate 2023-06-07 14:23:00 117 /min [facility] Body temperature 2023-06-07 14:23:00 36.17 Whitney [facility] Respiratory rate 2023-06-07 14:23:00 17 /min [facility] Body height 2023-06-07 14:23:00 137.2 cm Univ [facility] Body weight 2023-06-07 14:23:00 77.593 kg [facility] BMI 2023-06-07 14:23:00 41.24 kg/m2 [facility] Systolic blood pressure 2023-05-25 22:00:00 98 mm[Hg] [facility] Diastolic blood pressure 2023-05-25 22:00:00 55 mm[Hg] [facility] Heart rate 2023-05-25 22:00:00 97 /min [facility] Oxygen saturation in Arterial blood by Pulse oximetry 2023-05-25 22:00:00 98 /min [facility] Body temperature 2023-05-25 21:09:00 37.22 Whitney [facility] Respiratory rate 2023-05-25 21:09:00 18 /min [facility] Systolic blood pressure 2023-05-25 18:29:00 106 mm[Hg] [facility] Diastolic blood pressure 2023-05-25 18:29:00 70 mm[Hg] [facility] Heart rate 2023-05-25 18:29:00 100 /min [facility] Body temperature 2023-05-25 18:29:00 36.33 Whitney [facility] Respiratory rate 2023-05-25 18:29:00 17 /min [facility] Body height 2023-05-25 18:29:00 137.2 cm Univ [facility] Body weight 2023-05-25 18:29:00 77.593 kg [facility] BMI 2023-05-25 18:29:00 41.24 kg/m2 [facility] Heart rate 2023-05-24 16:54:00 105 /min [facility] Body temperature 2023-05-24 16:54:00 36.72 Whitney [facility] Respiratory rate 2023-05-24 16:54:00 18 /min [facility] Body height 2023-05-24 16:54:00 137.2 cm Univ [facility] Body weight 2023-05-24 16:54:00 77.111 kg Univ [facility] BMI 2023-05-24 16:54:00 40.99 kg/m2 [facility] Oxygen saturation in Arterial blood by Pulse oximetry 2023-05-24 16:54:00 99 /min [facility] Systolic blood pressure 2023-05-24 13:55:00 94 mm[Hg] [facility] Diastolic blood pressure 2023-05-24 13:55:00 59 mm[Hg] [facility] Heart rate 2023-05-24 13:55:00 90 /min [facility] Body temperature 2023-05-24 13:55:00 36.44 Whitney [facility] Respiratory rate 2023-05-24 13:55:00 17 /min [facility] Body height 2023-05-24 13:55:00 137.2 cm [facility] Body weight 2023-05-24 13:55:00 77.338 kg [facility] BMI 2023-05-24 13:55:00 41.11 kg/m2 [facility] Systolic blood pressure 2023-05-23 19:30:00 97 mm[Hg] [facility] Diastolic blood pressure 2023-05-23 19:30:00 59 mm[Hg] [facility] Heart rate 2023-05-23 19:30:00 98 /min [facility] Oxygen saturation in Arterial blood by Pulse oximetry 2023-05-23 19:30:00 99 /min [facility] Body height 2023-05-23 17:08:00 137.2 [facility] 2023-05-23 17:08:00 77.565 kg [facility] BMI 2023-05-23 17:08:00 41.23 kg/m2 Univ [facility] Body temperature 2023-05-23 16:44:00 36.89 Whitney [facility] Respiratory rate 2023-05-23 16:44:00 16 /min [facility] Systolic blood pressure 2023-05-10 13:10:00 95 mm[Hg] [facility] Diastolic blood pressure 2023-05-10 13:10:00 61 mm[Hg] [facility] Heart rate 2023-05-10 13:10:00 89 /min [facility] Body temperature 2023-05-10 13:10:00 36.33 Whitney [facility] Respiratory rate 2023-05-10 13:10:00 18 /min [facility] Body height 2023-05-10 13:10:00 137.2 cm Univ [facility] Body weight 2023-05-10 13:10:00 77.837 kg [facility] BMI 2023-05-10 13:10:00 41.37 kg/m2 [facility] Systolic blood pressure 2023-04-26 15:03:00 100 mm[Hg] [facility] Diastolic blood pressure 2023-04-26 15:03:00 60 mm[Hg] [facility] Heart rate 2023-04-26 15:03:00 108 /min [facility] Body temperature 2023-04-26 15:03:00 35.89 Whitney [facility] Respiratory rate 2023-04-26 15:03:00 20 /min [facility] Body height 2023-04-26 15:03:00 137.2 cm Univ [facility] Body weight 2023-04-26 15:03:00 77.474 kg [facility] BMI 2023-04-26 15:03:00 41.18 kg/m2 Univ [facility] Systolic blood pressure 2023-04-12 15:33:00 107 mm[Hg] [facility] Diastolic blood pressure 2023-04-12 15:33:00 63 mm[Hg] [facility] Heart rate 2023-04-12 15:33:00 99 /min [facility] Body temperature 2023-04-12 15:33:00 36.11 Whitney [facility] Respiratory rate 2023-04-12 15:33:00 18 /min [facility] Body height 2023-04-12 15:33:00 137.2 cm Univ [facility] Body weight 2023-04-12 15:33:00 77.65 kg Univ [facility] BMI 2023-04-12 15:33:00 41.28 kg/m2 [facility] Systolic blood pressure 2023-03-22 15:43:00 96 mm[Hg] [facility] Diastolic blood pressure 2023-03-22 15:43:00 59 mm[Hg] [facility] Heart rate 2023-03-22 15:43:00 88 /min [facility] Body temperature 2023-03-22 15:43:00 36.28 Whitney [facility] Respiratory rate 2023-03-22 15:43:00 22 /min [facility] Body height 2023-03-22 15:43:00 137.2 cm Univ [facility] Body weight 2023-03-22 15:43:00 77.973 kg Univ [facility] BMI 2023-03-22 15:43:00 41.45 kg/m2 [facility] Systolic blood pressure 2023-02-22 21:36:00 95 mm[Hg] [facility] Diastolic blood pressure 2023-02-22 21:36:00 65 mm[Hg] [facility] Heart rate 2023-02-22 21:36:00 93 /min [facility] Body temperature 2023-02-22 21:36:00 36.33 Whitney [facility] Respiratory rate 2023-02-22 21:36:00 17 /min [facility] Body height 2023-02-22 21:36:00 139.7 cm Univ [facility] Body weight 2023-02-22 21:36:00 76.289 kg Univ [facility] BMI 2023-02-22 21:36:00 39.09 kg/m2 [facility] Systolic blood pressure 2023-01-23 15:31:00 111 mm[Hg] [facility] Diastolic blood pressure 2023-01-23 15:31:00 70 mm[Hg] [facility] Heart rate 2023-01-23 15:31:00 86 /min [facility] 2023-01-23 15:31:00 36.44 Whitney [facility] Respiratory rate 2023-01-23 15:31:00 18 /min [facility] Body height 2023-01-23 15:31:00 139.7 cm [facility] weight 2023-01-23 15:31:00 74.844 kg Univ [facility] BMI 2023-01-23 15:31:00 38.35 kg/m2 [facility] Systolic blood pressure 2022-12-26 14:53:00 99 mm[Hg] [facility] Diastolic blood pressure 2022-12-26 14:53:00 64 mm[Hg] [facility] Heart rate 2022-12-26 14:53:00 78 /min [facility] Body temperature 2022-12-26 14:53:00 36.44 Whitney [facility] Respiratory rate 2022-12-26 14:53:00 18 /min [facility] Body height 2022-12-26 14:53:00 139.7 cm Univ [facility] Body weight 2022-12-26 14:53:00 75.524 kg Univ [facility] BMI 2022-12-26 14:53:00 38.70 kg/m2 [facility] Systolic blood pressure 2022-11-09 15:08:00 112 mm[Hg] [facility] Diastolic blood pressure 2022-11-09 15:08:00 71 mm[Hg] [facility] Heart rate 2022-11-09 15:08:00 76 /min [facility] Body temperature 2022-11-09 15:08:00 36.61 Whitney [facility] Respiratory rate 2022-11-09 15:08:00 17 /min [facility] Body height 2022-11-09 15:08:00 139.7 cm [facility] weight 2022-11-09 15:08:00 74.475 kg [facility] BMI 2022-11-09 15:08:00 38.16 kg/m2 [facility] Procedures Procedure Date / Time Performed Performing Clinician Source CBC WITH DIFF 2023-07-14 10:22:00 Ly [facility] CBC WITH DIFF 2023-07-14 10:22:00 Ly [facility] SURGICAL PATHOLOGY EXAM 2023-07-13 17:27:00 Ana Luisa Wolf [facility] VENOUS CORD GAS 2023-07-13 17:13:00 [facility] 2023-07-13 17:13:00 Natacha Petit [facility] [id number] - [place] DELIVERY ONLY 2023-07-13 16:31:00 Ana Luisa Rodriguez [facility] TUBAL LIGATION 2023-07-13 16:31:00 Scar Rodriguez [facility] CENTRAL NEURAXIAL BLOCK 2023-07-13 01:01:00 Keenan Aparicio [facility] HEPATITIS B SURFACE ANTIGEN 2023-07-12 20:19:00 Natacha Petit [facility] HB ABO GROUPING 2023-07-12 20:19:00 Natacha Petit [facility] RHO (D) IMMUNE GLOBULIN 2023-07-12 20:19:00 Pushpa [facility] HIV 1/2 AG-AB WITH REFLEX 2023-07-12 20:19:00 Natacha Petit [facility] SYPHILIS IGG/IGM 2023-07-12 20:19:00 [facility]FACE ANTIGEN 2023-07-12 20:19:00 Natacha Petit [facility] HB ABO GROUPING 2023-07-12 20:19:00 Natacha Petit [facility] RHO (D) IMMUNE GLOBULIN 2023-07-12 20:19:00 Pushpa [facility] HIV 1/2 AG-AB WITH REFLEX 2023-07-12 20:19:00 Natacha Petit [facility] SYPHILIS IGG/IGM 2023-07-12 20:19:00 Natacha Petit [facility] POCT URINALYSIS W/O SPECIFIC GRAVITY 2023-07-10 14:10:00 Vaishnavi De La Cruz [facility] BASIC METABOLIC PANEL (NA, K, CL, CO2, GLUCOSE, BUN, CREATININE, CA) 2023-07-02 09:22:00 Heidi Jung [facility] CBC WITHOUT DIFF 2023-07-02 09:22:00 [facility] POCT URINALYSIS W/O SPECIFIC GRAVITY 2023-06-29 14:01:00 Indira [facility] SECOND AND THIRD TRIMESTER ULTRASOUND 2023-06-27 16:55:49 nIdira [facility] POCT URINALYSIS W/O SPECIFIC GRAVITY 2023-06-22 11:55:00 Vaishnavi De La Cruz [facility] POCT URINALYSIS W/O SPECIFIC GRAVITY 2023-06-15 00:00:00 Indira Alecia [facility] REFERRAL- REQUEST/RESPONSE 2023-06-13 13:50:05 Doctor Unassigned, [place] [facility] SECOND AND THIRD TRIMESTER ULTRASOUND 2023-06-12 13:55:30 Indira [facility] POCT MOLECULAR FLU 2023-06-07 14:40:00 Cailin Jacobson [facility] POCT URINALYSIS W/O SPECIFIC GRAVITY 2023-06-07 14:14:00 Vaishnavi De La Cruz [facility] POCT RAPID FLU A AND B TEST 2023-06-07 00:00:00 Alecia Jacobson [facility] NON-STRESS TEST 2023-05-25 19:07:20 Kinza Jacobson [facility] POCT URINALYSIS W/O SPECIFIC GRAVITY 2023-05-25 18:18:00 Vaishnavi De La Cruz [facility] NON-STRESS TEST 2023-05-24 15:00:19 Kinza Jacobson [facility] POCT URINALYSIS W/O SPECIFIC GRAVITY 2023-05-24 13:45:00 Vaishnavi De La Cruz [facility] COMP. METABOLIC PANEL (85603) 2023-05-23 17:08:00 Latasha [facility] CBC WITH DIFF 2023-05-23 17:08:00 Latasha [facility] URINALYSIS 2023-05-23 17:08:00 Vaishnavi [facility] POCT URINALYSIS W/O SPECIFIC GRAVITY 2023-05-10 13:12:00 Vaishnavi De La Cruz [facility] TDAP VACCINE, >11 YRS, IM 2023-04-26 15:17:48 Indira [facility] POCT URINALYSIS W/O SPECIFIC GRAVITY 2023-04-26 15:14:00 Indira Alecia [facility] STERILIZATION CONSENT FORM 2023-04-26 06:01:00 Doctor Unassigned, [place] [facility] 3 HR GLUCOSE TOLERANCE TEST 2023-04-20 17:35:00 Vaishnavi De La Cruz [facility] 2 HR GLUCOSE TOLERANCE TEST 2023-04-20 16:39:00 Vaishnavi De La Cruz [facility] 1 HR GLUCOSE TOLERANCE TEST 2023-04-20 15:35:00 Vaishnavi De La Cruz [facility] GLUCOSE FASTING 2023-04-20 14:35:00 Vaishnavi De La Cruz [facility] 3 HR GLUCOSE TOLERANCE PANEL 2023-04-20 14:35:00 Vaishnavi De La Cruz [facility] POCT URINALYSIS W/O SPECIFIC GRAVITY 2023-04-12 15:31:00 Vaishnavi De La Cruz [facility] POCT URINALYSIS W/O SPECIFIC GRAVITY 2023-03-22 17:36:00 Vaishnavi De La Cruz [facility] SECOND AND THIRD TRIMESTER ULTRASOUND 2023-03-21 15:29:00 Indira [facility] POCT URINALYSIS W/O SPECIFIC GRAVITY 2023-02-22 21:27:00 Vaishnavi De La Cruz [facility] SECOND AND THIRD TRIMESTER ULTRASOUND 2023-02-07 15:44:00 Indira Alecia [facility] FLU VACC (), 6 MO-64 YRS, .5ML, IM, QUAD (FLUCELVAX) 2023-01-23 15:48:23 Indira Alecia [facility] POCT URINALYSIS W/O SPECIFIC GRAVITY 2023-01-23 15:32:00 Vaishnavi De La Cruz [facility] FIRST TRIMESTER ULTRASOUND 2022-11-30 15:28:00 Vaishnavi De La Cruz [facility] FIRST TRIMESTER ULTRASOUND 2022-11-16 18:35:00 Vaishnavi De La Cruz [facility] POCT URINALYSIS W/O SPECIFIC GRAVITY 2022-11-09 15:01:00 Vaishnavi De La Cruz [facility] POCT TEST 2022-11-09 15:00:00 Abdon De La Cruz [facility] Encounters Start Date/Time End Date/Time Encounter Type Admission Type Attending [facility] Facility Care Department Encounter ID Source 2019-04-06 13:21:00 Inpatient [facility] [id number] [facility] 2023-06-13 00:00:00 2024-04-13 02:18:42 Orders Only Doctor Unassigned, [place] Doctor Unassigned, [place] [facility] [id number] [facility] 2023-08-24 13:45:00 2023-08-24 15:04:15 Outpatient R SHARLA PULLIAM [facility] [id number] [facility] 2023-08-24 13:45:00 2023-08-24 15:04:15 Office Visit Sharla Pulliam [facility] [employer] [employer] OPERATOR [facility] MATERNAL & [facility] 1.2.840.114 350.1.13.10 4.2.7.2.686 [id number] [facility] 2023-08-03 15:00:00 2023-08-03 15:37:53 Outpatient R SHARLA PULLIAM [facility] [id number] [facility] 2023-08-03 15:00:00 2023-08-03 15:37:53 Routine Visit Sharla Pulliam [facility] LITHARGE MILL OPERATOR [facility] MATERNAL & CHILD [facility] 1.2.840.114 350.1.13.10 4.2.7.2.686 [id number] 125 [id number] [facility] 2023-06-27 00:00:00 2023-07-29 18:06:14 Patient Secure Alecia Elena [facility] LITHARGE MILL OPERATOR [facility] MATERNAL & CHILD [facility] 1.2.840.114 350.1.13.10 4.2.7.2.686 [id number] 125 [id number] [facility] 2023-07-20 13:30:00 2023-07-20 13:45:00 Nurse Visit 1, [facility] Clementine Nurse Celeste Hill [facility] LITHARGE MILL OPERATOR [facility] MATERNAL & [facility]ILD [facility] Z[facility] 1.2.840.114 350.1.13.10 4.2.7.2.686 [id number] [facility] 2023-07-20 13:30:00 2023-07-20 13:30:00 Outpatient R CELESTE HILL [facility] [id number] [facility] 2023-07-12 13:58:00 2023-07-14 20:30:00 Inpatient P PAPA CARLSON [facility] [id number] [facility] 2023-07-12 13:58:00 2023-07-14 20:30:00 Hospital Encounter Aldo [facility] 1.2.840.114 350.1.13.10 4.2.7.2.686 [id number] [facility] 2023-07-13 13:00:00 2023-07-13 14:55:00 Surgery Ana Luisa Rodriguez [facility] 1.2.840.114 350.1.13.10 4.2.7.2.686 [id number] [facility] 2023-07-12 19:38:00 2023-07-13 13:09:00 Anesthesia Event Sara Steven, [facility] 1.2840.114 350.1.13.10 4.2.7.2.686 [id number] [facility] 2023-07-10 09:00:00 2023-07-10 09:39:47 Outpatient R ALECIA JACOBSON [facility] [id number] [facility] 2023-07-10 09:00:00 2023-07-10 09:39:47 Routine Visit Indira Alecia [facility] LITHARGE MILL OPERATOR [facility] MATERNAL & CHILD [facility] 1.840.114 350.1.13.10 4.2.7.2.686 [id number] [facility] 2023-07-02 03:14:00 2023-07-02 08:03:00 Outpatient P EVELIA ROBLEDO [facility] JUSTINO [id number] [facility] 2023-07-02 03:14:00 2023-07-02 08:03:00 Hospital Encounter Mary Lou Chew [facility] 1.284.114 350.1.13.10 4.2.7.2.686 [id number] [facility] 2023-06-29 09:00:00 2023-06-29 09:23:38 Outpatient R ALECIA JACOBSON [facility] [id number] [facility] 2023-06-29 09:00:00 2023-06-29 09:23:38 Routine Visit Indira Alecia [facility] LITHARGE MILL OPERATOR [facility] MATERNAL & CHILD [facility] 1.2840.114 350.1.13.10 4.2.7.2.686 [id number] [facility] 2023-06-28 00:00:00 2023-06-28 00:00:00 Abstract Alecia Jacobson [facility] LITHARGE MILL OPERATOR [facility] MATERNAL & CHILD [facility] 1.2.840.114 350.1.13.10 4.2.7.2.686 [id number] [facility] 2023-06-27 08:30:00 2023-06-27 09:12:56 Outpatient R LEN ALANIS [facility] [id number] [facility] 2023-06-27 08:30:00 2023-06-27 09:12:56 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 1, [facility] Room SalasLen Nunez [facility] LITHARGE MILL OPERATOR [facility] & CHILD [facility] 1..840.114 350.1.13.10 4.2.7.2.686 [id number] [facility] 2023-06-22 07:00:00 2023-06-22 07:13:22 Outpatient R ALECIA JACOBSON [facility] [id number] [facility] 2023-06-22 07:00:00 2023-06-22 07:13:22 Routine Visit Alecia Jacobson [facility] LITHARGE MILL OPERATOR [facility] & CHILD [facility] 1.2.840.114 350.1.13.10 4.2.7.2.686 [id number] [facility] 2023-06-20 00:00:00 2023-06-20 00:00:00 Case Management Alecia Jacobson [facility] 1..840.114 350.1.13.10 4.2.7.2.686 [id number] 125 [id number] [facility] 2023-06-15 11:00:00 2023-06-15 11:30:16 Outpatient R JACQUESEUSEBIA ALECIAALECIA MENEZES [facility] [id number] [facility] 2023-06-15 11:00:00 2023-06-15 11:30:16 Routine Visit Indira Alecia [facility] LITHARGE MILL OPERATOR [facility] & CHILD [facility] 1.2.840.114 350.1.13.10 4.2.7.2.686 [id number] [facility] 2023-06-13 00:00:00 2023-06-13 00:00:00 Abstract Jacqueseusebia Alecia [facility] LITHARGE MILL OPERATOR [facility] CHILD [facility] 1.2.840.114 350.1.13.10 4.2.7.2.686 [id number] [facility] 2023-06-13 00:00:00 2023-06-13 00:00:00 Case Management Ana Chamorro [facility] LITHARGE MILL OPERATOR [facility] & CHILD [facility] 1.2.840.114 350.1.13.10 4.2.7.2.686 [id number] [facility] 2023-06-12 08:30:00 2023-06-12 08:30:00 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 [id number] [facility] 2023-06-07 09:15:00 2023-06-07 09:56:18 Outpatient R ALECIA JACOBSON [facility] [id number] [facility] 2023-06-07 09:15:00 2023-06-07 09:56:18 Routine Visit Indira Alecia [facility] LITHARGE MILL OPERATOR [facility] MATERNAL & CHILD [facility] 1..840.114 350.1.13.10 4.2.7.2.686 [id number] [facility] 2023-05-25 15:53:00 2023-05-25 17:38:00 Outpatient P [facility] [id number] [facility] 2023-05-25 15:53:00 2023-05-25 17:38:00 Hospital Encounter [facility] 1..840.114 350.1.13.10 4.2.7.2.686 [id number] [facility] 2023-05-25 13:00:00 2023-05-25 14:05:41 [facility] [id number] [facility] 2023-05-25 13:00:00 2023-05-25 14:05:41 Routine Visit Indira Alecia [facility] 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 MILL OPERATOR [facility] & CHILD [facility] 1.2.840.114 350.1.13.10 4.2.7.2.686 [id number] [facility] 2023-05-25 00:00:00 2023-05-25 00:00:00 Nurse Triage Gunjan Thomas [facility] 1.2.840.114 350.1.13.10 4.2.7.2.686 [id number] [facility] 2023-05-24 11:31:00 2023-05-24 13:07:00 Outpatient P NILESH SILVA [facility] JUSTINO [id number] [facility] 2023-05-24 11:31:00 2023-05-24 13:07:00 Hospital Encounter Nilesh Silva [facility] 1.2.840.114 350.1.13.10 4.2.7.2.686 [id number] [facility] 2023-05-24 09:00:00 2023-05-24 09:15:00 Routine Visit Alecia Jacobson [facility] LITHARGE MILL OPERATOR [facility] MATERNAL & CHILD [facility] 1.2.840.114 350.1.13.10 4.2.7.2.686 [id number] [facility] 2023-05-24 09:00:00 2023-05-24 09:00:00 Outpatient R ALECIA JACOBSON [facility] [id number] [facility] 2023-05-24 00:00:00 2023-05-24 00:00:00 Telephone Indira Alecia [facility] LITHARGE MILL OPERATOR [facility] & CHILD [facility] 1.2.840.114 350.1.13.10 4.2.7.2.686 [id number] 125 [id number] [facility] 2023-05-23 11:33:00 2023-05-23 15:04:00 Outpatient X IVETH RICHARDSON JUSTINO [id number] [facility] 2023-05-23 11:33:00 2023-05-23 15:04:00 Hospital Encounter Iveth Richardson [facility] ([facility] 1.2.840.114 350.1.13.10 4.2.7.2.686 [id number] [facility] 2023-05-21 12:55:00 2023-05-21 14:00:00 Outpatient X NILESH SILVA [facility] JUSTINO [id number] [facility] 2023-05-10 08:00:00 2023-05-10 08:30:50 Outpatient R ALECIA JACOBSON [facility] [id number] [facility] 2023-05-10 08:00:00 2023-05-10 08:30:50 Routine Visit Indira Alecia [facility] LITHARGE MILL OPERATOR [facility] MATERNAL & CHILD [facility] 1.840.114 350.1.13.10 4.2.7.2.686 [id number] [facility] 2023-04-26 09:00:00 2023-04-26 09:37:46 Outpatient R ALECIA JACOBSON [facility] [id number] [facility] 2023-04-26 09:00:00 2023-04-26 09:37:46 Routine Visit Indira Alecia [facility] LITHARGE MILL OPERATOR [facility] CHILD [facility] 1..114 350.1.13.10 4.2.7.2.686 [id number] [facility] 2023-04-26 00:00:00 2023-04-26 00:00:00 Orders Only Doctor Unassigned, [place] [facility] 1..114 350.1.13.10 4.2.7.2.686 [id number] [facility] 2023-04-20 08:00:00 2023-04-20 11:46:06 Outpatient R ALECIA JACOBSON [facility] [id number] [facility] 2023-04-20 08:00:00 2023-04-20 11:46:06 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 LITHARGE MILL OPERATOR [facility] & CHILD [facility] 1..114 350.1.13.10 4.2.7.2.686 [id number] [facility] 2023-04-13 00:00:00 2023-04-13 00:00:00 Case Management Vaishnavi De La Cruz [facility] LITHARGE MILL OPERATOR [facility] & CHILD [facility] 1..114 350.1.13.10 4.2.7.2.686 [id number] 125 [id number] [facility] 2023-04-12 09:15:00 2023-04-12 09:57:46 Outpatient R VAISHNAVI DE LA CRUZ [facility] [id number] [facility] 2023-04-12 09:15:00 2023-04-12 09:57:46 Routine Visit Vaishnavi De La Cruz [facility] LITHARGE MILL OPERATOR [facility] & CHILD [facility] 1.2.840.114 350.1.13.10 4.2.7.2.686 [id number] [facility] 2023-04-03 00:00:00 2023-04-03 00:00:00 Abstract Indira Alecia [facility] LITHARGE MILL OPERATOR [facility] & CHILD [facility] 1.2.840.114 350.1.13.10 4.2.7.2.686 [id number] 125 [id number] [facility] 2023-03-23 00:00:00 2023-03-23 00:00:00 Abstract Indira Alecia [facility] LITHARGE MILL OPERATOR [facility] MATERNAL & CHILD [facility] 1.2.840.114 350.1.13.10 4.2.7.2.686 [id number] [facility] 2023-03-22 09:15:00 2023-03-22 09:55:40 Outpatient R VAISHNAVI DE LA CRUZ [facility] [id number] [facility] 2023-03-22 09:15:00 2023-03-22 09:55:40 Routine Visit Vaishnavi De La Cruz [facility] LITHARGE MILL OPERATOR [facility] & CHILD [facility] 1..840.114 350.1.13.10 4.2.7.2.686 [id number] [facility] 2023-03-21 09:00:00 2023-03-21 09:32:36 Outpatient P ALECIA JACOBSON [facility] [id number] [facility] 2023-03-21 09:00:00 2023-03-21 09:32:36 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 1, [facility] Room Indira [facility] LITHARGE MILL OPERATOR [facility] & CHILD [facility] 1.2.840.114 350.1.13.10 4.2.7.2.686 [id number] [facility] 2023-02-22 15:15:00 2023-02-22 15:49:52 Outpatient R JACQUESEUSEBIA [facility] [id number] [facility] 2023-02-22 15:15:00 2023-02-22 15:49:52 [facility]ine [facility] & CHILD [facility] 1..840.114 350.1.13.10 4.2.7.2.686 [id number] [facility] 2023-02-08 00:00:00 2023-02-08 00:00:00 [facility] & CHILD [facility] 1..840.114 350.1.13.10 4.2.7.2.686 [id number] 125 [id number] [facility] 2023-02-07 09:00:00 2023-02-07 09:45:56 Outpatient P PAWANDAWSON MINNIE [facility] [id number] [facility] 2023-02-07 09:00:00 2023-02-07 09:45:56 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 2, [facility] 1..840.114 350.1.13.10 4.2.7.2.686 [id number] [facility] 2023-02-02 12:44:00 2023-02-02 12:44:00 Outpatient Jori Tafoya LABO [id number] 76 [facility] 2023-02-02 09:36:00 2023-02-02 11:16:00 Emergency EM Jori Tafoya [facility] [id number] 12 [facility] 2023-01-29 00:00:00 2023-01-29 00:00:00 Patient Secure Msg Alecia Jacobson [facility] LITHARGE MILL OPERATOR [facility] MATERNAL & CHILD [facility] 1.2.840.114 350.1.13.10 4.2.7.2.686 [id number] [facility] 2023-01-23 09:15:00 2023-01-23 10:02:05 Outpatient R ALECIA JACOBSON [facility] [id number] [facility] 2023-01-23 09:15:00 2023-01-23 10:02:05 Routine Visit Alecia Jacobson [facility] LITHARGE MILL OPERATOR [facility] & CHILD [facility] 1.2.840.114 350.1.13.10 4.2.7.2.686 [id number] [facility] 2022-12-28 00:00:00 2022-12-28 00:00:00 Case Management Indira [facility] LITHARGE MILL OPERATOR [facility] & CHILD [facility] 1.2.840.114 350.1.13.10 4.2.7.2.686 [id number] [facility] 2022-12-28 00:00:00 2022-12-28 00:00:00 Telephone Indira Alecia [facility] LITHARGE MILL OPERATOR [facility] & CHILD [facility] 1.2.840.114 350.1.13.10 4.2.7.2.686 [id number] [facility] 2022-12-26 09:15:00 2022-12-26 10:22:39 Outpatient R ALECIA JACOBSON [facility] [id number] [facility] 2022-12-26 09:15:00 2022-12-26 10:22:39 Routine Visit Indira Alecia [facility] LITHARGE MILL OPERATOR [facility] MATERNAL & [facility]ILD [facility] 1..840.114 350.1.13.10 4.2.7.2.686 [id number] 125 [id number] [facility] 2022-12-16 12:09:00 2022-12-16 14:06:00 Emergency EM Adonay Tang [facility] [id number] [facility] 2022-11-30 10:00:00 2022-11-30 10:26:31 Outpatient P LEN ALANIS [facility] [id number] [facility] 2022-11-30 10:00:00 2022-11-30 10:26:31 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 1, [facility] Room Len Alanis [facility] LITHARGE MILL OPERATOR [facility] MATERNAL & CHILD [facility] 1..840.114 350.1.13.10 4.2.7.2.686 [id number] [facility] 2022-11-30 00:00:00 2022-11-30 00:00:00 Abstract Vaishnavi De La Cruz [facility] LITHARGE MILL OPERATOR [facility] MATERNAL & CHILD [facility] 1..840.114 350.1.13.10 4.2.7.2.686 [id number] [facility] 2022-11-23 08:10:00 2022-11-23 10:02:00 Emergency EM Selena AshleighSavage [facility] [id number] [facility] 2022-11-22 00:00:00 2022-11-22 00:00:00 Telephone Vaishnavi De La Cruz [facility] LITHARGE MILL OPERATOR [facility] MATERNAL & CHILD [facility] 1..840.114 350.1.13.10 4.2.7.2.686 [id number] [facility] 2022-11-18 00:00:00 2022-11-18 00:00:00 Nurse Triage Quinton Pick[facility], [facility] 1.840.114 350.1.13.10 4.2.7.2.686 [id number] [facility] 2022-11-16 13:00:00 2022-11-16 13:43:17 [facility] [id number] [facility] 2022-11-16 13:00:00 2022-11-16 13:43:17 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 2, [facility] Room Papa Carlson [facility] LITHARGE MILL OPERATOR [facility] MATERNAL & CHILD [facility] 1.2.840.114 350.1.13.10 4.2.7.2.686 [id number] [facility] 2022-11-16 00:00:00 2022-11-16 00:00:00 Abstract Vaishnavi De La Cruz [facility] LITHARGE MILL OPERATOR [facility] MATERNAL & CHILD [facility] 1.2.840.114 350.1.13.10 4.2.7.2.686 [id number] [facility] 2022-11-15 00:00:00 2022-11-15 00:00:00 Case Management Vaishnavi De La Cruz [facility] & CHILD [facility] 1.2.840.114 350.1.13.10 4.2.7.2.686 [id number] [facility] 2022-11-15 00:00:00 2022-11-15 00:00:00 Telephone Vaishnavi De La Cruz [facility] LITHARGE MILL OPERATOR [facility] & CHILD [facility] 1.2.840.114 350.1.13.10 4.2.7.2.686 [id number] [facility] 2022-11-14 00:00:00 2022-11-14 00:00:00 Telephone Vaishnavi De La Cruz Gloria [facility] LITHARGE MILL OPERATOR [facility] MATERNAL & CHILD [facility] 1.2.840.114 350.1.13.10 4.2.7.2.686 [id number] [facility] 2022-11-11 00:00:00 2022-11-11 00:00:00 Patient Secure Msg Vaishnavi De La Cruz Gloria [facility] LITHARGE MILL OPERATOR [facility] & CHILD [facility] 1.2.840.114 350.1.13.10 4.2.7.2.686 [id number] [facility] 2022-11-09 09:30:00 2022-11-09 11:09:34 Initial Visit Vaishnavi De La Cruz Gloria [facility] LITHARGE MILL OPERATOR [facility] & CHILD [facility] 1.2.840.114 350.1.13.10 4.2.7.2.686 [id number] [facility] 2022-11-09 09:30:00 2022-11-09 11:09:34 Outpatient R JONOVAISHNAVI [facility] [id number] [facility] Results Test Description Test Time Test Comments Results Result Co mments Source [facility] (D) IMMUNE [id number] 19:44:15* Test Item Value Reference Range Interpretation Comme nts RHIG CANDIDATE? (test code = 5188) No- see comment Patient is not a candidate for RhIg- Patient is Rh Positive.Performed at [facility] Laboratory Services - [facility] Blood [address] [address]S[place] Free: [phone] No. [id number] [facility] (D) IMMUNE [id number] 19:44:15* Test Item Value Reference Range Interpretation Comme nts RHIG CANDIDATE? (test code = 5188) No- see comment Patient is not a candidate for RhIg- Patient is Rh Positive.Performed at [facility] Laboratory Services [facility] Blood [address] [address] Free: [phone] No. [id number] [facility] Cord [id number] 18:16:11* Test Item Value Reference Range Interpretation Comme nts BASE EXCESS, CORD (test code = 5983544977) -10.2 mEq/L AC PH, CORD (BEAKER) (test c ode = 2297851582) 7.15 7.18-7.38 L PC02, CORD (test code = 4968208313) 56 32-66 PO2, CORD (test code = 5082056623) 27 10-30 BICARBONATE, CORD (test code = 3434453401) 19 17-27 Lab Interpretation (test cod e = 12693-9) Abnormal [facility] Cord [id number] 18:16:11* Test Item Value Reference Range Interpretation Comme nts BASE EXCESS, CORD (test code = 9882788288) -10.2 mEq/L AC PH, CORD (BEAKER) (test c ode = 6598599748) 7.15 7.18-7.38 L PC02, CORD (test code = 2715131832) 56 32-66 PO2, CORD (test code = 6940169699) 27 10-30 BICARBONATE, CORD (test code = 5321758369) 19 17-27 Lab Interpretation (test cod e = 40931-2) Abnormal [facility] Cord [id number] 18:13:37* Test Item Value Reference Range Interpretation Comme nts VENOUS BASE EXCESS, CORD (te st code = 7982482824) -6.5 mEq/L VENOUS PH, CORD (test code = 8624269409) 7.30 7.25-7.45 VENOUS PC02, CORD (test code = 1968576214) 41 27-49 VENOUS PO2, CORD (test code = 8886167951) 24 17-41 VENOUS BICARBONATE, CORD (te st code = 0398779116) 20 12-29 [facility] Cord [id number] 18:13:37* Test Item Value Reference Range Interpretation Comme nts VENOUS BASE EXCESS, CORD (te st code = 9976346012) -6.5 mEq/L VENOUS PH, CORD (test code = 6157141370) 7.30 7.25-7.45 VENOUS PC02, CORD (test code = 0430253278) 41 27-49 VENOUS PO2, CORD (test code = 3839162703) 24 17-41 VENOUS BICARBONATE, CORD (te st code = 4647787594) 20 12-29 [facility] ONLY - SYPHILIS [id number] 15:52:06* Test Item Value Reference Range Interpretation Comme nts Syphilis IgG/IgM (test code = 70830-5) Non-reactive Non-reactive ALAYNA (test code = ALAYNA) Non-reactive - No serologic evidence of T. pallidum infection. Cannot exclude incubating or early syphilis. Submit a second specimen in 2-4 weeks if syphilis is clinically suspected. Equivocal - Further testing to follow. Reactive - Further testing to follow. Lab Interpretation (test code = 22506-7) Normal [facility] ONLY - SYPHILIS [id number] 15:52:06* Test Item Value Reference Range Interpretation Comme nts Syphilis IgG/IgM (test code = 54257-8) Non-reactive Non-reactive ALAYNA (test code = ALAYNA) Non-reactive - No serologic evidence of T. pallidum infection. Cannot exclude incubating or early syphilis. Submit a second specimen in 2-4 weeks if syphilis is clinically suspected. Equivocal - Further testing to follow. Reactive - Further testing to follow. Lab Interpretation (test code = 30032-8) Normal [facility] [id number] 01:01:00 Dorota Martinez MD ? ? 07/12/2023 ?8:04 PM Central Neuraxial Block Date/Time: 07/12/2023 8:01 PM Performed by: Keenan Aparicio, DOAuthorized by: Iveth Vidal MD ?Patient Location: OBReason for Block: OBrequest, Patient request and Labor analgesiaStaff: ?Anesthesiologist: Iveth Vidal MD ?Resident/FERRYBOAT DECKHAND: Dorota Martinez MD ?Performed by: anesthesiologist and [...] LISETH saline ?Guidance with: landmark techni que}Epidural/Spinal [place] and/or Catheter: ?Epidural/Spinal Kit: BBun ?Needle Type: [...] Epidural expectations; PCEA explained and fall precautions given.[facility] [id number] 01:01:00Dorota Martinez MD ? ? 07/12/2023 ?8:04 PM Central Neuraxial Block Date/Time: 07/12/2023 8:01 PM Performed by: Keenan Aparicio, DOAuthorized by: Iveth Vidal MD ?Patient Location: OBReason for Block: OBrequest, Patient request and Labor analgesiaStaff: ?Anesthesiologist: Iveth Vidal MD ?Resident/FERRYBOAT DECKHAND: Dorota Martinez MD ?Performed by: anesthesiologist and [...] and LISETH saline ?Guidance with: landmark technique}Epidural/Spinal [place] and/or Catheter: ?Epidural/Spinal Kit: BBraun ?Needle Type: [...] betadine x 3Subcutaneous infiltration with 1% Lidocaine ILSETH at 6 cm; catheter secured at 10 cm with mastisol, tegaderm x2 and 3-inch clear tape.Aspiration test negative x 3Test dose negativePatient tolerated procedure well with no immediate complications Epidural expectations; PCEA explained and fall precautions given.[facility] 1/2 AG-AB WITH REFLEX 2023-07-12 22:22:27* Test Item Value Reference Range Interpretation Comme [facility] HIV Semi-quantitative (test code = 36935-8) 0.10 Negative ALAYNA (test code = ALAYNA) Non-reactive for HIV-1 antigen and HIV-1/HIV-2 antibodies. ?No laboratory evidence of HIV infection. ?Repeat in 2-4 weeks if acute HIV infection is suspected. [facility] 1/2 AG-AB WITH [id number] 22:22:27* Test Item Value Reference Range Interpretation Comme [facility] HIV Semi-quantitative (test code = 52659-9) 0.10 Negative ALAYNA (test code = ALAYNA) Non-reactive for HIV-1 antigen and HIV-1/HIV-2 antibodies. ?No laboratory evidence of HIV infection. ?Repeat in 2-4 weeks if acute HIV infection is suspected. [facility] B Surface [id number] 22:13:43 * Test Item Value Reference Range Interpretation Comme nts HBsAg Semi-Quantitative (chris t code = 5195-3) 0.08 Negative [facility] B Surface [id number] 22:13:43 * Test Item Value Reference Range Interpretation Comme nts HBsAg Semi-Quantitative (chris t code = 5195-3) 0.08 Negative [facility] Screen - ONCE [id number] 20:26:00 * Test Item Value Reference Range Interpretation Comme nts ABO & RH (test code = 20) O POSITIVE IAT (test code = 1185) Negative [facility] and Screen - ONCE [id number] 20:26:00 * Test Item Value Reference Range Interpretation Comme nts ABO & RH (test code = 20) O POSITIVE IAT (test code = 1185) Negative [facility] Center[facility] W/O SPECIFIC [id number] 14:10:00* Test Item Value Reference Range Interpretation [...] = 3257) Negative Negative - Negati ve [facility] CenterBasi Metabolic Panel (NA, K, CL, CO2, GLUCOSE, BUN, CREATININE, CA)2023-07-02 10:18:04* Test Item Value Reference Range Interpretation Comme nts NA (test code = 2505749515) 136 mmol/L 135-145 K (test code = 5631903114) 4.1 mmol/L 3.5-5.0 CL (test code = 6299045248) 106 mmol/L 98-108 CO2 TOTAL (test code = 3966254994) 22 mmol/L 23-31 L AGAP (test code = 4387649181) 8 2-16 BUN (test code = 6767849227) 10 mg/dL 7-23 GLUCOSE (test code = 1750395810) 86 mg/dL 70-110 CREATININE (test code = 2160-0) 0.41 mg/dL 0.50-1.04 L CALCIUM (test code = 1264089139) 9.0 mg/dL 8.6-10.6 eGFR (test code = 25118-4) 137.6 mL/min/1.73m2 CKD-EPI eGFR (2020). Assuming creatinine has been stable day-to-day for at least three months, the eGFR indicates Category G1 (>= 90 mL/min/1.73 m2) Lab Interpretation (test code = 01574-5) Abnormal [facility] without [id number] 09:52:42* Test Item Value Reference Range Interpretation [...] 777-3) 298 166-358 MPV (test code = 59387-4) 10.9 fL 9.5-12.9 RDW-CV (test code = 788-0) 13.0 % 12.0-15.5 RDW-SD (test code = 66677-1) 39.2 fL 39.0-49.9 NRBC x10^3 (test code = 5530640255) See_Comment [Automated 60moa ge] The system which generated this result transmitted reference range: 10*3/?L. The reference range was not used to interpret this result as normal/abnormal. NRBC/100 WBC (test code = 2471345896) 0.0 0.0-10.0 IPF % (test code = 7840235699) Lab Interpretation (test code = 12367-3) Abnormal [facility] Urinalysis w/o Specific Yjjuaja6149-94-63 14:01:00* Test Item Value Reference Range Interpretation [...] = 3257) Neg Negative - Negati ve [facility] URINALYSIS W/O SPECIFIC [id number] 11:56:00* Test Item Value Reference Range Interpretation [...] ve Lab Interpretation (test cod e = 49019-9) Normal [facility] Urinalysis w/o Specific Ifjqguj6088-55-11 16:01:00* Test Item Value Reference Range Interpretation [...] = 3257) negative Negative - Negati ve [facility] CenterREFERRAL- REQUEST/EJZKVNHZ2160-27-10 13:50:05 Ordered by an unspecified provider.[facility] Rapid Flu A and B Aluu6362-18-44 14:57:00* Test Item Value Reference Range Interpretation Comme nts POCT INFLUENZA A (test code = 5216) Negative Negative POCT INFLUENZA B (test code = 5217) Negative Negative [facility] Rapid Flu A and B [id number] 14:57:00 * Test Item Value Reference Range Interpretation Comme nts POCT INFLUENZA A (test code = 5216) Negative Negative POCT INFLUENZA B (test code = 5217) Negative Negative [facility] Molecular Tiq3501-57-93 14:52:12* Test Item Value Reference Range Interpretation Comme nts POCT Molecular FluA (test co de = 30661-6) Negative Negative POCT Molecular FluB (test co de = 94384-3) Negative Negative Lab Interpretation (test cod e = 35612-8) Normal [facility] Molecular Ftw7634-54-36 14:52:12* Test Item Value Reference Range Interpretation Comme nts POCT Molecular FluA (test co de = 94457-9) Negative Negative POCT Molecular FluB (test co de = 83881-8) Negative Negative Lab Interpretation (test cod e = 53121-3) Normal [facility] URINALYSIS W/O SPECIFIC [id number] 14:15:00* Test Item Value Reference Range Interpretation [...] ve Lab Interpretation (test cod e = 30374-3) Normal [facility] URINALYSIS W/O SPECIFIC [id number] 14:15:00* Test Item Value Reference Range Interpretation [...] ve Lab Interpretation (test cod e = 99732-2) [facility] URINALYSIS W/O SPECIFIC [id number] 18:18:00* Test Item Value Reference Range Interpretation [...] ve Lab Interpretation (test cod e = 72352-1) Normal [facility] URINALYSIS W/O SPECIFIC [id number] 13:45:00* Test Item Value Reference Range Interpretation [...] ve Lab Interpretation (test cod e = 68480-0) Abnormal [facility]. Metabolic Panel (38824)2023-05-23 17:45:19* Test Item Value Reference Range Interpretation Comme nts NA (test code = 4440978427) 136 mmol/L 135-145 K (test code = 4708823284) 3.4 mmol/L 3.5-5.0 L CL (test code = 1729182088) 108 mmol/L 98-108 CO2 TOTAL (test code = 7590334888) 24 mmol/L 23-31 AGAP (test code = 3054110245) 4 2-16 BUN (test code = 4336180213) 7 mg/dL 7-23 GLUCOSE (test code = 3233510166) 89 mg/dL 70-110 CREATININE (test code = 2160-0) 0.35 mg/dL 0.50-1.04 L TOTAL BILI (test code = 9855974747) 0.7 mg/dL 0.1-1.1 CALCIUM (test code = 8992733020) 9.0 mg/dL 8.6-10.6 T PROTEIN (test code = 0140937372) 7.1 g/dL 6.3-8.2 ALBUMIN (test code = 5178393005) 3.7 g/dL 3.5-5.0 ALK PHOS (test code = 5747875535) 131 U/L 34-122 H ALTv (test code = 1742-6) 10 U/L 5-35 AST(SGOT) (test code = 5315050177) 20 U/L 13-40 eGFR (test code = 10404-6) 143.0 mL/min/1.73m2 CKD-EPI eGFR (2020). Assuming creatinine has been stable day-to-day for at least three months, the eGFR indicates Category G1 (>= 90 mL/min/1.73 m2) Lab Interpretation (test code = 07159-7) Abnormal [facility] with [id number] 17:20:37* Test Item Value Reference Range Interpretation [...] 33.6 g/dL 31.6-35.1 RDW-SD (test code = 97656-9) 38.3 fL 39.0-49.9 L RDW-CV (test code = 788-0) 12.1 % 12.0-15.5 PLT (test code = 777-3) 313 166-358 MPV (test code = 78984-4) 10.1 fL 9.5-12.9 NRBC/100 WBC (test code = 4036138807) 0.0 0.0-10.0 NRBC x10^3 (test code = 3601497551) See_Comment [Automated messa ge] The system which generated this result transmitted reference range: 10*3/?L. The reference range was not used to interpret this result as normal/abnormal. GRAN MAT (NEUT) % (test code = 770-8) 69.9 % IMM GRAN % (test code = 2372655560) 0.40 % LYMPH % (test code = 736-9) 17.7 % MONO % (test code = 5905-5) 10.8 % EOS % (test code = 713-8) 0.6 % BASO % (test code = 706-2) 0.6 % GRAN MAT x10^3(ANC) (test code = 3507727105) 4.93 10*3/uL 1.88-7.09 IMM GRAN x10^3 (test code = 1206153693) 0.03 10*3/uL 0.00-0.06 LYMPH x10^3 (test code = 731-0) 1.25 10*3/uL 1.32-3.29 L MONO x10^3 (test code = 742-7) 0.76 10*3/uL 0.33-0.92 EOS x10^3 (test code = 711-2) 0.04 10*3/uL 0.03-0.39 BASO x10^3 (test code = 704-7) 0.04 10*3/uL 0.01-0.07 Lab Interpretation (test code = 16847-7) Abnormal [facility] URINALYSIS W/O SPECIFIC [id number] 13:12:00* Test Item Value Reference Range Interpretation [...] ve Lab Interpretation (test cod e = 37284-3) Abnormal [facility] Urinalysis w/o Specific Dvyoflw5155-04-07 15:15:00* Test Item Value Reference Range Interpretation [...] = 3257) Negative Negative - Negati ve [facility] URINALYSIS W/O SPECIFIC [id number] 15:33:00* Test Item Value Reference Range Interpretation [...] = 3257) neg Negative - Negati ve [facility] URINALYSIS W/O SPECIFIC [id number] 17:36:00* Test Item Value Reference Range Interpretation [...] ve Lab Interpretation (test cod e = 89833-1) Normal [facility] URINALYSIS W/O SPECIFIC [id number] 21:27:00* Test Item Value Reference Range Interpretation [...] ve Lab Interpretation (test cod e = 70923-1) Abnormal [facility] METABOLIC [id number] 11:28:00* Test Item Value Reference Range Interpretation [...] CA) 8.9 mg/dL 8.4-10.2 N HCG SERUM [id number] 11:28:00* Test Item Value Reference Range Interpretation Comme nts HCG SERUM BETA (test code = HCG) 33225.0 mIU/ml 0-5.0 H `INTERPRETATIO N:B-HCG LEVELS <6 SHOULD BE CONSIDERED "NEGATIVE."VALUES BETWEEN 6-25 MIU/ML NEED TO BE RETESTED WITHIN 48hrs. 0-1 WEEKS AFTER CONCEPTION 0-50 MIU/ML1-2 WEEKS AFTER CONCEPTION 40-300 MIU/ML2-3 WEEKS AFTER CONCEPTION 100-1,000 MIU/ML3-4 WEEKS AFTER CONCEPTION 500-6,000 MIU/ML1-2 MONTHS AFTER CONCEPTION 5,000-200,000 MIU/ML2-3 MONTHS AFTER CONCEPTION 10,000-100,000 MIU/ML2ND TRIMESTER 3,000-50,000 MIU/ML3RD TRIMESTER 1,000-50,000 MIU/ML CBC W/O [id number] 10:47:00* Test Item Value Reference Range Interpretation [...] fL 6.7-11.0 N - US PREG AFTER [id number] 10:30:00 [facility])Name: MARY FARLEY : 1995 Sex: F Name: MARY FARLEY : 1995 Age/S: 27 / F [address] Unit #: [id number] Loc: [place] [address] Phys: Johanny Castillo Acct: [id number] Dis Date: Status: PRE ER PHONE #: [phone] Exam Date: 02/02/2023 1027 FAX #: [phone] Reason: VAGINAL BLEEDING/PELVIC PAIN EXAMS: CPT CODE: [id number] US PREG AFTER 67274 REASON FOREXAM: PELVIC PAIN EXAM ORDER DATE: 02/02/2023 9:45 AM Attending:Jori Tafoya MD Provider: Johanny Castillo Location:[facility] PROCEDURE: - DUP AB/PEL/SC COMP, - [...] Probe: PAGE 1 Signed Report- DUP AB/PEL/SC [id number] 10:30:00[facility])Name: MARY FARLEY : 1995 [facility]: [facility]: [facility] 1995 Age/S: 27 / F [address] #: [id number] Loc: [place] [address] Phys: Johanny Castillo Acct: [id number] Dis Date: Status: PRE ER PHONE #: [phone] Exam Date: 02/02/2023 1027 FAX #: [phone] Reason: PELVIC PAIN EXAMS: CPT CODE: [id number] DUP AB/PEL/SC COMP 79178 REASON FOR EXAM: PELVIC PAIN EXAM ORDER DATE: 02/02/2023 9:45 AM Attending:Jori Tafoya MD Provider: Johanny Castillo Location:[facility] PROCEDURE: - DUP AB/PEL/SC COMP, - [...] MD; Johanny Castillo Technologist: Pauline Gramajo RDMS Trnnmb Date/Time: 02/02/2023 (1030) t.SDR.DKH1 Orig Print D/T: S: 02/02/2023 (1033) Probe: PAGE 1 Signed ReportURINALYSIS [id number] 10:21:00* Test Item Value Reference Range Interpretation [...] Urine Source? Clean CatchPOCT URINALYSIS W/O SPECIFIC [id number] 15:32:00 * Test Item Value Reference Range [...] = 3257) neg Negative - Negati ve [facility] [id number] 13:47:00* Test Item Value Reference Range Interpretation [...] NONE A Urine Source? Clean CatchHCG SERUM [id number] 13:44:00* Test Item Value Reference Range Interpretation Comme nts HCG SERUM BETA (test code = HCG) 40183.0 mIU/ml 0-5.0 H INTERPRETATION :B-HCG LEVELS <6 SHOULD BE CONSIDERED "NEGATIVE."VALUES BETWEEN 6-25 MIU/ML NEED TO BE RETESTED WITHIN 48hrs. 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 Neihart-rump length (CRL): 3.5 cm corresponds to 10 [...] 1 Signed Report (CONTINUED) Name: MARY FARLEY : 1995 Age/S: 27 / F [address] Unit #: [id number] Loc: [place] [address] Phys: Johanna Bauer NP Acct: [id number] Dis Date: Status: PRE ER PHONE #: [phone] Exam Date: 12/16/2022 1247 FAX #: [phone] Reason: VAGINAL BLEEDING/PELVIC PAIN EXAMS: CPT CODE: [id number] US PREG 1ST TRIMTR 98822 (Continued) Free Fluid: None. 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 Neihart-rump length (CRL): 3.5 cm corresponds to 10 [...] [facility] 1995 Age/S: 27 / F [address] Unit #: [id number] Loc: [place] [address] Phys: Johanna Bauer NP Acct: [id number] Dis Date: Status: PRE ER PHONE #: [phone] Exam Date: 12/16/2022 1247 FAX #: [phone] Reason: PELVIC PAIN EXAMS: CPT CODE: [id number] DUP AB/PEL/SC COMP 06968 (Continued) Free Fluid: None. Additional Findings: None. IMPRESSION: Single viable intrauterine with embryonic HR of 118 bpm and AUA of 10 weeks 2 days. Dates are concordant with EGA by LMP. at 1259 Reported and signed by: Duncan Blair M.D. CC: Rosa Marai Sanches MD; Adonay Tang MD; Johanna Bauer NP Technologist: Pauline Gramajo RDMS Trnnmb Date/Time: 12/16/2022 (1259) t.SDR.IB4 Orig Print D/T: S: 12/16/2022 (6094) Probe: PAGE 2 Signed ReportBASIC METABOLIC [id number] 12:55:00* Test Item Value Reference Range Interpretation [...] CA) 9.1 mg/dL 8.4-10.2 N HEPATIC FUNCTION [id number] 12:55:00* Test Item Value Reference Range Interpretation [...] code = ALKP) 63 U/L 38-126 N [id number] 12:55:00* Test Item Value Reference Range Interpretation Comme nts LIPASE (test code = LIP) 34 U/L 16-77 N HCG SERUM [id number] 12:55:00* Test Item Value Reference Range Interpretation Comme nts HCG SERUM QUAL (test code = HCGQL) POSITIVE NEGATIVE A This HCGQL test is NOT applicable for MALE patients.Check with nurse about probable order error.If Tumor Marker Test needed, nurse should order test "HCGTU"(Test #[id number]) CBC W/O [id number] 12:41:00* Test Item Value Reference Range Interpretation [...] fL 6.7-11.0 N - US PREG UT [id number] 09:38:00 [facility]Name: MARY FARLEY : 1995 Sex: F [facility]: [facility] 1995 Age/S: 27 / F [address] #: [id number] Loc: [place] [address] Phys: Suleman Walters MD Acct: [id number] Dis Date: Status: REG ER PHONE #: [phone] Exam Date: 11/23/2022915 FAX #: [phone]: PELVIC PAIN EXAMS: CPT CODE: [id number] US PREG UT TRANSVAGINAL 05820 HISTORY: Pelvic pain. COMPARISON: None available. Location: [facility]. Transabdominal and transvaginal (for better endometrialand [...] 6 weeks 3 days +/- 1 week. LEIV of July 16, 2023. LEVI by LMP [...] Orig Print D/T: S: 11/23/2022 (0942) Probe: [id number] PAGE 1 Signed Report- DUP AB/PEL/SC [id number] 09:38:00 [facility])Name: MARY FARLEY : 1995 Sex: F Name: MARY FARLEY : 1995 Age/S: 27 / F [address] Unit #: [id number] Loc: [place] [address] Phys: Suleman Walters MD Acct: [id number] Dis Date: Status: REG ER PHONE #: [phone] Exam Date: 11/23/2022915 FAX #: [phone]: PELVIC PAIN EXAMS: CPT CODE: [id number] DUP AB/PEL/SC COMP 79050 HISTORY: Pelvic pain. CHERI RISON: None available. Location: [facility]. Transabdominal and transvaginal (for better endometrial [...] M.D. CC: Suleman Walters MD Technologist: Radha Pantjoa Trnscb Date/Time: 11/23/2022 (937) t.CESARIOR.TH4 Orig Print D/T: S: 11/23/2022 (941) Probe: PAGE 1 Signed Report- US PREG [id number] 09:38:00 [facility])Name: MARY FARLEY : 1995 Sex: F Name: MARY FARLEY : 1995 Age/S: 27 / F [address] #: [id number] Loc: [place] [address] Phys: Suleman Walters MD Acct: [id number] Dis Date: Status: REG ER PHONE #: [phone] Exam Date: 11/23/2022915 FAX #: [phone] Reason: VAGINAL BLEEDING/PELVIC PAIN EXAMS: CPT CODE: [id number] US PREG 1ST TRIMTR 07395 HISTORY: Pelvic pain. COMPARISON: None available. Location: [...] CC: Suleman Walters MD Technologist: Rad[facility] P[facility] Date/Time: 11/23/2022 (0938) t.CESARIOR.TH4 Orig Print D/T: S: 11/23/2022 (0942) Probe: PAGE 1 Signed ReportBASIC METABOLIC [id number] 09:35:00* Test Item Value Reference Range Interpretation [...] CA) 8.6 mg/dL 8.4-10.2 N HCG SERUM [id number] 09:35:00* Test Item Value Reference Range Interpretation Comme [facility] HCG SERUM BETA (test code = HCG) 29432.0 mIU/ml 0-5.0 H INTERPRETATION :B-HCG LEVELS <6 SHOULD BE CONSIDERED "NEGATIVE."VALUES BETWEEN 6-25 MIU/ML NEED TO BE RETESTED WITHIN 48hrs. 0-1 WEEKS AFTER CONCEPTION 0-50 MIU/ML1-2 WEEKS AFTER CONCEPTION 40-300 MIU/ML2-3 WEEKS AFTER CONCEPTION 100-1,000 MIU/ML3-4 WEEKS AFTER CONCEPTION 500-6,000 MIU/ML1-2 MONTHS AFTER CONCEPTION 5,000-200,000 MIU/ML2-3 MONTHS AFTER CONCEPTION 10,000-100,000 MIU/ML2ND TRIMESTER 3,000-50,000 MIU/ML3RD TRIMESTER 1,000-50,000 MIU/ML URINALYSIS [id number] 09:01:00* Test Item Value Reference Range Interpretation [...] NONE A Urine Source? Clean CatchC W/O [id number] 08:51:00* Test Item Value Reference Range Interpretation [...] = MPV) 10.1 fL 6.7-11.0 N POCT [id number] 15:01:00* Test Item Value Reference Range Interpretation Comme nts POCT PREG (test code = 1605) Positive On board controls acceptable with C Line (test code = 3574) Yes POCT PREG LOT # (test code = 3575) [id number] POCT PREG TEST DATE ( test code = 3576) 06-27-2023 Lab Interpretation (test cod e = 49373-3) [facility] W/O SPECIFIC [id number] 15:01:00* Test Item Value Reference Range Interpretation [...] ve Lab Interpretation (test cod e = 72399-1) Abnormal [facility] CenterCHLAMYDIA GC DNA BY [id number] 18:08:00* Test Item Value Reference Range Interpretation Comme nts C. TRACHOMATIS DNA BY PCR (test code = CHLAMTDNA) Negative Negative N. GONORRHOEAE DNA BY PCR (test code = NGONORDNA) Negative Negative Performed At: [facility] [place], [place] [id number] pratima Wolfe MD Ph:[phone] performed at: [facility] [address] [place] [address] URINALYSIS [id number] 14:00:00* Test Item Value Reference Range Interpretation [...] LPF NONE-FEW Urine Source? Clean CatchUR HCG [id number] 14:00:00* Test Item Value Reference Range Interpretation Comme nts UR HCG QUAL (test code = HCGQLU) NEGATIVE This HCGQL test is NOT applicable for MALE patients.Check with nurse about probable order error.If Tumor Marker Test needed, nurse should order test "HCGTU"(Test #550.87161) Urine Source? Clean CatchURINALYSIS [id number] 13:59:00* Test Item Value Reference Range Interpretation [...] HPF NONE Urine Source? Clean CatchUR HCG [id number] 13:59:00* Test Item Value Reference Range Interpretation [...] (%): 0 % / Station: Floating - [place] : irregular - Plan: IOL with FB and pitocin. Desires epidural for pain relief. PP BTL. Antepartum course reviewed - 1 h 135, 3 hr wnl, sero neg, Ri, VZVi, O+/neg, GBS neg, Pap NIL 11/09/22 - H/H, plt: 10.4 / 31.5, 298 on 07/02/23 - [facility] Fetus - Presentation on admission: vertex, sutures [...] available for consultation. I agree with nurse balance weigher, Natacha Petit's note as written. I actively participated in the decision-making process. Please see the nurse balance weigher's note for additional details. [facility] 2023-05-23 13:59:34 ANTEPARTUM HISTORY & PHYSICAL IDENTIFYING DATA Mary Farley is 28 year old, /White, 32w0d, female with LEVI 07/18/2023, by Ultrasound. : 1995 Primary Care Physician: [facility] Day: 1 CHIEF COMPLAINT Nausea/vomiting cramping HISTORY [...] in the note below and agree with FOUNTAIN SUPERVISOR note. I actively participated in the decision-making process. Please see the FOUNTAIN SUPERVISOR note for additional details. T Iveth Richardson MD 05/23/2023 2:50 PM [facility] Procedure Notes Date/Time Note Provider Source 2023-07-13 [...] this position. IUPC and FSE tracing well. [facility] 2023-07-12 20:01:47 Associated Order(s): Central Neuraxial Block Central Neuraxial Block Date/Time: 07/12/2023 8:01 PM Performed by: Keenan Aparicio DO Authorized by: Iveth Vidal MD Patient Location: OB Reason for Block: OB request, Patient request and Labor analgesia Staff: Anesthesiologist: Iveth Vidal MD Resident/FERRYBOAT DECKHAND: Dorota Martinez MD Performed by: anesthesiologist and resident/FERRYBOAT DECKHAND Preanesthetic Checklist: patient identified, IV checked, risks [...] LISETH saline Guidance with: landmark technique} Epidural/Spinal [place] and/or Catheter: Epidural/Spinal Kit: BBraun Needle Type: [...] PCEA explained and fall precautions given. AN-ANESTHESIOLOGY [facility] 2023-07-12 16:40:36 Procedure(s): INSERT CERVICAL DILATOR Pre-Procedure [...] Station: floating Natacha Nunes APRN, CNM T [facility] Notes Date/Time Note Provider Source 2023-07-14 18:32:50 [...] Absence of infection [facility]come: [facility] 10:01:17 Post-Anesthesiology Follow-Up Note Mary Farley [...] Rishabh Camacho MD 07/14/2023 10:01 AM AN-ANESTHESIOLOGY [facility] 2023-07-14 06:26:25 Problem: Pain Goal: Control of [...] Outcome: Progressing as expected Cat Otero RN [facility] 2023-07-13 17:36:23 This note was copied from a baby's chart. Assessment (most recent) Assessment - 07/13/23 1730 General Information Visit Initial Percent of weight loss- 0 Mom's age (years) 28 years Crochet Beader Used N/A Gestational age 39 weeks Feeding plan Formula Attended class No Breastfeed previously No Delivery method ;BTL Breast changes during None Literature Resources Education How to suppress milk supply Handouts given Tamazight Recommended Feeding Plan Recommended feeding plan Frequent pftv-vz-reka time with parents OTHER $ SERVICES Initial Mom is wanting to formula feed only. Information on how to dry up her milk provided. Nelly Armendariz RN,BSN,IBCLC Pager - [phone] Nelly Armendariz RN [facility] 2023-07-13 16:24:16 Problem: Intrapartum process (including labor [...] Outcome: Progressing as expected Alonso Us RN [facility] 2023-07-13 14:07:03 Patient: Mary Farley Procedure Summary Date: 07/12/23 Room / Location[facility] [place] [address] [facility]est[facility] Start: 1937 Anesthesia Stop: 07/13/23 1309 [...] 40.96 kg/m? Karla Martinez MD AN-ANESTHESIOLOGY ANESTHESIOLOGIST [facility] 2023-07-13 13:16:54 Delivery Date: 07/13/2023 Delivery Time: 12:10 PM DELIVERY BY SECTION Date of Service: : 07/13/2023 at 12:10 PM Admitted for: sIOL, Primary Lower uterine tranverse section with no extension, Modified Meacham BTL, Pfannenstiel, Closed with sutures, EBL 850 cc, No complications, Findings: normal uterus, bilateral ovaries/fallopian tubes Delivery Summary Sex: male Weight: 3390 g 1 Minute 5 Minute 10 Minute Totals: 8 9 Primary Indication: The patient was taken to the operating room for a primary section due to: maternal request at 39w2d weeks. Procedures: Primary Lower uterine tranverse section with no extension Modified [place] bilateral tubal ligation Specimens Removed: Placenta, bilateral fallopian tubal segments Clinical Trials: none Surgeon: Madiha Sanchez MD Floor Covering Contractor Surgeon: Robyn Barrow MD OB Faculty: Ana [...] bladder flap was developed by grasping with [place] forcep and enter with Metzenbaun scissor. Then [...] aid of fundal pressure applied by the assistant project manager surgeon . The body was delivered with [...] fallopian tube was grasped at midportion with [place] forceps and followed out to distal end until the fimbria was visualized. The fallopian tube was ligated and resected with Modified Meacham technique - [place] clamp was placed on fallopian tube and [...] ligated with 0-plain guts sutures with Modified Meacham technique - Ben clamp was placed on [...] time of operative note entered. Please see [facility] for update. The placenta was not sent to pathology. Robyn Barrow MD Associated attestation - Ana Luisa Rodriguez MD - 07/13/2023 5:06 PM CDT I was present for the procedure on 07/13/2023. Please see Dr. Barrow note for additional details. Ana Luisa Rodriguez MD -OBSTETRICS & GYNECOLOGY [facility] 2023-07-13 08:01:25 Problem: Intrapartum process (including labor [...] Outcome: Progressing as expected Trina Sotelo RN [facility] 2023-07-12 20:51:17 Problem: Intrapartum process (including labor pain) Goal: Absence of or reduction of complications of labor Outcome: Progressing as expected Goal: Able to cope with pain Outcome: Progressing as expected Goal: Adequate to move to next level of care Outcome: Progressing as expected Goal: Reduction in pain sensation Outcome: Progressing as expected Lara Ribeiro RN [facility] 2023-07-12 14:43:05 Problem: Intrapartum process (including labor [...] Outcome: Progressing as expected Ophelia Mendoza RN [facility] 2023-07-12 14:37:49 Name/ MRN / Age / Gender: Mary Farley, [id number] 28 year old female BMI: Estimated body [...] (physical exam) Anesthesia Preop: Chart Review and Gfqw-fy-Dreo NPO Status Verified Clear Liquids: > 2 [...] Hyperthyroidism (-) Hypothyroidism Other (-) Tobacco use 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 Hold on DOS. Phentermine: Alert [facility] anesthesiologist SGLT2 Inhibitors: "gliflozins" to be held [...] Epidural Anesthesia plan discussed with: patient or indirect sales representative Post-Operative Analgesia: routine analgesia & antiemetics Recovery Plan: LDR Additional comments: AN-ANESTHESIOLOGY ANESTHESIOLOGIST [facility] 2023-05-26 09:17:08 Patient was seen in clinic 05/25/23. Ramona Venegas RN 05/26/2023 9:17 AM Ramona Tripp RN [facility] 2023-05-25 11:02:00 Regarding: lack of movement , [...] last night and stop Gunjan Thomas RN [facility] 2023-05-25 11:02:00 Triage Assessment Last Clinic Visit: [...] going from standing to sitting. Reports from [id number] had 4 kicks total. Assessment and triage completed per protocol. Patient verbalizes understanding and agrees to follow plan of care. Pt verbalized understanding of need for L&D eval within 1 hr and states will go to [facility] L[facility]D as advised. Pt had no further questions or concerns. Call back advice given and pt verbalized understanding. Gunjan Thomas RN Reason for Disposition [1] 23 or more weeks AND [2] baby moving less today by kick count (e.g., kick count < 5 in 1 hour or < 10 in 2 hours) Protocols used: - Decreased [id number] [facility] 2023-05-24 13:38:22 Copied from [facility] #[id number]. Topic: Clinical - Missed Call from Provider >> May 24, 2023 1:37 PM Patient Newspaper Editor wrote: Patient states that she is returning a missed call from the provider. Please callback. Thank you. Laura Knott [facility] 2023-05-24 12:56:02 Copied from [facility] #[id number]. Topic: Clinical - Medical Advice >> May 24, 2023 12:51 PM Patient Newspaper Editor wrote: Patient calling requesting to speak to FOUNTAIN SUPERVISOR Alecia Jacobson. Abena Villanueva [facility] 2023-04-20 08:00:00 Images from the original note [...] processed according to instructions and sent to [facility] laboratories per lab order on 04/20/23. Cem Jackson MA 04/20/2023 8:40 AM LT BLUE SST 4 RED LAV PPT DK GREEN (LiHep) DK GREEN (SodH) DAVIS DK BLUE (K2) DK BLUE (S) ACD Blood Culture NIPT/NTD [facility] 2023-02-02 09:46:00 [facility] ([facility]) EMERGENCY PROVIDER REPORT REPORT#:[id number] REPORT STATUS: Signed DATE:02/02/23 TIME: 945 PATIENT: MARY FARLEY UNIT #: [id number] ROOM/BED: AGE: 27 SEX: F PCP PHYS: [...] HCG Beta Subunit (0 - 5.0 mIU/ml) 03731.0 H Urines Urine Color (YELLOW) YELLOW Urine Appearance (CLEAR) HAZY H Urine pH (5.0 - 8.0) 6.5 Ur Specific [place] (1.001 - 1.035) 1.015 Urine Protein (Neg [...] with treatment plan, instructed to follow-up with LITHARGE MILL OPERATOR in 2 to 3 days or return [...] Early Additional Instructions 1. Follow-up with your LITHARGE MILL OPERATOR in 2 to 3 days 2. Return [...] Saw Pt Alone I have reviewed the PA/FOUNTAIN SUPERVISOR's note and plan of care. I was available for consultation as needed at all times during the patient's visit in the emergency department. I agree with the clinical impression, plan and disposition. at 1159 at 1527 [facility] #:[id number] END OF REPORT [facility] 2022-12-16 13:27:00 [facility] ([facility]) EMERGENCY PROVIDER REPORT REPORT#:[id number] REPORT STATUS: Signed DATE:12/16/22 TIME: 1326 PATIENT: MARY FARLEY UNIT #: [id number] ROOM/BED: AGE: 27 SEX: F PCP PHYS: Rosa Maria Sanches MD SERVICE AUTHOR: Johanna Bauer FOUNTAIN SUPERVISOR * ALL edits or amendments must be [...] HCG Beta Subunit (0 - 5.0 mIU/ml) 11012.0 H Urines Urine Color (YELLOW) YELLOW Urine Appearance (CLEAR) CLOUDY H Urine pH (5.0 - 8.0) 8.0 Ur Specific [place] (1.001 - 1.035) 1.015 Urine Protein (Neg [...] of already. Instructed patient to follow-up with LITHARGE MILL OPERATOR regarding abdominal cramping. She stated precautions given, [...] Provider Referral: Sylvia Britton MD Address: [address] [address] Provider Referral: Negrito Duggan MD Address: [address] [place] [address] Provider Referral: Fatou Clemens MD Address: [address] [facility] [address] [place] [address] Discharge Note I have spoken with the [...] Saw Pt Alone I have reviewed the PA/FOUNTAIN SUPERVISOR's note and plan of care. I was available for consultation as needed at all times during the patient's visit in the emergency department. I agree with the clinical impression, plan and disposition. MidLv/Doc Saw Pt 1 I have personally seen the patient and I evaluated the patient along with involvement of the PA/FOUNTAIN SUPERVISOR. I agree with the PA/director airport operations findings and plan. I have performed all aspects of MDM as documented including: evaluation of the patient/ patient's condition(s), review and analysis of available data, and determination of risk of patient management decisions. MidLv/Doc Saw Pt 2 The PA/FOUNTAIN SUPERVISOR has seen the patient and I have performed this visit along with the involvement of the PA/FOUNTAIN SUPERVISOR. I agree with the PA/director airport operations findings and plan. I have performed all aspects of MDM as documented including: evaluation of the patient/ patient's condition(s), review and analysis of available data, and determination of risk of patient management decisions. at 1506 at 0758 RPT #:[id number] END OF REPORT [facility] 2022-11-23 08:37:00 [facility] ([facility]) EMERGENCY PROVIDER REPORT REPORT#:[id number] REPORT STATUS: Signed DATE:11/23/22 TIME: 0837 PATIENT: MARY FARLEY UNIT #: [id number] ROOM/BED: AGE: 27 SEX: F PCP PHYS: [...] HCG Beta Subunit (0 - 5.0 mIU/ml) 39323.0 H Urines Urine Color (YELLOW) YELLOW Urine Appearance (CLEAR) SLIGHT HAZY H Urine pH (5.0 - 8.0) 6.5 Ur Specific [place] (1.001 - 1.035) 1.015 Urine Protein (Neg [...] 3/7 wga with bradycardia to 118 HCG 65151 O+ Address: [address] [place] [address] [place] [address] Discharge Note I have spoken with the [...] Notes I discussed all 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 Patient improved and stable for discharge home with outpatient follow-up. Warning signs and return precautions reviewed and all questions answered. at 1453 RPT #:[id number] END OF REPORT [facility] 2022-11-14 09:28:02 Formatting of this n ote [...] US to be given. Pt now has [facility] approval and has chose the [facility]. Please issue the referral for the [phone] (home) Ayana Dodson [facility] 2019-04-06 13:30:00 [facility] ([facility]) EMERGENCY PROVIDER REPORT REPORT#:[id number] REPORT STATUS: Signed DATE:04/06/19 TIME: 1330 PATIENT: MARY FARLEY UNIT #: [id number] ROOM/BED: AGE: 23 SEX: F PCP PHYS: No Primary or Family Physician SERVICE AUTHOR: Anisa Cevallos FOUNTAIN SUPERVISOR * ALL edits or amendments must be [...] pH (5.0 - 8.0) 7.0 Ur Specific [place] (1.001 - 1.035) 1.010 Urine Protein (Neg [...] a call to 911. at 1422 RPT #:[id number] END OF REPORT [facility] 2019-04-06 13:30:00 [facility] ([facility]) EMERGENCY PROVIDER REPORT REPORT#:[id number] REPORT STATUS: Signed DATE:04/06/19 TIME: 1329 PATIENT: MRAY FARLEY UNIT #: [id number] ROOM/BED: AGE: 23 SEX: F PCP PHYS: No Primary or Family Physician SERVICE AUTHOR: Anisa Cevallos FOUNTAIN SUPERVISOR * ALL edits or amendments must be [...] pH (5.0 - 8.0) 7.0 Ur Specific [place] (1.001 - 1.035) 1.010 Urine Protein (Neg [...] Saw Pt Alone I have reviewed the PA/FOUNTAIN SUPERVISOR's note and plan of care. I was available for consultation as needed at all times during the patient's visit in the emergency department. I agree with the clinical impression, plan and disposition. at 1422 at 1431 RPT #:[id number] END OF REPORT [facility] 2019-04-06 13:30:00 [facility] ([facility]) EMERGENCY PROVIDER REPORT REPORT#:[id number] REPORT STATUS: Signed DATE:04/06/19 TIME: 1330 PATIENT: MARY FARLEY UNIT #: [id number] ROOM/BED: AGE: 23 SEX: F PCP PHYS: [...] pH (5.0 - 8.0) 7.0 Ur Specific [place] (1.001 - 1.035) 1.010 Urine Protein (Neg [...] Saw Pt Alone I have reviewed the PA/FOUNTAIN SUPERVISOR's note and plan of care. I was available for consultation as needed at all times during the patient's visit in the emergency department. I agree with the clinical impression, plan and disposition. at 1422 at 1431 Addendum 1: 04/06/19 1439 by Anisa Cevallos NP [facility] 164 at 1440 RPT #:[id number] END OF REPORT [facility] 2019-04-06 13:30:00 [facility] ([facility]) EMERGENCY PROVIDER REPORT REPORT#:[id number] REPORT STATUS: Signed DATE:04/06/19 TIME: 1330 PATIENT: MARY FARLEY UNIT #: [id number] ROOM/BED: AGE: 23 SEX: F PCP PHYS: [...] pH (5.0 - 8.0) 7.0 Ur Specific [place] (1.001 - 1.035) 1.010 Urine Protein (Neg [...] Saw Pt Alone I have reviewed the PA/FOUNTAIN SUPERVISOR's note and plan of care. I was available for consultation as needed at all times during the patient's visit in the emergency department. I agree with the clinical impression, plan and disposition. at 1422 at 1431 Addendum 1: 04/06/19 1439 by Anisa Cevallos NP [facility] 164 at 1440 Addendum 2: 04/06/19 1441 by Anisa Cevallos NP Disregard [facility] Wrong pt at 1441 RPT #:[id number] END OF REPORT [facility]
[2024-11-14] MEDS ORDERED: NA CHLORIDE 0.9% 1,000 ML ONE (07:26)
[2024-11-14] MEDS ORDERED: FAMOTIDINE 20 MG/2 ML VIAL IV ONE (07:26)
[2024-11-14 07:29] LABS: Absolute Lymphocytes (CBC) 1.7 K/uL (0.7-4.9); Hematocrit 39.0 % (36.0-45.0); Hemoglobin 13.6 g/dL (12.0-15.0); MCH 30.5 pg (27.0-35.0); MCHC 34.8 g/dL (32.0-36.0); MCV 87.5 fL (80-100); MPV 8.4 fL (7.6-11.3); Nucleated RBC Absolute Count 0.0 (0-0); Nucleated Red Blood Cells % 0.1 % (0-0); RBC Red Blood Cell Count 4.46 M/uL (3.86-4.86); White Blood Count 12.80 thou/uL (4.3-10.9)
[2024-11-14 07:32] LABS: Sqamous Epithelial <5 /HPF (None Seen); Urine Culture Reflex Order NOT NEEDED; Urine Microscopic Reflex YN ORDER UMIC; Urine WBC Clump Rare /HPF (None Seen); Urine Yeast (Budding) Trace /HPF (None Seen)
[2024-11-14 07:49] LABS: ALT/SGPT 40.0 U/L (13-56); AST/SGOT 31.0 U/L (15-37); Albumin 3.7 g/dL (3.4-5.0); Albumin/Globulin Ratio 1.0 (1.1-1.8); Alkaline Phosphatase 84.0 U/L (45-117); Anion Gap 6.4 mEq/L (5.0-15.0); BUN Blood Urea Nitrogen 15.0 mg/dL (7-18); Globulin 3.7 g/dL (2.3-3.5); Glucose Level 137.0 mg/dL (74-106); Lipase 27.0 U/L (13-75); Potassium 3.4 mEq/L (3.5-5.1)
[2024-11-14] MEDS ORDERED: ONDANSETRON 4 MG/2 ML VIAL ONE (07:59)
[2024-11-14] MEDS ORDERED: MORPHINE 4 MG/ML SYR ONE (07:59)
--- NOTE | 2024-11-14 08:44 | RAD REPORT ---
EXAM: Right upper quadrant ultrasound. CLINICAL HISTORY: ABD PAIN COMPARISON: None. FINDINGS: Gallbladder: Cholelithiasis. Bile ducts: No intrahepatic or extrahepatic biliary dilatation. Common bile duct measures 5 mm. Limited imaging of the liver shows no concerning finding. IMPRESSION: Cholelithiasis.
--- NOTE | 2024-11-14 09:56 | ER ---
Nurse's Notes [facility] Name: Mary Farley Age: 29 yrs Sex: Female : 1995 Arrival Date: 11/14/2024 Time: 06:47 Bed 15 Private MD: Diagnosis: Other cholelithiasis without obstruction Presentation: 11/14 07:05 Chief complaint: Patient states: C/O RUQ/epigastric pain that began this morning at ar8 0430. HX of gallstones. 07:05 Coronavirus screen: At this time, the client does not indicate any symptoms associated ar8 with coronavirus-19. Ebola Screen: No symptoms or risks identified at this time. Initial Sepsis Screen: Does the patient meet any 2 criteria? No. Patient's initial sepsis screen is negative. Does the patient have a suspected source of infection? No. Patient's initial sepsis screen is negative. Risk Assessment: Do you want to hurt yourself or someone else? Patient reports no desire to harm self or others. Onset of symptoms was November 14, 2024 at 04:30. 07:05 Method Of Arrival: Ambulatory ar8 07:05 Acuity: ANABELLA 3 ar8 Triage Assessment: 07:13 General: Appears uncomfortable, Behavior is cooperative. Pain: Complains of pain in ar8 epigastric area and right upper quadrant Pain currently is 10 out of 10 on a pain scale. EENT: No signs and/or symptoms were reported regarding the EENT system. Neuro: Level of Consciousness is awake, alert, obeys commands, Oriented to person, place, time, situation, Chemist Intern are equal bilaterally Moves all extremities. Full function Gait is steady, Speech is normal, Facial symmetry appears normal. Cardiovascular: Patient's skin is warm and dry. Respiratory: Airway is patent Trachea midline Respiratory effort is even, unlabored, Respiratory pattern is regular, symmetrical. GI: Abdomen is round non-distended, Abdomen is tender to palpation in epigastric area and right upper quadrant Reports nausea, vomiting. : No signs and/or symptoms were reported regarding the genitourinary system. Derm: Skin is intact, Skin is dry, Skin is pink, warm \T\ dry. Skin temperature is warm. Musculoskeletal: No signs and/or symptoms reported regarding the musculoskeletal system. 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 - Infectious Disease History:: Denies. - Social history:: Smoking status: Patient denies any tobacco usage or history of. Screenin:15 [facility] ED Fall Risk Assessment (Adult) History of falling in the last 3 months, ar8 including since admission No falls in past 3 months (0 pts) Confusion or Disorientation No (0 pts) Intoxicated or Sedated No (0 pts) Impaired Gait No (0 pts) Mobility Assist Device Used No (0 pt) Altered Elimination No (0 pt) Score/Fall Risk Level 0 - 2 = Low Risk Oriented to surroundings, Maintained a safe environment. Abuse screen: Denies threats or abuse. Nutritional screening: No deficits noted. Tuberculosis screening: No symptoms or risk factors identified. Assessment: 07:33 Reassessment: See triage assessment. ar8 Vital Signs: 07:05 BP 126 / 87; Pulse 79; Resp 20; Temp 98; Pulse Ox 100% on R/A; Weight 72.57 kg; Height ar8 4 ft. 6 in. ; Pain 10/10; 07:30 BP 122 / 79; Pulse 72; Resp 21; Pulse Ox 100% on R/A; Pain 10/10; ar8 08:38 BP 113 / 78; Pulse 78; Resp 20; Pulse Ox 99% on R/A; Pain 6/10; ar8 09:00 Pain 6/10; ar8 09:00 BP 113 / 70; Pulse 77; Resp 16; Pulse Ox 100% ; Pain 6/10; ar8 09:30 BP 101 / 69; Pulse 85; Resp 16 S; Temp 97.7(O); Pulse Ox 100% on R/A; Pain 2/10; ar8 10:30 BP 105 / 69; Pulse 76; Resp 16; Pulse Ox 100% on R/A; Pain 0/10; ar8 07:05 Body Mass Index 37.19 (72.57 kg, 139.7 cm) ar8 07:05 Pain Scale: Adult ar8 07:30 Pain Scale: Adult ar8 08:38 Pain Scale: Adult ar8 09:00 Pain Scale: Adult ar8 09:00 Pain Scale: Adult ar8 09:30 Pain Scale: Adult ar8 10:30 Pain Scale: Adult ar8 ED Course: 06:49 Patient arrived in ED. im 06:53 Shon Tejada MD is Attending Physician. sonny 07:05 Arm band placed on left wrist. ar8 07:09 Attending Physician role handed off by Shon Tejada MD gb1 07:09 Breonna Melgoza MD is Attending Physician. gb1 07:10 Marcos Rascon RN is Primary Nurse. ar8 07:13 Triage completed. ar8 07:15 Placed in gown. Bed in low position. Call light in reach. Side rails up X2. Provided ar8 Education on: plan of care, diagnostics and estimated wait time. 07:15 No provider procedures requiring assistance completed. ar8 07:19 Inserted saline lock: 22 gauge in right antecubital area, using aseptic technique. ar8 Blood collected. Flushed with 10 mL NS. 07:23 CBC with Diff Sent. ar8 07:23 CMP Sent. ar8 07:23 Lipase Sent. ar8 07:23 Test, Urine Sent. ar8 07:23 UA Rfx Connor Cult if indicated Sent. ar8 08:05 Patient taken to ultrasound. via wheelchair. ar8 08:26 Patient moved back from ultrasound. ar8 08:38 US Abdomen Limited In Process Unspecified. EDMS 10:15 Sp Coronado MD is Referral Physician. gb1 10:38 IV discontinued, intact, bleeding controlled, No redness/swelling at site. Pressure ar8 dressing applied. Administered Medications: 07:29 Drug: NS 0.9% IV 1000 ml IV at 1 bolus Per protocol; to be given as a bolus over 60 ar8 minutes Route: IV; Rate: 1 bolus; Site: right antecubital; 09:00 Follow up: Response: No adverse reaction; Marked relief of symptoms; IV Status: ar8 Completed infusion; IV Intake: 1000ml 07:30 Drug: Famotidine IVP 20 mg IVP once; dilute with 10 mL 0.9% NaCl; give over 2 minutes ar8 Route: IVP; Site: right antecubital; 08:00 Follow up: Response: No adverse reaction; Nausea is decreased ar8 08:27 Drug: Ondansetron IVP 4 mg IVP once; over 2 minutes Route: IVP; Site: right antecubital;ar8 09:00 Follow up: Response: No adverse reaction; Nausea is decreased ar8 08:30 Drug: morphine IVP or IV 4 mg IVP once over 4 mins {Note: Patient received 2mg IVP and ar8 declined the other 2mg. States that she didn't like the way it made her feel. Morphine 2mg wasted with Hector Munoz RN. [id number].} Route: IVP; Infused Over: 3 mins; Site: right antecubital; 09:00 Follow up: Pain /10 Adult; Response: No adverse reaction; Pain is decreased ar8 Medication: 07:33 VIS not applicable for this client. ar8 Intake: 09:00 IV: 1000ml; Total: 1000ml. ar8 Outcome: 09:55 ER care complete, transfer ordered by . gb1 10:15 Discharge ordered by MD. gb1 10:38 Discharged to home ambulatory, ar8 10:38 Condition: stable 10:38 Discharge instructions given to patient, Instructed on discharge instructions, follow up and referral plans. medication usage, Demonstrated understanding of instructions, follow-up care, medications, Prescriptions given X 2, 10:39 Patient left the ED. ar8 Signatures: Dispatcher [employer] EDMS Shon Tejada MD MD cha Mendoza, Itzel im Blocker, Gina, MD MD gb1 Marcos Rascon, RADHA RN ar8 Corrections: (The following items were deleted from the chart) 07:34 07:13 Arm band placed on right wrist. ar8 ar8
--- NOTE | 2024-11-14 09:56 | EDPHYS ---
Physician Documentation [facility] Name: Mary Farley Age: 29 yrs Sex: Female : 1995 Arrival Date: 11/14/2024 Time: 06:47 Bed 15 Private MD: ED Physician Breonna Melgoza HPI: 11/14 10:16 This 29 yrs old Female presents to ER via Ambulatory with complaints of gb1 Abdominal Pain. 10:16 29-year-old female is here with right upper quadrant pain she has a history of gb1 gallstones and ate [employer] and she started feeling sick last night but worse this morning. She denies any fever or chills but she did start vomiting with abdominal cramping.. 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 - Infectious Disease History:: Denies. - Social history:: Smoking status: Patient denies any tobacco usage or history of. Exam: 10:16 Constitutional: This is a well developed, well nourished patient who is awake, alert, gb1 and in no acute distress. Head/Face: Normocephalic, atraumatic. Eyes: Pupils equal round and reactive to light, extra-ocular motions intact. Lids and lashes normal. Conjunctiva and sclera are non-icteric and not injected. Cornea within normal limits. Periorbital areas with no swelling, redness, or edema. ENT: Nares patent. No nasal discharge, no septal abnormalities noted. Tympanic membranes are normal and external auditory canals are clear. Oropharynx with no redness, swelling, or masses, exudates, or evidence of obstruction, uvula midline. Mucous membranes moist. Neck: Trachea midline, no thyromegaly or masses palpated, and no cervical lymphadenopathy. Supple, full range of motion without nuchal rigidity, or vertebral point tenderness. No Meningismus. Chest/axilla: Normal chest wall appearance and motion. Nontender with no deformity. No lesions are appreciated. Cardiovascular: Regular rate and rhythm with a normal S1 and S2. No gallops, murmurs, or rubs. Normal PMI, no JVD. No pulse deficits. Respiratory: Lungs have equal breath sounds bilaterally, clear to auscultation and percussion. No rales, rhonchi or wheezes noted. No increased work of breathing, no retractions or nasal flaring. Abdomen/GI: Soft, right upper quadrant tender, with normal bowel sounds. No distension or tympany. No guarding or rebound. Skin: Warm, dry with normal turgor. Normal color with no rashes, no lesions, and no evidence of cellulitis. MS/ Extremity: Pulses equal, no cyanosis. Neurovascular intact. Full, normal range of motion. Vital Signs: 07:05 BP 126 / 87; Pulse 79; Resp 20; Temp 98; Pulse Ox 100% on R/A; Weight 72.57 kg; Height ar8 4 ft. 6 in. ; Pain 10/10; 07:30 BP 122 / 79; Pulse 72; Resp 21; Pulse Ox 100% on R/A; Pain 10/10; ar8 08:38 BP 113 / 78; Pulse 78; Resp 20; Pulse Ox 99% on R/A; Pain 6/10; ar8 09:00 Pain 6/10; ar8 09:00 BP 113 / 70; Pulse 77; Resp 16; Pulse Ox 100% ; Pain 6/10; ar8 09:30 BP 101 / 69; Pulse 85; Resp 16 S; Temp 97.7(O); Pulse Ox 100% on R/A; Pain 2/10; ar8 10:30 BP 105 / 69; Pulse 76; Resp 16; Pulse Ox 100% on R/A; Pain 0/10; ar8 07:05 Body Mass Index 37.19 (72.57 kg, 139.7 cm) ar8 07:05 Pain Scale: Adult ar8 07:30 Pain Scale: Adult ar8 08:38 Pain Scale: Adult ar8 09:00 Pain Scale: Adult ar8 09:00 Pain Scale: Adult ar8 09:30 Pain Scale: Adult ar8 10:30 Pain Scale: Adult ar8 MDM: 06:53 Medical Screening Exam initiated sonny 07:00 Medical Screening Exam initiated sonny 10:16 Data reviewed: vital signs, nurses notes. ED course: 29-year-old female with right gb1 upper quadrant tenderness consistent with biliary colic secondary to cholelithiasis. No signs of biliary obstruction LFTs are normal lipase is normal I doubt gallstone pancreatitis this is just recurrent abdominal pain likely secondary to cholelithiasis. Patient is pain controlled she is not vomiting she is p.o. tolerant I discussed the case with Dr. Coronado by phone and he recommends outpatient follow-up with diet modification as previously discussed at the bedside. I'll discharge patient home with Delilah and Zulma and have her follow-up as an outpatient with general surgery.. 11/14 07:01 Order name: CBC with Diff; Complete Time: 07:41 [facility] 11/14 07:01 Order name: CMP; Complete Time: 07:51 [facility] 11/14 07:01 Order name: Lipase; Complete Time: 07:51 [facility] 11/14 07:01 Order name: Test, Urine; Complete Time: 07:41 [facility] 11/14 07:02 Order name: UA Rfx Connor Cult if indicated; Complete Time: 07:41 [facility] 11/14 07:41 Order name: US Abdomen Limited; Complete Time: 08:50 gb1 11/14 07:02 Order name: IV Saline Lock; Complete Time: 07:23 [facility] 11/14 07:02 Order name: Labs collected and sent; Complete Time: 07:23 [facility] Administered Medications: 07:29 Drug: NS 0.9% IV 1000 ml IV at 1 bolus Per protocol; to be given as a bolus over 60 ar8 minutes Route: IV; Rate: 1 bolus; Site: right antecubital; 09:00 Follow up: Response: No adverse reaction; Marked relief of symptoms; IV Status: ar8 Completed infusion; IV Intake: 1000ml 07:30 Drug: Famotidine IVP 20 mg IVP once; dilute with 10 mL 0.9% NaCl; give over 2 minutes ar8 Route: IVP; Site: right antecubital; 08:00 Follow up: Response: No adverse reaction; Nausea is decreased ar8 08:27 Drug: Ondansetron IVP 4 mg IVP once; over 2 minutes Route: IVP; Site: right antecubital;ar8 09:00 Follow up: Response: No adverse reaction; Nausea is decreased ar8 08:30 Drug: morphine IVP or IV 4 mg IVP once over 4 mins {Note: Patient received 2mg IVP and ar8 declined the other 2mg. States that she didn't like the way it made her feel. Morphine 2mg wasted with Hector Munoz RN. [id number].} Route: IVP; Infused Over: 3 mins; Site: right antecubital; 09:00 Follow up: Pain 08/06 Adult; Response: No adverse reaction; Pain is decreased ar8 Disposition Summary: 11/14/24 10:15 Discharge Ordered Notes: Location: Home gb1 Condition: Stable(11/14/24 10:15) gb1 Problem: an acute exacerbation(11/14/24 10:20) gb1 Symptoms: have improved(11/14/24 10:20) gb1 Diagnosis - Other cholelithiasis without obstruction gb1 Followup: gb1 - With: Sp Coronado MD - When: - Reason: Further diagnostic work-up Discharge Instructions: - Discharge Summary Sheet gb1 - Cholelithiasis gb1 Forms: - Medication Reconciliation Form gb1 - Antibiotic Education gb1 - Prescription Opioid Use gb1 - Patient Portal Instructions gb1 - Leadership Thank You Letter gb1 Prescriptions: - Zofran 4 mg Oral Tablet - take 1 tablet ORAL route every 12 hours As needed; 20 tablet; Refills: 0, gb1 Product Selection Permitted - dicyclomine 10 mg Oral capsule - take 1 capsule ORAL route 3 times per day; 30 capsule; Refills: 0, Product gb1 Selection Permitted Signatures: Dispatcher [employer] EDShon Fox MD MD cha Blocker, Gina, MD MD gb1 Marcos Rascon, RN RN ar8 Corrections: (The following items were deleted from the chart) 07:02 07:02 CBC+H.LAB.BRZ ordered. EDMS EDMS 07:02 07:02 COMPREHENSIVE METABOLIC PANEL+C.LAB.BRZ ordered. EDMS EDMS 07:02 07:02 LIPASE+C.LAB.BRZ ordered. EDMS EDMS 07:02 07:02 Test, Urine+UC.LAB.BRZ ordered. EDMS EDMS 07:02 07:02 UA Rfx Connor Cult if indicated+U.LAB.BRZ ordered. EDMS EDMS 10:14 09:55 gb1 gb1 10:14 09:55 [facility] gb1 gb1 10:14 09:55 Higher level of care gb1 gb1 10:14 09:55 Stable gb1 gb1 : an acute exacerbation gb1 gb1 are unchanged gb1 gb1 Slow transit constipation gb1 gb1
[2024-11-14 10:49] VITALS: O2SAT 100
[2024-11-14 10:51] VITALS: TEMP 97.7
[2024-11-14 10:53] VITALS: BP 105/69
== END 2024-11-14 10:39 | disposition home or self-care (01) ==
LOC: ER 06:47
DX: K80.80 Other cholelithiasis without obstruction (principal)
CPT/HCPCS: 36415; 76705; 80053; 81001; 81025; 83690; 85025; 96361; 96374; 96375; 99285; J2405; J7030

== ENCOUNTER 2024-11-14 22:39 | Emergency (ER) | payer SELFPAY ==
--- OUTSIDE RECORDS SUMMARY | 2024-11-14 22:46 | XMS REPORT | Continuity of Care Document ---
Author Name Unknown Address [address] [facility] [place] [address] [facility] [place] Address [address] [facility] [place] [address] Care Team Providers Care Regulatory Compliance Coordinator Name Role Phone Alecia Kim Primary Care Physician [phone] Doctor Unassigned, [place] Attending Clinician U SHARLA Parra Attending Clinician Unavailab SHARLA Howe Attending Clinician Unavailab ALECIA Hendricks Attending Clinician UnavailALECIA Hernandez Attending Clinician Unavailabl e 1, [facility] Attending Clinician Un available Celeste Hill CNM Attending Clinician [phone] CELESTE HILL Attending Clinician Unavailable PAPA CARLSON Attending Clinician Unavailable PAPA CARLSON Attending Clinician Unavailable Papa Carlson MD Attending Clinician [phone] Ana Luisa Rodriguez MD Attending Clinician + Sara Steven MD Attending Clinician Karla Martinez MD Attending Clinician +[phone] USAMA PACHECO Attending Clinician Unavailable EVELIA ROBLEDO Attending Clinician Unav ailable Mary Lou Chew MD, Evelia Attending Clinician + LEN ARIAS Attending Clinician Unashoshana ailable 1, [facility] Attending Clinician Unavailab Len Watts MD Attending Clinician + Pedro Pablo SANDRA Miranda Attending Clinician + [phone] JESSICA GONZALES Attending Clinician Unavailable JESSICA GONZALES Attending Clinician Unavailable Christian REYNA, Jessica Attending Clinician [phone] William PICKENS, Gunjan Attending Clinician UnavailNILESH Cheney Attending Clinician Unavailab Rosalie REYNA, Nilesh Ortega Attending Clinician [phone] IVETH RICHARDSON Attending Clinician Unavailable IVETH RICHARDSON Attending Clinician Unavailable Doctor Unassigned, [place] Attending Clinician U navailable Lab, [facility] Attending Clinician Unavailable Vaishnavi Mullins Attending Clinician [phone] VAISHNAVI DE LA CRUZ Attending Clinician UnavailMINNIE Ocasio Attending Clinician Unavailable 2, [facility] Attending Clinician UnavailMinnie Park MD Attending Clinician [phone] Jori Tafoya V Attending Clinician Unavailab Adonay Perdomo Attending Clinician Unavailable Suleman Walters Attending Clinician Thien Alcantara Rn RN, Grace Arnold Attending Clinician Unava ilPAPA Schilling Admitting Clinician Unavailable Aldo REYNA, Papa Admitting Clinician [phone] EVELIA ROBLEDO Admitting Clinician UnaEvelia Castorena MD Admitting Clinician + JESSICA GONZALES Admitting Clinician Unavailable Jessica Gonzales MD Admitting Clinician [phone] NILESH SILVA Admitting Clinician Unavailab Rosalie REYNA, Nilesh Ortega Admitting Clinician [phone] IVETH RICHARDSON Admitting Clinician Unavailable Rosa Maria Sanches Admitting Clinician Unavailable Physician, No Primary or Family Admitting Clinic alirio Unavailable Payers Payer Name Policy Type Policy Number Effective Date Expirati on Date Source Problems Condition Name Condition Details Condition Category Status Onset Date Resolution Date Last Treatment Date Treating Clinician Comments Source anemia anemia Disease Active 5-17 00:00: 00 [facility] Indication for care in labor or delivery-I OL Indication for care in labor or delivery-I OL Disease Active 5-15 00:00: 00 [facility] Abnormal maternal glucose tolerance, antepartum Abnormal maternal glucose tolerance, antepartum Disease Active 2-15 00:00: 00 [facility] 39 weeks gestation of 39 weeks gestation of Disease Resolve d 15 00:00: 00 2023-08-03 00:00:00 2023-08-03 15:09:44 [facility] Morbid obesity with body mass index of 40.0-49.9 Morbid obesity with body mass index of 40.0-49.9 Disease Resolve d 15 00:00: 00 2023-08-03 00:00:00 2023-08-03 15:09:43 [facility] Maternal care for unstable lie Maternal care for unstable lie Disease Resolve d 07-11 00:00: 00 2023-08-03 00:00:00 2023-08-03 15:09:41 [facility] delivery delivered delivery delivered Disease Resolve d 07-11 00:00: 00 2023-08-03 00:00:00 2023-08-03 15:09:52 Overview: Formattin g of this note might be different from the original. LTCS due to protracte d labor and maternal request [facility] Obesity (BMI 30-39.9) Obesity (BMI 30-39.9) Disease Resolve d 5-05 00:00: 00 2023-08-03 00:00:00 2023-08-03 15:09:44 [facility] Anemia affecting , antepartum Anemia affecting , antepartum Disease Resolve d 2024-0 4-23 00:00: 00 2023-08-03 00:00:00 2023-08-03 15:09:45 [facility] Uterine size-date discrepanc y in third trimester Uterine size-date discrepanc y in third trimester Disease Resolve d 2023-0 4-18 00:00: 00 2023-08-03 00:00:00 2023-08-03 15:09:53 [facility] Abnormal O'Thomas glucose challenge test, antepartum Abnormal O'Thomas glucose challenge test, antepartum Disease Resolve d 2023-0 2-15 00:00: 00 2023-08-03 00:00:00 2023-08-03 15:09:47 Overview: Formattin g of this note might be different from the original. 3 hr GTT WNL [facility] Supervisio n of high risk in third trimester Supervisio n of high risk in third trimester Disease Resolve d 2022-1 2-27 00:00: 00 2023-08-03 00:00:00 2023-08-03 15:09:50 [facility] Multiparit y Multiparit y Disease Resolve d 2022-0 9-13 00:00: 00 2023-08-03 00:00:00 2023-08-03 15:09:51 [facility] Obesity affecting , antepartum Obesity affecting , antepartum Disease Resolve d 2022-0 9-13 00:00: 00 2023-08-03 00:00:00 2023-08-03 15:09:51 [facility] Transverse or oblique presentati on, antepartum Transverse or oblique presentati on, antepartum Disease Resolve d 2023-0 4-10 00:00: 00 2023-07-12 00:00:00 2023-07-12 16:53:38 [facility] Decreased movement Decreased movement Disease Resolve d 2023-0 3-28 00:00: 00 2023-07-12 00:00:00 2023-07-12 16:53:27 [facility] Nausea and vomiting in Nausea and vomiting in Disease Resolve d 2023-0 3-26 00:00: 00 2023-07-12 00:00:00 2023-07-12 16:53:32 [facility] Nausea and vomiting in Nausea and vomiting in Disease Resolve d 3-26 00:00: 00 2023-07-12 00:00:00 2023-07-12 16:53:32 [facility] Urinary tract infection in mother during , antepartum Urinary tract infection in mother during , antepartum Disease Resolve d 9-19 00:00: 00 2023-07-12 00:00:00 2023-07-12 16:53:46 [facility] 15 weeks gestation of 15 weeks gestation of Disease Resolve d 2022-02 00:00: 00 2023-02-22 00:00:00 2023-02-22 15:41:28 [facility] Ovarian cyst, left Ovarian cyst, left Disease Resolve d 2022-02 00:00: 00 2023-02-22 00:00:00 2023-02-22 15:41:31 [facility] Supervisio n of high risk in first trimester Supervisio n of high risk in first trimester Disease Resolve d 9-13 00:00: 00 2023-01-23 00:00:00 2023-01-23 09:51:49 [facility] Allergies, Adverse Reactions, Alerts Allergy Name Allergy Type Status Severity Reaction(s) Onset Date Inactive Date Treating Clinician Comments Source No Known Allergie s DA Active U 08-02 00:00: 00 [facility] No Known Allergie s DA Active U 08-02 00:00: 00 [facility] NO KNOWN ALLERGIE S Drug Class Active [facility] Social History Social Habit Start Date Stop Date Quantity Comments Source ASSERTION 2022-10-25 00:00:00 [facility] Alcohol intake 2023-06-29 00:00:00 2023-06-29 00:00:00 Lifetime non-drinker (finding) [facility] Alcoholic beverage intake 2023-06-07 00:00:00 2023-06-07 00:00:00 Lifetime non-drinker (finding) [facility] History of Social function 2023-05-10 00:00:00 2023-05-10 00:00:00 [facility] Tobacco use and exposure 2022-11-09 00:00:00 2022-11-09 00:00:00 Smokeless tobacco non-user [facility] Sex assigned at 1995 00:00:00 1995 00:00:00 [facility] Smoking Status Start Date Stop Date Source Never smoked tobacco [facility] Medications Ordered Medication Name Filled Medication Name Start Date Stop Date Current Medication? Ordering Clinician Indication Dosage Frequency Signature (SIG) Comments Components Source docusate (COLACE) capsule 200 mg 07-13 14:00: 00 07-14 03:35 :13 No 200mg 200 mg, Oral, DAILY, First dose on Mon07/14/23 at 0900, Until Discontinu ed, Routine [facility] ferrous sulfate 325 mg (65 mg iron) tablet 07-13 00:00: 00 Yes [id number] 325mg Take 1 tablet by mouth in the morning. [facility] [id number] fum-folic 27 mg iron- 1 mg folic tablet 07-13 00:00: 00 Yes [id number] 1{tbl} Take 1 tablet by mouth in the morning. [facility] docusate 100 mg capsule 07-13 00:00: 00 Yes [id number] 200mg Take 2 capsules by mouth once daily as needed for Constipati on. [facility] ibuprofen 800 mg tablet 07-13 00:00: 00 Yes [id number] 800mg Take 1 tablet by mouth every 8 (eight) hours as needed (pain). Take with food or milk. [facility] oxyCODONE 5 mg immediate release tablet 07-13 00:00: 00 07-21 04:59 :00 No [id number] 5mg Take 1 tablet by mouth every 6 (six) hours as needed (pain) for up to 7 days. Indication s: acute pain [facility] ibuprofen (IBU) tablet 800 mg 07-12 22:30: 00 07-14 03:35 :13 No 800mg 800 mg, Oral, Q8HA1, First dose on Mary 07/13/23 at 1730, Until Discontinu ed, Routine [facility] acetaminoph en (TYLENOL) tablet 1,000 mg 07-12 19:00: 00 07-14 03:35 :13 No 1000mg 1,000 mg, Oral, Q8H, First dose on Mon07/13/23 at 1400, Until Discontinu ed, Routine [facility] simethicone (GAS RELIEF (SIMETHICON E)) chewable tablet 160 mg 07-12 19:00: 00 07-14 03:35 :13 No 160mg 160 mg, Oral, TID, First dose on Mary 07/13/23 at 1400, Until Discontinu ed, Routine [facility] rho(D) immune globulin (HYPERRHO/R HOGAM) syringe 300 mcg 07-12 18:57: 58 07-14 03:35 :13 No 300ug [facility] human papillomav vac,9-silas(P F) (GARDASIL-9 ) syringe 0.5 mL 07-12 18:57: 53 07-14 03:35 :13 No .5mL [facility] diphenhydrA MINE (BENADRYL) injection 25 mg 07-12 18:57: 53 07-14 03:35 :13 No 25mg [facility] diphenhydrA MINE (BENADRYL) tablet 25 mg 07-12 18:57: 53 07-14 03:35 :13 No 25mg [facility] ondansetron (ZOFRAN (PF)) injection 4 mg 07-12 18:57: 53 07-14 03:35 :13 No 4mg [facility] bisacodyL (DULCOLAX) suppository 10 mg 07-12 18:57: 53 07-14 03:35 :13 No 10mg [facility] magnesium hydroxide (MILK OF MAGNESIA) 400 mg/5 mL suspension 30 mL 07-12 18:57: 53 07-14 03:35 :13 No 30mL 30 mL, Oral, QDAILYPRN, Starting on Mary 07/13/23 at 1357, Until Mon07/14/23 at 2235, Routine, Constipati on [facility] lactated ringers IV infusion 1,000 mL 07-12 18:57: 53 07-12 20:10 :17 No 1000mL at 125 mL/hr, 1,000 mL, IV Infusion, PRN, 1 dose, Starting on Mary 07/13/23 at 1357, Until Mary 07/13/23 at 1510, Routine [facility] oxyCODONE immediate release tablet 5 mg 07-12 18:53: 39 07-14 03:35 :13 No 5mg 5 mg, Oral, Q6HPRN, Starting on Mary 07/13/23 at 1353, Until Mon07/14/23 at 2235, Routine, Pain (scale 7-10), 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 approving Restricted medication : OB FACULTY [facility] ketorolac (TORADOL) injection 07-12 18:01: 00 07-12 18:09 :47 No Slow IV Push, ONCE INTRA PROCEDURE, Starting on Mary 07/13/23 at 1301, Until Mary 07/13/23 at 1309, Routine, Intra-op [facility] morpHINE PF (DURAMORPH- PF) injection 07-12 17:57: 00 07-12 18:09 :47 No Epidural, ONCE INTRA PROCEDURE, Starting on Mary 07/13/23 at 1257, Until Mary 07/13/23 at 1309, Routine, Intra-op [facility] FENTanyl PF (SUBLIMAZE (PF)) injection 07-12 17:36: 00 07-12 18:09 :47 No Intratheca l, ONCE INTRA PROCEDURE, Starting on Mary 07/13/23 at 1236, Until Mary 07/13/23 at 1309, Routine, Intra-op [facility] midazolam (VERSED) injection 07-12 17:20: 00 07-12 18:09 :47 No IV Push, ONCE INTRA PROCEDURE, Starting on Mary 07/13/23 at 1220, Until Mary 07/13/23 at 1309, Routine, Intra-op [facility] azithromyci n (ZITHROMAX) 500 mg in NaCl 0.9% (NS) 250 mL VIAL-MATE IV piggyback 07-12 17:15: 00 07-12 16:52 :00 No 500mg 500 mg, IV Piggyback, ONCE, 1 dose, On Mary 07/13/23 at 1215, Administer over 60 Minutes, 250 mL, Reason for Anti-Infec tive: Surgical Prophylaxi s, 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, Duration of therapy: within 24 hours of surgery [facility] ceFAZolin (ANCEF) 2,000 mg in NaCl 0.9% (NS) 100 mL VIAL-MATE 07-12 17:15: 00 07-12 17:10 :00 No 2000mg 2,000 mg, IV Piggyback, ONCE, 1 dose, On Mary 07/13/23 at 1215, Administer over 30 Minutes, 100 mL, Reason for Anti-Infec tive: Surgical Prophylaxi s, 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, Duration of therapy: within 24 hours of surgery [facility] FENTanyl PF (SUBLIMAZE (PF)) injection 07-12 17:03: 00 07-12 18:09 :47 No Epidural, ONCE INTRA PROCEDURE, Starting on Mary 07/13/23 at 1203, Until Mary 07/13/23 at 1309, Routine, Intra-op [facility] phenylephri ne (VAZCULEP) injection 07-12 16:57: 00 07-12 18:09 :47 No Intravenou s, CONTINUOUS PRN, Starting on Mary 07/13/23 at 1157, Until Mary 07/13/23 at 1309, Routine, Intra-op [facility] lactated ringers IV infusion 07-12 16:47: 00 07-12 18:09 :47 No IV Infusion, CONTINUOUS PRN, Starting on Mary 07/13/23 at 1147, Until Mary 07/13/23 at 1309, Routine, Intra-op [facility] lidocaine-e pinephrine (XYLOCAINE W/EPINEPHRI NE) 2 %-1:200,000 injection 07-12 16:40: 00 07-12 18:09 :47 No Epidural, ONCE INTRA PROCEDURE, Starting on Mary 07/13/23 at 1140, Until Mary 07/13/23 at 1309, Routine, Intra-op [facility] amnioinfusi on IV infusion via [...] mL/hr until the liter is complete. Notify Senior Construction Project Manager if uterine resting tone exceeds 25 mmHg at any time during the amnioinfus ion. Obstetrics (JUSTINO) Aminoinfus ion Orders [facility] ondansetron (ZOFRAN (PF)) injection 4 mg 07-12 12:30: 00 07-12 17:14 :00 No 4mg 4 mg, Slow IV Push, ONCE, On Mary 07/13/23 at 0730, For 1 dose, Doses of ondansetro n 16 mg and above need to be administer ed via IV piggyback. For Dose >=24mg ECG monitoring is advisable. [facility] acetaminoph en (TYLENOL) tablet 650 mg 07-12 03:40: 35 07-12 18:57 :56 No 650mg 650 mg, Oral, Q6HPRN, Starting on Mon07/12/23 at 2240, Until Mary 07/13/23 at 1357, Routine, Pain (scale 4-6) [facility] ropivacaine 0.2 % (NAROPIN (PF)) epidural infusion 07-12 00:52: 00 07-12 18:09 :47 No Epidural, CONTINUOUS PRN, Starting on Mon07/12/23 at 1952, Until Mary 07/13/23 at 1309, Routine, Intra-op [facility] lidocaine-e pinephrine (XYLOCAINE W/EPINEPHRI NE) 1.5 %-1:200,000 injection 07-12 00:50: 00 07-12 18:09 :47 No Epidural, ONCE INTRA PROCEDURE, Starting on Mon07/12/23 at 1950, Until Mary 07/13/23 at 1309, Routine, Intra-op [facility] lactated ringers IV infusion 700 mL 07-11 20:45: 00 07-12 00:25 :42 No 700mL at 999 mL/hr, 700 mL, IV Infusion, ONCE, 1 dose, On Mon07/12/23 at 1545, Routine [facility] sodium citrate-cit tommie acid (BICITRA) 500-334 mg/5 mL solution 30 mL 07-11 19:54: 22 07-12 00:34 :00 No 30mL 30 mL, Oral, PRE-PROCED URE ONCE, 1 dose, Starting on Mon07/12/23 at 1454, Until Mon07/12/23 at 1934, Routine, Surgery/Pr ocedure [facility] lactated ringers IV infusion 500 mL 07-11 19:54: 22 07-12 18:57 :56 No 500mL at 999 mL/hr, 500 mL, IV Infusion, PRN - SEE INSTRUCTIO NS, Starting on Mon07/12/23 at 1454, Until Mary 07/13/23 at 1357, Routine [facility] D5W-LR IV infusion 1,000 mL 07-11 19:54: 22 07-12 18:57 :56 No 1000mL at 1-125 mL/hr, IV Infusion, TITRATE, Starting on Mon07/12/23 at 1454, Until Mon07/13/23 at 1357, Routine [facility] sodium citrate-cit tommie acid (BICITRA) 500-334 mg/5 mL solution 30 mL 07-11 19:54: 21 07-12 16:40 :00 No 30mL 30 mL, Oral, PRE-PROCED URE ONCE, 1 dose, Starting on Mon07/12/23 at 1454, Until Mon07/13/23 at 1140, Routine, Surgery/Pr ocedure [facility] acetaminoph en (TYLENOL) tablet 1,000 mg 07-01 11:15: 00 07-01 10:15 :00 No 1000mg 1,000 mg, Oral, ONCE, 1 dose, On Mon07/02/23 at 0615, Routine [facility] lactated ringers IV infusion 500 mL 07-01 09:45: 00 07-01 09:54 :39 No 500mL at 999 mL/hr, 500 mL, Intravenou s, ONCE, 1 dose, On Mon07/02/23 at 0445, Routine [facility] ferrous sulfate (IRON, FERROUS SULFATE,) 325 mg (65 mg iron) tablet 06-19 00:00: 00 Yes [id number] 325mg Take 1 tablet by mouth in the morning. [facility] lactated ringers IV infusion 500 mL 05-22 17:45: 00 05-22 17:09 :00 No 500mL at 999 mL/hr, 500 mL, IV Infusion, ONCE, 1 dose, On Mon05/23/23 at 1245, STAT [facility] ondansetron (ZOFRAN (PF)) injection 4 mg 05-22 17:45: 00 05-22 17:13 :00 No 4mg 4 mg, Slow IV Push, ONCE, On Mon05/23/23 at 1245, For 1 dose
Do ses of ondansetro n 16 mg and above need to be administer ed via IV piggyback. For Dose >=24mg ECG monitoring is advisable.
[facility] ondansetron 4 mg disintegrat ing tablet 05-22 00:00: 00 Yes [id number] 4mg Take 1 tablet by mouth every 8 (eight) hours as needed for Nausea and Vomiting (N/V). [facility] metroNIDAZO LE 500 mg tablet 2022-02 00:00: 00 03-22 00:00 :00 No [id number] 500mg Take 1 tablet by mouth every 12 (twelve) hours. [facility] sulfamethox azole-trime thoprim (BACTRIM DS) 800-160 mg per tablet 11-15 00:00: 00 11-21 04:59 :00 No [id number] 1{tbl} Take 1 tablet by mouth in the morning and 1 tablet in the evening. Do all this for 5 days. [facility] Nitrofurant oin&Nit. Macrocryst (MACROBID) 100 mg capsule 11-09 00:00: 00 11-15 00:00 :00 No [id number] 100mg Take 1 capsule by mouth in the morning and 1 capsule in the evening. Do all this for 7 days. [facility] Immunizations Ordered Immunization Name Filled Immunization Name Date Status Comments Source TDAP 2023-04-26 00:00:00 Completed [facility] Influenza Virus Vaccine Quad IM, Preserv and ABX Free 6 MO-64 YRS (FLUCELVAX) 2023-01-23 00:00:00 Completed [facility] Influenza Virus Vaccine Quad IM, Preserv and ABX Free 6 MO-64 YRS (FLUCELVAX) Unknown Completed [facility] Influenza Virus Vaccine Quad IM, Preserv and ABX Free 6 MO-64 YRS (FLUCELVAX) Unknown Completed [facility] Influenza Virus Vaccine Quad IM, Preserv and ABX Free 6 MO-64 YRS (FLUCELVAX) Unknown Completed [facility] Influenza Virus Vaccine Quad IM, Preserv and ABX Free 6 MO-64 YRS (FLUCELVAX) Unknown Completed [facility] Influenza Virus Vaccine Quad IM, Preserv and ABX Free 6 MO-64 YRS (FLUCELVAX) Unknown Completed [facility] Influenza Virus Vaccine Quad IM, Preserv and ABX Free 6 MO-64 YRS (FLUCELVAX) Unknown Completed [facility] Influenza Virus Vaccine Quad IM, Preserv and ABX Free 6 MO-64 YRS (FLUCELVAX) Unknown Completed [facility] Influenza Virus Vaccine Quad IM, Preserv and ABX Free 6 MO-64 YRS (FLUCELVAX) Unknown Completed [facility] Influenza Virus Vaccine Quad IM, Preserv and ABX Free 6 MO-64 YRS (FLUCELVAX) Unknown Completed [facility] Influenza Virus Vaccine Quad IM, Preserv and ABX Free 6 MO-64 YRS (FLUCELVAX) Unknown Completed [facility] Influenza Virus Vaccine Quad IM, Preserv and ABX Free 6 MO-64 YRS (FLUCELVAX) Unknown Completed [facility] Influenza Virus Vaccine Quad IM, Preserv and ABX Free 6 MO-64 YRS (FLUCELVAX) Unknown Completed [facility] TDAP Unknown Completed [facility] Influenza Virus Vaccine Quad IM, Preserv and ABX Free 6 MO-64 YRS (FLUCELVAX) Unknown Completed [facility] TDAP Unknown Completed [facility] Influenza Virus Vaccine Quad IM, Preserv and ABX Free 6 MO-64 YRS (FLUCELVAX) Unknown Completed [facility] Influenza Virus Vaccine Quad IM, Preserv and ABX Free 6 MO-64 YRS (FLUCELVAX) Unknown Completed [facility] TDAP Unknown Completed [facility] Influenza Virus Vaccine Quad IM, Preserv and ABX Free 6 MO-64 YRS (FLUCELVAX) Unknown Completed [facility] TDAP Unknown Completed [facility] Influenza Virus Vaccine Quad IM, Preserv and ABX Free 6 MO-64 YRS (FLUCELVAX) Unknown Completed [facility] TDAP Unknown Completed [facility] Influenza Virus Vaccine Quad IM, Preserv and ABX Free 6 MO-64 YRS (FLUCELVAX) Unknown Completed [facility] TDAP Unknown Completed [facility] Influenza Virus Vaccine Quad IM, Preserv and ABX Free 6 MO-64 YRS (FLUCELVAX) Unknown Completed [facility] TDAP Unknown Completed [facility] Influenza Virus Vaccine Quad IM, Preserv and ABX Free 6 MO-64 YRS (FLUCELVAX) Unknown Completed [facility] TDAP Unknown Completed [facility] Influenza Virus Vaccine Quad IM, Preserv and ABX Free 6 MO-64 YRS (FLUCELVAX) Unknown Completed [facility] TDAP Unknown Completed [facility] Influenza Virus Vaccine Quad IM, Preserv and ABX Free 6 MO-64 YRS (FLUCELVAX) Unknown Completed [facility] TDAP Unknown Completed [facility] Influenza Virus Vaccine Quad IM, Preserv and ABX Free 6 MO-64 YRS (FLUCELVAX) Unknown Completed [facility] TDAP Unknown Completed [facility] Influenza Virus Vaccine Quad IM, Preserv and ABX Free 6 MO-64 YRS (FLUCELVAX) Unknown Completed [facility] TDAP Unknown Completed [facility] Influenza Virus Vaccine Quad IM, Preserv and ABX Free 6 MO-64 YRS (FLUCELVAX) Unknown Completed [facility] TDAP Unknown Completed [facility] Influenza Virus Vaccine Quad IM, Preserv and ABX Free 6 MO-64 YRS (FLUCELVAX) Unknown Completed [facility] TDAP Unknown Completed [facility] Influenza Virus Vaccine Quad IM, Preserv and ABX Free 6 MO-64 YRS (FLUCELVAX) Unknown Completed [facility] TDAP Unknown Completed [facility] Influenza Virus Vaccine Quad IM, Preserv and ABX Free 6 MO-64 YRS (FLUCELVAX) Unknown Completed [facility] TDAP Unknown Completed [facility] Influenza Virus Vaccine Quad IM, Preserv and ABX Free 6 MO-64 YRS (FLUCELVAX) Unknown Completed [facility] TDAP Unknown Completed [facility] Influenza Virus Vaccine Quad IM, Preserv and ABX Free 6 MO-64 YRS (FLUCELVAX) Unknown Completed [facility] TDAP Unknown Completed [facility] Influenza Virus Vaccine Quad IM, Preserv and ABX Free 6 MO-64 YRS (FLUCELVAX) Unknown Completed [facility] TDAP Unknown Completed [facility] Influenza Virus Vaccine Quad IM, Preserv and ABX Free 6 MO-64 YRS (FLUCELVAX) Unknown Completed [facility] TDAP Unknown Completed [facility] Influenza Virus Vaccine Quad IM, Preserv and ABX Free 6 MO-64 YRS (FLUCELVAX) Unknown Completed [facility] TDAP Unknown Completed [facility] Influenza Virus Vaccine Quad IM, Preserv and ABX Free 6 MO-64 YRS (FLUCELVAX) Unknown Completed [facility] TDAP Unknown Completed [facility] Influenza Virus Vaccine Quad IM, Preserv and ABX Free 6 MO-64 YRS (FLUCELVAX) Unknown Completed [facility] TDAP Unknown Completed [facility] Influenza Virus Vaccine Quad IM, Preserv and ABX Free 6 MO-64 YRS (FLUCELVAX) Unknown Completed [facility] [facility] Unknown Completed [facility] Influenza Virus Vaccine Quad IM, Preserv and ABX Free 6 MO-64 YRS (FLUCELVAX) Unknown Completed [facility] TDAP Unknown Completed [facility] Influenza Virus Vaccine Quad IM, Preserv and ABX Free 6 MO-64 YRS (FLUCELVAX) Unknown Completed [facility] TDAP Unknown Completed [facility] Influenza Virus Vaccine Quad IM, Preserv and ABX Free 6 MO-64 YRS (FLUCELVAX) Unknown Completed [facility] TDAP Unknown Completed [facility] Influenza Virus Vaccine Quad IM, Preserv and ABX Free 6 MO-64 YRS (FLUCELVAX) Unknown Completed [facility] TDAP Unknown Completed [facility] Influenza Virus Vaccine Quad IM, Preserv and ABX Free 6 MO-64 YRS (FLUCELVAX) Unknown Completed [facility] TDAP Unknown Completed [facility] Vital Signs Vital Name Observation Time Observation Value Comments S ource Systolic blood pressure 2023-08-24 19:17:00 90 mm[Hg] [facility] Diastolic blood pressure 2023-08-24 19:17:00 50 mm[Hg] [facility] Heart rate 2023-08-24 19:17:00 62 /min Unive [facility] Body temperature 2023-08-24 19:17:00 36.61 [facility] Respiratory rate 2023-08-24 19:17:00 16 /min [facility] Body height 2023-08-24 19:17:00 137.2 cm [facility] Body weight 2023-08-24 19:17:00 67.643 kg [facility] BMI 2023-08-24 19:17:00 35.93 kg/m2 [facility] Systolic blood pressure 2023-08-03 20:22:00 95 mm[Hg] [facility] Diastolic blood pressure 2023-08-03 20:22:00 59 mm[Hg] [facility] Heart rate 2023-08-03 20:22:00 68 /min Unive [facility] Body temperature 2023-08-03 20:22:00 36.5 [facility] Respiratory rate 2023-08-03 20:22:00 17 /min [facility] Body height 2023-08-03 20:22:00 137.2 cm [facility] Body weight 2023-08-03 20:22:00 67.302 kg [facility] BMI 2023-08-03 20:22:00 35.75 kg/m2 [facility] Systolic blood pressure 2023-07-20 16:34:00 99 mm[Hg] [facility] Diastolic blood pressure 2023-07-20 16:34:00 59 mm[Hg] [facility] Heart rate 2023-07-20 16:34:00 63 /min [facility] Body temperature 2023-07-20 16:34:00 36.61 [facility] Respiratory rate 2023-07-20 16:34:00 20 /min [facility] Body weight 2023-07-20 16:34:00 72.122 kg [facility] BMI 2023-07-20 16:34:00 38.31 kg/m2 [facility] Oxygen saturation in Arterial blood by Pulse oximetry 2023-07-20 16:34:00 100 /min [facility] Systolic blood pressure 2023-07-14 17:11:00 91 mm[Hg] [facility] Diastolic blood pressure 2023-07-14 17:11:00 54 mm[Hg] [facility] Heart rate 2023-07-14 17:11:00 112 /min Unive [facility] Body temperature 2023-07-14 17:11:00 36.44 [facility] Respiratory rate 2023-07-14 17:11:00 18 /min [facility] Oxygen saturation in Arterial blood by Pulse oximetry 2023-07-14 17:11:00 98 /min [facility] Body weight 2023-07-12 19:53:00 77.111 kg [facility] BMI 2023-07-12 19:53:00 40.96 kg/m2 [facility] Body height 2023-07-12 19:10:00 137.2 cm [facility] Systolic blood pressure 2023-07-13 19:20:00 101 mm[Hg] [facility] Diastolic blood pressure 2023-07-13 19:20:00 70 mm[Hg] [facility] Heart rate 2023-07-13 19:20:00 98 /min Unive [facility] Body temperature 2023-07-13 19:20:00 36.67 [facility] Respiratory rate 2023-07-13 19:20:00 21 /min [facility] Oxygen saturation in Arterial blood by Pulse oximetry 2023-07-13 19:20:00 97 /min [facility] Body weight 2023-07-12 19:53:00 77.111 kg [facility] BMI 2023-07-12 19:53:00 40.96 kg/m2 [facility] Body height 2023-07-12 19:10:00 137.2 cm [facility] Systolic blood pressure 2023-07-10 14:11:00 100 mm[Hg] [facility] Diastolic blood pressure 2023-07-10 14:11:00 67 mm[Hg] [facility] Heart rate 2023-07-10 14:11:00 91 /min Unive [facility] Body temperature 2023-07-10 14:11:00 36.89 [facility] Body height 2023-07-10 14:11:00 137.2 cm [facility] Body weight 2023-07-10 14:11:00 77.111 kg [facility] BMI 2023-07-10 14:11:00 40.99 kg/m2 [facility] Systolic blood pressure 2023-07-02 10:30:00 99 mm[Hg] [facility] Diastolic blood pressure 2023-07-02 10:30:00 55 mm[Hg] [facility] Heart rate 2023-07-02 10:30:00 76 /min [facility] Oxygen saturation in Arterial blood by Pulse oximetry 2023-07-02 10:30:00 97 /min [facility] Respiratory rate 2023-07-02 09:30:00 18 /min [facility] Body temperature 2023-07-02 08:39:00 36.67 [facility] Body height 2023-07-02 08:30:00 139.7 cm [facility] Body weight 2023-07-02 08:30:00 77.656 kg [facility] BMI 2023-07-02 08:30:00 39.79 kg/m2 [facility] Systolic blood pressure 2023-06-29 13:58:00 100 mm[Hg] [facility] Diastolic blood pressure 2023-06-29 13:58:00 64 mm[Hg] [facility] Heart rate 2023-06-29 13:58:00 96 /min Unive [facility] Body temperature 2023-06-29 13:58:00 36.67 [facility] Respiratory rate 2023-06-29 13:58:00 18 /min [facility] Body height 2023-06-29 13:58:00 139.7 cm [facility] Body weight 2023-06-29 13:58:00 77.565 kg [facility] BMI 2023-06-29 13:58:00 39.74 kg/m2 [facility] Systolic blood pressure 2023-06-22 11:59:00 97 mm[Hg] [facility] Diastolic blood pressure 2023-06-22 11:59:00 66 mm[Hg] [facility] Heart rate 2023-06-22 11:59:00 97 /min Unive [facility] Body temperature 2023-06-22 11:59:00 36.17 [facility] Respiratory rate 2023-06-22 11:59:00 17 /min [facility] Body height 2023-06-22 11:59:00 139.7 cm [facility] Body weight 2023-06-22 11:59:00 78.189 kg [facility] BMI 2023-06-22 11:59:00 40.06 kg/m2 [facility] Systolic blood pressure 2023-06-15 15:59:00 98 mm[Hg] [facility] Diastolic blood pressure 2023-06-15 15:59:00 63 mm[Hg] [facility] Heart rate 2023-06-15 15:59:00 107 /min Unive [facility] Body temperature 2023-06-15 15:59:00 36.11 [facility] Respiratory rate 2023-06-15 15:59:00 18 /min [facility] Body height 2023-06-15 15:59:00 139.7 cm [facility] Body weight 2023-06-15 15:59:00 77.792 kg [facility] BMI 2023-06-15 15:59:00 39.86 kg/m2 [facility] Oxygen saturation in Arterial blood by Pulse oximetry 2023-06-15 15:59:00 97 /min [facility] Systolic blood pressure 2023-06-07 14:23:00 98 mm[Hg] [facility] Diastolic blood pressure 2023-06-07 14:23:00 69 mm[Hg] [facility] Heart rate 2023-06-07 14:23:00 117 /min Unive [facility] Body temperature 2023-06-07 14:23:00 36.17 [facility] Respiratory rate 2023-06-07 14:23:00 17 /min [facility] Body height 2023-06-07 14:23:00 137.2 cm [facility] Body weight 2023-06-07 14:23:00 77.593 kg [facility] BMI 2023-06-07 14:23:00 41.24 kg/m2 [facility] Systolic blood pressure 2023-05-25 22:00:00 98 mm[Hg] [facility] Diastolic blood pressure 2023-05-25 22:00:00 55 mm[Hg] [facility] Heart rate 2023-05-25 22:00:00 97 /min [facility] Oxygen saturation in Arterial blood by Pulse oximetry 2023-05-25 22:00:00 98 /min [facility] Body temperature 2023-05-25 21:09:00 37.22 [facility] Respiratory rate 2023-05-25 21:09:00 18 /min [facility] Systolic blood pressure 2023-05-25 18:29:00 106 mm[Hg] [facility] Diastolic blood pressure 2023-05-25 18:29:00 70 mm[Hg] [facility] Heart rate 2023-05-25 18:29:00 100 /min Unive [facility] Body temperature 2023-05-25 18:29:00 36.33 [facility] Respiratory rate 2023-05-25 18:29:00 17 /min [facility] Body height 2023-05-25 18:29:00 137.2 cm [facility] Body weight 2023-05-25 18:29:00 77.593 kg [facility] BMI 2023-05-25 18:29:00 41.24 kg/m2 [facility] Heart rate 2023-05-24 16:54:00 105 /min Unive [facility] Body temperature 2023-05-24 16:54:00 36.72 [facility] Respiratory rate 2023-05-24 16:54:00 18 /min [facility] Body height 2023-05-24 16:54:00 137.2 cm [facility] Body weight 2023-05-24 16:54:00 77.111 kg [facility] BMI 2023-05-24 16:54:00 40.99 kg/m2 [facility] Oxygen saturation in Arterial blood by Pulse oximetry 2023-05-24 16:54:00 99 /min [facility] Systolic blood pressure 2023-05-24 13:55:00 94 mm[Hg] [facility] Diastolic blood pressure 2023-05-24 13:55:00 59 mm[Hg] [facility] Heart rate 2023-05-24 13:55:00 90 /min Unive [facility] Body temperature 2023-05-24 13:55:00 36.44 [facility] Respiratory rate 2023-05-24 13:55:00 17 /min [facility] Body height 2023-05-24 13:55:00 137.2 cm [facility] Body weight 2023-05-24 13:55:00 77.338 kg [facility] BMI 2023-05-24 13:55:00 41.11 kg/m2 [facility] Systolic blood pressure 2023-05-23 19:30:00 97 mm[Hg] [facility] Diastolic blood pressure 2023-05-23 19:30:00 59 mm[Hg] [facility] Heart rate 2023-05-23 19:30:00 98 /min [facility] Oxygen saturation in Arterial blood by Pulse oximetry 2023-05-23 19:30:00 99 /min [facility] Body height 2023-05-23 17:08:00 137.2 cm [facility] Body weight 2023-05-23 17:08:00 77.565 kg [facility] BMI 2023-05-23 17:08:00 41.23 kg/m2 [facility] Body temperature 2023-05-23 16:44:00 36.89 [facility] Respiratory rate 2023-05-23 16:44:00 16 /min [facility] Systolic blood pressure 2023-05-10 13:10:00 95 mm[Hg] [facility] Diastolic blood pressure 2023-05-10 13:10:00 61 mm[Hg] [facility] Heart rate 2023-05-10 13:10:00 89 /min Unive [facility] Body temperature 2023-05-10 13:10:00 36.33 [facility] Respiratory rate 2023-05-10 13:10:00 18 /min [facility] Body height 2023-05-10 13:10:00 137.2 cm [facility] Body weight 2023-05-10 13:10:00 77.837 kg [facility] BMI 2023-05-10 13:10:00 41.37 kg/m2 [facility] Systolic blood pressure 2023-04-26 15:03:00 100 mm[Hg] [facility] Diastolic blood pressure 2023-04-26 15:03:00 60 mm[Hg] [facility] Heart rate 2023-04-26 15:03:00 108 /min Unive [facility] Body temperature 2023-04-26 15:03:00 35.89 [facility] Respiratory rate 2023-04-26 15:03:00 20 /min [facility] Body height 2023-04-26 15:03:00 137.2 cm [facility] Body weight 2023-04-26 15:03:00 77.474 kg [facility] BMI 2023-04-26 15:03:00 41.18 kg/m2 [facility] Systolic blood pressure 2023-04-12 15:33:00 107 mm[Hg] [facility] Diastolic blood pressure 2023-04-12 15:33:00 63 mm[Hg] [facility] Heart rate 2023-04-12 15:33:00 99 /min Unive [facility] Body temperature 2023-04-12 15:33:00 36.11 [facility] Respiratory rate 2023-04-12 15:33:00 18 /min [facility] Body height 2023-04-12 15:33:00 137.2 cm [facility] Body weight 2023-04-12 15:33:00 77.65 kg [facility] BMI 2023-04-12 15:33:00 41.28 kg/m2 [facility] Systolic blood pressure 2023-03-22 15:43:00 96 mm[Hg] [facility] Diastolic blood pressure 2023-03-22 15:43:00 59 mm[Hg] [facility] Heart rate 2023-03-22 15:43:00 88 /min Unive [facility] Body temperature 2023-03-22 15:43:00 36.28 [facility] Respiratory rate 2023-03-22 15:43:00 22 /min [facility] Body height 2023-03-22 15:43:00 137.2 cm [facility] Body weight 2023-03-22 15:43:00 77.973 kg [facility] BMI 2023-03-22 15:43:00 41.45 kg/m2 [facility] Systolic blood pressure 2023-02-22 21:36:00 95 mm[Hg] [facility] Diastolic blood pressure 2023-02-22 21:36:00 65 mm[Hg] [facility] Heart rate 2023-02-22 21:36:00 93 /min Unive [facility] Body temperature 2023-02-22 21:36:00 36.33 [facility] Respiratory rate 2023-02-22 21:36:00 17 /min [facility] Body height 2023-02-22 21:36:00 139.7 cm [facility] Body weight 2023-02-22 21:36:00 76.289 kg [facility] BMI 2023-02-22 21:36:00 39.09 kg/m2 [facility] Systolic blood pressure 2023-01-23 15:31:00 111 mm[Hg] [facility] Diastolic blood pressure 2023-01-23 15:31:00 70 mm[Hg] [facility] Heart rate 2023-01-23 15:31:00 86 /min [facility] Body temperature 2023-01-23 15:31:00 36.44 [facility] Respiratory rate 2023-01-23 15:31:00 18 /min [facility] Body height 2023-01-23 15:31:00 139.7 cm [facility] Body weight 2023-01-23 15:31:00 74.844 kg [facility] BMI 2023-01-23 15:31:00 38.35 kg/m2 [facility] Systolic blood pressure 2022-12-26 14:53:00 99 mm[Hg] [facility] Diastolic blood pressure 2022-12-26 14:53:00 64 mm[Hg] [facility] Heart rate 2022-12-26 14:53:00 78 /min Unive [facility] Body temperature 2022-12-26 14:53:00 36.44 [facility] Respiratory rate 2022-12-26 14:53:00 18 /min [facility] Body height 2022-12-26 14:53:00 139.7 cm [facility] Body weight 2022-12-26 14:53:00 75.524 kg [facility] BMI 2022-12-26 14:53:00 38.70 kg/m2 [facility] Systolic blood pressure 2022-11-09 15:08:00 112 mm[Hg] [facility] Diastolic blood pressure 2022-11-09 15:08:00 71 mm[Hg] [facility] Heart rate 2022-11-09 15:08:00 76 /min Unive [facility] Body temperature 2022-11-09 15:08:00 36.61 [facility] Respiratory rate 2022-11-09 15:08:00 17 /min [facility] Body height 2022-11-09 15:08:00 139.7 cm [facility] Body weight 2022-11-09 15:08:00 74.475 kg [facility] BMI 2022-11-09 15:08:00 38.16 kg/m2 [facility] Procedures Procedure Date / Time Performed Performing Clinician Source CBC WITH DIFF 2023-07-14 10:22:00 [facility] CBC WITH DIFF 2023-07-14 10:22:00 Ly [facility] SURGICAL PATHOLOGY EXAM 2023-07-13 17:27:00 Ana Luisa Wolf [facility] VENOUS CORD GAS 2023-07-13 17:13:00 [facility] 2023-07-13 17:13:00 Natacha Petit [facility] [id number] [place] DELIVERY ONLY 2023-07-13 16:31:00 Ana Luisa Rodriguez [facility] TUBAL LIGATION 2023-07-13 16:31:00 Scar Rodriguez [facility] CENTRAL NEURAXIAL BLOCK 2023-07-13 01:01:00 Keenan Aparicio [facility] HEPATITIS B SURFACE ANTIGEN 2023-07-12 20:19:00 Natacha Petit [facility] HB ABO GROUPING 2023-07-12 20:19:00 Natacha Petit [facility] RHO (D) IMMUNE GLOBULIN 2023-07-12 20:19:00 Pushpa [facility] HIV 1/2 AG-AB WITH REFLEX 2023-07-12 20:19:00 Natacha Petit [facility] SYPHILIS IGG/IGM 2023-07-12 20:19:00 [facility] HEPATIT[facility] B SURFACE ANTIGEN 2023-07-12 20:19:00 Natacha Petit [facility] HB ABO GROUPING 2023-07-12 20:19:00 Natacha Petit [facility] RHO (D) IMMUNE GLOBULIN 2023-07-12 20:19:00 Pushpa [facility] HIV 1/2 AG-AB WITH REFLEX 2023-07-12 20:19:00 Natacha Petit [facility] SYPHILIS IGG/IGM 2023-07-12 20:19:00 Natacha Petit [facility] POCT URINALYSIS W/O SPECIFIC GRAVITY 2023-07-10 14:10:00 Vaishnavi De La Cruz [facility] BASIC METABOLIC PANEL (NA, K, CL, CO2, GLUCOSE, BUN, CREATININE, CA) 2023-07-02 09:22:00 Heidi Jung [facility] CBC WITHOUT DIFF 2023-07-02 09:22:00 [facility] POCT URINALYSIS W/O SPECIFIC GRAVITY 2023-06-29 14:01:00 Indira [facility] SECOND AND THIRD TRIMESTER ULTRASOUND 2023-06-27 16:55:49 Indira [facility] POCT URINALYSIS W/O SPECIFIC GRAVITY 2023-06-22 11:55:00 Vaishnavi De La Cruz [facility] POCT URINALYSIS W/O SPECIFIC GRAVITY 2023-06-15 00:00:00 Indira Alecia [facility] REFERRAL- REQUEST/RESPONSE 2023-06-13 13:50:05 Doctor Unassigned, [place] [facility] SECOND AND THIRD TRIMESTER ULTRASOUND 2023-06-12 13:55:30 Indira [facility] POCT MOLECULAR FLU 2023-06-07 14:40:00 Cailin Jacobson [facility] POCT URINALYSIS W/O SPECIFIC GRAVITY 2023-06-07 14:14:00 Vaishnavi De La Cruz [facility] POCT RAPID FLU A AND B TEST 2023-06-07 00:00:00 Alecia Jacobson [facility] NON-STRESS TEST 2023-05-25 19:07:20 Kinza Jacobson [facility] POCT URINALYSIS W/O SPECIFIC GRAVITY 2023-05-25 18:18:00 Vaishnavi De La Cruz [facility] NON-STRESS TEST 2023-05-24 15:00:19 Kinza Jacobson [facility] POCT URINALYSIS W/O SPECIFIC GRAVITY 2023-05-24 13:45:00 Vaishnavi De La Cruz [facility] COMP. METABOLIC PANEL (15275) 2023-05-23 17:08:00 Latasha [facility] CBC WITH DIFF 2023-05-23 17:08:00 Latasha [facility] URINALYSIS 2023-05-23 17:08:00 Vaishnavi [facility] POCT URINALYSIS W/O SPECIFIC GRAVITY 2023-05-10 13:12:00 Vaishnavi De La Cruz [facility] TDAP VACCINE, >11 YRS, IM 2023-04-26 15:17:48 Indira [facility] POCT URINALYSIS W/O SPECIFIC GRAVITY 2023-04-26 15:14:00 Indira Alecia [facility] STERILIZATION CONSENT FORM 2023-04-26 06:01:00 Doctor Unassigned, [place] [facility] 3 HR GLUCOSE TOLERANCE TEST 2023-04-20 17:35:00 Vaishnavi De La Cruz [facility] 2 HR GLUCOSE TOLERANCE TEST 2023-04-20 16:39:00 Vaishnavi De La Cruz [facility] 1 HR GLUCOSE TOLERANCE TEST 2023-04-20 15:35:00 Vaishnavi De La Cruz [facility] GLUCOSE FASTING 2023-04-20 14:35:00 Vaishnavi De La Cruz [facility] 3 HR GLUCOSE TOLERANCE PANEL 2023-04-20 14:35:00 Vaishnavi De La Cruz [facility] POCT URINALYSIS W/O SPECIFIC GRAVITY 2023-04-12 15:31:00 Vaishnavi De La Cruz [facility] POCT URINALYSIS W/O SPECIFIC GRAVITY 2023-03-22 17:36:00 Vaishnavi De La Cruz [facility] SECOND AND THIRD TRIMESTER ULTRASOUND 2023-03-21 15:29:00 Indira [facility] POCT URINALYSIS W/O SPECIFIC GRAVITY 2023-02-22 21:27:00 Vaishnavi De La Cruz [facility] SECOND AND THIRD TRIMESTER ULTRASOUND 2023-02-07 15:44:00 Indira Alecia [facility] FLU VACC (), 6 MO-64 YRS, .5ML, IM, QUAD (FLUCELVAX) 2023-01-23 15:48:23 Indira Alecia [facility] POCT URINALYSIS W/O SPECIFIC GRAVITY 2023-01-23 15:32:00 Vaishnavi De La Cruz [facility] FIRST TRIMESTER ULTRASOUND 2022-11-30 15:28:00 Vaishnavi De La Cruz [facility] FIRST TRIMESTER ULTRASOUND 2022-11-16 18:35:00 Vaishnavi De La Cruz [facility] POCT URINALYSIS W/O SPECIFIC GRAVITY 2022-11-09 15:01:00 Vaishnavi De La Cruz [facility] POCT TEST 2022-11-09 15:00:00 Abdon De La Cruz [facility] Encounters Start Date/Time End Date/Time Encounter Type Admission Type Attending [facility] Facility Care Department Encounter ID Source 2019-04-06 13:21:00 Inpatient [facility] [id number] 2023-06-13 00:00:00 2024-04-13 02:18:42 Orders Only Doctor Unassigned, [place] Doctor Unassigned, [place] [facility] [id number] 2023-08-24 13:45:00 2023-08-24 15:04:15 Outpatient R SHARLA PULLIAM [facility] [id number] [facility] 2023-08-24 13:45:00 2023-08-24 15:04:15 Office Visit Sharla Pulliam [facility] [employer] [facility] [id number] [facility] 2023-08-03 15:00:00 2023-08-03 15:37:53 Outpatient R SHARLA PULLIAM [facility] [id number] [facility] 2023-08-03 15:00:00 2023-08-03 15:37:53 Routine Visit Sharla Pulliam [facility] [employer] [id number] [facility] 2023-06-27 00:00:00 2023-07-29 18:06:14 Patient Secure Alecia Elena [facility] [employer] [facility] MATERNAL & CHILD [facility] 1.2.840.114 350.1.13.10 4.2.7.2.686 [id number] [facility] 2023-07-20 13:30:00 2023-07-20 13:45:00 Nurse Visit 1, [facility] [place] Clementine Nurse Celeste Hill [facility] [employer] WORK[employer] [facility] MATERNAL & [facility]ILD [facility] Z[facility] 1.2.840.114 350.1.13.10 4.2.7.2.686 [id number] [facility] 2023-07-20 13:30:00 2023-07-20 13:30:00 Outpatient R CELESTE HILL [facility] [id number] [facility] 2023-07-12 13:58:00 2023-07-14 20:30:00 Inpatient P PAPA [facility] [id number] [facility] 2023-07-12 13:58:00 2023-07-14 20:30:00 Hospital Encounter [facility] 1.2.840.114 350.1.13.10 4.2.7.2.686 [id number] [facility] 2023-07-13 13:00:00 2023-07-13 14:55:00 Surgery Ana Luisa Rodriguez [facility] 1.2.840.114 350.1.13.10 4.2.7.2.686 [id number] [id number] [facility] 2023-07-12 19:38:00 2023-07-13 13:09:00 Anesthesia Event Sara Steven, [facility] 1.2840.114 350.1.13.10 4.2.7.2.686 [id number] [facility] 2023-07-10 09:00:00 2023-07-10 09:39:47 Outpatient R ALECIA JACOBSON [facility] [id number] [facility] 2023-07-10 09:00:00 2023-07-10 09:39:47 Routine Visit Indira Alecia [facility] [employer] [facility] MATERNAL & CHILD [facility] 1.840.114 350.1.13.10 4.2.7.2.686 [id number] [facility] 2023-07-02 03:14:00 2023-07-02 08:03:00 Outpatient P EVELIA ROBLEDO [facility] [id number] [facility] 2023-07-02 03:14:00 2023-07-02 08:03:00 Hospital Encounter Mary Lou [facility] 1.284.114 350.1.13.10 4.2.7.2.686 [id number] [facility] 2023-06-29 09:00:00 2023-06-29 09:23:38 Outpatient R ALECIA JACOBSON ALECIA [facility] [id number] [facility] 2023-06-29 09:00:00 2023-06-29 09:23:38 Routine Visit Indira Alecia [facility] [employer] [facility] MATERNAL & CHILD [facility] 1.2840.114 350.1.13.10 4.2.7.2.686 [id number] [facility] 2023-06-28 00:00:00 2023-06-28 00:00:00 Abstract Alecia Jacobson [facility] [employer] [facility] MATERNAL & CHILD [facility] 1.2.840.114 350.1.13.10 4.2.7.2.686 [id number] 125 [id number] [facility] 2023-06-27 08:30:00 2023-06-27 09:12:56 Outpatient R LEN ALANIS [facility] [id number] [facility] 2023-06-27 08:30:00 2023-06-27 09:12:56 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 & CHILD [facility] 1..840.114 350.1.13.10 4.2.7.2.686 [id number] [facility] 2023-06-22 07:00:00 2023-06-22 07:13:22 Outpatient R ALECIA JACOBSON MARYANN [facility] [id number] [facility] 2023-06-22 07:00:00 2023-06-22 07:13:22 Routine Visit Alecia Jacobson [facility] [employer] & CHILD [facility] 1.2.840.114 350.1.13.10 4.2.7.2.686 [id number] [facility] 2023-06-20 00:00:00 2023-06-20 00:00:00 Case Management Alecia Jacobson [facility] 1..840.114 350.1.13.10 4.2.7.2.686 [id number] [facility] 2023-06-15 11:00:00 2023-06-15 11:30:16 Outpatient R JACQUESEUSEBIA ALECIAALECIA MENEZES [facility] [id number] [facility] 2023-06-15 11:00:00 2023-06-15 11:30:16 Routine Visit Indira Alecia [facility] [facility] & CHILD [facility] 1.2.840.114 350.1.13.10 4.2.7.2.686 [id number] [facility] 2023-06-13 00:00:00 2023-06-13 00:00:00 Abstract Jacqueseusebia Alecia [facility] [employer]HEL WORKER [facility] CHILD [facility] 1.2.840.114 350.1.13.10 4.2.7.2.686 [id number] 125 [id number] [facility] 2023-06-13 00:00:00 2023-06-13 00:00:00 Case Management Ana Chamorro 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 & CHILD [facility] 1.2.840.114 350.1.13.10 4.2.7.2.686 [id number] [facility] 2023-06-12 08:30:00 2023-06-12 08:29:12 Outpatient P PAPA [facility] [id number] [facility] 2023-06-07 09:15:00 2023-06-07 09:56:18 Outpatient R ALECIA JACOBSON ALECIA [facility] [id number] [facility] 2023-06-07 09:15:00 2023-06-07 09:56:18 Routine Visit Indira Alecia [facility] [employer]ER [facility] MATERNAL & CHILD [facility] 1..840.114 350.1.13.10 4.2.7.2.686 [id number] [facility] 2023-05-25 15:53:00 2023-05-25 17:38:00 Outpatient P [facility] [id number] [facility] 2023-05-25 15:53:00 2023-05-25 17:38:00 Hospital Encounter [facility] 1..840.114 350.1.13.10 4.2.7.2.686 [id number] [facility] 2023-05-25 13:00:00 2023-05-25 14:05:41 [facility] [id number] [facility] 2023-05-25 13:00:00 2023-05-25 14:05:41 Routine Visit Indira Alecia [facility] [facility] & CHILD [facility] 1.2.840.114 350.1.13.10 4.2.7.2.686 [id number] [facility] 2023-05-25 00:00:00 2023-05-25 00:00:00 Nurse Triage Gunjan Thomas [facility] 1.2.840.114 350.1.13.10 4.2.7.2.686 [id number] [facility] 2023-05-24 11:31:00 2023-05-24 13:07:00 Outpatient P NILESH SILVA [facility] [id number] [facility] 2023-05-24 11:31:00 2023-05-24 13:07:00 Hospital Encounter Nilesh Silva [facility] 1.2.840.114 350.1.13.10 4.2.7.2.686 [id number] [facility] 2023-05-24 09:00:00 2023-05-24 09:15:00 Routine Visit Alecia Jacobson [facility] [employer] WORKER [facility] MATERNAL & CHILD [facility] 1.2.840.114 350.1.13.10 4.2.7.2.686 [id number] [facility] 2023-05-24 09:00:00 2023-05-24 09:00:00 Outpatient R ALECIA JACOBSON ALECIA [facility] [id number] [facility] 2023-05-24 00:00:00 2023-05-24 00:00:00 Telephone Indira Alecia [facility] [facility] & CHILD [facility] 1.2.840.114 350.1.13.10 4.2.7.2.686 [id number] [facility] 2023-05-23 11:33:00 2023-05-23 15:04:00 Outpatient X IVETH RICHARDSON [facility] JUST[facility] [id number] [facility] 2023-05-23 11:33:00 2023-05-23 15:04:00 Hospital Encounter Iveth Richardson [facility] 1.2.840.114 350.1.13.10 4.2.7.2.686 [id number] [facility] 2023-05-21 12:55:00 2023-05-21 14:00:00 Outpatient X NILESH SILVA [facility] [id number] [facility] 2023-05-10 08:00:00 2023-05-10 08:30:50 Outpatient R ALECIA JACOBSON [facility] [id number] [facility] 2023-05-10 08:00:00 2023-05-10 08:30:50 Routine Visit Indira Alecia [facility] [employer] WORKER [facility] MATERNAL & CHILD [facility] 1.840.114 350.1.13.10 4.2.7.2.686 [id number] [facility] 2023-04-26 09:00:00 2023-04-26 09:37:46 Outpatient R ALECIA JACOBSON ALECIA [facility] [id number] [facility] 2023-04-26 09:00:00 2023-04-26 09:37:46 Routine Visit Indira Alecia [facility] [employer]HEL WORKER [facility] CHILD [facility] 1..114 350.1.13.10 4.2.7.2.686 [id number] [facility] 2023-04-26 00:00:00 2023-04-26 00:00:00 Orders Only Doctor Unassigned, [place] [facility] 1..114 350.1.13.10 4.2.7.2.686 [id number] [facility] 2023-04-20 08:00:00 2023-04-20 11:46:06 Outpatient R ALECIA JACOBSON [facility] [id number] [facility] 2023-04-20 08:00:00 2023-04-20 11:46:06 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 & CHILD [facility] 1..114 350.1.13.10 4.2.7.2.686 [id number] 125 [id number] [facility] 2023-04-13 00:00:00 2023-04-13 00:00:00 Case Management Vaishnavi De La Cruz [facility] [employer] & CHILD [facility] 1..114 350.1.13.10 4.2.7.2.686 [id number] [facility] 2023-04-12 09:15:00 2023-04-12 09:57:46 Outpatient R VAISHNAVI DE LA CRUZ [facility] [id number] [facility] 2023-04-12 09:15:00 2023-04-12 09:57:46 Routine Visit Vaishnavi De La Cruz [facility] [employer] & CHILD [facility] 1.2.840.114 350.1.13.10 4.2.7.2.686 [id number] 125 [id number] [facility] 2023-04-03 00:00:00 2023-04-03 00:00:00 Abstract Indira Alecia [facility] & CHILD [facility] 1.2.840.114 350.1.13.10 4.2.7.2.686 [id number] [facility] 2023-03-23 00:00:00 2023-03-23 00:00:00 Abstract Indira Alecia [facility] [employer] WORKER [facility] MATERNAL & CHILD [facility] 1.2.840.114 350.1.13.10 4.2.7.2.686 [id number] 125 [id number] [facility] 2023-03-22 09:15:00 2023-03-22 09:55:40 Outpatient R VAISHNAVI DE LA CRUZ [facility] [id number] [facility] 2023-03-22 09:15:00 2023-03-22 09:55:40 Routine Visit Vaishnavi De La Cruz [facility] [facility] & CHILD [facility] 1..840.114 350.1.13.10 4.2.7.2.686 [id number] [facility] 2023-03-21 09:00:00 2023-03-21 09:32:36 Outpatient P ALECIA JACOBSON ALECIA [facility] [id number] [facility] 2023-03-21 09:00:00 2023-03-21 09:32:36 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, [facility] Room [facility] & CHILD [facility] 1.2.840.114 350.1.13.10 4.2.7.2.686 [id number] [facility] 2023-02-22 15:15:00 2023-02-22 15:49:52 Outpatient R JACQUESEUSEBIA [facility] [id number] [facility] 2023-02-22 15:15:00 2023-02-22 15:49:52 Routine Visit Vaishnavi De La [facility] & CHILD [facility] 1..840.114 350.1.13.10 4.2.7.2.686 [id number] 125 [id number] [facility] 2023-02-08 00:00:00 2023-02-08 00:00:00 [facility] & CHILD [facility] 1..840.114 350.1.13.10 4.2.7.2.686 [id number] 125 [id number] [facility] 2023-02-07 09:00:00 2023-02-07 09:45:56 Outpatient P PAWANDAWSON MINNIE [facility] [id number] [facility] 2023-02-07 09:00:00 2023-02-07 09:45:56 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 2, [facility] 1..840.114 350.1.13.10 4.2.7.2.686 [id number] [facility] 2023-02-02 12:44:00 2023-02-02 12:44:00 Outpatient Jori Tafoya [facility] [id number] [facility] 2023-02-02 09:36:00 2023-02-02 11:16:00 Emergency EM Jori Tafoya [facility] [id number] [facility] 2023-01-29 00:00:00 2023-01-29 00:00:00 Patient Secure Msg Alecia Jacobson [facility] [employer]HEL WORKER [facility] MATERNAL & CHILD [facility] 1.2.840.114 350.1.13.10 4.2.7.2.686 [id number] [facility] 2023-01-23 09:15:00 2023-01-23 10:02:05 Outpatient R ALECIA JACOBSON ALECIA [facility] [id number] [facility] 2023-01-23 09:15:00 2023-01-23 10:02:05 Routine Visit Alecia Jacobson [facility] & CHILD [facility] 1.2.840.114 350.1.13.10 4.2.7.2.686 [id number] 125 [id number] [facility] 2022-12-28 00:00:00 2022-12-28 00:00:00 Case Management Indira [facility] & CHILD [facility] 1.2.840.114 350.1.13.10 4.2.7.2.686 [id number] 125 [id number] [facility] 2022-12-28 00:00:00 2022-12-28 00:00:00 Telephone Indira Alecia [facility] & CHILD [facility] 1.2.840.114 350.1.13.10 4.2.7.2.686 [id number] 125 [id number] [facility] 2022-12-26 09:15:00 2022-12-26 10:22:39 Outpatient R ALECIA JACOBSON MARYANN [facility] [id number] [facility] 2022-12-26 09:15:00 2022-12-26 10:22:39 Routine Visit Indira Alecia [facility] [employer]HEL WORKER [facility] MATERNAL & [facility] 1..840.114 350.1.13.10 4.2.7.2.686 [id number] 125 [id number] [facility] 2022-12-16 12:09:00 2022-12-16 14:06:00 Emergency EM Adonay Tang [facility] [id number] [facility] 2022-11-30 10:00:00 2022-11-30 10:26:31 Outpatient P LEN ALANIS [facility] [id number] [facility] 2022-11-30 10:00:00 2022-11-30 10:26:31 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, [facility] Room Len Alanis [facility] [employer]HEL WORKER [facility] MATERNAL & CHILD [facility] 1..840.114 350.1.13.10 4.2.7.2.686 [id number] [facility] 2022-11-30 00:00:00 2022-11-30 00:00:00 Abstract Vaishnavi De La Cruz [facility] [employer]HEL WORKER [facility] MATERNAL & CHILD [facility] 1..840.114 350.1.13.10 4.2.7.2.686 [id number] [facility] 2022-11-23 08:10:00 2022-11-23 10:02:00 Emergency EM Selena AshleighSavage [facility] [id number] [facility] 2022-11-22 00:00:00 2022-11-22 00:00:00 Telephone Vaishnavi De La Cruz [facility] [employer]HEL WORKER [facility] MATERNAL & CHILD [facility] 1..840.114 350.1.13.10 4.2.7.2.686 [id number] 125 [id number] [facility] 2022-11-18 00:00:00 2022-11-18 00:00:00 Nurse Triage [facility] 1.840.114 350.1.13.10 4.2.7.2.686 [id number] [facility] 2022-11-16 13:00:00 2022-11-16 13:43:17 Outpatient P PAPA [facility] [id number] [facility] 2022-11-16 13:00:00 2022-11-16 13:43:17 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 2, [facility] Room Papa Carlson [facility] [employer]HEL WORKER [facility] MATERNAL & CHILD [facility] 1.2.840.114 350.1.13.10 4.2.7.2.686 [id number] [facility] 2022-11-16 00:00:00 2022-11-16 00:00:00 Abstract Vaishnavi De La Cruz [facility] [employer]HEL WORKER [facility] MATERNAL & CHILD [facility] 1.2.840.114 350.1.13.10 4.2.7.2.686 [id number] 125 [id number] [facility] 2022-11-15 00:00:00 2022-11-15 00:00:00 Case Management Vaishnavi De La Cruz [facility] & CHILD [facility] 1.2.840.114 350.1.13.10 4.2.7.2.686 [id number] 125 [id number] [facility] 2022-11-15 00:00:00 2022-11-15 00:00:00 Telephone Vaishnavi De La Cruz [facility] & CHILD [facility] 1.2.840.114 350.1.13.10 4.2.7.2.686 [id number] 125 [id number] [facility] 2022-11-14 00:00:00 2022-11-14 00:00:00 Telephone Vaishnavi De La Cruz Gloria [facility] [employer]HEL WORKER [facility] MATERNAL & CHILD [facility] 1.2.840.114 350.1.13.10 4.2.7.2.686 [id number] [facility] 2022-11-11 00:00:00 2022-11-11 00:00:00 Patient Secure Msg Vaishnavi De La Cruz Gloria [facility] & CHILD [facility] 1.2.840.114 350.1.13.10 4.2.7.2.686 [id number] 125 [id number] [facility] 2022-11-09 09:30:00 2022-11-09 11:09:34 Initial Visit Vaishnavi De La Cruz Gloria [facility] & CHILD [facility] 1.2.840.114 350.1.13.10 4.2.7.2.686 [id number] 125 [id number] [facility] 2022-11-09 09:30:00 2022-11-09 11:09:34 Outpatient R JONOVAISHNAVI [facility] [id number] [facility] Results Test Description Test Time Test Comments Results Result Co mments Source [facility] (D) IMMUNE [id number] 19:44:15* Test Item Value Reference Range Interpretation Comme nts RHIG CANDIDATE? (test code = 5188) No- see comment Patient is not a candidate for RhIg- Patient is Rh Positive.Performed at [facility] Laboratory Services - [facility] Blood [address] [address]Opcr Free: [phone] No. [id number] [facility] (D) IMMUNE [id number] 19:44:15* Test Item Value Reference Range Interpretation Comme nts RHIG CANDIDATE? (test code = 5188) No- see comment Patient is not a candidate for RhIg- Patient is Rh Positive.Performed at [facility] Laboratory Services [facility] Blood [address] [address]Wudv Free: [phone] No. [id number] [facility] Cord [id number] 18:16:11* Test Item Value Reference Range Interpretation Comme nts BASE EXCESS, CORD (test code = 7130794257) -10.2 mEq/L AC PH, CORD (BEAKER) (test c ode = 1716956488) 7.15 7.18-7.38 L PC02, CORD (test code = 0447694203) 56 32-66 PO2, CORD (test code = 4285611689) 27 10-30 BICARBONATE, CORD (test code = 3615201239) 19 17-27 Lab Interpretation (test cod e = 60444-0) Abnormal [facility] Cord [id number] 18:16:11* Test Item Value Reference Range Interpretation Comme nts BASE EXCESS, CORD (test code = 0752193217) -10.2 mEq/L AC PH, CORD (BEAKER) (test c ode = 6026775016) 7.15 7.18-7.38 L PC02, CORD (test code = 0816274982) 56 32-66 PO2, CORD (test code = 3940521759) 27 10-30 BICARBONATE, CORD (test code = 3059297525) 19 17-27 Lab Interpretation (test cod e = 98800-2) Abnormal [facility] Cord [id number] 18:13:37* Test Item Value Reference Range Interpretation Comme nts VENOUS BASE EXCESS, CORD (te st code = 6008121535) -6.5 mEq/L VENOUS PH, CORD (test code = 1185404567) 7.30 7.25-7.45 VENOUS PC02, CORD (test code = 4711037601) 41 27-49 VENOUS PO2, CORD (test code = 9223838335) 24 17-41 VENOUS BICARBONATE, CORD (te st code = 9350928097) 20 12-29 [facility] Cord [id number] 18:13:37* Test Item Value Reference Range Interpretation Comme nts VENOUS BASE EXCESS, CORD (te st code = 3347429668) -6.5 mEq/L VENOUS PH, CORD (test code = 7709321475) 7.30 7.25-7.45 VENOUS PC02, CORD (test code = 3695704576) 41 27-49 VENOUS PO2, CORD (test code = 8013181550) 24 17-41 VENOUS BICARBONATE, CORD (te st code = 7843797854) 20 12-29 [facility] ONLY - [place] [id number] 15:52:06* Test Item Value Reference Range Interpretation Comme nts Syphilis IgG/IgM (test code = 53709-0) Non-reactive Non-reactive ALAYNA (test code = ALAYNA) Non-reactive - No serologic evidence of T. pallidum infection. Cannot exclude incubating or early syphilis. Submit a second specimen in 2-4 weeks if syphilis is clinically suspected. Equivocal - Further testing to follow. Reactive - Further testing to follow. Lab Interpretation (test code = 35152-7) Normal [facility] ONLY - SYPHILIS [id number] 15:52:06* Test Item Value Reference Range Interpretation Comme nts Syphilis IgG/IgM (test code = 04715-6) Non-reactive Non-reactive ALAYNA (test code = ALAYNA) Non-reactive - No serologic evidence of T. pallidum infection. Cannot exclude incubating or early syphilis. Submit a second specimen in 2-4 weeks if syphilis is clinically suspected. Equivocal - Further testing to follow. Reactive - Further testing to follow. Lab Interpretation (test code = 31620-7) [id number]:01:00 Dorota Martinez MD ? ? 07/12/2023 ?8:04 PM Central Neuraxial Block Date/Time: 07/12/2023 8:01 PM Performed by: Keenan Aparicio, DOAuthorized by: Iveth Vidal MD ?Patient Location: OBReason for Block: OBrequest, Patient request and Labor analgesiaStaff: ?Anesthesiologist: Iveth Vidal MD ?Resident/WOVEN LABEL DESIGNER: Dorota Martinez MD ?Performed by: anesthesiologist and [...] LISETH saline ?Guidance with: landmark techni que}Epidural/Spinal [place] and/or Catheter: ?Epidural/Spinal Kit: Yiun ?Needle Type: Tuohy ?Needle Gauge: 17 G [...] Epidural expectations; PCEA explained and fall precautions given.[facility] Neuraxial [id number] 01:01:00Dorota Martinez MD ? ? 07/12/2023 ?8:04 PM Central Neuraxial Block Date/Time: 07/12/2023 8:01 PM Performed by: Keenan Aparicio, DOAuthorized by: Iveth Vidal MD ?Patient Location: OBReason for Block: OB request, Patient request and Labor analgesiaStaff: ?Anesthesiologist: Iveth Vidal MD ?Resident/WOVEN LABEL DESIGNER: Dorota Martinez MD ?Performed by: anesthesiologist and resident/CRNAPreanesthetic Checklist: patient identified, IV checked, risks and benefits explained, monitors and equipment checked, timeo ut performed, pre-op evaluation, site marked and anesthesia consentProcedure: ?Type of Neuraxial: Epidural ?Epidural Description: 1st attempt ? Sterility Prep cap, drape, gloves, mask and hand hygiene ? ?Sedation Level no sedation ?Patient Position: sitting ?Prep: Betadine and patient draped ? ?Monitoring: heart rate, continuous pulse ox, heart rate / toco and NIBP ?Location: lumbar (1-5) ?Lumbar: L4-L5 ?Approach: midline ? ?Technique: catheter and LISETH saline ?Guidance with: landmark technique}Epidural/Spinal [place] and/or Catheter: ?Epidural/Spinal Kit: BBraun ?Needle Type: Tuohy ?Needle Gauge: 17 G ?Needle Length: 3.5 in (8.89 cm) ?Needle Insertion Depth: 6 ?Catheter Type: multiport ? ?Catheter Size: 19 G ? ?Catheter at Skin Depth: 10 ?Number of Attempts: 1 ?Test Dose: lidocaine 1.5% with epinephrine 1-to-200,000 and negative ? ?Dose: 5 cc ? ?Catheter Securement Method: surgical tape, Tegaderm and liquid medical adhesiveAssessment: ?Procedure Assessment: [...] Epidural expectations; PCEA explained and fall precautions given.[facility] 1/2 AG-AB WITH REFLEX 2023-07-12 22:22:27* Test Item Value Reference Range Interpretation Comme [facility] HIV Semi-quantitative (test code = 27035-3) 0.10 Negative ALAYNA (test code = ALAYNA) Non-reactive for HIV-1 antigen and HIV-1/HIV-2 antibodies. ?No laboratory evidence of HIV infection. ?Repeat in 2-4 weeks if acute HIV infection is suspected. [facility] 1/2 AG-AB WITH [id number] 22:22:27* Test Item Value Reference Range Interpretation Comme nts HIV Semi-quantitative (test code = 44727-7) 0.10 Negative ALAYNA (test code = ALAYNA) Non-reactive for HIV-1 antigen and HIV-1/HIV-2 antibodies. ?No laboratory evidence of HIV infection. ?Repeat in 2-4 weeks if acute HIV infection is suspected. [facility] B Surface Xdpagro2696-04-17 22:13:43 * Test Item Value Reference Range Interpretation Comme nts HBsAg Semi-Quantitative (chris t code = 5195-3) 0.08 Negative [facility] B Surface [id number] 22:13:43 * Test Item Value Reference Range Interpretation Comme nts HBsAg Semi-Quantitative (chris t code = 5195-3) 0.08 Negative [facility] and Screen - ONCE [id number] 20:26:00 * Test Item Value Reference Range Interpretation Comme nts ABO & RH (test code = 20) O POSITIVE IAT (test code = 1185) Negative [facility] and Screen - ONCE [id number] 20:26:00 * Test Item Value Reference Range Interpretation Comme nts ABO & RH (test code = 20) O POSITIVE IAT (test code = 1185) Negative [facility] SPEC[facility] [id number] 14:10:00* Test Item Value Reference Range Interpretation [...] = 3257) Negative Negative - Negati ve [facility] (NA, K, CL, CO2, GLUCOSE, BUN, CREATININE, CA)2023-07-02 10:18:04* Test Item Value Reference Range Interpretation Comme nts NA (test code = 9403715426) 136 mmol/L 135-145 K (test code = 6104040016) 4.1 mmol/L 3.5-5.0 CL (test code = 0531019384) 106 mmol/L 98-108 CO2 TOTAL (test code = 4520065017) 22 mmol/L 23-31 L AGAP (test code = 4322564422) 8 2-16 BUN (test code = 9899278271) 10 mg/dL 7-23 GLUCOSE (test code = 0405689850) 86 mg/dL 70-110 CREATININE (test code = 2160-0) 0.41 mg/dL 0.50-1.04 L CALCIUM (test code = 9022945160) 9.0 mg/dL 8.6-10.6 eGFR (test code = 18105-2) 137.6 mL/min/1.73m2 CKD-EPI eGFR (2020). Assuming creatinine has been stable day-to-day for at least three months, the eGFR indicates Category G1 (>= 90 mL/min/1.73 m2) Lab Interpretation (test code = 94176-8) [facility]normal [facility] without Satx8603-53-78 09:52:42* Test Item Value Reference Range Interpretation [...] 777-3) 298 166-358 MPV (test code = 67966-2) 10.9 fL 9.5-12.9 RDW-CV (test code = 788-0) 13.0 % 12.0-15.5 RDW-SD (test code = 56660-6) 39.2 fL 39.0-49.9 NRBC x10^3 (test code = 0786159348) See_Comment [Automated Xobnia ge] The system which generated this result transmitted reference range: 10*3/?L. The reference range was not used to interpret this result as normal/abnormal. NRBC/100 WBC (test code = 9798999029) 0.0 0.0-10.0 IPF % (test code = 3192003297) Lab Interpretation (test code = 94092-4) [facility] Urinalysis w/o Specific Mcjfyzu2905-74-54 14:01:00* Test Item Value Reference Range Interpretation [...] = 3257) Neg Negative - Negati ve [facility] URINALYSIS W/O SPECIFIC [id number] 11:56:00* Test Item Value Reference Range Interpretation [...] ve Lab Interpretation (test cod e = 12245-8) Normal [facility] Urinalysis w/o Specific Mqvdgyg5848-45-25 16:01:00* Test Item Value Reference Range Interpretation [...] = 3257) negative Negative - Negati ve [facility] RE[facility]/FJLZQPYC5679-93-17 13:50:05 Ordered by an unspecified provider.[facility] Rapid Flu A and B Pmrf9388-05-31 14:57:00* Test Item Value Reference Range Interpretation Comme nts POCT INFLUENZA A (test code = 5216) Negative Negative POCT INFLUENZA B (test code = 5217) Negative Negative [facility] Rapid Flu A and B Hrdm2632-04-75 14:57:00 * Test Item Value Reference Range Interpretation Comme nts POCT INFLUENZA A (test code = 5216) Negative Negative POCT INFLUENZA B (test code = 5217) Negative Negative [facility] Molecular Udp8512-01-50 14:52:12* Test Item Value Reference Range Interpretation Comme nts POCT Molecular FluA (test co de = 07563-0) Negative Negative POCT Molecular FluB (test co de = 62910-1) Negative Negative Lab Interpretation (test cod e = 06923-6) Normal [facility] Molecular Zaz7039-00-48 14:52:12* Test Item Value Reference Range Interpretation Comme nts POCT Molecular FluA (test co de = 57767-4) Negative Negative POCT Molecular FluB (test co de = 88355-1) Negative Negative Lab Interpretation (test cod e = 77030-9) Normal [facility] URINALYSIS W/O SPECIFIC [id number] 14:15:00* Test Item Value Reference Range Interpretation [...] ve Lab Interpretation (test cod e = 26058-2) Normal [facility] URINALYSIS W/O SPECIFIC YMQYRMD8393-93-29 14:15:00* Test Item Value Reference Range Interpretation [...] ve Lab Interpretation (test cod e = 77656-1) [facility] URINALYSIS W/O SPECIFIC [id number] 18:18:00* Test Item Value Reference Range Interpretation [...] ve Lab Interpretation (test cod e = 57393-8) Normal [facility] URINALYSIS W/O SPECIFIC [id number] 13:45:00* Test Item Value Reference Range Interpretation [...] ve Lab Interpretation (test cod e = 42968-1) [facility]normal [facility] Met[facility] Panel (40208)2023-05-23 17:45:19* Test Item Value Reference Range Interpretation Comme nts NA (test code = 4016280733) 136 mmol/L 135-145 K (test code = 4044727540) 3.4 mmol/L 3.5-5.0 L CL (test code = 9569965457) 108 mmol/L 98-108 CO2 TOTAL (test code = 9936036755) 24 mmol/L 23-31 AGAP (test code = 1590491201) 4 2-16 BUN (test code = 6811445081) 7 mg/dL 7-23 GLUCOSE (test code = 1830570454) 89 mg/dL 70-110 CREATININE (test code = 2160-0) 0.35 mg/dL 0.50-1.04 L TOTAL BILI (test code = 9067601657) 0.7 mg/dL 0.1-1.1 CALCIUM (test code = 2238280172) 9.0 mg/dL 8.6-10.6 T PROTEIN (test code = 3802333972) 7.1 g/dL 6.3-8.2 ALBUMIN (test code = 6796475016) 3.7 g/dL 3.5-5.0 ALK PHOS (test code = 3160067683) 131 U/L 34-122 H ALTv (test code = 1742-6) 10 U/L 5-35 AST(SGOT) (test code = 7291962014) 20 U/L 13-40 eGFR (test code = 04563-0) 143.0 mL/min/1.73m2 CKD-EPI eGFR (2020). Assuming creatinine has been stable day-to-day for at least three months, the eGFR indicates Category G1 (>= 90 mL/min/1.73 m2) Lab Interpretation (test code = 43714-4) Abnormal [facility] with Scle6905-42-56 17:20:37* Test Item Value Reference Range Interpretation [...] 33.6 g/dL 31.6-35.1 RDW-SD (test code = 92216-3) 38.3 fL 39.0-49.9 L RDW-CV (test code = 788-0) 12.1 % 12.0-15.5 PLT (test code = 777-3) 313 166-358 MPV (test code = 88885-1) 10.1 fL 9.5-12.9 NRBC/100 WBC (test code = 5756480302) 0.0 0.0-10.0 NRBC x10^3 (test code = 3250032610) See_Comment [Automated messa ge] The system which generated this result transmitted reference range: 10*3/?L. The reference range was not used to interpret this result as normal/abnormal. GRAN MAT (NEUT) % (test code = 770-8) 69.9 % IMM GRAN % (test code = 2135500304) 0.40 % LYMPH % (test code = 736-9) 17.7 % MONO % (test code = 5905-5) 10.8 % EOS % (test code = 713-8) 0.6 % BASO % (test code = 706-2) 0.6 % GRAN MAT x10^3(ANC) (test code = 8391884138) 4.93 10*3/uL 1.88-7.09 IMM GRAN x10^3 (test code = 3500432881) 0.03 10*3/uL 0.00-0.06 LYMPH x10^3 (test code = 731-0) 1.25 10*3/uL 1.32-3.29 L MONO x10^3 (test code = 742-7) 0.76 10*3/uL 0.33-0.92 EOS x10^3 (test code = 711-2) 0.04 10*3/uL 0.03-0.39 BASO x10^3 (test code = 704-7) 0.04 10*3/uL 0.01-0.07 Lab Interpretation (test code = 76937-1) [facility] URINALYSIS W/O SPECIFIC [id number] 13:12:00* Test Item Value Reference Range Interpretation [...] ve Lab Interpretation (test cod e = 32779-3) Abnormal [facility] Urinalysis w/o Specific Wqwyude0135-44-93 15:15:00* Test Item Value Reference Range Interpretation [...] = 3257) Negative Negative - Negati ve [facility] URINALYSIS W/O SPECIFIC [id number] 15:33:00* Test Item Value Reference Range Interpretation [...] = 3257) neg Negative - Negati ve [facility] URINALYSIS W/O SPECIFIC GEFLAWH4558-13-20 17:36:00* Test Item Value Reference Range Interpretation [...] ve Lab Interpretation (test cod e = 17267-3) Normal [facility] URINALYSIS W/O SPECIFIC IFMLVAT7935-53-12 21:27:00* Test Item Value Reference Range Interpretation [...] ve Lab Interpretation (test cod e = 71241-2) [facility]normal [facility] [id number] 11:28:00* Test Item Value Reference Range Interpretation [...] CA) 8.9 mg/dL 8.4-10.2 N HCG SERUM [id number] 11:28:00* Test Item Value Reference Range Interpretation Comme nts HCG SERUM BETA (test code = HCG) 33623.0 mIU/ml 0-5.0 H `INTERPRETATIO N:B-HCG LEVELS <6 SHOULD BE CONSIDERED "NEGATIVE."VALUES BETWEEN 6-25 MIU/ML NEED TO BE RETESTED WITHIN 48hrs. 0-1 WEEKS AFTER CONCEPTION 0-50 MIU/ML1-2 WEEKS AFTER CONCEPTION 40-300 MIU/ML2-3 WEEKS AFTER CONCEPTION 100-1,000 MIU/ML3-4 WEEKS AFTER CONCEPTION 500-6,000 MIU/ML1-2 MONTHS AFTER CONCEPTION 5,000-200,000 MIU/ML2-3 MONTHS AFTER CONCEPTION 10,000-100,000 MIU/ML2ND TRIMESTER 3,000-50,000 MIU/ML3RD TRIMESTER 1,000-50,000 MIU/ML CBC W/O IQAL3044-01-04 10:47:00* Test Item Value Reference Range Interpretation [...] fL 6.7-11.0 N - US PREG AFTER [id number] 10:30:00 [facility])Name: MARY FARLEY : 1995 Sex: F Name: MARY FARLEY [facility] : 1995 Age/S: 27 / F [address] [facility] Unit #: [id number] Loc: [place] [address] Phys: Johanny Castillo Acct: [id number] Dis Date: Status: PRE ER PHONE #: [phone] Exam Date: 02/02/2023 1027 FAX #: [phone] Reason: VAGINAL BLEEDING/PELVIC PAIN EXAMS: CPT CODE: [id number] US PREG AFTER TRI 55234 REASON FOR EXAM: PELVIC PAIN EXAM ORDER DATE: 02/02/2023 9:45 AM Attending:Jori Tafoya MD Provider: Johanny Castillo Location:[facility] PROCEDURE: - DUP AB/PEL/SC COMP, - US PREG AFTER TRI FINDINGS: The cervix is closed with the cervical canal length measured 3.09 cm heart rate is 146 beats perminute. SHAHID is 10 presentation is cephalic. The placenta is posterior and is of grade 0. No ev idence of placental abruption. Questionable low lying placenta [...] Pauline Gramajo RDMS Trnscb Date/Time: 02/02/2023 (1030) LukasR.DKH1 Orig Print D/T: S: 02/02/2023 (1033) Probe: PAGE 1 Signed Report- DUP AB/PEL/SC [id number] 10:30:00[facility])Name: MARY FARLEY : 1995 Sex: F Name: MARY FARLEY [facility] : 1995 Age/S: 27 / F [address] [facility] Unit #: [id number] Loc: [place] [address] Phys: Johanny Castillo Acct: [id number] Dis Date: Status: PRE ER PHONE #: [phone] Exam Date: 02/02/2023 1027 FAX #: [phone] Reason: PELVIC PAIN EXAMS: CPT CODE: [id number] DUP AB/PEL/SC COMP 42362 REASON FOR EXAM: PELVIC PAIN EXAM ORDER DATE: 02/02/2023 9:45 AM Attending:Jori Tafoya MD Provider: Johanny Castillo Location:[facility] PROCEDURE: - DUP AB/PEL/SC COMP, - [...] Pauline Gramajo RDMS Trnscb Date/Time: 02/02/2023 (1030) t.CESARIOR.DKH1 Orig Print D/T: S: 02/02/2023 (0317) Probe: PAGE 1 Signed ReportURINALYSIS [id number] 10:21:00* Test Item Value Reference Range Interpretation [...] Urine Source? Clean CatchPOCT URINALYSIS W/O SPECIFIC [id number] 15:32:00 * Test Item Value Reference Range [...] = 3257) neg Negative - Negati ve [facility] BranchURINALYSIS GIYXPVDH6324-36-23 13:47:00* Test Item Value Reference Range Interpretation [...] NONE A Urine Source? Clean CatchHCG SERUM [id number] 13:44:00* Test Item Value Reference Range Interpretation Comme nts HCG SERUM BETA (test code = HCG) 87462.0 mIU/ml 0-5.0 H INTERPRETATION :B-HCG LEVELS <6 SHOULD BE CONSIDERED "NEGATIVE."VALUES BETWEEN 6-25 MIU/ML NEED TO BE RETESTED WITHIN 48hrs. 0-1 WEEKS AFTER CONCEPTION 0-50 MIU/ML1-2 WEEKS AFTER CONCEPTION 40-300 MIU/ML2-3 WEEKS AFTER CONCEPTION 100-1,000 MIU/ML3-4 WEEKS AFTER CONCEPTION 500-6,000 MIU/ML1-2 MONTHS AFTER CONCEPTION 5,000-200,000 MIU/ML2-3 MONTHS AFTER CONCEPTION 10,000-100,000 MIU/ML2ND TRIMESTER 3,000-50,000 MIU/ML3RD TRIMESTER 1,000-50,000 MIU/ML - US PREG 1ST [id number] 12:59:00 [facility])Name: MARY FARLEY : 1995 Sex: F Name: MARY FARLEY [facility] : 1995 Age/S: 27 / F [address] [facility] Unit #: [id number] Loc: [place] [address] Phys: 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 [place]-rump length (CRL): 3.5 cm corresponds to 10 [...] to 6.3 cm. Masses: None. Doppler: Normal, low-resistanceflow. OTHER Adnexa: Unremarkable. PAGE 1 Signed Report (CONTINUED) Name: MARY FARLEY [facility] : 1995 Age/S: 27 / F [address] [facility] Unit #: [id number] Loc: [place] [address] Phys: Johanna Bauer NP Acct: [id number] Dis Date: Status: PRE ER PHONE #: Exam Date: 12/16/2022 1247 FAX #: [phone] Reason: VAGINAL BLEEDING/PELVIC PAIN EXAMS: CPTCODE: [id number] US PREG 1ST TRIMTR 87665 (Continued) Free Fluid: None. Additional Findings: None. IMPRESSION: Single viable intrauterine with embryonic HR of 118 bpm and AUA of 10 weeks 2 days. Dates are concordant with EGA by LMP. at 1259 Reported and signed by: Duncan Blair M.D. 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 [place]-rump length (CRL): 3.5 cm corresponds to 10 [...] PAGE 1 Signed Report (CONTINUED) [facility] 1995 Age/S: 27 / F [address] [facility] Unit #: [id number] Loc: [place] [address] Phys: Johanna Bauer NP Acct: [id number] Dis Date: Status: PRE ER PHONE #: [phone] Exam Date: 12/16/2022 1247 FAX #: [phone] Reason: PELVIC PAIN EXAMS: CPT CODE: [id number] DUP AB/PEL/SC COMP 62589 (Continued) Free Fluid: None. Additional Findings: None. IMPRESSION: Single viable intrauterine with embryonic HR of 118 bpm and AUA of 10 weeks 2 days. Dates are concordant with EGA by LMP. at 1259 Reported and signed by: Duncan Blair M.D. CC: Rosa Maria Sanches MD; Adonay Tang MD; Johanna Bauer NP Technologist: Pauline Gramajo RDMS Trntxb Date/Time: 12/16/2022 (1259) t.SDR.IB4 Orig Print D/T: S: 12/16/2022 (4019) Probe: PAGE 2 Signed ReportBASIC METABOLIC [id number] 12:55:00* Test Item Value Reference Range Interpretation [...] CA) 9.1 mg/dL 8.4-10.2 N HEPATIC FUNCTION [id number] 12:55:00* Test Item Value Reference Range Interpretation [...] code = ALKP) 63 U/L 38-126 N [id number] 12:55:00* Test Item Value Reference Range Interpretation Comme nts LIPASE (test code = LIP) 34 U/L 16-77 N HCG SERUM [id number] 12:55:00* Test Item Value Reference Range Interpretation Comme nts HCG SERUM QUAL (test code = HCGQL) POSITIVE NEGATIVE A This HCGQL test is NOT applicable for MALE patients.Check with nurse about probable order error.If Tumor Marker Test needed, nurse should order test "HCGTU"(Test #550.45195) CBC W/O [id number] 12:41:00* Test Item Value Reference Range Interpretation [...] fL 6.7-11.0 N - US PREG UT [id number] 09:38:00 [facility] ([facility])Name: MARY FARLEY : 1995 Sex: F [facility]: [facility] 1995 Age/S: 27 / F [address] [facility] Unit #: [id number] Loc: [place] [address] Phys: Suleman Walters MD Acct: [id number] Dis Date: Status: REG ER PHONE #: [phone] Exam Date: 11/23/2022915 FAX #: [phone]: PELVIC PAIN EXAMS: CPT CODE: [id number] US PREG UT TRANSVAGINAL 36083 HISTORY: Pelvic pain. COMPARISON: None available. Location: [facility]. Transabdominal and transvaginal (for better endometrialand [...] Orig Print D/T: S: 11/23/2022 (0942) Probe: [id number] PAGE 1 Signed Report- DUP AB/PEL/SC [id number] 09:38:00 [facility])Name: MARY FARLEY : 1995 Sex: F Name: MARY FARLEY [facility] : 1995 Age/S: 27 / F [address] [facility] Unit #: [id number] Loc: [place] [address] Phys: Suleman Walters MD Acct: [id number] Dis Date: Status: REG ER PHONE #: [phone] Exam Date: 11/23/2022915 FAX #: [phone]: PELVIC PAIN EXAMS: CPT CODE: [id number] DUP AB/PEL/SC COMP 31754 HISTORY: Pelvic pain. CHERI RISON: None available. Location: [facility]. Transabdominal and transvaginal (for better endometrial [...] Probe: PAGE 1 Signed Report- US PREG [id number] 09:38:00 [facility])Name: MARY FARLEY : 1995 Sex: F Name: MARY FARLEY [facility] : 1995 Age/S: 27 / F [address] [facility] Unit #: [id number] Loc: [place] [address] Phys: Suleman Walters MD Acct: [id number] Dis Date: Status: REG ER PHONE #: [phone] Exam Date: 11/23/2022915 FAX #: [phone] Reason: VAGINAL BLEEDING/PELVIC PAIN EXAMS: CPT CODE: [id number] US PREG 1ST TRIMTR 02544 HISTORY: Pelvic pain. COMPARISON: None available. Location: [facility]. Transabdominal and transvaginal (for better endometrial and ovarian evaluation) pelvic ultrasound with color and Doppler flow and grayscale imaging. Anteverted uterus measured 11 x 5 x 7.1 cm. Nabothian cysts within the cervix. Intrauterine gestat ional sac with embryonic pole and yolk sac. [...] CC: Suleman Walters MD Technologist: Radha Pantoja [facility] Date/Time: 11/23/2022 (0938) t.CESARIOR.TH4 Orig Print D/T: S: 11/23/2022 (0942) Probe: PAGE 1 Signed ReportBASIC METABOLIC [id number] 09:35:00* Test Item Value Reference Range Interpretation [...] CA) 8.6 mg/dL 8.4-10.2 N HCG SERUM [id number] 09:35:00* Test Item Value Reference Range Interpretation Comme [facility] HCG SERUM BETA (test code = HCG) 68968.0 mIU/ml 0-5.0 H INTERPRETATION :B-HCG LEVELS <6 SHOULD BE CONSIDERED "NEGATIVE."VALUES BETWEEN 6-25 MIU/ML NEED TO BE RETESTED WITHIN 48hrs. 0-1 WEEKS AFTER CONCEPTION 0-50 MIU/ML1-2 WEEKS AFTER CONCEPTION 40-300 MIU/ML2-3 WEEKS AFTER CONCEPTION 100-1,000 MIU/ML3-4 WEEKS AFTER CONCEPTION 500-6,000 MIU/ML1-2 MONTHS AFTER CONCEPTION 5,000-200,000 MIU/ML2-3 MONTHS AFTER CONCEPTION 10,000-100,000 MIU/ML2ND TRIMESTER 3,000-50,000 MIU/ML3RD TRIMESTER 1,000-50,000 MIU/ML URINALYSIS [id number] 09:01:00* Test Item Value Reference Range Interpretation [...] NONE A Urine Source? Clean CatchC W/O [id number] 08:51:00* Test Item Value Reference Range Interpretation [...] = MPV) 10.1 fL 6.7-11.0 N POCT [id number] 15:01:00* Test Item Value Reference Range Interpretation Comme nts POCT PREG (test code = 1605) Positive On board controls acceptable with C Line (test code = 3574) Yes POCT PREG LOT # (test code = 3575) [id number] POCT PREG TEST DATE ( test code = 3576) 06-27-2023 Lab Interpretation (test cod e = 77965-4) [facility]/O SPECIFIC [id number] 15:01:00* Test Item Value Reference Range Interpretation [...] ve Lab Interpretation (test cod e = 07195-1) Abnormal [facility] Hospital[facility]DIA GC DNA BY [id number] 18:08:00* Test Item Value Reference Range Interpretation Comme nts C. TRACHOMATIS DNA BY PCR (test code = CHLAMTDNA) Negative Negative N. GONORRHOEAE DNA BY PCR (test code = NGONORDNA) Negative Negative Performed At: [facility] [place], [place] [id number] pratima Wolfe MD Ph:[phone] performed at: [facility] [address] [place] [address] URINALYSIS [id number] 14:00:00* Test Item Value Reference Range Interpretation [...] LPF NONE-FEW Urine Source? Clean CatchUR HCG [id number] 14:00:00* Test Item Value Reference Range Interpretation Comme nts UR HCG QUAL (test code = HCGQLU) NEGATIVE This HCGQL test is NOT applicable for MALE patients.Check with nurse about probable order error.If Tumor Marker Test needed, nurse should order test "HCGTU"(Test #550.59834) Urine Source? Clean CatchURINALYSIS [id number] 13:59:00* Test Item Value Reference Range Interpretation [...] HPF NONE Urine Source? Clean CatchUR HCG [id number] 13:59:00* Test Item Value Reference Range Interpretation [...] (%): 0 % / Station: Floating - Malcom : irregular - Plan: IOL with FB and pitocin. Desires epidural for pain relief. PP BTL. Antepartum course reviewed - 1 h 135, 3 hr wnl, sero neg, Ri, VZVi, O+/neg, GBS neg, Pap NIL 11/09/22 - H/H, plt: 10.4 / 31.5, 298 on 07/02/23 - [facility] Fetus - Presentation on admission: vertex, sutures [...] available for consultation. I agree with nurse public information officer, Natacha Petit's note as written. I actively participated in the decision-making process. Please see the nurse public information officer's note for additional details. [facility] 2023-05-23 13:59:34 ANTEPARTUM HISTORY & PHYSICAL IDENTIFYING DATA Mary Farley is 28 year old, /White, 32w0d, female with LEVI 07/18/2023, by Ultrasound. : 1995 Primary Care Physician: [facility] Day: 1 CHIEF COMPLAINT Nausea/vomiting cramping [...] Ate pizza last night at a [employer] but reports others ate the same food [...] in the note below and agree with SOLAR DESIGNER note. I actively participated in the decision-making process. Please see the SOLAR DESIGNER note for additional details. T Iveth Richardson MD 05/23/2023 2:50 PM [facility] Procedure Notes Date/Time Note Provider Source 2023-07-13 [...] this position. IUPC and FSE tracing well. [facility] 2023-07-12 20:01:47 Associated Order(s): Central Neuraxial Block Central Neuraxial Block Date/Time: 07/12/2023 8:01 PM Performed by: Keenan Aparicio DO Authorized by: Iveth Vidal MD Patient Location: OB Reason for Block: OB request, Patient request and Labor analgesia Staff: Anesthesiologist: Iveth Vidal MD Resident/WOVEN LABEL DESIGNER: Dorota Martinez MD Performed by: anesthesiologist and resident/WOVEN LABEL DESIGNER Preanesthetic Checklist: patient identified, IV checked, risks [...] LISETH saline Guidance with: landmark technique} Epidural/Spinal [place] and/or Catheter: Epidural/Spinal Kit: BBraun Needle Type: [...] PCEA explained and fall precautions given. AN-ANESTHESIOLOGY [facility] 2023-07-12 16:40:36 Procedure(s): INSERT CERVICAL DILATOR Pre-Procedure [...] Station: floating Natacha Nunes APRN, CNM [facility] [employer] Notes Date/Time Note Provider Source 2023-07-14 18:32:50 [...] Absence of infection Outcome: [facility]ing as [facility]23-07-14 10:01:17 Post-Anesthesiology Follow-Up Note Mary Farley [...] Rishabh Camacho MD 07/14/2023 10:01 AM AN-ANESTHESIOLOGY [facility] 2023-07-14 06:26:25 Problem: Pain Goal: Control of [...] Outcome: Progressing as expected Cat Otero RN [facility] 2023-07-13 17:36:23 This note was copied from a baby's chart. Assessment (most recent) Assessment - 07/13/23 1730 General Information Visit Initial Percent of weight loss- 0 Mom's age (years) 28 years Erp Manager Used N/A Gestational age 39 weeks Feeding plan Formula Attended class No Breastfeed previously No Delivery method ;BTL Breast changes during None Literature Resources Education How to suppress milk supply Handouts given Turkish Recommended Feeding Plan Recommended feeding plan Frequent xqpr-gd-kwqe time with parents OTHER $ SERVICES Initial Mom is wanting to formula feed only. Information on how to dry up her milk provided. Nelly Armendariz RN,BSN,IBCLC Pager - [phone] Nelly Armendariz RN [facility] 2023-07-13 16:24:16 Problem: Intrapartum process (including labor [...] Outcome: Progressing as expected Alonso Us RN [facility] 2023-07-13 14:07:03 Patient: Mary Farley Procedure Summary Date: 07/12/23 Room / Location: [place] [address] [facility] Anest[facility] Start: 1937 Anesthesia Stop: 07/13/23 1309 [...] 40.96 kg/m? Karla Martinez MD AN-ANESTHESIOLOGY ANESTHESIOLOGIST [facility] 2023-07-13 13:16:54 Delivery Date: 07/13/2023 Delivery Time: 12:10 PM DELIVERY BY SECTION Date of Service: : 07/13/2023 at 12:10 PM Admitted for: sIOL, Primary Lower uterine tranverse section with no extension, Modified Wister BTL, Pfannenstiel, Closed with sutures, EBL 850 cc, No complications, Findings: normal uterus, bilateral ovaries/fallopian tubes Delivery Summary Sex: male Weight: 3390 g 1 Minute 5 Minute 10 Minute Totals: 8 9 Primary Indication: The patient was taken to the operating room for a primary section due to: maternal request at 39w2d weeks. Procedures: Primary Lower uterine tranverse section with no extension Modified Wister bilateral tubal ligation Specimens Removed: Placenta, bilateral fallopian tubal segments Clinical Trials: none Surgeon: Madiha Sanchez MD Sole Buffer Surgeon: Robyn Barrow MD OB Faculty: Ana [...] bladder flap was developed by grasping with [place] forcep and enter with Metzenbaun scissor. Then [...] aid of fundal pressure applied by the therapy assistant surgeon . The body was delivered [...] tube was ligated and resected with Modified Wister technique - [place] clamp was placed on fallopian tube and [...] ligated with 0-plain guts sutures with Modified Wister technique - Ben clamp was placed on [...] time of operative note entered. Please see [facility] for update. The placenta was not sent to pathology. Robyn Barrow MD Associated attestation - Ana Luisa Rodriguez MD - 07/13/2023 5:06 PM CDT I was present for the procedure on 07/13/2023. Please see Dr. Barrow note for additional details. Ana Luisa Rodriguez MD -OBSTETRICS & GYNECOLOGY [facility] 2023-07-13 08:01:25 Problem: Intrapartum process (including labor [...] Outcome: Progressing as expected Trina Sotelo RN [facility] 2023-07-12 20:51:17 Problem: Intrapartum process (including labor pain) Goal: Absence of or reduction of complications of labor Outcome: Progressing as expected Goal: Able to cope with pain Outcome: Progressing as expected Goal: Adequate to move to next level of care Outcome: Progressing as expected Goal: Reduction in pain sensation Outcome: Progressing as expected Lara Ribeiro RN [facility] 2023-07-12 14:43:05 Problem: Intrapartum process (including labor [...] Outcome: Progressing as expected Ophelia Mendoza RN [facility] 2023-07-12 14:37:49 Name/ MRN / Age / Gender: Mary Farley, [id number] 28 year old female BMI: Estimated body [...] (physical exam) Anesthesia Preop: Chart Review and Rfdl-yn-Gpno NPO Status Verified Clear Liquids: > 2 [...] Hyperthyroidism (-) Hypothyroidism Other (-) Tobacco use BUSHEL WORKER Comments: Contractions - Reports contraction q10 min, increasing to q5m over the past two days - Denies vb, lof, and dfm - SVE: 03/23/3, on 2 hr recheck she is unchanged and feels her contractions have ceased - Malcom: quiescent Dizziness - Reports intermittent dizziness since [...] 313 on 05/23/23 - PP control plan: [facility] Fetus - Presentation on admission: cephalic - [...] to surgery. Hold on DOS. Phentermine: Alert [facility] anesthesiologist SGLT2 Inhibitors: "gliflozins" to be [...] Epidural Anesthesia plan discussed with: patient or pharmaceutical specialty representative Post-Operative Analgesia: routine analgesia & antiemetics Recovery Plan: LDR Additional comments: AN-ANESTHESIOLOGY ANESTHESIOLOGIST [facility] 2023-05-26 09:17:08 Patient was seen in clinic 05/25/23. Ramona Venegas RN 05/26/2023 9:17 AM Ramona Tripp RN [facility] 2023-05-25 11:02:00 Regarding: lack of movement , [...] last night and stop Gunjan Thomas RN [facility] 2023-05-25 11:02:00 Triage Assessment Last Clinic Visit: [...] going from standing to sitting. Reports from [id number] had 4 kicks total. Assessment and triage completed per protocol. Patient verbalizes understanding and agrees to follow plan of care. Pt verbalized understanding of need for L&D eval within 1 hr and states will go to [facility] L&D as advised. Pt had no further questions or concerns. Call back advice given and pt verbalized understanding. Gunjan Thomas RN Reason for Disposition [1] 23 or more weeks AND [2] baby moving less today by kick count (e.g., kick count < 5 in 1 hour or < 10 in 2 hours) Protocols used: - Decreased Jiiwnkbc-AYNLP-JH [facility] 2023-05-24 13:38:22 Copied from [facility] #[id number]. Topic: Clinical - Missed Call from Provider >> May 24, 2023 1:37 PM Patient Resident Doctor wrote: Patient states that she is returning a missed call from the provider. Please callback. Thank you. Laura Knott [facility] 2023-05-24 12:56:02 Copied from [facility] #[id number]. Topic: Clinical - Medical Advice >> May 24, 2023 12:51 PM Patient Resident Doctor wrote: Patient calling requesting to speak to SOLAR DESIGNER Alecia Jacobson. Abena Villanueva [facility] 2023-04-20 08:00:00 Images from the original note [...] processed according to instructions and sent to [facility] laboratories per lab order on 04/20/23. Cem Jackson MA 04/20/2023 8:40 AM LT BLUE SST 4 RED LAV PPT DK GREEN (LiHep) DK GREEN (SodH) DAVIS DK BLUE (K2) DK BLUE (S) ACD Blood Culture NIPT/NTD [facility] 2023-02-02 09:46:[address] [facility] ([facility]) EMERGENCY PROVIDER REPORT REPORT#:[id number] REPORT STATUS: Signed DATE:02/02/23 TIME: 945 PATIENT: MARY FARLEY UNIT #: [id number] ROOM/BED: AGE: 27 SEX: F PCP PHYS: [...] HCG Beta Subunit (0 - 5.0 mIU/ml) 33162.0 H Urines Urine Color (YELLOW) YELLOW Urine Appearance (CLEAR) HAZY H Urine pH (5.0 - 8.0) 6.5 Ur Specific [place] (1.001 - 1.035) 1.015 Urine Protein (Neg [...] with treatment plan, instructed to follow-up with BUSHEL WORKER in 2 to 3 days or return [...] Early Additional Instructions 1. Follow-up with your BUSHEL WORKER in 2 to 3 days 2. Return [...] Saw Pt Alone I have reviewed the PA/SOLAR DESIGNER's note and plan of care. I was available for consultation as needed at all times during the patient's visit in the emergency department. I agree with the clinical impression, plan and disposition. at 1159 at 1527 [facility] #:[id number] END OF REPORT [facility] 2022-12-16 13:27:[address] [facility] ([facility]) EMERGENCY PROVIDER REPORT REPORT#:[id number] REPORT STATUS: Signed DATE:12/16/22 TIME: 1326 PATIENT: MARY FARLEY UNIT #: [id number] ROOM/BED: AGE: 27 SEX: F PCP PHYS: Rosa Maria Sanches MD SERVICE AUTHOR: Johanna Bauer SOLAR DESIGNER * ALL edits or amendments must be [...] HCG Beta Subunit (0 - 5.0 mIU/ml) 21908.0 H Urines Urine Color (YELLOW) YELLOW Urine Appearance (CLEAR) CLOUDY H Urine pH (5.0 - 8.0) 8.0 Ur Specific [place] (1.001 - 1.035) 1.015 Urine Protein (Neg [...] of already. Instructed patient to follow-up with BUSHEL WORKER regarding abdominal cramping. She stated precautions given, [...] Provider Referral: Sylvia Britton MD Address: [address] [address] Provider Referral: Negrito Duggan MD Address: [address] [place] [address] Provider Referral: Fatou Clemens MD Address: [address] [place] [address] Discharge Note I have spoken with the [...] Saw Pt Alone I have reviewed the PA/SOLAR DESIGNER's note and plan of care. I was available for consultation as needed at all times during the patient's visit in the emergency department. I agree with the clinical impression, plan and disposition. MidLv/Doc Saw Pt 1 I have personally seen the patient and I evaluated the patient along with involvement of the PA/SOLAR DESIGNER. I agree with the PA/client support manager findings and plan. I have performed all aspects of MDM as documented including: evaluation of the patient/ patient's condition(s), review and analysis of available data, and determination of risk of patient management decisions. MidLv/Doc Saw Pt 2 The PA/SOLAR DESIGNER has seen the patient and I have performed this visit along with the involvement of the PA/SOLAR DESIGNER. I agree with the PA/client support manager findings and plan. I have performed all aspects of MDM as documented including: evaluation of the patient/ patient's condition(s), review and analysis of available data, and determination of risk of patient management decisions. at 1506 at 0758 RPT #:[id number] END OF REPORT [facility] 2022-11-23 08:37:[address] [facility] ([facility]) EMERGENCY PROVIDER REPORT REPORT#:[id number] REPORT STATUS: Signed DATE:11/23/22 TIME: 0837 PATIENT: MARY FARLEY UNIT #: [id number] ROOM/BED: AGE: 27 SEX: F PCP PHYS: [...] HCG Beta Subunit (0 - 5.0 mIU/ml) 49464.0 H Urines Urine Color (YELLOW) YELLOW Urine Appearance (CLEAR) SLIGHT HAZY H Urine pH (5.0 - 8.0) 6.5 Ur Specific [place] (1.001 - 1.035) 1.015 Urine Protein (Neg [...] 3/7 wga with bradycardia to 118 HCG 25995 O+ Address: [address] [place] [address] [place] [address] Discharge Note I have spoken with the [...] Notes I discussed all findings with 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 Patient improved and stable for discharge home with outpatient follow-up. Warning signs and return precautions reviewed and all questions answered. at 1453 RPT #:[id number] END OF REPORT [facility] 2022-11-14 09:28:02 Formatting of this n ote [...] US to be given. Pt now has [facility] approval and has chose the [facility]. Please issue the referral for the [phone] (home) Ayana Dodson [facility] 2019-04-06 13:30:[address] [facility] ([facility]) EMERGENCY PROVIDER REPORT REPORT#:[id number] REPORT STATUS: Signed DATE:04/06/19 TIME: 1330 PATIENT: MARY FARLEY UNIT #: [id number] ROOM/BED: AGE: 23 SEX: F PCP PHYS: No Primary or Family Physician SERVICE AUTHOR: Anisa Cevallos SOLAR DESIGNER * ALL edits or amendments must be [...] pH (5.0 - 8.0) 7.0 Ur Specific [place] (1.001 - 1.035) 1.010 Urine Protein (Neg [...] a call to 911. at 1422 RPT #:[id number] END OF REPORT [facility] 2019-04-06 13:30:[address] [facility] ([facility]) EMERGENCY PROVIDER REPORT REPORT#:[id number] REPORT STATUS: Signed DATE:04/06/19 TIME: 1329 PATIENT: MARY FARLEY UNIT #: [id number] ROOM/BED: AGE: 23 SEX: F PCP PHYS: No Primary or Family Physician SERVICE AUTHOR: Anisa Cevallos SOLAR DESIGNER * ALL edits or amendments must be [...] pH (5.0 - 8.0) 7.0 Ur Specific [place] (1.001 - 1.035) 1.010 Urine Protein (Neg [...] Saw Pt Alone I have reviewed the PA/SOLAR DESIGNER's note and plan of care. I was available for consultation as needed at all times during the patient's visit in the emergency department. I agree with the clinical impression, plan and disposition. at 1422 at 1431 RPT #:[id number] END OF REPORT [facility] 2019-04-06 13:30:[address] [facility] ([facility]) EMERGENCY PROVIDER REPORT REPORT#:[id number] REPORT STATUS: Signed DATE:04/06/19 TIME: 1330 PATIENT: MARY FARLEY UNIT #: [id number] ROOM/BED: AGE: 23 SEX: F PCP PHYS: [...] pH (5.0 - 8.0) 7.0 Ur Specific [place] (1.001 - 1.035) 1.010 Urine Protein (Neg [...] Saw Pt Alone I have reviewed the PA/SOLAR DESIGNER's note and plan of care. I was available for consultation as needed at all times during the patient's visit in the emergency department. I agree with the clinical impression, plan and disposition. at 1422 at 1431 Addendum 1: 04/06/19 1439 by Anisa Cevallos NP [facility] 164 at 1440 RPT #:[id number] END OF REPORT [facility] 2019-04-06 13:30:[address] [facility] ([facility]) EMERGENCY PROVIDER REPORT REPORT#:[id number] REPORT STATUS: Signed DATE:04/06/19 TIME: 1330 PATIENT: MARY FARLEY UNIT #: [id number] ROOM/BED: AGE: 23 SEX: F PCP PHYS: [...] pH (5.0 - 8.0) 7.0 Ur Specific [place] (1.001 - 1.035) 1.010 Urine Protein (Neg [...] Saw Pt Alone I have reviewed the PA/SOLAR DESIGNER's note and plan of care. I was available for consultation as needed at all times during the patient's visit in the emergency department. I agree with the clinical impression, plan and disposition. at 1422 at 1431 Addendum 1: 04/06/19 1439 by Anisa Cevallos NP [facility] 164 at 1440 Addendum 2: 04/06/19 1441 by Anisa Cevallos NP Disregard [facility] Wrong pt at 1441 RPT #:[id number] END OF REPORT [facility]
[2024-11-14] MEDS ORDERED: LOPERAMIDE HCL 2 MG CAPSULE ONE (23:14)
[2024-11-14] MEDS ORDERED: FAMOTIDINE 20 MG TAB ONE (23:14)
[2024-11-14] MEDS ORDERED: ONDANSETRON 4 MG (ODT) TAB ONE (23:14)
--- NOTE | 2024-11-15 00:15 | EDPHYS ---
Physician Documentation [facility] Name: Mary Farely Age: 29 yrs Sex: Female : 1995 Arrival Date: 11/14/2024 Time: 22:39 Bed 18 Private MD: ED Physician Shon Tejada HPI: 11/14 23:10 This 29 yrs old Female presents to ER via Ambulatory with complaints of cp Abdominal Pain, Diarrhea. 23:10 The patient presents with abdominal pain diarrhea and nausea. Onset: The cp symptoms/episode began/occurred today. Associated signs and symptoms: Pertinent negatives: blood in stools, chest pain, constipation, fever, vomiting, vomiting blood. The symptoms are described as crampy. Severity of pain: in the emergency department the pain is unchanged despite home interventions. 23:10 Patient is a 29-year-old female with no significant past medical history returns to the emergency department after being seen earlier today for abdominal pain and being diagnosed with gallstones. Patient reports she was discharged and while at home today started having some diarrhea and nausea. No vomiting but each time she tries to drink or eat it just passes right through her. She denies any blood in her stools until she returns for reevaluation. Historical: - Allergies: 22:55 No Known Allergies; cp4 - PSHx: 22:55 section; tubal ligation; cp4 - Immunization history:: Adult Immunizations up to date. - Infectious Disease History:: Denies. - Social history:: Smoking status: Patient denies any tobacco usage or history of. ROS: 23:15 Constitutional: Negative for body aches, chills, fever, poor PO intake, cp 23:15 Eyes: Negative for injury, pain, redness, and discharge, cp 23:15 ENT: Negative for drainage from ear(s), ear pain, sore throat, difficulty swallowing, difficulty handling secretions, 23:15 Abdomen/GI: Positive for abdominal pain, nausea, diarrhea, 23:15 Neuro: Negative for altered mental status, headache, weakness, 23:15 All other systems are negative, Exam: 23:15 Head/Face: Normocephalic, atraumatic. cp 23:15 Constitutional: The patient appears in no acute distress, alert, awake, non-toxic, well developed, well nourished, uncomfortable, overweight 23:15 Eyes: Periorbital structures: appear normal, Conjunctiva: normal, no exudate, no injection, Sclera: no appreciated abnormality, Lids and lashes: appear normal, bilaterally, 23:15 ENT: External ear(s): are unremarkable, Nose: is normal, Mouth: Lips: moist, Oral mucosa: moist, 23:15 Chest/axilla: Inspection: normal, 23:15 Cardiovascular: Rate: tachycardic, Rhythm: regular, 23:15 Respiratory: the patient does not display signs of respiratory distress, Respirations: normal, no use of accessory muscles, no retractions, labored breathing, is not present, Breath sounds: are clear throughout, no decreased breath sounds, no stridor, no wheezing, 23:15 Abdomen/GI: Inspection: abdomen appears normal, Bowel sounds: active, Palpation: soft, in all quadrants, mild abdominal tenderness, in the right lower quadrant and left lower quadrant, rebound tenderness, is not appreciated, involuntary guarding, is not appreciated, 23:15 Back: pain, is absent, ROM is normal, Vital Signs: 22:52 BP 131 / 87; Pulse 104; Resp 18; Temp 97.6; Pulse Ox 100% ; cp4 23:54 BP 110 / 80; Pulse 88; Resp 18; Temp 98.2; Pulse Ox 99% ; Pain 0/10; kt5 23:54 Pain Scale: Adult kt5 MDM: 22:51 Medical Screening Exam initiated sonny 23:00 Differential diagnosis: appendicitis, bowel obstruction, cholecystitis, Cholelithiasis, cp gastritis, Ureterolithiasis, urinary tract infection. 11/15 00:15 Data reviewed: vital signs, nurses notes. cp 00:15 Counseling: I had a detailed discussion with the patient and/or guardian regarding the cp historical points, exam findings, and any diagnostic results supporting the discharge/admit diagnosis. Response to treatment: the patient's symptoms have markedly improved after treatment, and as a result, I will discharge patient. Special discussion: Based on the patient's Hx, exam, and Dx evaluation, there is no indication for emergent surgery or inpatient Tx. It is understood by the patient/guardian that if the Sx's persist or worsen they need to return immediately for re-evaluation. Administered Medications: 11/14 23:18 Drug: Ondansetron PO 4 mg PO once Route: PO; 11/15 00:42 Follow up: Response: No adverse reaction 5 11/14 23:18 Drug: Loperamide PO 4 mg PO once Route: PO; 11/15 00:42 Follow up: Response: No adverse reaction 5 11/14 23:18 Drug: Famotidine PO 20 mg PO once Route: PO; 11/15 00:41 Follow up: Response: No adverse reaction kt5 Disposition Summary: 11/15/24 00:15 Discharge Ordered Notes: Location: Home cp Problem: new cp Symptoms: have improved cp Condition: Stable cp Diagnosis - Diarrhea, unspecified cp - Nausea cp - Other cholelithiasis without obstruction cp Followup: cp - With: Sp Coronado MD - When: 1 - 2 days - Reason: Recheck today's complaints Discharge Instructions: - Discharge Summary Sheet cp - Food Choices to Help Relieve Diarrhea, Adult cp - Diarrhea, Adult cp - Nausea, Adult cp - Cholelithiasis cp Forms: - Medication Reconciliation Form cp - Antibiotic Education cp - Prescription Opioid Use cp - Patient Portal Instructions cp - Leadership Thank You Letter cp Prescriptions: - Zofran 4 mg Oral Tablet - take 1 tablet ORAL route every 12 hours As needed; 20 tablet; Refills: 0, cp Product Selection Permitted Addendum: 11/18/2024 11:34 Co-signature as Attending Physician, Shon Tejada MD I agree with the assessment and c morillo plan of care. Signatures: Shon Tejada MD MD cha Page, Corey, PA-C PA-C cp Nette Michel, RN RN 1 Olga Neff cp4 Marylin Marroquin RN kt5
--- NOTE | 2024-11-15 00:15 | ER ---
Nurse's Notes [facility] Name: Mary Farley Age: 29 yrs Sex: Female : 1995 Arrival Date: 11/14/2024 Time: 22:39 Bed 18 Private MD: Diagnosis: Diarrhea, unspecified;Nausea;Other cholelithiasis without obstruction Presentation: 11/14 22:52 Chief complaint: Patient states: diarrhea that started after being discharge from ER cp4 earlier today for gallstones. Coronavirus screen: Client denies travel out of the [place] in the last 14 days. At this time, the client does not indicate any symptoms associated with coronavirus-19. Ebola Screen: Patient negative for fever greater than or equal to 101.5 degrees Fahrenheit, and additional compatible Ebola Virus Disease symptoms Patient denies exposure to infectious person. Patient denies travel to an Ebola-affected area in the 21 days before illness onset. No symptoms or risks identified at this time. Initial Sepsis Screen: Does the patient meet any 2 criteria? HR > 90 bpm. No. Patient's initial sepsis screen is negative. Does the patient have a suspected source of infection? No. Patient's initial sepsis screen is negative. Risk Assessment: Do you want to hurt yourself or someone else? Patient reports no desire to harm self or others. Onset of symptoms was November 14, 2024. 22:52 Method Of Arrival: Ambulatory cp4 22:52 Acuity: ANABELLA 3 cp4 Triage Assessment: 22:55 General: Appears in no apparent distress. uncomfortable, Behavior is calm, cooperative, cp4 appropriate for age. Pain: Complains of pain in abdomen Pain currently is 5 out of 10 on a pain scale. GI: Abdomen is round non-distended, Reports diarrhea, nausea. Historical: - Allergies: 22:55 No Known Allergies; cp4 - PSHx: 22:55 section; tubal ligation; cp4 - Immunization history:: Adult Immunizations up to date. - Infectious Disease History:: Denies. - Social history:: Smoking status: Patient denies any tobacco usage or history of. Screenin:[address] [facility] ED Fall Risk Assessment (Adult) History of falling in the last 3 months, kt5 including since admission No falls in past 3 months (0 pts) Confusion or Disorientation No (0 pts) Intoxicated or Sedated No (0 pts) Impaired Gait No (0 pts) Mobility Assist Device Used No (0 pt) Altered Elimination No (0 pt) Score/Fall Risk Level 0 - 2 = Low Risk Oriented to surroundings, Maintained a safe environment. Abuse screen: Denies threats or abuse. Nutritional screening: No deficits noted. Nutritional screening: No deficits noted. Tuberculosis screening: No symptoms or risk factors identified. Assessment: 22:56 General: Appears in no apparent distress. comfortable, Behavior is calm, cooperative, kt5 appropriate for age. Neuro: No deficits noted. Dyson Agitation-Sedation Scale (RASS): 0 - Alert and Calm Level of Consciousness is awake, alert, obeys commands, Oriented to person, place, time, situation. Cardiovascular: No deficits noted. Denies chest pain, Heart tones S1 S2 present Capillary refill < 3 seconds Clubbing of nail beds is absent JVD is absent. Respiratory: No deficits noted. Airway is patent Trachea midline Respiratory effort is even, unlabored, Respiratory pattern is regular, symmetrical. GI: No deficits noted. Abdomen is round non-distended, Bowel sounds present X 4 quads. Abd is soft X 4 quads Abdomen is tender to palpation in right lower quadrant and left lower quadrant constant diarrhea and discomfort when having a bm Reports diarrhea. : No deficits noted. No signs and/or symptoms were reported regarding the genitourinary system. Derm: Skin is intact, is healthy with good turgor, Skin is dry, Skin is pink, warm \T\ dry. normal. Musculoskeletal: No deficits noted. No signs and/or symptoms reported regarding the musculoskeletal system. 23:54 Reassessment: Patient appears in no apparent distress at this time. Patient and/or kt5 family updated on plan of care and expected duration. Pain level reassessed. Patient is alert, oriented x 3, equal unlabored respirations, skin warm/dry/pink. Patient states feeling better. Patient states symptoms have improved. Vital Signs: 22:52 BP 131 / 87; Pulse 104; Resp 18; Temp 97.6; Pulse Ox 100% ; cp4 23:54 BP 110 / 80; Pulse 88; Resp 18; Temp 98.2; Pulse Ox 99% ; Pain 0/10; kt5 23:54 Pain Scale: Adult kt5 ED Course: 22:41 Patient arrived in ED. mr 22:43 [facility]te[facility] cp 22:43 Shon Tejada MD is Attending Physician. cp 22:49 Marylin Marroquin, RN is Primary Nurse. kt5 22:55 Triage completed. cp4 22:55 Arm band placed on right wrist. Patient placed in waiting room. cp4 22:56 Bed in low position. Call light in reach. Side rails up X 1. Adult w/ patient. Client kt5 placed on continuous cardiac and pulse oximetry monitoring. NIBP monitoring applied. 22:56 No provider procedures requiring assistance completed. kt5 11/15 00:14 Sp Coronado MD is Referral Physician. cp Administered Medications: 11/14 23:18 Drug: Ondansetron PO 4 mg PO once Route: PO; [facility] 11/15 00:42 Follow up: Response: No adverse reaction kt5 11/14 23:18 Drug: Loperamide PO 4 mg PO once Route: PO; [facility] 11/15 00:42 Follow up: Response: No adverse reaction kt5 11/14 23:18 Drug: Famotidine PO 20 mg PO once Route: PO; [facility] 11/15 00:41 Follow up: Response: No adverse reaction kt5 Medication: 11/14 22:56 VIS not applicable for this client. kt5 Outcome: 11/15 00:15 Discharge ordered by . cp 00:42 Patient left the ED. kt5 Signatures: Jameson Ashleigh, Reg Reg Shannon ROLDAN Menendez PA-C cp Nette Michel RN RN 1 Olga Neff 4 Marylin Marroquin, RN RN kt5 Corrections: (The following items were deleted from the chart) 00:41 11/14 23:54 BP 110 / 80; Pulse 88bpm; Resp 18bpm; Pulse Ox 99%; kt5 kt5
[2024-11-15 01:13] VITALS: BP 110/80; TEMP 98.2; O2SAT 99
== END 2024-11-15 00:42 | disposition home or self-care (01) ==
LOC: ER 22:39
DX: K80.80 Other cholelithiasis without obstruction (principal); R19.7 Diarrhea, unspecified; R11.0 Nausea
CPT/HCPCS: 99283; Q0162